=== PATIENT | male | born 1990 | race Caucasian/White ===

== ENCOUNTER 2017-03-24 09:00 | Outpatient (RCR) | payer MEDICAID, SELFPAY ==
--- NOTE | 2017-03-24 10:32 | BH.MDN ---
Multi-Disciplinary Note - Note 60-min Individual Time Started:: 09:02 Date: 03/24/17 Purpose of session/treatment goals addressed:: Purpose of this session was to check-in with Client regarding current symptomology and utilization of healthy coping skills while managing current stressors. Another purpose was to review treatment progress and goals moving forward. Eye Contact:: Good Motor Activity:: Appropriate Appearance:: Casual Speech:: Appropriate Mood:: Euthymic, Anxious Affect:: Congruent Thoughts:: Linear, Logical, No evidence of hallucinations/delusions noted Staff Interventions:: Therapist used open-ended and furthering questions to ellicit information regarding Client current symptoms, stressors, and means for coping. Provided support and encouragement through the use of reflective listening and strength-based responses in order to highlight Client progress and promote confidence. Therapist applied Motivational Interviewing techniques to work with Client on challenging current use of negative thinking patterns and counter productive behaviors through the use of positive reframing and establishing daily goals. Reviewed previously identified healthy coping skills Client may use. Client Response:: Client responded well to session and was engaged throughout. He shared with therapist struggling to adjust to disappointing news that he will not be able to return to the [facility] until next program start date as the program would prefer CLient take additional time to focus on his mental health. Client indicated that this information had been difficult to hear however is glad to finally have a concrete answer regarding whether he would be able to return. Client discussed attempting to refocus his attention on what he needs to do now in order to best support himself but is struggling to take the first steps in doing so. He indicates knowing that he should look for sustainable employment however feels discouraged in doing so as he has a criminal record. CLient responded well to being challenged as to whether his legal history would completely prevent employment and was able to identify that he has been able to secure employment in the past despite having a criminal record. Client disclosed spending a majority of the past week isolating and stated I just don't want to deal with people. He was able to identify that when engaging in isolating behaviors in the past his symtoms of depression increased, ultimately resulting in hospitalization. Client identified not wanting to regress and shared a desire to continue to improve in order to improve his odds of being able to have regular visitation with his son. CLient was willing to work with therapist on identifying ways he may reduce isolation in the area and noted that he would like to reinvolve himself in [employer] as well as actually move forward with plans to volunteer at the [employer]. Client open to seeking employment assistance and was given resource information for the [facility] Assistance Program. Client stated planning to stop by the [facility] following group on this date so as to ensure he follows through with taking steps towards maintaining progress. Risks/Concerns:: No risks or concerns at this time. Client denies active suicidal or homicidal ideation, plan, or intent as of 03/24/17. Client indicates future orientation AEB plans to go to the [facility] following group on this date. Client expresses ability to maintain safety and is aware of and willing to utilize the Crisis resources available should he feel unable to maintain safety at any time. Progress Toward Goals/Plan:: Progress. Client has shown progress in regards to symptoms of depression as he is no longer reporting Suicidal Ideation or passive thoughts of . Client indicates some fleeting thoughts of self harming however expresses no plan or intent of acting on these thoughts. During times in which Client is experiencing increased stress/frustration/disapointment he is increasingly able to identify ways of positively reframing or distracting himself. Client continues to report struggling with isolation and not reaching out to supports however expresses a willingness to get involved with [employer] in attempts to improve number of available supports. Client is recommended to remain in IOP level of care to prevent decompensation, maintain consistant stability, and continue to improve on regular use of identified healthy coping skills. Time Stopped:: 10:07
--- NOTE | 2017-03-24 14:39 | BH.SGPN ---
Service Group Progress Note - Session Psychotherapy Session #2 Date Open:: 03/24/17 Time Started:: 10:15 Time Stopped:: 11:10 Targeted Problem #:: 1 Type of Group:: Illness Management Goal of Group:: The goal of group was to increase understanding of the benefits social support provides in mental health wellness. Another goal was to increase self-awareness of what qualities the individual group members look for in a person. Eye Contact:: Fair Motor Activity:: Appropriate Appearance:: Casual Speech:: Appropriate Mood:: Dysthymic Affect:: Congruent Thoughts:: Linear, Logical, No evidence of hallucinations/delusions noted Staff Interventions:: Therapist led an experiential activity that demonstrated the need of supports. Processed activity and led discussion about quote. Therapist led group discussion about importance of social supports. Identified what qualities a positive support person would have. Support was provided through reflective listening and giving feedback. Psychotherapy Session #3 Date Open:: 03/24/17 Time Started:: 11:20 Time Stopped:: 12:20 Targeted Problem #:: 1 Type of Group:: Functional Skills Development Goal of Group:: The goal of group was to increase understanding of the different types of social support. Another goal was to identify one type of support the clients desire and establish one small step towards achieving that support. Eye Contact:: Fair Motor Activity:: Appropriate Appearance:: Casual Speech:: Appropriate Mood:: Dysthymic Affect:: Congruent Thoughts:: Linear, Logical, No evidence of hallucinations/delusions noted Staff Interventions:: Therapist facilitated group discussion on the different types of social support and importance of each type of support. A worksheet titled Plan for Seeking Support was utilized to give clients direction in identifying which type of support they desired and identifying the first small step towards the desired support.
--- NOTE | 2017-03-24 16:43 | BH.COMM ---
Communication Note - Communication with Client Communication Note: Client called to share with therapist successfully attending several groups at the [facility] today. He indicated feeling glad that he had done so and expressed plans to attend on a later date. Client additionally informed therapist that he had forgetten about another appointment scheduled for tomorrow and will no longer be able to attend group however is still planning to attend on Wednesday.
--- NOTE | 2017-03-26 14:14 | BH.SGPN_ITS ---
Service Group Progress Note - Session Psychotherapy Session #2 Date Open:: 03/26/17 - 7 group members Time Started:: 10:20 Time Stopped:: 11:15 Targeted Problem #:: 1 Type of Group:: Illness Management Goal of Group:: To identify within self what is keeping client trapped from achieving better quality of life. Client Response/Progress/Benefit:: Client responded well to session, active participant. Client connected with the quote sharing we put up our own cannon by shutting people out. Client identified barriers that keep people stuck such as negative thoughts, depression, boundaries, and low self-esteem. Client reported negative thinking patterns impact emotions and behaviors. Client identified thoughts that keep him stuck to be I'm not a good enough father, what's the point, and people wouldn't miss me if I was gone. Client appeared to benefit from gaining awareness of how his thoughts exacerbate depression and keep client in an unhelpful maintenance cycle. Client progressing with gaining awareness of how his negative thoughts keep client stuck in an unhelpful maintenance cycle, but continues to report difficulty in challenging thoughts by himself. Eye Contact:: Good Motor Activity:: Appropriate Appearance:: Casual Speech:: Appropriate Mood:: Dysthymic Affect:: Other - incongruent as shown by client's report of a depressed mood from not seeing his children, but smiling while expressing this. Thoughts:: Linear, No evidence of hallucinations/delusions noted Staff Interventions:: Therapist facilitated discussion about what is keeping client?s stuck from moving toward mental wellness. Therapist assisted clients in connecting how thoughts can contribute to keeping clients stuck. Therapist led discussion about barriers clients face from making changes to help one move forward. Therapist provided support by using active listening and giving feedback to others.
--- NOTE | 2017-03-26 14:38 | BH.SGPN ---
Service Group Progress Note - Session Psychotherapy Session #1 Date Open:: 03/26/17 Time Started:: 09:08 Time Stopped:: 10:16 Targeted Problem #:: 1 Type of Group:: Process - 7 Participants Goal of Group:: The goal of today's group was to check-in with client's mood, stressors, and positives, review homework, and to introduce the topic of the day. Client Response/Progress/Benefit:: Client entered session alert and attentive. Client spoke about attending [employer] and playing board games. Client shared that his piano case maker told him he wouldnt be able to see his son for the next couple of weeks and will also need to be drug-tested. Client was upset by this and also shared that he will be seeing his ex- in court next week in [place] and reports, I dont want to go. I know my boundaries with her. Client shared he may go to an escape room with his family this weekend but then stated, I probably wont feel like it. Client identify one positive thing she will do for himself is cook a meal. Client indicated his emotion as nervous and benefitted from group by venting frustrations with peers. Progress noted in clients increased insight. Continued treatment necessary to reduce anxiety levels. Eye Contact:: Good Motor Activity:: Appropriate Appearance:: Casual Speech:: Appropriate Mood:: Euthymic Affect:: Full Thoughts:: Linear, Logical, No evidence of hallucinations/delusions noted Staff Interventions:: Therapist used open-ended questions to elicit information about client's current stressors and mood. Therapist was supportive by using active listening and reflection. Psychotherapy Session #3 Date Open:: 03/26/17 Time Started:: 11:30 Time Stopped:: 12:20 Targeted Problem #:: 1 Type of Group:: Functional Skills Development - 7 Participants Goal of Group:: To identify what client can do to release self from those things that are trapping them to find more peace and quality in everyday life. Client Response/Progress/Benefit:: Client was alert, attentive, and willing to engage in group. Client was an active participant. Client identified a negative thought that is impacting him as, Im a bad parent. Client participated in group activity in which he used the maintenance cycle worksheet to explore how this thought increases symptoms of depression and anxiety. Client reported this as a realistic thoughts as he reports, I could be a bad dad, but it is unrealistic as client uses, negative thinking, doesnt eat, isolates, feels more depressed and suicidal thoughts begin. Client created an alternative thought of, I will make the most out of being a better father. Client stated when he thinks this way it decrease isolation, loneliness, and increases intake of food. Client benefitted from group challenging negative thought patterns that increase isolation and depression. Progress noted in clients awareness of negative thoughts but continued treatment necessary to challenge and incorporate coping skills for negative thinking. Eye Contact:: Good Motor Activity:: Appropriate Appearance:: Casual Speech:: Appropriate Mood:: Euthymic Affect:: Full Thoughts:: Linear, Logical, No evidence of hallucinations/delusions noted Staff Interventions:: Therapist used examples of maintenance cycles to help clients gain awareness of how negative thinking is keeping clients stuck. Therapist facilitated discussion about different strategies for challenging negative thoughts, assisting clients in connecting how the strategies could benefit them. Therapist provided clients with homework to focus on one thing that is keeping them stuck and identify small steps to start moving towards mental wellness.
--- NOTE | 2017-03-29 08:52 | BH.TPR ---
Treatment Plan Review Date of Admission:: 03/08/17 Date of Treatment Plan Review:: 03/29/17
--- NOTE | 2017-03-30 14:40 | BH.SGPN_ITS ---
Service Group Progress Note - Session Psychotherapy Session #1 Date Open:: 03/26/17 Time Started:: 09:08 Time Stopped:: 10:16 Targeted Problem #:: 1 Type of Group:: Process - 7 Participants Goal of Group:: The goal of today's group was to check-in with client's mood, stressors, and positives, review homework, and to introduce the topic of the day. Client Response/Progress/Benefit:: Client entered session alert and attentive. Client spoke about attending [employer] and playing board games. Client shared that his caseworker protective services told him he wouldn?t be able to see his son for the next couple of weeks and will also need to be drug-tested. Client was upset by this and also shared that he will be seeing his ex- in court next week in [place] and reports, ?I don?t want to go. I know my boundaries with her.? Client shared he may go to an escape room with his family this weekend but then stated, ?I probably won?t feel like it.? Client identify one positive thing she will do for himself is cook a meal. Client indicated his emotion as nervous and benefitted from group by venting frustrations with peers. Progress noted in clients increased insight. Continued treatment necessary to reduce anxiety levels. Eye Contact:: Good Motor Activity:: Appropriate Appearance:: Casual Speech:: Appropriate Mood:: Euthymic Affect:: Full Thoughts:: Linear, Logical, No evidence of hallucinations/delusions noted Staff Interventions:: Therapist used open-ended questions to elicit information about client's current stressors and mood. Therapist was supportive by using active listening and reflection. Psychotherapy Session #3 Date Open:: 03/26/17 Time Started:: 11:30 Time Stopped:: 12:20 Targeted Problem #:: 1 Type of Group:: Functional Skills Development - 7 Participants Goal of Group:: To identify what client can do to release self from those things that are trapping them to find more peace and quality in everyday life. Client Response/Progress/Benefit:: Client was alert, attentive, and willing to engage in group. Client was an active participant. Client identified a negative thought that is impacting him as, ?I?m a bad parent.? Client participated in group activity in which he used the maintenance cycle worksheet to explore how this thought increases symptoms of depression and anxiety. Client reported this as a realistic thoughts as he reports, ?I could be a bad dad,? but it is unrealistic as client uses, ?negative thinking, doesn?t eat, isolates, feels more depressed and suicidal thoughts begin.? Client created an alternative thought of, ?I will make the most out of being a better father.? Client stated when he thinks this way it decrease isolation, loneliness, and increases intake of food. Client benefitted from group challenging negative thought patterns that increase isolation and depression. Progress noted in client?s awareness of negative thoughts but continued treatment necessary to challenge and incorporate coping skills for negative thinking. Eye Contact:: Good Motor Activity:: Appropriate Appearance:: Casual Speech:: Appropriate Mood:: Euthymic Affect:: Full Thoughts:: Linear, Logical, No evidence of hallucinations/delusions noted Staff Interventions:: Therapist used examples of maintenance cycles to help clients gain awareness of how negative thinking is keeping clients stuck. Therapist facilitated discussion about different strategies for challenging negative thoughts, assisting clients in connecting how the strategies could benefit them. Therapist provided clients with homework to focus on one thing that is keeping them stuck and identify small steps to start moving towards mental wellness.
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
--- NOTE | 2017-03-30 15:12 | BH.SGPN_ITS ---
Service Group Progress Note - Session Psychotherapy Session #3 Date Open:: 03/30/17 - 5 group members Time Started:: 11:07 Time Stopped:: 12:01 Targeted Problem #:: 1 Type of Group:: Functional Skills Development Goal of Group:: To identify steps to solving a personal problem and increase awareness to those barriers that impedes the problem solving process. Client Response/Progress/Benefit:: Client responded somewhat well to session as client participated in discussion, but appeared reluctant to try problem- solving strategies as evidenced by his report of I know nothing will help. Client identified having to do a [id number] with my ex- as a personal problem client would like to solve. Client identified barriers as mood instability, self-doubt, blowing up, and past bad experiences. Client reported he struggled with identifying strategies to solve his problem as client reported belief nothing will help. With therapist and group elicitation and challenging, client recognized that he can ask for support from the police at the courts, focus on what is in his control, and remind himself of reasons to remain calm. Client appeared to benefit from identifying barriers and strategies to overcome his problems. However, client continues to have all or nothing thinking and poor judgement which may impact his ability to regulate emotions. Eye Contact:: Fair Motor Activity:: Appropriate Appearance:: Casual Speech:: Rambling Mood:: Anxious, Dysthymic Affect:: Other - incongruent as evidenced by client reporting anxiety, frustration, and depression, but smiling while communicating concerns with group. Thoughts:: Linear, No evidence of hallucinations/delusions noted Staff Interventions:: Therapist provided group members with a worksheet in which the group members were instructed to identify a problem and steps need to take to solve that problem. Then therapist instructed group members to identify those barriers that get in the way of solving the problem. Therapist led the processing of the activity. Therapist provided support by using active listening and providing feedback.
--- NOTE | 2017-03-31 09:06 | BH.COMM ---
Communication Note - Communication with Client Communication Note: Scheduled for IOP session on this date. Was not in attendance and this therapist attempted to contact client in order to reschedule in check for safety. Client not answer and phone was unable to take a message. Therapist will attempt to follow-up.
--- NOTE | 2017-03-31 15:51 | BH.COMM ---
Communication Note - Communication with Client Communication Note: This therapist attempted to follow up as client was not in attendance during today's IOP group did not answer his phone when therapist initially attempted to contact him. Therapist attempted to follow up later in the day and was unable to reach client at approximately 1300 and unable to leave a message. Attempted to reach out to client and client's emergency contact at 14:45 however again did not reach anyone. Therapist left a voice message for Client emergency contact requesting a return phone call reguarding client safety by approximately 1600. Neither client nor his emergency contact, client's father, returned this therapist's calls. Therapist contacted dispatch to preform a wellness check. Any additional follow-up will be documented.
--- NOTE | 2017-03-31 16:20 | BH.COMM_ITS ---
Communication Note - Communication with Client Communication Note: Client's father called back to ensure client safety at approximately 1620. Client will be in attendance for group tomorrow. Follow- up session will be requested with client.
--- NOTE | 2017-04-01 10:21 | BH.COMM ---
Communication Note - Communication with Client Communication Note: Client arrieved for IOP group at approximately 8:45am. Client asked to speak with this therapist and indicated he had run out of minutes and was unable to make phone calls previous date which is why he did not return therapist's attempts to contact CLient. Client indicates being safe previous date and did not attend group as he had recieved a text from an unknown number stating that group had been cancelled. Client reports isolating and ruminating on the supervised visistation scheduled for this date with [facility] [place] as his ex- will also be in attendance. Client indicates feeling increasingly anxious and unable to handle stress related to seeing his ex-. Client disclosed having taken multiple tylenol prior to arriving for group on this date. Client originally reluctant to disclose amount consumed stating I don't know why I did it..I wasn't thinking. Client indicated wanting to go to the E.R. as he wasn't feeling well. Client ultimately shared Let's just say I took 10. When asked about intent related to taking the medication, Client discussed fears of seeing his ex- and not being able to handle it. Client insisted that he did not consume the medication with suicidal intent and noted believing that if he took the medication he would have to go to the E.R. and would avoid seeing his ex-. Client went on to express regret in consuming the medication stating that I know this won't help with getting me to see my kids and I know I shouldn't have done it. I need to stop doing these things. Client future oriented and describes wanting to work more intently on improving use of healthy coping skills to prevent future harmful impulsive behaviors. Therapist escorted Client to E.R. to be evaluated further by a physician where he disclosed actually consuming closer to 20 tylenol, again insisting that this was not with suicide intent. Client agreeable to follow up with therapist should he be medically dischared from the E.R. He indicates an ability to maintain safety for the remainder of the day, again denying any Suicidal Ideation, plan, or intent. Client agreeable to therapist contacting his Uncle to follow up with him and further ensure safety. Client additionally aware that a safety check will be preformed in the event that Client is released from the E.R. and fails to follow up with this therapist.
--- NOTE | 2017-04-01 11:55 | BH.COMM ---
Communication Note - Communication with Client Communication Note: Per the agreed-upon safety plan created with client this morning therapist contacted client's uncle to provide update information regarding client recent admission to ER due to Tylenol overdose. Therapist discussed plan for client safety if client is medically discharged from the ER following further physician evaluation. Client's uncle is in agreement with safety plan and willing to check in with client this evening if discharged in order to ensure client ability to maintain safety.
--- NOTE | 2017-04-01 12:21 | BH.MDN ---
Multi-Disciplinary Note - Note 30-min Individual Time Started:: 08:45 Date: 04/01/17 Purpose of session/treatment goals addressed:: Purpose of this session was to check-in with Client following a no show for group on the previous date. Another purpose was assist Client with crisis management given Client increase in anxiety, assess Client for Safety given Client disclosure of use of unhealthy coping mechanisms this morning, and complete a Safety Plan. Eye Contact:: Good Motor Activity:: Appropriate Appearance:: Casual Speech:: Appropriate Mood:: Euthymic, Anxious Affect:: Full - Inconruent with Client statements AEB CLient laughing and smiling as he discussed experiencing extreme stress and anxiety and recent consumption of large quantity of tylenol prior to arrival to [facility]. Thoughts:: Linear, Logical, No evidence of hallucinations/delusions noted Staff Interventions:: Therapist asked open-ended and furthering questions in order to ellicit additional information regarding CLient current symptoms, as well as intention and feelings related to Client's disclosure of injesting maltiple tylenol before leaving for IOP program. Provided Client with a nonjudgemental and supportive environment by using reflective listening and empathic responses as Client vented frustrations and concerns. Aided Client in identifying consequences related to current stress response and potential healthy alternatives he may use when in distress. Completed a lethality and risk assessment with Client. Escorted Client to [facility] E.R. Dept. for further physician evalaution. Coordinated with Client, E.R. physician, and Client's Uncle whom he identified as a support person to develop and complete a Safety plan following hospitalization. Client Response:: Client arrieved for IOP group at approximately 8:45am. Client asked to speak with this therapist and indicated he had run out of minutes on his phone and was unable to make phone calls on previous date which is why he did not return therapist's attempts to contact CLient. Client indicates being safe on previous date and did not attend group as he had recieved a text from an unknown number stating that group had been cancelled. Client reports isolating and ruminating on the supervised visitation appount scheduled for this date with [facility] as his ex- will also be in attendance. Client indicates feeling increasingly anxious and unable to handle stress related to seeing his ex-. Client disclosed having taken multiple tylenol prior to arriving for group on this date. Client originally reluctant to disclose amount consumed stating I don't know why I did it..I wasn't thinking. Client indicated wanting to go to the E.R. as he wasn't feeling well. Client ultimately shared Let's just say I took 10. When asked about intent related to taking the medication, Client discussed fears of seeing his ex- and not being able to handle it. Client insisted that he did not consume the medication with suicidal intent and noted believing that if he took the medication he would have to go to the E.R. which would prevent him from seeing his ex-. Client went on to express regret in consuming the medication stating that I know this won't help with getting me to see my kids and I know I shouldn't have done it. I need to stop doing these things. Client future oriented and describes wanting to work more intently on improving use of healthy coping skills to prevent future harmful impulsive behaviors. At this time Client has not been deemed as an acute risk for Suicide given denial of SI, plan, or intent, ability to safety plan with this therapist and willingness to follow up, Client is future oriented and indicates plans to go out to [place] dinner with his family tomorrow night, Client has supports in the area and describes his children as major modivations for living, Client use of medication such as tylenol to self medicate for increased anxiety is congruent with historical patterns of behavior when confronted with new stressors, Client forthcoming regarding medication injestion and expresses regret. Additionally Client indicates plans to use coping skills such as coloring, reading, and spending time with his uncle this evening in order to prevent isolation he expresses willingness to dispose of any remaining Tylenol in the home. Client in agreement for Therapist to escort Client to E.R. to be evaluated further by a physician where he disclosed actually consuming closer to 20 tylenol, again insisting that this was not with suicide intent. Client agreeable to follow up with therapist should he be medically dischared from the E.R. He indicates an ability to maintain safety for the remainder of the day, again denying any Suicidal Ideation, plan, or intent. Client agreeable to therapist contacting his Uncle to follow up with him and further ensure safety. Client additionally aware that a safety check will be preformed in the event that Client is released from the E.R. and fails to follow up with this therapist. Risks/Concerns:: Client currently at potential medical risk per Client report of consuming a large quantity of Tylenol prior to coming to group on this date. Client was escorted to [facility] E.R. Department to be further evaluated by a physician. At this time Client is denying overdose as a result of self harming intention and denied suicidal ideation, plan, or intent on several occasions throughout session. Client not found to be an acute risk at this time given various protective factors including willingness to Safety plan and reach out to a support person to prevent isolation, denial of any SI, plan, or intent on this date, Client is future oriented indicating looking forward to going out to dinner with his family tomorrow evening, Client able to identify motivations to live including his children and setting a good example for them. Client willing to dispose of any remaining tylenol in the home to prevent future risk of self medicating during times of distress. Client willing to call and check-in prior to end of day as well as to review safety plan. Client indicates motivation to improve use of skills in order to prevent recurrance of impulsive and potentially dangerous means of coping moving forward with treatment. Follow-up will be made with Client identified support person and [employer], as well as Client outpatient provider in order to best coordinate care. Progress Toward Goals/Plan:: Regression. Client had done well to maintain safety and stability prior to this date. He had consistently denied any SI/HI since admitting to [facility] level of care and Client has been expressing decreased sx of depression including feeling increasingly hopeful about his potential to begin formulating a relationship with his children. Per Client report on this date he has been isolating for the past two days despite knowing past harmful consequences of isolative behaviors on his mental health. Client additionally reports struggling to use healthy means of coping during times of distress as client often takes part in making assumptions or predicting the future and then engages in self sabbotaging behaviors such as consuming alcohol, avoiding others, ruminating, and not communicating his needs or challenging negative thoughts. CLient indicates insight into this pattern of behaviors but it resistant to implement healthy skills learned to decrease and replace use of behaviors counterintuitive to managing mental health symptoms. Client continues to use Crisis resources such as the Crisis Hotline or E.R. as the only means of managing stressors and resists attempting to use other identified coping means or reach out to his supports prior to crisis. Client reccommended continued IOP tx to prevent decompinsation and maintain stability. Current plan is to continue to work with Client on ways to maintain safety by improving use of healthy coping skills when faced with stressors, challenging use of cognitive distortions such as catasrophizing or predicting the future, and identifying and engaging in activities that may aid in increasing social supports. Time Stopped:: 09:15
--- NOTE | 2017-04-01 13:26 | BH.MDN_ITS ---
Multi-Disciplinary Note - Note 30-min Individual Time Started:: 08:45 Date: 04/01/17 Purpose of session/treatment goals addressed:: Purpose of this session was to check-in with Client following a no show for group on the previous date. Another purpose was assist Client with crisis management given Client increase in anxiety, assess Client for Safety given Client disclosure of use of unhealthy coping mechanisms this morning, and complete a Safety Plan. Eye Contact:: Good Motor Activity:: Appropriate Appearance:: Casual Speech:: Appropriate Mood:: Euthymic, Anxious Affect:: Full - Inconruent with Client statements AEB CLient laughing and smiling as he discussed experiencing extreme stress and anxiety and recent consumption of large quantity of tylenol prior to arrival to [facility]. Thoughts:: Linear, Logical, No evidence of hallucinations/delusions noted Staff Interventions:: Therapist asked open-ended and furthering questions in order to ellicit additional information regarding CLient current symptoms, as well as intention and feelings related to Client's disclosure of injesting maltiple tylenol before leaving for IOP program. Provided Client with a nonjudgemental and supportive environment by using reflective listening and empathic responses as Client vented frustrations and concerns. Aided Client in identifying consequences related to current stress response and potential healthy alternatives he may use when in distress. Completed a lethality and risk assessment with Client. Escorted Client to [facility] E.R. Dept. for further physician evalaution. Coordinated with Client, E.R. physician, and Client's Uncle whom he identified as a support person to develop and complete a Safety plan following hospitalization. Client Response:: Client arrieved for IOP group at approximately 8:45am. Client asked to speak with this therapist and indicated he had run out of minutes on his phone and was unable to make phone calls on previous date which is why he did not return therapist's attempts to contact CLient. Client indicates being safe on previous date and did not attend group as he had recieved a text from an unknown number stating that group had been cancelled. Client reports isolating and ruminating on the supervised visitation appount scheduled for this date with [facility] as his ex- will also be in attendance. Client indicates feeling increasingly anxious and unable to handle stress related to seeing his ex-. Client disclosed having taken multiple tylenol prior to arriving for group on this date. Client originally reluctant to disclose amount consumed stating I don't know why I did it..I wasn't thinking. Client indicated wanting to go to the E.R. as he wasn't feeling well. Client ultimately shared Let's just say I took 10. When asked about intent related to taking the medication, Client discussed fears of seeing his ex - and not being able to handle it. Client insisted that he did not consume the medication with suicidal intent and noted believing that if he took the medication he would have to go to the E.R. which would prevent him from seeing his ex-. Client went on to express regret in consuming the medication stating that I know this won't help with getting me to see my kids and I know I shouldn't have done it. I need to stop doing these things. Client future oriented and describes wanting to work more intently on improving use of healthy coping skills to prevent future harmful impulsive behaviors. At this time Client has not been deemed as an acute risk for Suicide given denial of SI , plan, or intent, ability to safety plan with this therapist and willingness to follow up, Client is future oriented and indicates plans to go out to [place] dinner with his family tomorrow night, Client has supports in the area and describes his children as major modivations for living, Client use of medication such as tylenol to self medicate for increased anxiety is congruent with historical patterns of behavior when confronted with new stressors, Client forthcoming regarding medication injestion and expresses regret. Additionally Client indicates plans to use coping skills such as coloring, reading, and spending time with his uncle this evening in order to prevent isolation he expresses willingness to dispose of any remaining Tylenol in the home. Client in agreement for Therapist to escort Client to E.R. to be evaluated further by a physician where he disclosed actually consuming closer to 20 tylenol, again insisting that this was not with suicide intent. Client agreeable to follow up with therapist should he be medically dischared from the E.R. He indicates an ability to maintain safety for the remainder of the day, again denying any Suicidal Ideation, plan, or intent. Client agreeable to therapist contacting his Uncle to follow up with him and further ensure safety. Client additionally aware that a safety check will be preformed in the event that Client is released from the E.R. and fails to follow up with this therapist. Risks/Concerns:: Client currently at potential medical risk per Client report of consuming a large quantity of Tylenol prior to coming to group on this date. Client was escorted to [facility] E.R. Department to be further evaluated by a physician. At this time Client is denying overdose as a result of self harming intention and denied suicidal ideation, plan, or intent on several occasions throughout session. Client not found to be an acute risk at this time given various protective factors including willingness to Safety plan and reach out to a support person to prevent isolation, denial of any SI, plan, or intent on this date, Client is future oriented indicating looking forward to going out to dinner with his family tomorrow evening, Client able to identify motivations to live including his children and setting a good example for them. Client willing to dispose of any remaining tylenol in the home to prevent future risk of self medicating during times of distress. Client willing to call and check-in prior to end of day as well as to review safety plan. Client indicates motivation to improve use of skills in order to prevent recurrance of impulsive and potentially dangerous means of coping moving forward with treatment. Follow-up will be made with Client identified support person and Budget Consultant, as well as Client outpatient provider in order to best coordinate care. Progress Toward Goals/Plan:: Regression. Client had done well to maintain safety and stability prior to this date. He had consistently denied any SI/HI since admitting to [facility] level of care and Client has been expressing decreased sx of depression including feeling increasingly hopeful about his potential to begin formulating a relationship with his children. Per Client report on this date he has been isolating for the past two days despite knowing past harmful consequences of isolative behaviors on his mental health. Client additionally reports struggling to use healthy means of coping during times of distress as client often takes part in making assumptions or predicting the future and then engages in self sabbotaging behaviors such as consuming alcohol, avoiding others , ruminating, and not communicating his needs or challenging negative thoughts. CLient indicates insight into this pattern of behaviors but it resistant to implement healthy skills learned to decrease and replace use of behaviors counterintuitive to managing mental health symptoms. Client continues to use Crisis resources such as the Crisis Hotline or E.R. as the only means of managing stressors and resists attempting to use other identified coping means or reach out to his supports prior to crisis. Client reccommended continued IOP tx to prevent decompinsation and maintain stability. Current plan is to continue to work with Client on ways to maintain safety by improving use of healthy coping skills when faced with stressors, challenging use of cognitive distortions such as catasrophizing or predicting the future, and identifying and engaging in activities that may aid in increasing social supports. Time Stopped:: 09:15
--- NOTE | 2017-04-01 15:18 | BH.COMM ---
Communication Note - Communication with Client Communication Note: Per the agreed-upon safety plan created with client this morning therapist contacted client's Children Sercices Agronomy Research Manager through [facility] Janice SANCHEZ, to inform of Client inability to keep appointment set for this date. sales and marketing manager also contacted to provide current progress updates for CLient for purposes of coordination of care.
--- NOTE | 2017-04-01 15:22 | BH.COMM_ITS ---
Communication Note - Communication with Client Communication Note: Per the agreed-upon safety plan created with client this morning therapist contacted client's Children Sercices Sales Operations Director through [facility] Janice SANCHEZ, to inform of Client inability to keep appointment set for this date. manager financial planning also contacted to provide current progress updates for CLient for purposes of coordination of care.
--- NOTE | 2017-04-02 14:40 | BH.SGPN ---
Service Group Progress Note - Session Psychotherapy Session #2 Date Open:: 04/02/17 Time Started:: 10:00 Time Stopped:: 11:00 Targeted Problem #:: 1 Type of Group:: Illness Management Goal of Group:: To increase understanding of a crisis and improve clients awareness of how he/she feels when in a crisis. Eye Contact:: Fair Motor Activity:: Appropriate Appearance:: Casual Speech:: Appropriate Mood:: Dysthymic Affect:: Congruent, Other - at times inappropriate as shown by pt smiling when talking about serious topic Thoughts:: Linear, Logical, No evidence of hallucinations/delusions noted Staff Interventions:: Therapist facilitated group discussion about defining a crisis and specifying various events that are considered a crisis. Therapist led group in an activity in which group members had to identify their thoughts and emotions attached to being in a crisis. Therapist provided support by using active listening and providing feedback. Psychotherapy Session #3 Date Open:: 04/02/17 Time Started:: 11:10 Time Stopped:: 12:00 Targeted Problem #:: 1 Type of Group:: Functional Skills Development Goal of Group:: To increase awareness of warning signs before a crisis and identify interventions/coping strategies that would help clients proactively manage potential crises. Eye Contact:: Good Motor Activity:: Appropriate Appearance:: Casual Speech:: Appropriate Mood:: Dysthymic Affect:: Congruent Thoughts:: Linear, Logical, No evidence of hallucinations/delusions noted Staff Interventions:: Therapist led the group in discussion about identifying personal warning signs before a crisis and importance of being aware of those signs.Therapist provided the group with various types of items and asked each group member to select five items that represent something that would be helpful in managing their warning signs of a crisis. Therapist facilitated group processing of the crisis emergency kits each group member created. Therapist used open-ended questions to encourage elaboration of each item chosen for their kit. Therapist helped clients connect how the crisis emergency kit could help be a crisis prevention tool.
--- NOTE | 2017-04-05 12:07 | BH.COMM ---
Communication Note - Communication with Client Communication Note: Client called and left a voicemail canceling appointment to attend group for the day. Client indicated having another counseling appointment with his outpatient provider and indicated plans to attend group on the following day.
--- NOTE | 2017-04-07 14:20 | BH.SGPN_ITS ---
Service Group Progress Note - Session Psychotherapy Session #2 Date Open:: 04/07/17 - 10 group members Time Started:: 10:20 Time Stopped:: 11:15 Targeted Problem #:: 1 Type of Group:: Illness Management Goal of Group:: To increase understanding of resilience and identify the factors that contribute to building resilience. Client Response/Progress/Benefit:: Client responded well to session, active participant. Client processed quote with peers and shared if you are rigid you' ll break. Client described breaking as being in crisis or staying stuck. Client helped the group identify factors of resiliency such as using supports and working towards his goals. Client stated he has been trying to utilize professional and personal supports to increase resiliency. Client appeared to benefit from gaining awareness of resiliency factors. Client seems to be progressing as shown by his report of reduced impulsive decisions, but can continue to benefit from challenging all or nothing thinking. Eye Contact:: Good Motor Activity:: Appropriate Appearance:: Casual Speech:: Appropriate Mood:: Euthymic, Anxious Affect:: Full, Other Thoughts:: Linear, No evidence of hallucinations/delusions noted Staff Interventions:: Therapist led group in an activity that would induce a chaotic environment and used the activity as a tool in discussing the various stressors people are faced with each day. Therapist facilitated group discussion about resilience and explained the factors of building resilience. Therapist led discussion about factors that contribute to resilience. Therapist provided support by using active listening and providing feedback.
--- NOTE | 2017-04-07 16:13 | BH.SGPN ---
Service Group Progress Note - Session Psychotherapy Session #1 Date Open:: 04/07/17 Time Started:: 09:09 Time Stopped:: 10:15 Targeted Problem #:: 1 Type of Group:: Process - 10 participants
--- NOTE | 2017-04-07 16:25 | BH.MDN_ITS ---
Multi-Disciplinary Note - Note 60-min Individual Time Started:: 11:36 Date: 04/07/17 Purpose of session/treatment goals addressed:: The purpose of this session was to check-in with Client regarding current symptoms and assess for safety and stability. Another purpose was to discuss Client's current stressors as well as provide psychoeducation regarding problem solving approaches and stress management techniques Client may utilize during an upcoming visitation session with his son. Eye Contact:: Good Motor Activity:: Restless - AEB Client shaking his leg and fidgeting with papers in his hands. Appearance:: Casual Speech:: Appropriate Mood:: Euthymic, Anxious Affect:: Congruent Thoughts:: Linear, Logical, No evidence of hallucinations/delusions noted Staff Interventions:: Therapist used open-ended questions to gather information on client's current symptoms and stressors. Therapist provided emotional support and active listening as client expressed concerns about managing his emotions and fears related to an upcoming visitation session at [facility] with his son. Therapist provided psychoeducation regarding common problem solving approaches and techniques found to be effective and worked with Client on applying problem solving skills to his current stressors. Used CBT approaches to aid Client in identifying and determining coping strategies most appropriate for supporting CLient and easing anxieties. Assessed for safety given Client recent use of harmful coping mechanisms. Client Response:: Client responded well to session and appeared engage throughout, though had difficult concentrating at the end as client indicated I still don't quite feel myself referring to recovering from recent hospitalization in which client ingested several Tylenol. Client indicated being open to session and reports wanting to discuss anxieties related to an upcoming visitation session with his son at [facility] job and family [facility] to occur this coming . Client noted that having the visitation last week was what had triggered his unhealthy means of coping and resulted in hospitalization, thus resulting in client increased anxiety regarding this upcoming visit. Client denies current suicidal ideation or self harming thoughts at this time. He reflected on previously being fearful that his estranged would be in attendance; however, is now aware that she will not be present during any of the visitation sessions which has caused some decrease in overall anxiety symptoms. Client noted that although he knows logically his would not be present he still cannot help but have negative thoughts related to the visit. Client indicated thinking what if she shows up or what if I have to see her mother. He responded well to challenging these thoughts with therapist and reviewing evidence for and against them. Client indicated that reminding himself that I am doing this for my son and that his estranged 's family is on his side will be helpful reducing anxieties. Therapist reviewed problem solving strategies client may utilize in times of increased anxiety or when struggling to manage stressful situations. Client responded well and appeared to benefit from breaking down the problem of his upcoming visit. He was able to identify various possible options for how he could manage potentially having to interact with his former [id number]. He then worked with this therapist on reviewing the pros and cons of each option ultimately identifying the option of reaching out to support from professionals at the agency as most beneficial and likely for client to follow through with. Client noted that taking time to work through his anxiety and problem solve aided in reducing overall symptoms of stress and help to rationalize and challenge client's negative thoughts. However, client indicated continued difficulty in completely alleviating overall anxieties. Client discussed that he often catastrophizes and isolates during times of increased stress. He reviewed this management strategies with therapist identified that taking time to color and going to the [employer] on this date would be beneficial in calming client and preparing him for the visitation occurring tomorrow. Risks/Concerns:: No risks or concerns at this time. Client denies any suicidal or self harming ideation, plan, or intent as of 04/07/2017. Client denies any access to lethal means and indicates having no medication in the home. Client future oriented as he discussed plans to attend an upcoming visitation at [facility] job and family services. Identifies his son as motivation to live and maintain gains made. Progress Toward Goals/Plan:: Some progress made. Client continues to struggle with self sabotaging behaviors however did well to challenge some of these negative thoughts on this date. Client was able to work with therapist on creating a problem solving plan in managing upcoming stressors. Client reports ongoing anxiety and rumination regarding stress related to visitation with the sons, legal matters with this estranged , and unemployment. Client is doing well to reach out to supports of the [employer] and the counseling center in order to manage the stressors. Client continues to deny suicidal ideation for the past week and indicates an ability to maintain safety; however, reports feeling unsafe due to ruminating on past attempts. Client often falls into use of dichotomous thinking and catastrophizing when upset which leads client to make impulsive decisions. Current plan is to continue client with IOP program in order to maintain stability, continue to work on emotion regulation, and assist client in consistent use of thought challenging and healthy coping skills Time Stopped:: 12:30
--- NOTE | 2017-04-08 14:42 | BH.SGPN ---
Service Group Progress Note - Session Psychotherapy Session #2 Date Open:: 04/08/17 Time Started:: 10:15 Time Stopped:: 11:10 Targeted Problem #:: 1 Type of Group:: Illness Management Goal of Group:: The goal of group was to increase understanding of goals and goal setting and practice a method of goal setting. Eye Contact:: Good Motor Activity:: Appropriate Appearance:: Casual Speech:: Appropriate Mood:: Dysthymic Affect:: Congruent Thoughts:: Linear, Logical, No evidence of hallucinations/delusions noted Staff Interventions:: Therapist facilitated group discussion about goals and goal setting. Therapist taught group the acronym SMART (Specific, Measurable, Achievable, Realistic, Timely) as a tool to help with goal setting. Therapist led the group in an activity to be used as a method of practicing goal setting. Therapist guided the group through the SMART acronym as group was participating in activity. Therapist assisted group members with connecting the importance of making small, realistic goals. Psychotherapy Session #3 Date Open:: 04/08/17 Time Started:: 11:20 Time Stopped:: 12:15 Targeted Problem #:: 1 Type of Group:: Functional Skills Development Goal of Group:: The goal of group was to identify a goal for the weekend, explore the potential barriers to achieving that set goal, and identify strategies to overcome barriers. Eye Contact:: Good Motor Activity:: Appropriate Appearance:: Casual Speech:: Appropriate Mood:: Dysthymic Affect:: Congruent Thoughts:: Linear, Logical, No evidence of hallucinations/delusions noted Staff Interventions:: Therapist facilitated group activity in which group members identified a goal to work on over the next week. Therapist asked group members to identify barriers to achieving identified goal and strategies to help them achieve their goal. Therapist led group in processing their goal maps, assisting clients with establishing SMART goals. Therapist provided support by using reflective listening.
--- NOTE | 2017-04-09 11:27 | BH.SGPN_ITS ---
Service Group Progress Note - Session Psychotherapy Session #1 Date Open:: 04/09/17 Time Started:: 09:02 Time Stopped:: 10:05 Targeted Problem #:: 1 Type of Group:: Process - 6 Participants Goal of Group:: The goal of today's group was to check-in with client's mood, stressors, and positives, review homework, and to introduce the topic of the day. Client Response/Progress/Benefit:: Client entered group alert, attentive, and willing to engage. Client reported, ?my nerves are shot from yesterday.? Client shared that he received news that at his court date his ex- is ordered to be there. Client reporting being able to remain calm and contacted [employer] for support and was able to keep focused. Client indicated his emotion as stressed due to the court date and states, ?I haven?t been able to wrap my head around seeing her yet.? Client benefitted from group by venting his concerns with peers and identifying ways to manage the stressor. Progress noted in client?s ability to manage the situation using healthy coping skills. Continued treatment necessary to maintain use of coping skills and develop a strategies to use during court date. Eye Contact:: Fair Motor Activity:: Appropriate Appearance:: Casual Speech:: Appropriate Mood:: Euthymic, Anxious Affect:: Full Thoughts:: Linear, Logical, No evidence of hallucinations/delusions noted Staff Interventions:: Therapist used open-ended questions to elicit information about client's current stressors and mood. Therapist was supportive by using active listening and reflection.
--- NOTE | 2017-04-09 14:46 | BH.SGPN ---
Service Group Progress Note - Session Psychotherapy Session #2 Date Open:: 04/09/17 Time Started:: 10:17 Time Stopped:: 11:14 Targeted Problem #:: 1 Type of Group:: Illness Management - 7 participants Goal of Group:: To increase understanding of cognitive distortions, identify examples of when have had unhelpful thinking, and increase awareness of the impact cognitive distortions have on mental health. Staff Interventions:: Therapist utilized a quote as a tool to introduce topic of the day. Therapist provided group members with a handout that listed ten cognitive distortions with examples. Therapist facilitated group discussion about cognitive distortions. Therapist led group members in an activity to help them understand the impact cognitive distortions can have on emotions and behavior. Therapist provided support by using active listening and providing feedback. Psychotherapy Session #3 Date Open:: 04/09/17 Time Started:: 11:20 Time Stopped:: 12:16 Targeted Problem #:: 1 Type of Group:: Functional Skills Development - 7 participants Goal of Group:: To identify ways of defeating cognitive distortions and rehearse defeating the identified cognitive distortion. Staff Interventions:: Therapist utilized an activity as a tool in helping clients connect the amount of effort one will need to put forth to defeat cognitive distortions. Therapist provided group members with a handout to use as an aid when trying to defeat their unhelpful thinking. Therapist processed the worksheet with group members, helping them reframe the cognitive distortions.
--- NOTE | 2017-04-12 10:35 | BH.SGPN_ITS ---
Service Group Progress Note - Session Psychotherapy Session #1 Date Open:: 18 - 9 group members Time Started:: 09:00 Time Stopped:: 10:02 Targeted Problem #:: 1 Type of Group:: Process Goal of Group:: The goal of today's group was to check-in with client's mood, stressors, and positives, and introduce topic for the day. Client Response/Progress/Benefit:: Client responded well to session, providing supportive feedback. Client reports feeling uneasy today as client isolated over the weekend and didn't do anything I wanted. Client stated he is also stressed as client will have to see his in the upcoming month, but client ? doesn?t want to think about it.? Client identified strategies to cope with his emotions and to avoid further isolation today such as getting out of the house and attending counseling this afternoon. Client provided supportive statements to peers regarding alternative coping skills instead of self-harm such as the butterfly project. Client appeared to benefit from identifying strategies to manage stress today. Client progressing with identifying strategies to regulate emotions, but continues to struggle implementing healthy coping skills during high stress situations. Eye Contact:: Good Motor Activity:: Restless Appearance:: Casual Speech:: Appropriate Mood:: Anxious Affect:: Other - incongruent as evidenced by client reporting upcoming stressors , but smiling Thoughts:: Linear, No evidence of hallucinations/delusions noted Staff Interventions:: Therapist used open-ended questions to elicit information about client's current stressors and mood state. Therapist was supportive by using active listening and reflection.
--- NOTE | 2017-04-12 16:35 | BH.SGPN ---
Service Group Progress Note - Session Psychotherapy Session #2 Date Open:: 04/12/17 Time Started:: 10:12 Time Stopped:: 11:12 Targeted Problem #:: 1 Type of Group:: Illness Management - 10 participants Psychotherapy Session #3 Date Open:: 04/12/17 Time Started:: 11:19 Time Stopped:: 12:20 Targeted Problem #:: 1 Type of Group:: Functional Skills Development - 10 participants
--- NOTE | 2017-04-13 14:04 | BH.SGPN_ITS ---
Service Group Progress Note - Session Psychotherapy Session #1 Date Open:: 04/13/17 Time Started:: 09:05 Time Stopped:: 09:57 Targeted Problem #:: 1 Type of Group:: Process - 4 Participants Goal of Group:: The goal of today's group was to check-in with client's mood, stressors, and positives, review homework, and to introduce the topic of the day. Client Response/Progress/Benefit:: Client entered session alert and attentive. Client identified his emotions as numb due to the stressful past couple of weeks. Client stated, ?I?ve basically been on autopilot. I think I?m just avoiding dealing with everything.? Client spoke about receiving news yesterday about his sons and him not being on the paperwork for [facility] and was upset about that. When asked how he dealt with that he said he colored for 5 hours and only got 2 hours of sleep. Therapist helped client process what he typically would have done in that situation and he reported in the past he would have hurt himself. Therapist helped client identify the progress he has made since beginning the IOP program and client was receptive. Client benefitted from group by identifying progress he has made and venting to peers about frustrations. Progress noted in client?s ability to manage stressors in a healthy and constructive manner. Continued treatment necessary to maintain mood stability. Eye Contact:: Good Motor Activity:: Appropriate Appearance:: Casual Speech:: Appropriate Mood:: Euthymic, Anxious Affect:: Full Thoughts:: Linear, Logical, No evidence of hallucinations/delusions noted Staff Interventions:: Therapist used open-ended questions to elicit information about client's current stressors and mood. Therapist was supportive by using active listening and reflection. Psychotherapy Session #2 Date Open:: 04/13/17 Time Started:: 10:05 Time Stopped:: 11:00 Targeted Problem #:: 1 Type of Group:: Illness Management - 4 Participants Goal of Group:: The goal of today?s group is to identify how emotions can impact our communication skills, and why it is important to be able to communicate in stressful situations. Client Response/Progress/Benefit:: Client was alert and attentive during group. Client was a semi-active participant and did well to process the day?s quote and helped to explain what sabotaging means to his peers. Client did well to process with the group how various emotions impact communication and one?s ability to utilize supports. Client collaborated with peers and participated in group activity that tested how client would manage his emotions when placed under stressful circumstances. It appeared client experienced some frustration throughout the activity since he was unable to provide needed input as his role was of a supporter. Despite frustration, client benefitted from relating activity back to how our emotions impact communication during times of stress. Progress noted in client?s ability to support peers and awareness of emotions. Continued treatment necessary to maintenance of coping skills. Eye Contact:: Good Motor Activity:: Appropriate Appearance:: Casual Speech:: Appropriate Mood:: Euthymic, Anxious Affect:: Full Thoughts:: Linear, Logical, No evidence of hallucinations/delusions noted Staff Interventions:: Therapist led an experiential activity where group members worked together for a common goal, but with adaptations made on how members were able to communicate with one another. Therapist used open-ended questions to elicit group discussion about emotions which arose during activity , as well as identifying how emotions experienced impacted ability to communicate effectively with other group members.
--- NOTE | 2017-04-13 14:50 | BH.SGPN_ITS ---
Service Group Progress Note - Session Psychotherapy Session #3 Date Open:: 04/13/17 - 4 group members Time Started:: 11:10 Time Stopped:: 12:03 Targeted Problem #:: 1 Type of Group:: Functional Skills Development Goal of Group:: The goal of today?s group was to increase awareness of different states of alertness attached to emotions and identifying healthy coping strategies for each state of alertness. Client Response/Progress/Benefit:: Client responded well to session, active participant. Client shared he connects with the four states of emotional alertness and processed what his warning signs and coping skills look like for each state. Client reported when he feels low energy he lacks self-care and isolates. Client identified cooking and getting out of the house as coping skills that improve client's low energy or depressed state. Client shared when he is in the crisis state he wants to self-harm. Client identified coping skills for crisis such as 5-senses and reaching out to supports. Client reported it is important to have awareness of warning signs for each emotional state so client can implement healthy coping skills. Client appeared to benefit from identifying warning signs and healthy coping skills specific each level of emotional alertness. Client progressing with managing urges through using healthy coping skills, but can continue to benefit from emotional regulation for stressors out of his control. Eye Contact:: Good Motor Activity:: Appropriate Appearance:: Casual Speech:: Appropriate Mood:: Euthymic Affect:: Congruent Thoughts:: Linear, No evidence of hallucinations/delusions noted Staff Interventions:: Therapist facilitated group by teaching about the 4 zones of different states of alertness and helping clients connect emotions to each zone based on state of alertness. Therapist assisted clients with identifying healthy coping strategies that would be best utilized based on the state of alertness. Therapist provided support by using active listening and providing feedback.
--- NOTE | 2017-04-14 14:53 | BH.SGPN_ITS ---
Service Group Progress Note - Session Psychotherapy Session #1 Date Open:: 18 - 8 group members Time Started:: 09:05 Time Stopped:: 10:00 Targeted Problem #:: 1 Type of Group:: Process Goal of Group:: The goal of today's group was to check-in with client's mood, stressors, and positives, review homework, and to introduce the topic of the day. Client Response/Progress/Benefit:: Client responded well to session, active participant. Client reports feeling ?blank and numb? 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 With therapist elicitation, client identified alternative solutions to improve his situation and mood. Client reported he has been cooking, working with employment services , and attending a divorce support group to improve his outlook and mental health. Client appeared to benefit from exploring alternative solutions rather than ruminate on barriers. Client progressing with utilizing positive supports and being more receptive to alternative solutions. However, client continues to report self-sabotaging behaviors which may hinder progress Eye Contact:: Fair Motor Activity:: Appropriate Appearance:: Casual Speech:: Appropriate Mood:: Depressed - per client report Affect:: Other - incongruent as client reporting feeling numb but smiling while sharing with group. Thoughts:: Linear, No evidence of hallucinations/delusions noted Staff Interventions:: Therapist used open-ended questions to elicit information about client's current stressors and mood. Therapist was supportive by using active listening and reflection.
--- NOTE | 2017-04-15 14:51 | BH.SGPN_ITS ---
Service Group Progress Note - Session Psychotherapy Session #2 Date Open:: 04/14/17 Time Started:: 10:15 Time Stopped:: 11:07 Targeted Problem #:: 1 Type of Group:: Illness Management Goal of Group:: To increase understanding how positive and negative forces in life can impact balance in life. Client Response/Progress/Benefit:: Client contributed positively to discussion and listened attentively to peers. Client connected with the quote reporting support can help one personally grow. Shared personal growth is not just can happen by chance, yet willing to do something in order to make change. Client worked cooperatively with others during the challenge activity, able to connect the importance of needing to balance both positive and negative forces. Seemed benefit from increasing awareness of the importance of balancing ones forces. Speech:: Appropriate Mood:: Euthymic Affect:: Congruent Thoughts:: Linear, Logical, No evidence of hallucinations/delusions noted Staff Interventions:: Therapist facilitated group discussion about the various forces of life and helped clients connect the impact they have on balance in life. Therapist led group in an experiential activity in which group members had to work together to balance an object and move it to a designated location. Therapist utilized the activity as a tool to process the challenges connected with balancing various forces. Psychotherapy Session #3 Date Open:: 04/14/17 Time Started:: 11:17 Time Stopped:: 12:15 Targeted Problem #:: 1 Type of Group:: Functional Skills Development Goal of Group:: To identify positive and negative forces in life and identify which forces are helping stability and which forces are contributing to instability. Client Response/Progress/Benefit:: Client listened attentively to others and contribute positively to discussion. Client identified his positive forces to include good focus, taking breaks, cooking, and supportive connections. Shared his negative forces to include: Isolation, self sabotage, negative thoughts, toxic people. Client identified his kids to be both a positive and negative force because at times in his children can be a source of stress the same time desire to get his children back his motivation to keep going. Client appeared to benefit from increasing awareness of both his positive and negative forces as well as identifying which forces the strongest for him currently. Eye Contact:: Fair Motor Activity:: Appropriate Appearance:: Disheveled Speech:: Appropriate Mood:: Euthymic Affect:: Congruent Thoughts:: Linear, Logical, No evidence of hallucinations/delusions noted Staff Interventions:: Therapist provided group with an example of a scenario of a person and the individual???s positive and negative forces. Therapist provided each group member with a worksheet in which they were to identify five positive and five negative forces in their life. Therapist processed the activity with the group, helping others connect the impact certain forces have on their life balance.
--- NOTE | 2017-04-16 12:27 | PCM.PN.BLA ---
Progress Note Patient seen in follow-up for major depressive disorder of 33.2, anxiety, borderline personality disorder. History has been obtained per interview with patient, discussion with staff, review of chart. Case discussed with treatment team. Emergency department visit from April 01 2017 reviewed. Case discussed with staff per telephone on April 01, 2017 as patient ingested Tylenol in effort to avoid visit with ex. Chief complaint-anxiety and depression it is rough. Stress and anxiety. Interim history Moderate depressive symptoms persist. Able to enjoy visitation with son. Wearing T-shirt that he had and his son painted with fabric pain last night. Ongoing situational emotional dysregulation. Intermittent self-harm behaviors. Moderate to severe ruminative anxiety regarding dynamics with ex and children. Superficial cutting to leg last night after learning that his parents can get guardianship of his youngest son (9 months) but that he will have to find other residents himself. Youngest son status post CVA and requiring ongoing medical care. Son age 2 diagnosed with autism. Ruminative anxiety regarding upcoming court date April 29. Denies other self-harm injuries last night. Passive intermittent thoughts of suicide. No suicide plan or intent. Feels able to maintain safety. No homicidal ideation. No symptoms consistent with psychosis. Reports sleep is variable. Goes to bed between 10 PM and midnight. Reports time he gets up in the morning is variable. Appetite fair. Reports she has been cooking but does not feel hungry. Denies nausea vomiting or diarrhea. Consuming 2 beers on Wednesday and 6 beers last Wednesday. Reports his caffeine consumption smoking is variable. Consumes between 2 cans and 2 L of caffeinated soda. Continues to have traits consistent with personality disorder including black and white thinking, catastrophizing, help rejecting behavior, emotional dysregulation, self-harm behaviors and cognitive distortions. No current medications as patient has repeatedly stated to staff that he feels that availability of prescription medication will result in increased urges to overdose. Mental status exam Patient is a 26-year-old male who appears his stated age he is ambulatory with normal gait and station he is wearing a T-shirt and jeans. He notes that he and his son painted his T-shirt yesterday. He has poor hygiene and is malodorous. There is no psychomotor agitation or retardation. Mood is depressed. Affect congruent. Speech is clear and of regular rate and volume. Language fluent. Thought process organized. Associations logical. Thought content significant for ruminative anxiety and intermittent suicidal thoughts and self-harm urges. He denies suicide plan or intent he feels able to maintain safety. No homicidal ideation related or detected ; no evidence of psychosis related to detected. Immediate recent and remote memory grossly intact attention and concentration are fair to good. Estimated intelligence fund of knowledge average. Judgment and insight are limited. Labs and testing 02/10/2017 TSH 0.92 Further lab work will be obtained as needed Diagnosis Major depressive disorder recurrent severe F 33.2 Anxiety unspecified Borderline personality disorder Nicotine use Plan Continue IOP treatment as patient has ongoing stressors and upcoming court date. Ongoing treatment in the IOP is necessary to prevent decompensation. Patient will likely benefit from ongoing participation. Risks benefits alternatives of medications discussed with patient. Patient acknowledges understanding. Patient acknowledges that medications may pose a self-harm risk. The risk of prescriptive medication likely outweighs the benefit at this time. Patient's most prominent psychiatric symptoms are likely related to personality disorder. Patient encouraged to participate in [facility]. Patient encouraged to continue participation in divorce support group. Patient encouraged to establish with outpatient psychiatric providers. Encouraged alcohol abstinence. Encouraged caffeine abstinence. Encourage smoking cessation. 20 minutes of DBT oriented psychotherapy including cope ahead skills discussed with patient. Patient acknowledges understanding and is in agreement with plan. He feels able to maintain safety. He agrees to seek help or emergency care if feeling unsafe to self or others.
--- NOTE | 2017-04-16 13:54 | BH.SGPN ---
Service Group Progress Note - Session Psychotherapy Session #1 Date Open:: 04/16/17 Time Started:: 09:00 Time Stopped:: 09:51 Targeted Problem #:: 1 Type of Group:: Process - 7 Participants Goal of Group:: The goal of today's group was to check-in with client's mood, stressors, and positives, review homework, and to introduce the topic of the day. Client Response/Progress/Benefit:: Client entered session alert, attentive and willing to engage. Client reported, It wasnt a fun day yesterday. Emily got a lot of stress, anxiety, and depression. Client went on to share that after learning information about his son he states, I self-harmed but its not visible. Client was able to identify that it was unhealthy and proceeded to using healthy coping skills such as, cooking, reading, and calling helpline. Client benefitted from group by identifying healthy coping skills to use in moments of crisis. Limited progress noted due to clients report of self-harming but was successful is using healthy coping skills after. Continued treatment necessary to increase use of coping skills and maintain safety. Eye Contact:: Good Motor Activity:: Appropriate Appearance:: Casual Speech:: Appropriate Mood:: Euthymic, Anxious Affect:: Full Thoughts:: Linear, Logical, No evidence of hallucinations/delusions noted Staff Interventions:: Therapist used open-ended questions to elicit information about client's current stressors and mood. Therapist was supportive by using active listening and reflection. Psychotherapy Session #2 Date Open:: 04/16/17 Time Started:: 10:05 Time Stopped:: 10:55 Targeted Problem #:: 1 Type of Group:: Illness Management - 8 Participants Goal of Group:: To increase understanding of pitfalls and impact can have on mental health. Client Response/Progress/Benefit:: Client entered session alert, attentive, and willing to engage. Client participated in group discussion on pitfalls and participated in group activity designed to help understand the impact pitfalls can have on the self. Client successfully collaborated with peers to complete activity and stated, when were blind we cant see the pitfalls and the more we know about our pitfalls the better we can handle them. Client benefitted from group by identifying strategies and understanding and reducing pitfalls. Progress noted in clients awareness of the impact of pitfalls. Continued treatment necessary to maintain mood stability. Eye Contact:: Good Motor Activity:: Appropriate Appearance:: Casual Speech:: Appropriate Mood:: Euthymic Affect:: Full Thoughts:: Linear, Logical, No evidence of hallucinations/delusions noted Staff Interventions:: Therapist facilitated discussion about pitfalls and assisted group in identifying common pitfalls that can set you back. Therapist led group in an activity to help group understand impact pitfalls can have on oneself and identify strategies that could help you get back on the right path. Therapist provided support by using active listening and providing feedback.
--- NOTE | 2017-04-20 11:54 | BH.SGPN_ITS ---
Service Group Progress Note - Session Psychotherapy Session #1 Date Open:: 04/20/17 Time Started:: 09:06 Time Stopped:: 09:56 Targeted Problem #:: 1 Type of Group:: Process - 3 Participants Goal of Group:: The goal of today's group was to check-in with client's mood, stressors, and positives, review homework, and to introduce the topic of the day. Client Response/Progress/Benefit:: Client entered session alert, attentive and willing to engage. Client was a big contributor in group and provided support and encouragement to peers. Client began by sharing that his parents were able to take guardianship of his youngest son and throughout the training yesterday spent time with him. Client shared he was feeling anxious last day and spent time cooking and baking with his son. Client indicated his emotion as feeling overwhelmed due to the court case next week and was trying to keep his focus on the here and now. Client has insight into feelings about his ex- and stated , ?I can?t control my emotions when I?m around her.? Therapist discussed coping strategies to manage emotions and client stated, ?I know whatever plan I put in place won?t work when I get there.? Therapist discussed failure and if thinking things won?t work then they won?t and client stated, ?Maybe it will work I just have to change my thought.? Client was an overall positive participant in group. Client benefitted by discussing strategies for coping with emotions. Progress noted in client?s ability to better manage emotions. Continued treatment necessary to maintain mood stability. Eye Contact:: Good Motor Activity:: Appropriate Appearance:: Casual Speech:: Appropriate Mood:: Euthymic Affect:: Full Thoughts:: Linear, Logical, No evidence of hallucinations/delusions noted Staff Interventions:: Therapist used open-ended questions to elicit information about client's current stressors and mood. Therapist was supportive by using active listening and reflection.
--- NOTE | 2017-04-20 14:31 | BH.MDN ---
Multi-Disciplinary Note - Note 30-min Individual Time Started:: 12:14 Date: 04/20/17 Purpose of session/treatment goals addressed:: The purpose of this session was to review Client progress towards treatment goals as well as check-in with Client regarding use of healthy stress management strategies. Another purpose was to discuss Client anxiety and concerns regarding an uncoming court date and identify strategies for crisis prevention and emotion regulation Client may utilize in managing upcoming stressors. Eye Contact:: Good Motor Activity:: Appropriate Appearance:: Casual Speech:: Appropriate Mood:: Euthymic, Anxious Affect:: Full, Congruent Thoughts:: Linear, Logical, No evidence of hallucinations/delusions noted Time Stopped:: 12:50
--- NOTE | 2017-04-21 10:38 | BH.SGPN_ITS ---
Service Group Progress Note - Session Psychotherapy Session #2 Date Open:: 04/20/17 Time Started:: 10:10 Time Stopped:: 11:02 Targeted Problem #:: 1 Type of Group:: Illness Management - 4 group members Goal of Group:: To increase understanding of what stress is, identify current life stressors, and connect impact stressors have on mental health. Client Response/Progress/Benefit:: Client reported she connected with the quote because he recognizes that if he continues a positive thought over her negative thought typically the stress is reduced. Client gave example of recent visit he had scheduled in which he would have contact with his ex-'s mother and client reported thinking how terrible it was going to be which made him more anxious and stressed. Client reported once he got to the situation it turned out to not be as bad as he thought. Recognized his thought patterns increased his stress level for no reason. Client reported history of discharge includes: Decision to either go back to school or not, health problems with his son, court date, not working, and worries about seeing his ex- next week. Client identified school and not working to be his biggest stressors currently because he needs to decide if is going back to school and if he is not using the drops and could have money. Client seemed benefit from increasing awareness of his current stressors. Showing progress as evidenced by client being more positive and encouraging throughout session. Eye Contact:: Fair Motor Activity:: Appropriate Appearance:: Casual Speech:: Appropriate Mood:: Euthymic Affect:: Congruent Thoughts:: Linear, Logical, No evidence of hallucinations/delusions noted Staff Interventions:: Therapist facilitated discussion about stress. Therapist facilitated an activity in which group members were asked to identify various stressors they have in their life currently. Therapist instructed group members to indicate if certain stressors were larger than others. Therapist led processing of each member???s stress jar and helped them connect impact the stress has on their mental health. Psychotherapy Session #3 Date Open:: 04/20/17 Time Started:: 11:15 Time Stopped:: 12:10 Targeted Problem #:: 1 Type of Group:: Functional Skills Development - 4 group members Goal of Group:: To identify what stressors have control over and what stressors have no control over. Another goal was to increase awareness of healthy strategies that can help relieve stress level. Client Response/Progress/Benefit:: Client able to identify what stressors are in his control stressors are out of his control. He was able to recognize that some of the stressors that are out of his control he still has the power to manage his own emotions so that he is make situation worse. During activity client demonstrating leadership as evidenced by clear concise communication with group members as well as being encouraging to others. Client seemed benefit from reviewing the stress reliever a handout to gain additional coping skills and strategies that will help him reduce stress level. Eye Contact:: Fair Motor Activity:: Appropriate Appearance:: Casual Speech:: Appropriate Mood:: Euthymic Affect:: Congruent Thoughts:: Linear, Logical, No evidence of hallucinations/delusions noted Staff Interventions:: Therapist facilitated discussion about control versus no control and helped group members connect the concept to stressors. Therapist led an activity in which group members had to manage their stress level during a series of frustrating tasks. Therapist processed with group what skills each group member utilized in order to manage their emotions in stress level during the activity. Therapist read a handout and reviewed the handout about stress relieving skills and strategies.
--- NOTE | 2017-04-21 14:07 | BH.SGPN ---
Service Group Progress Note - Session Psychotherapy Session #2 Date Open:: 04/21/17 participants Time Started:: 10:20 Time Stopped:: 11:20 Targeted Problem #:: 1 Type of Group:: Illness Management Goal of Group:: To increase understanding of what conflict is and increase awareness of how group members manage conflict. Client Response/Progress/Benefit:: Client responded well to session, actively contributing thoughts and ideas to group discussion. Client connected with the quote, sharing how one responds to conflict either positively or negatively impacts mental health. Client identified he tends to utilize the accommodating type when responding to conflict which results in client giving in to what others suggest rather than sharing his concerns and ideas. Client reported he tends to avoid dealing with internal conflicts as well which increases negative thinking. Client recognized his current conflict resolution style increases stress and negatively impacts his mental health. Client seemed to benefit from increased self-awareness of how his conflict resolution style impacts his mental wellness. Eye Contact:: Good - alert and oriented Motor Activity:: Appropriate Appearance:: Casual Speech:: Appropriate Mood:: Euthymic Affect:: Congruent Thoughts:: Linear, No evidence of hallucinations/delusions noted Staff Interventions:: Therapist facilitated discussion about conflict and conflict resolution. Therapist led group in an activity in which group members had to identify their initial response to conflict and how their response changes based on different situations. Therapist assisted clients with connecting the impact current conflict style has on their mental health. Psychotherapy Session #3 Date Open:: 04/21/17 - participants Time Started:: 11:28 Time Stopped:: 12:25 Targeted Problem #:: 1 Type of Group:: Functional Skills Development Goal of Group:: To identify what contributes positively and negatively to conflict and appropriate ways to manage conflict with others. Client Response/Progress/Benefit:: Client responded well to session, listening to others and participating in group activity. Client reported aspects of open communication such as listening, understanding perspective, and being awareness of body language positively impacts conflict resolution. Client stated it is important to manage stress and other emotions to effectively resolve conflict. Client helped the group develop strategies for resolving internal and external conflict such as taking breaks, using supports, focusing on the big picture, and managing emotions. Client appeared to benefit from increases awareness of ways to appropriately manage conflict. Client progressing as shown by his report of increased emotional regulation when faced with conflict. Eye Contact:: Good - alert and oriented Motor Activity:: Appropriate Appearance:: Casual Speech:: Appropriate Mood:: Euthymic Affect:: Congruent Thoughts:: Linear, No evidence of hallucinations/delusions noted Staff Interventions:: Therapist facilitated group activity in which group members were provided with materials and had to eliminate certain items with consensus from group. Therapist processed activity, helping clients connect throughout activity strategies each person used to manage conflict. Therapist led discussion about what contributes to conflict in a positive or negative manner. Therapist facilitated discussion about conflict resolution strategies and provided group member with a handout about effective ways to manage conflict.
--- NOTE | 2017-04-21 16:02 | BH.SGPN ---
Service Group Progress Note - Session Psychotherapy Session #1 Date Open:: 04/21/17 Time Started:: 09:10 Time Stopped:: 10:10 Type of Group:: Process - 4 group members Goal of Group:: The goal of today's group was to check-in with client's mood, stressors, and positives, review homework and introduce topic for the day. Client Response/Progress/Benefit:: Pt was an active participant in group discussions. Emotion for today is overwhelmed. Shared with the group that his parents obtained guardianship of one of his children. Discussed the benefits of this. This appears to have motivated him to seek a job and complete other tasks which he has been avoiding. He is able to see that by confronting obstacles in his life it can be scary and akward however beneficial to him in the long run. Despite positive movement pt still is able to point out negatives and ruminate on them. Group provided support and feedback. Progress noted as has presented as stable for past couple weeks and is working on confonting obstacles rather than avoiding them. Continued treatment to maintain safety and prevent decompensation. Eye Contact:: Good Motor Activity:: Appropriate Appearance:: Disheveled Speech:: Appropriate Mood:: Euthymic Affect:: Full Thoughts:: Linear, Logical, No evidence of hallucinations/delusions noted Staff Interventions:: Therapist used open-ended questions to elicit information about client's current stressors and mood state. Therapist was supportive by using active listening and reflection.
--- NOTE | 2017-04-26 08:54 | BH.TPR ---
Treatment Plan Review Date of Admission:: 03/08/17 Date of Treatment Plan Review:: 04/26/17
--- NOTE | 2017-04-26 13:56 | BH.SGPN_ITS ---
Service Group Progress Note - Session Psychotherapy Session #1 Date Open:: 04/16/17 Time Started:: 09:00 Time Stopped:: 09:51 Targeted Problem #:: 1 Type of Group:: Process - 7 Participants Goal of Group:: The goal of today's group was to check-in with client's mood, stressors, and positives, review homework, and to introduce the topic of the day. Client Response/Progress/Benefit:: Client entered session alert, attentive and willing to engage. Client reported, ?It wasn?t a fun day yesterday. I?ve got a lot of stress, anxiety, and depression.? Client went on to share that after learning information about his son he states, ?I self-harmed but it?s not visible.? Client was able to identify that it was unhealthy and proceeded to using healthy coping skills such as, ?cooking, reading, and calling helpline.? Client benefitted from group by identifying healthy coping skills to use in moments of crisis. Limited progress noted due to client?s report of self- harming but was successful is using healthy coping skills after. Continued treatment necessary to increase use of coping skills and maintain safety. Eye Contact:: Good Motor Activity:: Appropriate Appearance:: Casual Speech:: Appropriate Mood:: Euthymic, Anxious Affect:: Full Thoughts:: Linear, Logical, No evidence of hallucinations/delusions noted Staff Interventions:: Therapist used open-ended questions to elicit information about client's current stressors and mood. Therapist was supportive by using active listening and reflection. Psychotherapy Session #2 Date Open:: 04/16/17 Time Started:: 10:05 Time Stopped:: 10:55 Targeted Problem #:: 1 Type of Group:: Illness Management - 8 Participants Goal of Group:: To increase understanding of pitfalls and impact can have on mental health. Client Response/Progress/Benefit:: Client entered session alert, attentive, and willing to engage. Client participated in group discussion on pitfalls and participated in group activity designed to help understand the impact pitfalls can have on the self. Client successfully collaborated with peers to complete activity and stated, ?when were blind we can?t see the pitfalls and the more we know about our pitfalls the better we can handle them.? Client benefitted from group by identifying strategies and understanding and reducing pitfalls. Progress noted in client?s awareness of the impact of pitfalls. Continued treatment necessary to maintain mood stability. Eye Contact:: Good Motor Activity:: Appropriate Appearance:: Casual Speech:: Appropriate Mood:: Euthymic Affect:: Full Thoughts:: Linear, Logical, No evidence of hallucinations/delusions noted Staff Interventions:: Therapist facilitated discussion about pitfalls and assisted group in identifying common pitfalls that can set you back. Therapist led group in an activity to help group understand impact pitfalls can have on oneself and identify strategies that could help you get back on the right path. Therapist provided support by using active listening and providing feedback.
== END 2017-04-21 23:59 ==
LOC: BHIOP 09:00
PROVIDERS: Family Provider Family Medicine; PCP Family Medicine; Visit Provider Psychiatry & Neurology Psychiatry
DX: F33.2 Major depressive disorder, recurrent severe without psychotic features (principal); F41.9 Anxiety disorder, unspecified; F60.3 Borderline personality disorder; F17.210 Nicotine dependence, cigarettes, uncomplicated
CPT/HCPCS: 90833; 99214; H0035; H2012; H2020; 90832; 90837

== ENCOUNTER 2017-04-23 08:50 | Outpatient (RCR) | payer OTHER, SELFPAY ==
[2017-04-01 09:15] VITALS: BMI 23.0
[2017-04-02 10:36] VITALS: BP 113/75
--- NOTE | 2017-04-23 15:25 | BH.SGPN ---
Service Group Progress Note - Session Psychotherapy Session #2 Date Open:: 04/23/17 Time Started:: 10:10 Time Stopped:: 11:15 Targeted Problem #:: 1 Type of Group:: Illness Management Goal of Group:: The goal of group was to increase understanding of coping strategies and impact problems have on self. Another goal was to practice utilizing coping skills in the moment. Client Response/Progress/Benefit:: Client contributed positively to discussion and listened attentively to others. Client connected with the quote reported when he uses unhealthy coping strategies it tends to lead to increased problems and difficulties in his life. Client shared example of few weeks ago when he had to have a visit in which she might have to see his ex- client coped by choosing to take too much of his medication which led to her ER visit and made the situation worse. Recognizes the need to utilize healthy coping strategies because one does not use those kind of skills and tends to lead to increased problems. Client demonstrating leadership during challenge activity but expressing his thoughts and ideas as well as encouraging others. Seemed to benefit from having the opportunity to utilize his healthy coping strategies in the moment during the challenge activity. Eye Contact:: Good Motor Activity:: Appropriate Appearance:: Casual Speech:: Appropriate Mood:: Euthymic, Anxious Affect:: Congruent Thoughts:: Linear, Logical, No evidence of hallucinations/delusions noted Staff Interventions:: Therapist facilitated the group discussion about coping strategies. Therapist group and activity challenge them to work together in utilize healthy coping skills in the moment. Therapist utilized the activity as a tool to process what it feels like when dealing with problems and what strategies they used to cope throughout activity. Psychotherapy Session #3 Date Open:: 04/23/17 Time Started:: 11:22 Time Stopped:: 12:12 Targeted Problem #:: 1 Type of Group:: Functional Skills Development Goal of Group:: The goal of group was to increase client?s ability to recognize the different between an internal and external coping strategy. Another goal was to increase client?s self-awareness on their use of coping strategies and increase repertoire of healthy coping strategies. Client Response/Progress/Benefit:: Client listened attentively to others and contributed positively discussion. Client able to identify several healthy coping strategies to add to the list that group the group was brainstorming. Client identified for his healthy coping skills menu he is willing to try the following: Radical acceptance, reframing his negative thought patterns, reading, exercise, and cooking. Client seemed to benefit from increasing his repertoire of healthy coping strategies as well as identifying what skills he is willing to try. Eye Contact:: Good Motor Activity:: Appropriate Appearance:: Casual Speech:: Appropriate Mood:: Euthymic Affect:: Congruent Thoughts:: Linear, Logical, No evidence of hallucinations/delusions noted Staff Interventions:: Therapist facilitated discussion about the different types of coping skills. Therapist led group in an activity in which group members were asked to brainstorm coping strategies that fit in each coping skill category. Therapist led a discussion about whether the coping strategies identified were healthy or unhealthy.
--- NOTE | 2017-04-23 16:39 | BH.SGPN ---
Service Group Progress Note - Session Psychotherapy Session #1 Date Open:: 04/23/17 Time Started:: 09:00 Time Stopped:: 10:00 Type of Group:: Process - 4 group members Goal of Group:: The goal of today's group was to check-in with client's mood, stressors, and positives, review homework and introduce topic for the day. Client Response/Progress/Benefit:: Pt was an active participant in group discussion. Emotion for today is uneasy. Shared with the group that he was able to get a full-time job which he is excited about. He is focusing on goals and tasks and feels that he is making progress. Spending more time with his son since his parent's obtained guardianship. Was very optimistic during process group however when praised for his efforts began to discuss negatives such as being overwhelmed and ruminating. Group provided support and praise. Benefited from group praise and feedback. Progress noted as mood has been more stable. Notes increased motivation and decreased depressive and passive thoughts of . Continued treatment to maintain safety and prevent decompensation. Eye Contact:: Good Motor Activity:: Appropriate Appearance:: Disheveled Speech:: Appropriate Mood:: Anxious Affect:: Congruent Thoughts:: Linear, Logical, No evidence of hallucinations/delusions noted Staff Interventions:: Therapist used open-ended questions to elicit information about client's current stressors and mood state. Therapist was supportive by using active listening and reflection.
--- NOTE | 2017-04-27 14:03 | BH.SGPN_ITS ---
Service Group Progress Note - Session Psychotherapy Session #1 Date Open:: 04/27/17 Time Started:: 09:07 Time Stopped:: 09:58 Targeted Problem #:: 1 Type of Group:: Process - 5 Participants Goal of Group:: The goal of today's group was to check-in with client's mood, stressors, and positives, review homework, and to introduce the topic of the day. Client Response/Progress/Benefit:: Client entered session alert and attentive. Client shared that the last few days have been long after started his job on Wednesday but is also enjoying it. He went on to share how his ex- had visitation with his son this week but stated, ?I knew something bad would happen so I wasn?t there.? He continued to say he ran into at [employer] this week and walked away before anything else could happen and recently found out he will have to be in the same room as her for the court hearing. Client shared how he hasn?t been sleeping much due to the new work schedule but also plans on looking for another part-time job to help with money for his son. Therapist discussed the importance of sleep and taking time for self-care and the effects that no sleep can have on mental health. Client was receptive but stated he would be okay. Client indicated his emotion as happy. Client benefitted from group by sharing his successes in life with peers. Progress noted in client?s ability to manage emotions when faced with stressors. Continued treatment necessary to maintain gains. Eye Contact:: Good Motor Activity:: Appropriate Appearance:: Casual Speech:: Appropriate Mood:: Euthymic Affect:: Full Thoughts:: Linear, Logical, No evidence of hallucinations/delusions noted Staff Interventions:: Therapist used open-ended questions to elicit information about client's current stressors and mood. Therapist was supportive by using active listening and reflection.
--- NOTE | 2017-04-27 14:58 | BH.SGPN_ITS ---
Service Group Progress Note - Session Psychotherapy Session #2 Date Open:: 04/27/17 - 5 participants Time Started:: 10:10 Time Stopped:: 11:00 Targeted Problem #:: 1 Type of Group:: Illness Management Goal of Group:: To increase understanding of a crisis and improve client?s awareness of personal warning signs before crisis. Client Response/Progress/Benefit:: Client responded well to session, active participant. Client processed the quote with peers, sharing difficult times happen, but what matters is how ?we view the situation.? Client discussed various crises with the group and gained insight on how high stress increases the likelihood of personal crisis. Client shared crisis to him is ?lots of ups and downs.? Client reported he has learned how to more effectively cope with challenges which has made crisis ?less continuous.? Client appeared to benefit from increasing awareness of what crisis is like for him as well as how stress can impact one's ability to cope with difficult times. Client progressing as shown by his report of an improved ability to cope with stressors to reduce crisis situations, client can continue to benefit from utilizing emotional regulation skills daily. Eye Contact:: Good Motor Activity:: Appropriate Appearance:: Disheveled Speech:: Appropriate Mood:: Irritable Affect:: Constricted Thoughts:: Linear, No evidence of hallucinations/delusions noted Staff Interventions:: Therapist facilitated group discussion about defining a crisis and specifying various events that are considered a crisis. Therapist led group in an activity in which group members had to identify their thoughts and emotions attached to being in a crisis. Therapist provided support by using active listening and providing feedback. Psychotherapy Session #3 Date Open:: 04/27/17 - 5 participants Time Started:: 11:10 Time Stopped:: 12:05 Targeted Problem #:: 1 Type of Group:: Functional Skills Development Goal of Group:: To increase awareness of warning signs before a crisis and identify interventions/coping strategies that would help clients proactively manage potential crises. Client Response/Progress/Benefit:: Client responded well to session, active participant. Client identified his top three warning signs before crisis as feeling disconnected, isolation, and negative thinking. Client processed the crisis cycle and gained insight on how one's problem-solving and concentration abilities are impacted when in crisis which effects coping abilities. Client identified coping skills to utilize such as using the 5-senses and cooking. Client created a crisis kit to remind client of positive coping skills to utilize when he recognizes warning signs. Client selected a purple camel, a letter, rock, shell, and a teabag to remind client of his children, things he enjoys, and nature. Client appeared to benefit from creating a visual reminder of healthy coping skills he can utilize to prevent crisis. Client progressing as shown by his report that he has been experiencing less crisis since implementing healthy coping skills and supports. Eye Contact:: Fair Motor Activity:: Appropriate Appearance:: Disheveled Speech:: Appropriate Mood:: Irritable Affect:: Full Thoughts:: Linear, No evidence of hallucinations/delusions noted Staff Interventions:: Therapist led the group in discussion about identifying personal warning signs before a crisis and importance of being aware of those signs. Therapist provided the group with various types of items and asked each group member to select five items that represent something that would be helpful in managing their warning signs of a crisis. Therapist facilitated group processing of the crisis emergency kits each group member created. Therapist used open-ended questions to encourage elaboration of each item chosen for their kit. Therapist helped clients connect how the crisis emergency kit could help be a crisis prevention tool.
--- NOTE | 2017-04-29 15:26 | BH.SGPN ---
Service Group Progress Note - Session Psychotherapy Session #1 Date Open:: 04/29/17 Time Started:: 09:06 Time Stopped:: 09:58 Targeted Problem #:: 1 Type of Group:: Process Goal of Group:: The goal of today's group was to check-in with client's mood, stressors, and positives, review homework and introduce topic for the day. Client Response/Progress/Benefit:: Client reported today he has court in which he was seeing his ex- and is feeling pretty anxious about that. Shared unfortunately none of his family members are able to make the court date so he will not have the support he was hoping to have wearing needing to be around his ex-. Client shared on the way to the court hearing he plans to use the helpline as a form of support. Client recognizes the importance of being able to maintain a calm state so does not sabotage himself when he is trying to get custody of his kids. Seemed to benefit from expressing thoughts and emotions. Progress noted as evidenced by client able to identify healthy coping strategies that he can utilize to help him maintain a calm state. Eye Contact:: Good Motor Activity:: Appropriate Appearance:: Casual Speech:: Appropriate Mood:: Anxious Affect:: Congruent Thoughts:: Linear, Logical, No evidence of hallucinations/delusions noted Staff Interventions:: Therapist used open-ended questions to elicit information about client's current stressors and mood state. Therapist was supportive by using active listening and reflection.
--- NOTE | 2017-04-29 15:57 | BH.SGPN ---
Service Group Progress Note - Session Psychotherapy Session #2 Date Open:: 04/29/17 Time Started:: 10:14 Time Stopped:: 11:07 Targeted Problem #:: 1 Type of Group:: Illness Management - 3 participants Goal of Group:: The goal of this session was to increase self-awareness of what is holding them back from moving towards mental wellness and discuss importance of taking action in their treatment. Client Response/Progress/Benefit:: Client attentive and actively engaged in the session, providing humor and encouragement to the group. He discussed that for him taking action in his life means to set small goals and take steps towards them. Client brainstormed connections between mental health barriers and difficulties in taking positive action steps in one's life. Client benefited from the empowerment activity in which Clients threw eggs to represent releasing the control their barriers have on them. Client displayed progress in his ability to identify areas in which he can start to regain some of the control such as using healthy coping skills and challenging negative thoughts. CLient has show significant gains in his ability to internalize treatment conceptsto better regulate his mood and prevent a crisis stress response. Client scheduled to discharge from IOP program on following date 04/30/17. Eye Contact:: Good Motor Activity:: Appropriate Appearance:: Casual Speech:: Appropriate Mood:: Euthymic Affect:: Full, Bright Thoughts:: Linear, Logical, No evidence of hallucinations/delusions noted Staff Interventions:: Therapist facilitated discussion about what it means to take action in achieving mental health wellness. Therapist led activity in which clients were asked to identify the symptoms and things that they would like to take back control over. Therapist provided support by using active listening.
--- NOTE | 2017-04-30 09:47 | BH.AFTERPLAN ---
Aftercare Plan - Demographics Treatment End Date:: 04/30/17 Psychiatrist:: Zahida Penn Psychiatrist Office #:: [phone] [facility]/IOP Therapist:: Mary Ann Lou Therapist Phone #:: [phone] - Medications Home Medications: Home Medications NK [NK] 03/05/17 - Plan Details Progress/Aftercare Plan Details:: Since beginning the program, Comfort has made progress with improved mood stability and decreased symptoms of both anxiety and depression. He has shown significant improvements in his ability to manage stressors and unexpected or difficult new without responding in crisis. Comfort is able to now try applying the healthy coping skills he has learned to better manage his emotional responses during times of distress as well as in order to maintain mood stability. In the past month, Comfort has consistently indicated a decrease in passive thoughts of and identifies an ability to challenge these thoughts and maintain safety when they do arise. He has shown improvement with increased self confidence and healthy problem solving skills. He reports feeling more hopeful, goal oriented, and awareness of healthy coping skills. Strategies for Success:: 1. Remember to use your healthy coping skills such as cooking, walking, and calling the warm line before going to the hospital. 2. Challenge those thoughts and ask yourself How else can I view this?. 3. Reach out to supports like [place]! 4. Continue to recognize your unhealthy thought and coping patterns and challenge those urges to give into them by replacing them with healthier distractions. 5. Remember you are doing this for your kids!!! 6. Stop to think and allow yourself some time to calm down before reacting. 7. Refer back to your binder for refresher of skills. - Appointments Appointments/Referrals to Other Services:: Client is to continue with his regular counselor, Ana Ramos, for ongoing individual outpatient therapy and is scheduled for an appointment 05/06. Client has additionally been [facility] the last week of April. CLient encouraged to continue attending divorce support group as well as begin the DBSA support group at [facility], next scheduled session on 05/03/17.
--- NOTE | 2017-04-30 10:55 | BH.IGGP_ITS ---
Aftercare Plan - Demographics Treatment End Date:: 04/30/17 Psychiatrist:: Zahida Penn Psychiatrist Office #:: [phone] [facility]/IOP Therapist:: Mary Ann Lou Therapist Phone #:: [phone] - Medications Home Medications: Home Medications NK [NK] 03/05/17 - Plan Details Progress/Aftercare Plan Details:: Since beginning the program, Comfort has made progress with improved mood stability and decreased symptoms of both anxiety and depression. He has shown significant improvements in his ability to manage stressors and unexpected or difficult new without responding in crisis. Comfort is able to now try applying the healthy coping skills he has learned to better manage his emotional responses during times of distress as well as in order to maintain mood stability. In the past month, Comfort has consistently indicated a decrease in passive thoughts of and identifies an ability to challenge these thoughts and maintain safety when they do arise. He has shown improvement with increased self confidence and healthy problem solving skills. He reports feeling more hopeful, goal oriented, and awareness of healthy coping skills. Strategies for Success:: 1. Remember to use your healthy coping skills such as cooking, walking, and calling the warm line before going to the hospital. 2. Challenge those thoughts and ask yourself How else can I view this?. 3. Reach out to supports like [employer]! 4. Continue to recognize your unhealthy thought and coping patterns and challenge those urges to give into them by replacing them with healthier distractions. 5. Remember you are doing this for your kids!!! 6. Stop to think and allow yourself some time to calm down before reacting. 7. Refer back to your binder for refresher of skills. - Appointments Appointments/Referrals to Other Services:: Client is to continue with his regular counselor, Ana Ramos, for ongoing individual outpatient therapy and is scheduled for an appointment 05/06. Client has additionally been referred to the [facility] beginning the last week of April. CLient encouraged to continue attending divorce support group as well as begin the DBSA support group at [facility], next scheduled session on .
--- NOTE | 2017-04-30 10:57 | BH.DS ---
Discharge Summary - Demographics Date of Admission:: 03/01/17 Discharge Date: 04/30/17 Presenting Problems at Admission:: Client referred to Behavioral Health IOP program following recent inpatient hospitalization at [facility] on February 092016 due to SI, increased depression, and overwhelming stress. CLient reports increased sx of anxiety and depression the past several months, resulting in increased chronic passive SI, without plan or intent, and several panic attacks. Client indicated at time of admission symptoms include isolating behaviors, passive thoughts of , decreased appetite, low motivation, hopelessness, and increased negative thinking. Client additionally reports self-harming behaviors including superficially cutting his arms but denies any recent engagement in self-harming behaviors. Discharge Diagnoses:: Major depressive disorder recurrent severe F 33.2, Anxiety unspecified, Borderline personality disorder Reason for Discharge:: Client successfully completed treatment goals and indicates decreased mental health symptoms including: denies active SI, plan, or intent, fewer passive thoughts of , and consistent stabilization. Increased ability to consistently function at baseline. Client no longer meets criteria for IOP level of care and is appropriate for step-down to outpatient level of care. - Treatment Progress During Treatment & Response: Since beginning the program, Client has made progress with improved mood stability and decreased symptoms of both anxiety and depression. Client has successfully maintained stability and refrained from engaging in self-harming behaviors throughout admission in IOP program. He has shown improvements in his ability to manage stressors and unexpected or difficult news without immediately responding in crisis. Instead, CLient is able to now try applying the healthy coping skills he has learned as a means for better managing emotional responses during times of distress. In the past month, Client has indicated a decrease in passive thoughts of on a consistent basis and identifies an ability to challenge these thoughts and maintain safety when they do arise. He has shown improvement with his ability to first try the safety measures identified on his crisis plan instead of using hospitalization as a first response to distress. Client has displayed and reports increased self-confidence and healthy problem-solving skills. He reports feeling more hopeful, goal oriented, and aware of healthy coping skills available Issues Still to be Addressed:: Client can benefit from continued work on identifying and addressing negative thinking patterns, specifically Client's tendency to catastrophize. Client can also benefit from continued work on maintaining healthy communication with supports, especially during times of distress. Client could also benefit from increased focus on implementing stress management techniques and should continue to work on emotion regulation strategies and use of health means for emotional release to prevent crisis escalation, re-engaging in self-harming, or to prevent use of negative coping strategies. Discharge Recommendations/Instructions:: Client is to continue with his regular counselor, Ana Ramos, for ongoing individual outpatient therapy and is scheduled for an appointment 05/06. Client has additionally been [facility] the last week of April. CLient encouraged to continue attending divorce support group as well as begin the DBSA support group at [facility], next scheduled session on 05/03/17. Discharge Handout: Complete Discharge Handout with client on aftercare options and continuity of care.
--- NOTE | 2017-04-30 11:47 | BH.MDN ---
Multi-Disciplinary Note - Note 45-min Individual Time Started:: 11:00 Date: 04/30/17 Purpose of session/treatment goals addressed:: The purpose of this session was to reflect with Client on progress during IOP admission, discuss concerns regarding ability to maintain gains made following discharge, as well as identify a set of 'strategies for success' to promote ongoing stability and address concerns. Eye Contact:: Good Motor Activity:: Appropriate Appearance:: Casual Speech:: Appropriate Mood:: Euthymic, Anxious Affect:: Full, Bright Thoughts:: Linear, Logical, No evidence of hallucinations/delusions noted Staff Interventions:: Therapist used open-ended questions to assess Client continued maintenance of treatment goals and current concerns regarding such. Therapist utilized the strengths-perspective as well as creation of discrepancy in order to reflect on clients progress and to empower client to identify strategies to continue to make change behaviors. Therapist reviewed with identified coping skills and aided Client in identifying warning signs to be aware of. Therapist reviewed scheduled outpatient services and client supports. Client Response:: Client responded well to session, expressed excitement to be successfully completing IOP program and making strides forward. Client shared feeling tired yet accomplished as he has successfully acquired full-time employment at [email or web address] which has helped with decreasing financial stressors; however, is still adjusting to working on the 3rd shift schedule. Client discussed that working this shift allows him more time to spend with his son during the day and believes that this has served as a major factor in decreasing symptoms of depression and increasing motivation to continue to make progress. Client reports continuing to have difficulties believing he will be able to sustain the growth and healthy changes he has made following discharge, indicating I'm in the chaos stage of change. Client went on to describe knowing what he needs to do but fearing he will become overwhelmed and forget to do so. Client responded well to reviewing the progress made while in the IOP program such as an increased ability to manage stressors without instantly reaching point of crisis, decreased isolation and willingness to utilize community supports, as well as an improved relationship with his mother. Client did well to identify ways in which he may apply these skills in order to continue to sustain progress and recognize when to ask for help in order to prevent decompensation. CLient states he feels more confident and stable compared to prior to attending IOP. Client scheduled to begin DBT with the counseling center, is planning to attend the DBSA support group as [facility], and is continuing outpatient counseling services. Risks/Concerns:: Client denies suicidal ideation, plan, and intent as of 04/30/17. Client reports looking forward to spending more time with his son and is enjoying returning to work. Client denies any self harming urges and indicates his son is his largest motivating factor. Progress Toward Goals/Plan:: Client has shown progress during his time in [facility] as evidenced by significant strides towards completion of treatment goals including: decreased depressive symptoms, increased use of social supports and decreased isolation, increased ability to identify and begin to challenge negative thinking, increased awareness of triggers and symptoms. Client to discharge from [facility] on 04/30/17 and follow up with support systems, Yohannes Leung, and outpatient therapist for aftercare. Time Stopped:: 11:38
--- NOTE | 2017-04-30 12:07 | BH.SGPN ---
Service Group Progress Note - Session Psychotherapy Session #1 Date Open:: 04/30/17 Time Started:: 09:05 Time Stopped:: 10:00 Targeted Problem #:: 1 Type of Group:: Process Goal of Group:: The goal of today's group was to check-in with client's mood, stressors, and positives, review homework and introduce topic for the day. Client Response/Progress/Benefit:: Client reported the court date scheduled for yesterday in which client would have to face his ex- had been moved to later this month because his ex- was sick. Client expressed some frustration about not being able to get court date over with and move forward. Shared he worked last night which reported work she to be helping keep him busy. Client reported he did not sleep ago because by the time he got home his son had woken up sick client had to help with his son. With some coaching client able to see that if client does not get enough sleep he will not be able to maintain his current schedule for very long. Client seemed to benefit from expressing thoughts and feelings as well as receiving positive comments from peers given today is client's last day in the program. Eye Contact:: Good Motor Activity:: Appropriate Appearance:: Casual Speech:: Appropriate Mood:: Euthymic Affect:: Congruent Thoughts:: Linear, Logical, No evidence of hallucinations/delusions noted Staff Interventions:: Therapist used open-ended questions to elicit information about client's current stressors and mood state. Therapist was supportive by using active listening and reflection.
--- NOTE | 2017-04-30 14:36 | BH.MDN_ITS ---
Multi-Disciplinary Note - Note 45-min Individual Time Started:: 11:00 Date: 04/30/17 Purpose of session/treatment goals addressed:: The purpose of this session was to reflect with Client on progress during IOP admission, discuss concerns regarding ability to maintain gains made following discharge, as well as identify a set of 'strategies for success' to promote ongoing stability and address concerns. Eye Contact:: Good Motor Activity:: Appropriate Appearance:: Casual Speech:: Appropriate Mood:: Euthymic, Anxious Affect:: Full, Bright Thoughts:: Linear, Logical, No evidence of hallucinations/delusions noted Staff Interventions:: Therapist used open-ended questions to assess Client continued maintenance of treatment goals and current concerns regarding such. Therapist utilized the strengths-perspective as well as creation of discrepancy in order to reflect on client?s progress and to empower client to identify strategies to continue to make change behaviors. Therapist reviewed with identified coping skills and aided Client in identifying warning signs to be aware of. Therapist reviewed scheduled outpatient services and client supports. Client Response:: Client responded well to session, expressed excitement to be successfully completing IOP program and making strides forward. Client shared feeling tired yet accomplished as he has successfully acquired full-time employment at [employer] which has helped with decreasing financial stressors; however, is still adjusting to working on the 3rd shift schedule. Client discussed that working this shift allows him more time to spend with his son during the day and believes that this has served as a major factor in decreasing symptoms of depression and increasing motivation to continue to make progress. Client reports continuing to have difficulties believing he will be able to sustain the growth and healthy changes he has made following discharge, indicating I'm in the chaos stage of change. Client went on to describe knowing what he needs to do but fearing he will become overwhelmed and forget to do so. Client responded well to reviewing the progress made while in the IOP program such as an increased ability to manage stressors without instantly reaching point of crisis, decreased isolation and willingness to utilize community supports, as well as an improved relationship with his mother. Client did well to identify ways in which he may apply these skills in order to continue to sustain progress and recognize when to ask for help in order to prevent decompensation. CLient states he feels more confident and stable compared to prior to attending IOP. Client scheduled to begin DBT with the counseling center, is planning to attend [facility], and is continuing outpatient counseling services. Risks/Concerns:: Client denies suicidal ideation, plan, and intent as of . Client reports looking forward to spending more time with his son and is enjoying returning to work. Client denies any self harming urges and indicates his son is his largest motivating factor. Progress Toward Goals/Plan:: Client has shown progress during his time in [facility] as evidenced by significant strides towards completion of treatment goals including: decreased depressive symptoms, increased use of social supports and decreased isolation, increased ability to identify and begin to challenge negative thinking, increased awareness of triggers and symptoms. Client to discharge from [facility] on 04/30/17 and follow up with support systems, Yohannes Leung, and outpatient therapist for aftercare. Time Stopped:: 11:38
--- NOTE | 2017-05-03 15:26 | BH.SGPN_ITS ---
Service Group Progress Note - Session Psychotherapy Session #2 Date Open:: 04/23/17 Time Started:: 10:10 Time Stopped:: 11:15 Targeted Problem #:: 1 Type of Group:: Illness Management Goal of Group:: The goal of group was to increase understanding of coping strategies and impact problems have on self. Another goal was to practice utilizing coping skills in the moment. Client Response/Progress/Benefit:: Client contributed positively to discussion and listened attentively to others. Client connected with the quote reported when he uses unhealthy coping strategies it tends to lead to increased problems and difficulties in his life. Client shared example of few weeks ago when he had to have a visit in which she might have to see his ex- client coped by choosing to take too much of his medication which led to her ER visit and made the situation worse. Recognizes the need to utilize healthy coping strategies because one does not use those kind of skills and tends to lead to increased problems. Client demonstrating leadership during challenge activity but expressing his thoughts and ideas as well as encouraging others. Seemed to benefit from having the opportunity to utilize his healthy coping strategies in the moment during the challenge activity. Eye Contact:: Good Motor Activity:: Appropriate Appearance:: Casual Speech:: Appropriate Mood:: Euthymic, Anxious Affect:: Congruent Thoughts:: Linear, Logical, No evidence of hallucinations/delusions noted Staff Interventions:: Therapist facilitated the group discussion about coping strategies. Therapist group and activity challenge them to work together in utilize healthy coping skills in the moment. Therapist utilized the activity as a tool to process what it feels like when dealing with problems and what strategies they used to cope throughout activity. Psychotherapy Session #3 Date Open:: 04/23/17 Time Started:: 11:22 Time Stopped:: 12:12 Targeted Problem #:: 1 Type of Group:: Functional Skills Development Goal of Group:: The goal of group was to increase client???s ability to recognize the different between an internal and external coping strategy. Another goal was to increase client???s self-awareness on their use of coping strategies and increase repertoire of healthy coping strategies. Client Response/Progress/Benefit:: Client listened attentively to others and contributed positively discussion. Client able to identify several healthy coping strategies to add to the list that group the group was brainstorming. Client identified for his healthy coping skills menu he is willing to try the following: Radical acceptance, reframing his negative thought patterns, reading , exercise, and cooking. Client seemed to benefit from increasing his repertoire of healthy coping strategies as well as identifying what skills he is willing to try. Eye Contact:: Good Motor Activity:: Appropriate Appearance:: Casual Speech:: Appropriate Mood:: Euthymic Affect:: Congruent Thoughts:: Linear, Logical, No evidence of hallucinations/delusions noted Staff Interventions:: Therapist facilitated discussion about the different types of coping skills. Therapist led group in an activity in which group members were asked to brainstorm coping strategies that fit in each coping skill category. Therapist led a discussion about whether the coping strategies identified were healthy or unhealthy.
--- NOTE | 2017-06-16 21:44 | BH.DS_ITS ---
Discharge Summary - Demographics Date of Admission:: 03/01/17 Discharge Date: 04/30/17 Presenting Problems at Admission:: Client referred to Behavioral Health IOP program following recent inpatient hospitalization at [place] on February 092016 due to SI, increased depression, and overwhelming stress. CLient reports increased sx of anxiety and depression the past several months, resulting in increased chronic passive SI, without plan or intent, and several panic attacks. Client indicated at time of admission symptoms include isolating behaviors, passive thoughts of , decreased appetite, low motivation, hopelessness, and increased negative thinking. Client additionally reports self- harming behaviors including superficially cutting his arms but denies any recent engagement in self-harming behaviors. Discharge Diagnoses:: Major depressive disorder recurrent severe F 33.2, Anxiety unspecified, Borderline personality disorder Reason for Discharge:: Client successfully completed treatment goals and indicates decreased mental health symptoms including: denies active SI, plan, or intent, fewer passive thoughts of , and consistent stabilization. Increased ability to consistently function at baseline. Client no longer meets criteria for IOP level of care and is appropriate for step-down to outpatient level of care. - Treatment Progress During Treatment & Response: Since beginning the program, Client has made progress with improved mood stability and decreased symptoms of both anxiety and depression. Client has successfully maintained stability and refrained from engaging in self-harming behaviors throughout admission in IOP program. He has shown improvements in his ability to manage stressors and unexpected or difficult news without immediately responding in crisis. Instead, CLient is able to now try applying the healthy coping skills he has learned as a means for better managing emotional responses during times of distress. In the past month, Client has indicated a decrease in passive thoughts of on a consistent basis and identifies an ability to challenge these thoughts and maintain safety when they do arise. He has shown improvement with his ability to first try the safety measures identified on his crisis plan instead of using hospitalization as a first response to distress. Client has displayed and reports increased self-confidence and healthy problem-solving skills. He reports feeling more hopeful, goal oriented, and aware of healthy coping skills available Issues Still to be Addressed:: Client can benefit from continued work on identifying and addressing negative thinking patterns, specifically Client's tendency to catastrophize. Client can also benefit from continued work on maintaining healthy communication with supports, especially during times of distress. Client could also benefit from increased focus on implementing stress management techniques and should continue to work on emotion regulation strategies and use of health means for emotional release to prevent crisis escalation, re-engaging in self-harming, or to prevent use of negative coping strategies. Discharge Recommendations/Instructions:: Client is to continue with his regular counselor, Ana Ramos, for ongoing individual outpatient therapy and is scheduled for an appointment 05/06. Client has additionally been [facility] the last week of April. CLient encouraged to continue attending divorce support group as well as begin the DBSA support group at [facility], next scheduled session on 05/03/17. Discharge Handout: Complete Discharge Handout with client on aftercare options and continuity of care.
== END 2017-04-30 14:00 | disposition home or self-care (01) ==
LOC: BHIOP 08:50
PROVIDERS: Family Provider Family Medicine; PCP Family Medicine; Visit Provider Psychiatry & Neurology Psychiatry
DX: F33.2 Major depressive disorder, recurrent severe without psychotic features (principal); F41.9 Anxiety disorder, unspecified; F60.3 Borderline personality disorder
CPT/HCPCS: H0035; H2012; H2020; 90834

== ENCOUNTER 2018-01-03 09:09 | Emergency (ER) | payer MEDICAID, SELFPAY ==
[2018-01-03 09:10] VITALS: BP 127/84; PULSE 97; RESP 18; TEMP 36.6; O2SAT 100; BMI 23.6
[2018-01-03 09:19] VITALS: BP 125/76; PULSE 75; RESP 14; O2SAT 98
--- NOTE | 2018-01-03 09:20 | EKG12_ITS ---
Test Reason : CHEST OTHER Blood Pressure : / mmHG Vent. Rate : 080 BPM Atrial Rate : 080 BPM P-R Int : 178 ms QRS Dur : 086 ms QT Int : 358 ms P-R-T Axes : 046 075 067 degrees QTc Int : 412 ms Normal sinus rhythm with sinus arrhythmia Normal ECG Confirmed by GIRISH MCARTHUR, SAM ([id number]), graphics editor ADRIEN TAFOYA ([id number] on 01/06/2018 10:27:06 AM Referred By: BABITA Confirmed By:SAM STOUT MD
--- NOTE | 2018-01-03 09:21 | RAD_ITS ---
STUDY: X-RAY CHEST REASON FOR EXAM: Male, 27 years old. Chest pain. TECHNIQUE: PA and lateral views of the chest. COMPARISON: None. FINDINGS: EKG electrodes are seen. Hyperinflation. The lungs are clear. There is no demonstrated pleural abnormality. Normal size heart. Normal mediastinum and milton. Normal visualized pulmonary arteries. Normal visualized aortic arch and descending thoracic aorta. Normal visualized thoracic spine. Normal visualized ribs, clavicles, and shoulders. There is no demonstrated abnormality of the visualized soft tissue structures of the upper abdomen. RAD/Chest PA and Lateral IMPRESSION: Hyperinflation. Electronically Signed: Tu Santillan MD at 9:49 EDT Tel [phone], Service support ,
--- NOTE | 2018-01-03 09:25 | ED.VISSUMM ---
- ER Visit Summary Date of Service: 01/03/18 Chief Complaint: Chest pain History of Present Illness: The patient is a 27 M who states that 2 days ago he woke in the morning with a left-sided chest pain located just left lateral to the sternum. He states it is not positional and is sharp and stabbing and occasionally worse with movement. He notes his left arm has tingling in it now. He has a occasional smoker. He notes an occasional cough. He states that a week ago he had vomiting without diarrhea but that has resolved. 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 He lasted [place] on Wednesday. No rash. No leg symptoms or abdominal symptoms currently. Physical Examination: Afebrile vital signs are stable Gen: Well-nourished well-developed Head: Normocephalic atraumatic Eyes: Perrl EOMI ENT: TMs clear no rhinorrhea moist mucous membranes Neck: Supple no lymphadenopathy no JVD nontender CVS: Regular rate rhythm no murmurs normal S1-S2 Respiratory: No distress clear to auscultation bilaterally chest nontender Abdomen: Soft nontender nondistended normal bowel sounds no masses Back: Nontender Extremity: Nontender no edema Skin: Normal color no rash Neuro: alert orientated ?3 CN II-XII intact normal strength sensation reflexes gait cerebellar Psych: Normal affect normal mood Test Results: He shows a normal sinus rhythm at a rate of 80 and this appears unchanged from August 2016. TC, BMP, troponin, and d-dimer were negative. Chest x-ray showed no acute findings. Emergency Department Course and Treatment: I think the patient most likely has a pleurisy as his pain is not reproducible it is sharp and stabbing. We will do anti-inflammatories. Follow-up is with primary care. Impression: 1. Chest pain 2. Pleurisy This note was generated with [employer] dictation software. It may contain incorrect words, spelling, and punctuation that were not noted in review of the chart prior to signing ED Disposition - Plan for ED Patient: Disposition: Home or Assisted Living Chief Complaint: Chest Other Instructions: ED Chest Pain Pleurisy Prescriptions: Ibuprofen [Motrin] 800 mg PO TID PRN PRN #20 tab PRN Reason: Pain Prednisone [Deltasone] 40 mg PO DAILY #10 tab Referrals: Eboni Coles MD [Primary Care Provider] - 1 Week if not improving
[2018-01-03 09:39] LABS: Absolute Lymphocyte Count 1.24 X10^3/ul (0.83-4.51); Absolute Neutrophil Count 5.4 X10^3/uL (2.0-7.7); Basophil# 0.02 X10^3/uL; Basophil% 0.3 % (0-1); Eosinophil# 0.08 X10^3/uL; Eosinophils% 1.1 % (0-5); Hematocrit 46.3 % (40-54); Hemoglobin 14.8 g/dl (13.0-16.5); Lymphocyte # 1.24 X10^3/ul (4.0); Lymphocyte % 16.9 % (19-41); Mean Corpuscular Volume 90.6 fL (80-94); Mean Platelet Vol. 10.6 fl (6.2-12.0); Monocyte# 0.62 X10^3/uL; Monocyte% 8.5 % (0-10); Neutrophil # 5.36 X10^3/uL (2.7-7.7); Neutrophil % 73.1 % (47-70); Platelet Count 205 K/mm3 (150-450); RBC Distribution Width CV 13.3 % (11.6-14.6); RBC Distribution Width SD 44.1 fl (35.1-43.9); Red Blood Count 5.11 M/mm3 (4.6-6.2); White Blood Count 7.3 K/mm3 (4.4-11.0)
[2018-01-03 09:47] LABS: D-Dimer Quantitative (DVT/PE) < 0.27 FEU/ug/m (0.27-0.49)
[2018-01-03 09:48] LABS: POSITIVE COUNT NO; POSITIVE DIFFERENTIAL NO; POSITIVE MORPHOLOGY NO
[2018-01-03 09:54] LABS: Anion Gap 7 (5-15); BUN 14 mg/dL (7-18); BUN/Creat Ratio 14.7 RATIO (10-20); Chloride 103 mmol/L (98-107); Creatinine, Serum 0.95 mg/dL (0.70-1.30); EST Glomerular Filtration Rate 100 mL/min (>60); Est Glom Filt Rate - Afr Amer 121 mL/min (>60); Estimated Creatinine Clearance 142.13 ml/min; Glucose 109 mg/dL (74-106); Potassium 3.9 mmol/L (3.5-5.1); Sodium Level 137 mmol/L (136-145)
[2018-01-03 10:41] VITALS: BP 108/69; PULSE 74; RESP 18; O2SAT 98
== END 2018-01-03 10:42 | disposition home or self-care (01) ==
PROVIDERS: Emergency Provider Emergency Medicine; Family Provider Family Medicine; PCP Family Medicine
DX: R09.1 Pleurisy (principal); F17.200 Nicotine dependence, unspecified, uncomplicated
CPT/HCPCS: 71046; 80048; 84484; 85025; 85379; 93005; 99284; A4216

== ENCOUNTER 2018-01-05 19:20 | Emergency (ER) | payer OTHER, SELFPAY ==
[2018-01-05 19:20] VITALS: BP 132/76; PULSE 85; RESP 24; TEMP 37; O2SAT 99; BMI 24.2
--- NOTE | 2018-01-05 19:47 | EKG12_ITS ---
Test Reason : SOB Blood Pressure : / mmHG Vent. Rate : 072 BPM Atrial Rate : 072 BPM P-R Int : 184 ms QRS Dur : 088 ms QT Int : 354 ms P-R-T Axes : 017 037 045 degrees QTc Int : 387 ms Normal sinus rhythm Normal ECG Confirmed by GIRISH MCARTHUR, SAM ([id number]), commercial production editor AJAY PANDEY ([id number] on 01/10/2018 12:32:47 PM Referred By: Confirmed By:SAM STOUT MD
--- NOTE | 2018-01-05 19:47 | CT_ITS ---
STUDY: CT BRAIN WITHOUT CONTRAST REASON FOR EXAM: Male, 27 years old. Numbness. Left arm pain. RADIATION DOSAGE (If Supplied By Facility): CTDIvol = ( 23.59 ) mGy, DLP = ( 1255.34 ) mGycm TECHNIQUE: Transaxial CT imaging of the brain was performed without administration of intravenous contrast material. Individualized dose optimization techniques were used for this CT. COMPARISON: None. FINDINGS: There is no acute bleed or infarct. There are normal white matter tracts. The ventricles are normal in configuration. There is no hydrocephalus. The visualized paranasal sinuses are clear. There is opacification of the right mastoid air cells. The left mastoid air cells are well aerated. There is no skull fracture. CT/Brain/Head without Contrast IMPRESSION: No acute intracranial abnormality. Opacification of the right mastoid air cells. Electronically Signed: Aristides Wright, at 20:35 EDT Tel , Service support ,
--- NOTE | 2018-01-05 19:55 | RAD_ITS ---
STUDY: X-RAY CHEST REASON FOR EXAM: Male, 27 years old. Chest pain TECHNIQUE: Frontal view of the chest COMPARISON: 01/03/2018 FINDINGS: The lungs are clear. There are no pleural effusions. There is no pneumothorax. The heart is normal in size. The visualized osseous structures are within normal limits. RAD/Chest 1 View (Portable) IMPRESSION: No acute thoracic pathology. Electronically Signed: Aristides Wright, at 20:24 EDT Tel , Service support ,
[2018-01-05] MEDS: Ketorolac 30 MG/ML Syringe IV (20:02)
[2018-01-05] MEDS: 0.9% Normal Saline 1,000 ML 1000 ML IV (20:02)
[2018-01-05 20:04] LABS: Absolute Lymphocyte Count 1.77 X10^3/ul (0.83-4.51); Absolute Neutrophil Count 5.9 X10^3/uL (2.0-7.7); Basophil# 0.03 X10^3/uL; Basophil% 0.4 % (0-1); Eosinophil# 0.02 X10^3/uL; Eosinophils% 0.2 % (0-5); Hematocrit 42.7 % (40-54); Hemoglobin 13.7 g/dl (13.0-16.5); Lymphocyte # 1.77 X10^3/ul (4.0); Mean Corp Hgb Conc 32.1 g/gl (32-36); Mean Corpuscular Hgb 29.1 pg (27.0-32.0); Mean Corpuscular Volume 90.7 fL (80-94); Mean Platelet Vol. 10.6 fl (6.2-12.0); Monocyte# 0.65 X10^3/uL; Monocyte% 7.7 % (0-10); Neutrophil # 5.92 X10^3/uL (2.7-7.7); Neutrophil % 70.5 % (47-70); POSITIVE COUNT NO; POSITIVE DIFFERENTIAL NO; POSITIVE MORPHOLOGY NO; Platelet Count 194 K/mm3 (150-450); RBC Distribution Width CV 13.5 % (11.6-14.6); RBC Distribution Width SD 44.4 fl (35.1-43.9); Red Blood Count 4.71 M/mm3 (4.6-6.2); White Blood Count 8.4 K/mm3 (4.4-11.0)
[2018-01-05 20:27] LABS: Anion Gap 7 (5-15); BUN 15 mg/dL (7-18); BUN/Creat Ratio 16.1 RATIO (10-20); Calcium,Total 8.8 mg/dL (8.5-10.1); Chloride 105 mmol/L (98-107); Creatinine, Serum 0.93 mg/dL (0.70-1.30); EST Glomerular Filtration Rate 102 mL/min (>60); Est Glom Filt Rate - Afr Amer 124 mL/min (>60); Estimated Creatinine Clearance 145.19 ml/min; Glucose 96 mg/dL (74-106); Potassium 3.6 mmol/L (3.5-5.1); Sodium Level 138 mmol/L (136-145)
--- NOTE | 2018-01-05 20:46 | ED.DCSUM_ITS ---
- ER Visit Summary Date of Service: 01/05/18 Chief Complaint: Chest pain and left arm is not History of Present Illness: The patient is a [address] Coles. Patient reports that 3 days ago he noticed that his left arm was numb. States initially that it is in his tricep. When questioned further he reports that his entire arm. 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 He denies any neck pain. Patient reports that he has continuous sharp left-sided chest pain that began 3 days ago. Is 5 out of 10 at worst. It is worsened by laying down, movement, or rotation. Is decreased with ibuprofen. He does report that he is mildly short of breath with this. No personal or family history of DVT. No recent travel. No ankle swelling or calf pain. He had a negative d-dimer 2 days ago. Physical Examination: Vitals: Stable. Afebrile. General: Well-nourished and well-developed. Head: Normocephalic atraumatic. Neck: Supple, no lymphadenopathy. No JVD. Nontender. Cardiovascular: Regular rate and rhythm. No murmurs. Respiratory: No respiratory distress. Clear to auscultation bilaterally. Moderate tenderness palpation over the left costochondral margin that does reproduce his pain. Abdominal: Soft, nontender, nondistended, normal bowel sounds. No guarding, rebound, or peritoneal signs. Back: Nontender. Extremities: Nontender, no edema. Skin: Normal color, no rash. Neurologic: Alert and oriented ?3. Cranial nerves II through XII are intact. Normal strength. Decreased sensation to light touch throughout his entire left arm. Psych: Normal affect. Test Results: EKG is sinus at 72 with a benign early re-pole pattern. It is unchanged from 2 days ago. Troponin is negative. Chem-7 is normal. CBC is more for 7 neutrophils 71. Chest x-ray is normal. CT brain shows no acute disease. Emergency Department Course and Treatment: Had a prolonged discussion this patient that at this time I do not have an explanation for his left arm numbness. With his work swinging a sledgehammer I do not know if he may have caused some inflammation in his brachial plexus. He was given a dose of Toradol IV here and is resting comfortably. He is using his left arm without any difficulty at this time. Treatment Plan: Patient will be discharged with naproxen. Instructed to follow- up Dr. Kolb in 3-5 days if not improving. Return to the emergency department for any worsening symptoms. Disposition: To home in improved and stable condition. Impression: 1. Musculoskeletal chest pain. 2. Paresthesias left arm, uncertain cause. This note was generated with [employer] dictation software. It may contain incorrect words, spelling, and punctuation that were not noted in review of the chart prior to signing ED Disposition - Plan for ED Patient: Disposition: Home or Assisted Living Chief Complaint: Shortness of Breath Instructions: ED Chest Pain Costochondritis, ED Paraesthesias Referrals: Eboni Coles MD [Primary Care Provider] - 1-2 Days if not improving
[2018-01-05 21:02] VITALS: BP 132/95; PULSE 74
--- NOTE | 2018-01-06 10:52 | CM.ED ---
ED CALLBACK: Follow-up call placed to patient. Patient denies chest pain, but states he does still have numbness in his arm. He states he has been taking ibuprofen and a steroid. I encouraged patient to make an appointment with Dr. Coles, in case his symptoms do not improve. Patient states agreement. 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 Patient denies any needs or questions at this time.
== END 2018-01-05 21:04 | disposition home or self-care (01) ==
LOC: ED 20:33
PROVIDERS: Emergency Provider Emergency Medicine; Family Provider Family Medicine; PCP Family Medicine
DX: R07.89 Other chest pain (principal); R20.2 Paresthesia of skin; Z72.0 Tobacco use
CPT/HCPCS: 70450; 71045; 80048; 84484; 85025; 93005; 96361; 96374; 99285; J7030; A4216

== ENCOUNTER 2018-01-13 21:29 | Emergency (ER) | payer OTHER, SELFPAY ==
[2018-01-13 21:30] VITALS: BP 136/73; PULSE 89; RESP 18; TEMP 36.7; O2SAT 98; BMI 23.6
--- NOTE | 2018-01-13 21:37 | ED.RN ---
RN CALLED FOR EKG, PULLED OLD EKGS FOR
[2018-01-13 21:47] VITALS: BP 145/102; PULSE 75; RESP 18; O2SAT 98
--- NOTE | 2018-01-13 22:45 | EKG12_ITS ---
Test Reason : CP Blood Pressure : / mmHG Vent. Rate : 091 BPM Atrial Rate : 091 BPM P-R Int : 180 ms QRS Dur : 078 ms QT Int : 334 ms P-R-T Axes : 062 066 064 degrees QTc Int : 410 ms Normal sinus rhythm with sinus arrhythmia Normal ECG Confirmed by SUMEET SWEENEY ([id number]), video tape editor ADRIEN TAFOYA ([id number]) on 01/18/2018 8:50:06 AM Referred By: DEVIKA Confirmed By:SUMEET SWEENEY
--- NOTE | 2018-01-13 22:50 | ED.DCSUM_ITS ---
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 deep breathing, coughing. Relieved by: breathing easy. not by asa or ibuprofen. Associated Symptoms: n/v JPTA w/ streak of blood. Narrative: Patient was seen here twice last week for these same symptoms, was also seen by his PCP. Told that it was likely musculoskeletal but he doubts that diagnosis because of the numbness in his left arm which seems to come and go with the discomfort. He vomited small amount of blood prior to coming here which is why he returns tonight. States he has been taking a lot of aspirin for this. He takes 3 or 4 tablets at a time of the 325 mg aspirin. 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 He occasionally has a stomachache but not right now. He denies any melena or bright red blood per rectum. - Past Medical History (1) Depression Status: Chronic Past Medical History - Allergies and Home Meds Allergies/Adverse Reactions: Allergies No Known Allergies Allergy (Verified 01/13/18 21:30) Primary Care Physician: Eboni Coles MD [Primary Care Provider] - 3-5 Days if not improving Smoking Status: Current every day smoker - Family History Paternal Family History: Reports: Diabetes Review of Systems General: Denies: Chills, Fever, Sweats ENT: Reports: - - right ear chronic purulent discharge x years. Denies: Left ear pain, Right ear pain Cardiovascular: Reports: Chest pain. Denies: Palpitations, Heart racing Respiratory: Reports: Dyspnea - occasionally. Denies: Cough, Dyspnea on exertion Gastrointestinal: Reports: Abdominal pain - gone now, Nausea, Vomiting - w/ streak of blood x 1. Denies: Diarrhea, Melena, Hematochezia Genitourinary: Denies: Dysuria, Hematuria, Frequency Musculoskeletal: Reports: Back pain - low back. Denies: Swelling, Extremity Pain Skin: Denies: Rash, Wounds Neurological: Denies: Headache, Weakness, Numbness Psych: Denies: Suicidal thoughts, Suicidal ideations Physical Exam Vital Signs/Narrative: Vital Signs Temp Pulse Resp BP Pulse Ox 01/13/18 21:47 75 18 145/102 H 98 01/13/18 21:30 98.1 F 89 18 136/73 H 98 Inital Vital Signs reviewed: Yes General: Well nourished, Well developed, - - well-appearing, nad Head: Normocephalic, Atraumatic Eyes: Perrl, EOMI ENT: Moist mucous membranes, No rhinorrhea, - - L TM clear/nml. R TM nonvisualized due to canal full of purulent material. no pain w/ spec exam or pulling on pinna/tragus. Neck: Supple, Nontender Cardiovascular: Regular rate, Regular rhythm, No murmurs Respiratory: No distress, CTA bilaterally, Chest tenderness - left chest/ribs and sternum, making pt wince in reproduced pain. Abdomen: Soft, Nontender, Nondistended, Normal bowel sounds Back: Nontender, Normal Inspection, - - nml ROM. Negative for: CVA tenderness, Spinal tenderness Extremities: Nontender - incl no calf tenderness, No edema Skin: Normal color, No rash Neurological: Alert, Oriented x3, Cranial nerves II-XII grossly intact, Normal Strength, Normal Sensation Psychological: Normal affect Diagnostic/Tx/Re-eval Laboratory Tests 01/13/18 Range/Units 22:45 Troponin I < 0.015 (<0.045) ng/mL - Rhythm Strip Rhythm Strip: Sinus Rhythm Rate: 70 Ectopy: None - EKG Initial EKG Interpretation: Sinus Rhythm - 91, No Acute Injury Pattern, - - normal EKG. Prior: Unchanged - Medical Decision Making I discussed with patient's there are multiple possibilities with regards to his chest discomfort and left arm numbness, his EKG is normal again so it is unlikely acute coronary syndrome. I am repeating his troponin which has been negative. He had a d-dimer that was negative as well as other labs and a chest x-ray all of which was normal. I do not think those need to be repeated. With regards of the vomiting and the streak of blood, I recommend that he discontinue taking aspirin especially if it is not helping. I do not think he is having angina, so he should not need aspirin. He could be given him gastritis that could be causing his bleeding and I am telling him to discontinue it. I offered him a GI cocktail and we discussed this, but when the nurse went to give it he refused it saying he did not want to vomit. He was also offered an antiemetic, but he refused that as well. At this time he is undergoing testing but refusing medication although he is having discomfort. Repeat troponin is negative. Refused other medications here. Prescribed H2 asia and advised to follow up. ED Disposition - Plan for ED Patient: Disposition: Home or Assisted Living Chief Complaint: Chest Pain Diagnosis: Chest pain, unspecified, Gastritis with bleeding Instructions: ED Chest Pain NonCardiac, ED Gastritis Prescriptions: Ranitidine [Zantac] 150 mg PO BID #60 tab Referrals: Eboni Coles MD [Primary Care Provider] - 3-5 Days if not improving Additional Instructions: STOP taking aspirin. Avoid ibuprofen until you have taken the new prescription for at least 4-5 days. May take Tylenol, Mylanta, Maalox as needed.
[2018-01-14 00:09] VITALS: BP 127/68; PULSE 80; RESP 20; O2SAT 98
== END 2018-01-14 00:10 | disposition home or self-care (01) ==
PROVIDERS: Emergency Provider Emergency Medicine; Family Provider Family Medicine; PCP Family Medicine
DX: R07.9 Chest pain, unspecified (principal); K29.71 Gastritis, unspecified, with bleeding; F17.200 Nicotine dependence, unspecified, uncomplicated
CPT/HCPCS: 84484; 93005; 99285; A4216

== ENCOUNTER 2018-01-17 12:09 | Emergency (ER) | payer MEDICAID, SELFPAY ==
[2018-01-17 12:10] VITALS: BP 124/68; PULSE 71; RESP 18; TEMP 36.1; O2SAT 100; BMI 23.2
[2018-01-17 12:48] LABS: Absolute Lymphocyte Count 1.15 X10^3/ul (0.83-4.51); Absolute Neutrophil Count 5.3 X10^3/uL (2.0-7.7); Basophil# 0.02 X10^3/uL; Basophil% 0.3 % (0-1); Eosinophil# 0.03 X10^3/uL; Eosinophils% 0.4 % (0-5); Hematocrit 43.6 % (40-54); Hemoglobin 14.2 g/dl (13.0-16.5); Lymphocyte # 1.15 X10^3/ul (4.0); Lymphocyte % 16.4 % (19-41); Mean Corp Hgb Conc 32.6 g/gl (32-36); Mean Corpuscular Hgb 29.6 pg (27.0-32.0); Mean Platelet Vol. 10.6 fl (6.2-12.0); Monocyte# 0.55 X10^3/uL; Monocyte% 7.8 % (0-10); Neutrophil # 5.27 X10^3/uL (2.7-7.7); Platelet Count 199 K/mm3 (150-450); RBC Distribution Width CV 13.2 % (11.6-14.6); RBC Distribution Width SD 43.9 fl (35.1-43.9); Red Blood Count 4.79 M/mm3 (4.6-6.2)
[2018-01-17 12:52] LABS: POSITIVE COUNT NO; POSITIVE DIFFERENTIAL NO; POSITIVE MORPHOLOGY NO
[2018-01-17 13:00] LABS: Anion Gap 4 (5-15); BUN 10 mg/dL (7-18); BUN/Creat Ratio 10.6 RATIO (10-20); Calcium,Total 8.7 mg/dL (8.5-10.1); Chloride 105 mmol/L (98-107); Creatinine, Serum 0.94 mg/dL (0.70-1.30); EST Glomerular Filtration Rate 101 mL/min (>60); Est Glom Filt Rate - Afr Amer 122 mL/min (>60); Estimated Creatinine Clearance 143.48 ml/min; Glucose 91 mg/dL (74-106); Potassium 3.7 mmol/L (3.5-5.1); Sodium Level 138 mmol/L (136-145)
[2018-01-17 13:12] LABS: Amphetamine Urine VISTA NEGATIVE (<1000 ng/mL); Barbiturate Urine VISTA NEGATIVE (< 200 ng/mL); Benzodiazepine Urine VISTA NEGATIVE (< 200 ng/mL); Cocaine Urine VISTA NEGATIVE (< 300 ng/mL); Ecstacy Urine VISTA NEGATIVE (< 500 ng/mL); Methadone Urine VISTA NEGATIVE (< 300 ng/mL); PCP Urine VISTA NEGATIVE (< 25 ng/mL); THC Urine VISTA NEGATIVE (< 50 ng/mL); Vista UDS pH Range 6
[2018-01-17 13:29] LABS: Alcohol, Blood (Medical)-Serum < 3.0 mg/dL
--- NOTE | 2018-01-17 13:43 | NURSING ---
PER GARCIA; CRISIS; EITHER HER OR ONE OF HER TEAMMATES WILL BE OVER TO EVAL PT
--- NOTE | 2018-01-17 13:51 | NURSING ---
GARCIA FROM CRISIS WILL BE HERE SOON TO EVAL PT
--- NOTE | 2018-01-17 14:21 | NURSING ---
[facility]ISIS IS HERE
[2018-01-17 15:05] VITALS: RESP 16
--- NOTE | 2018-01-17 15:43 | ED.VISSUMM ---
- ER Visit Summary Date of Service: 01/17/18 Chief Complaint: Suicidal ideation History of Present Illness: The patient is a 27 M with a history of depression presents with suicidal ideation. He states that he has been staring at his pill bottles for the last several days and thinking about overdosing on them. He has been under increased financial, family, and relationship stress. Physical Examination: Those are within normal limits. He is not in distress. Neck is supple. Heart tones are regular and without murmur. Lungs are clear bilaterally. Abdomen is soft and nontender. No focal or lateralizing neuro findings. He has a flat affect but is still answering questions appropriately. Test Results: Medical screening labs within normal limits Emergency Department Course and Treatment: He was medically cleared for psychiatric assessment. He was evaluated by crisis and felt to be appropriate for transfer to psychiatric facility. Treatment Plan: He will be transferred to a psychiatric facility for inpatient psychiatric treatment Disposition: Transferred in stable condition Impression: Initial encounter suicidal ideation This note was generated with [employer] dictation software. It may contain incorrect words, spelling, and punctuation that were not noted in review of the chart prior to signing ED Disposition - Plan for ED Patient: Chief Complaint: Suicidal Referrals: Eboni Coles MD [Primary Care Provider] -
[2018-01-17 15:58] VITALS: BP 120/92; PULSE 73; RESP 16; O2SAT 98
--- NOTE | 2018-01-17 16:18 | ED.RN ---
REPORT TO [facility]. ALL PT BELONGINGS GIVEN TO [facility]. PT SKIN P/W/D, RESP EVEN AND UNLABORED, PT A&O X 3, NO DISTRESS NOTED. PT OUT OF ED WITH [facility] FOR TRANSPORT TO [facility].
== END 2018-01-17 16:19 ==
PROVIDERS: Emergency Provider Emergency Medicine; Family Provider Family Medicine; PCP Family Medicine
DX: R45.851 Suicidal ideations (principal); F84.0 Autistic disorder; Z72.0 Tobacco use; Z72.89 Other problems related to lifestyle
CPT/HCPCS: 36415; 80048; 80307; 80320; 85025; 99284; G0480

== ENCOUNTER 2018-01-30 16:04 | Emergency (ER) | payer MEDICAID, SELFPAY ==
[2018-01-30] VITALS (8 sets, daily range): BP systolic 92–137; BP diastolic 50–87; PULSE 63–79; RESP 14–20; TEMP 36.7; O2SAT 93–98; BMI 21.2
--- NOTE | 2018-01-30 16:25 | EKG12_ITS ---
Test Reason : OVERDOSE Blood Pressure : / mmHG Vent. Rate : 070 BPM Atrial Rate : 070 BPM P-R Int : 172 ms QRS Dur : 090 ms QT Int : 388 ms P-R-T Axes : 010 070 053 degrees QTc Int : 419 ms Normal sinus rhythm Normal ECG Confirmed by GIRISH MCARTHUR, SAM ([id number]), story editor ADRIEN TAFOYA ([id number]) on 02/01/2018 3:17:20 PM Referred By: AMRIT Confirmed By:SAM STOUT MD
--- NOTE | 2018-01-30 16:30 | ED.RN ---
WITH PT'S CONSENT PT'S CAR KEYS WERE GIVEN TO HIS FATHER.
--- NOTE | 2018-01-30 16:33 | ED.DCSUM_ITS ---
- ER Visit Summary Date of Service: 01/30/18 Chief Complaint: Intentional overdose History of Present Illness: The patient is a 27 M presenting after intentional overdose. Patient states he took approximately 15 Abilify, 15 Prozac, 20 Tylenol, 4 ibuprofen. He states he has been stressed over family and work. He has history of previous suicide attempt. He denies vomiting. Denies alcohol or current drug use. Physical Examination: Vitals are stable. Patient is afebrile. Alert no acute distress. HEENT exam is unremarkable. Neck is supple. Lungs are clear and equal bilaterally. Heart is regular rate and rhythm. Abdomen is soft nontender nondistended. Extremities are unremarkable. Skin is warm and dry. No focal neurologic deficit. Depressed affect Remainder of exam is unremarkable. Emergency Department Course and Treatment: EKG is sinus rate of 70 with no acute ischemic changes. He is given activated charcoal via NG tube. CBC, chemistries unremarkable. Aspirin level is negative. Tylenol level 47.5. Alcohol level negative. Urine drug screen is negative. Repeat Tylenol at 4 hours postingestion is 39.2. Discussed with poison control. Due to the Prozac and Abilify, they recommend 10 hours of monitoring post ingestion. Patient has remained hemodynamically stable. He will be observed. Discussed with the counseling center for evaluation. Disposition: Per counseling center Impression: Intentional overdose This note was generated with [employer] dictation software. It may contain incorrect words, spelling, and punctuation that were not noted in review of the chart prior to signing ED Disposition - Plan for ED Patient: Chief Complaint: Overdose Referrals: Eboni Coles MD [Primary Care Provider] -
[2018-01-30] MEDS: Activated Charcoal 50 GM/240 ML BOT PO (16:41)
--- NOTE | 2018-01-30 16:47 | ED.RN ---
UPON ARRIVAL PT WAS LAUGHING SMILING AND VERY HAPPY WHEN HE WALKED INTO THE ER. PT SHOWED NO SIGN OF DISTRESS. SHORTLY AFTER ARRIVAL A COUPLE FRIENDS SHOWED UP AND PT WAS EXCITED THAT THEY WERE HERE. HE WAS VERY CONCERNED THAT A SPECIFIC MY GIRL FOUND OUT HE WAS HERE. THEY VERBALIZED HE SHOULDNT BE DOING THIS TO GET ATTENTION .
[2018-01-30 16:48] LABS: Absolute Lymphocyte Count 0.98 X10^3/ul (0.83-4.51); Absolute Neutrophil Count 4.9 X10^3/uL (2.0-7.7); Basophil# 0.02 X10^3/uL; Basophil% 0.3 % (0-1); Eosinophil# 0.03 X10^3/uL; Eosinophils% 0.5 % (0-5); Hematocrit 41.5 % (40-54); Hemoglobin 13.8 g/dl (13.0-16.5); Lymphocyte # 0.98 X10^3/ul (4.0); Mean Corp Hgb Conc 33.3 g/gl (32-36); Mean Corpuscular Hgb 29.9 pg (27.0-32.0); Mean Platelet Vol. 10.7 fl (6.2-12.0); Monocyte# 0.55 X10^3/uL; Monocyte% 8.4 % (0-10); Neutrophil # 4.93 X10^3/uL (2.7-7.7); Neutrophil % 75.6 % (47-70); Platelet Count 220 K/mm3 (150-450); RBC Distribution Width CV 13.3 % (11.6-14.6); RBC Distribution Width SD 43.3 fl (35.1-43.9); Red Blood Count 4.61 M/mm3 (4.6-6.2); White Blood Count 6.5 K/mm3 (4.4-11.0)
[2018-01-30 16:49] LABS: POSITIVE COUNT NO; POSITIVE DIFFERENTIAL NO; POSITIVE MORPHOLOGY NO
[2018-01-30 16:51] LABS: Anion Gap 7 (5-15); BUN 13 mg/dL (7-18); BUN/Creat Ratio 13.7 RATIO (10-20); Calcium,Total 8.8 mg/dL (8.5-10.1); Chloride 105 mmol/L (98-107); Creatinine, Serum 0.95 mg/dL (0.70-1.30); EST Glomerular Filtration Rate 101 mL/min (>60); Est Glom Filt Rate - Afr Amer 122 mL/min (>60); Estimated Creatinine Clearance 129.98 ml/min; Glucose 112 mg/dL (74-106); Potassium 3.4 mmol/L (3.5-5.1); Sodium Level 138 mmol/L (136-145)
--- NOTE | 2018-01-30 16:52 | ED.RN ---
PT ATTEMPTED TO REFUSE CHARCOAL. EXPLAINED IT WASNT A OPTION HE DRANK A SWALLOW. THEN HE STATED HE WASN'T TAKING ANYMORE. EXPLAINED WHY HE NEEDED TO INGEST ALL OF IT. HE THEN TOOK ANOTHER DRINK WHILE STATING HE COULDN'T AND VOMITED IT ALL UP. EXPLAINED THE OTHER METHOD WOULD BE A NG TUBE, PT THEN REQUESTED THE NG TUBE AND REFUSED TO DRINK ANYMORE. PHYSICIAN AWARE.
[2018-01-30 16:56] LABS: Amphetamine Urine VISTA NEGATIVE (<1000 ng/mL); Barbiturate Urine VISTA NEGATIVE (< 200 ng/mL); Benzodiazepine Urine VISTA NEGATIVE (< 200 ng/mL); Cocaine Urine VISTA NEGATIVE (< 300 ng/mL); Ecstacy Urine VISTA NEGATIVE (< 500 ng/mL); Methadone Urine VISTA NEGATIVE (< 300 ng/mL); PCP Urine VISTA NEGATIVE (< 25 ng/mL); THC Urine VISTA NEGATIVE (< 50 ng/mL); Vista UDS pH Range 6
--- NOTE | 2018-01-30 17:06 | ED.RN ---
PT UNABLE TO TOLERATE PO CHARCOAL
[2018-01-30] MEDS: Activated Charcoal/Sorbitol 25 GM/120 ML BOT PO (17:07)
[2018-01-30 17:08] LABS: Acetaminophen (Tylenol) Level 47.5 ug/mL (10.0-30.0); Alcohol, Blood (Medical)-Serum < 3.0 mg/dL; Salicylate < 1.7 mg/dL (2.8-20.0)
--- NOTE | 2018-01-30 17:10 | ED.RN ---
NG PLACED AND VERIFIED BY AUSCULTATION. PT GIVEN CHARCOAL ORDERED. NG THEN DC'D. PT POSITIONED IN THE UPRIGHT POSITION AND RESTING COMFORTABLY WITH MONITOR IN PLACE.
[2018-01-30 19:45] LABS: Acetaminophen (Tylenol) Level 39.2 ug/mL (10.0-30.0)
--- NOTE | 2018-01-30 19:54 | EKG12_ITS ---
Test Reason : OVERDOSE Blood Pressure : / mmHG Vent. Rate : 068 BPM Atrial Rate : 068 BPM P-R Int : 158 ms QRS Dur : 080 ms QT Int : 376 ms P-R-T Axes : 018 076 058 degrees QTc Int : 399 ms Normal sinus rhythm Normal ECG Confirmed by GIRISH MCARTHUR, SAM ([id number]), manager editorial ADRIEN TAFOYA ([id number]) on 02/01/2018 3:17:37 PM Referred By: ADOLFO Confirmed By:SMA STOUT MD
[2018-01-30 20:32] LABS: AST(SGOT) 17 U/L (15-37); Alanine Aminotransfer ALT/SGPT 21 U/L (16-61); Albumin, Serum 4.3 g/dL (3.2-5.0); Alkaline Phosphatase 62 U/L (45-117); Bilirubin, Direct 0.19 mg/dL (0.00-0.30); Globulin 3.2 g/dL (2.2-4.2); Protein, Total 7.5 g/dL (6.4-8.2)
[2018-01-31] VITALS (8 sets, daily range): BP systolic 96–121; BP diastolic 54–93; PULSE 62–78; RESP 12–17; O2SAT 92–97
--- NOTE | 2018-01-31 00:04 | ED.RN ---
RN, SPOKE TO [facility] REGARDING PATIENT'S CONDITION. NO FURTHER RECOMMENDATIONS AT THIS TIME.
[2018-01-31 01:16] LABS: Acetaminophen (Tylenol) Level 8.3 ug/mL (10.0-30.0)
[2018-01-31 06:18] LABS: Absolute Lymphocyte Count 1.25 X10^3/ul (0.83-4.51); Absolute Neutrophil Count 5.6 X10^3/uL (2.0-7.7); Basophil# 0.02 X10^3/uL; Basophil% 0.3 % (0-1); Eosinophil# 0.09 X10^3/uL; Eosinophils% 1.2 % (0-5); Hematocrit 41.1 % (40-54); Hemoglobin 13.6 g/dl (13.0-16.5); Lymphocyte # 1.25 X10^3/ul (4.0); Lymphocyte % 16.4 % (19-41); Mean Corp Hgb Conc 33.1 g/gl (32-36); Mean Corpuscular Hgb 30.2 pg (27.0-32.0); Mean Corpuscular Volume 91.1 fL (80-94); Mean Platelet Vol. 10.3 fl (6.2-12.0); Monocyte# 0.63 X10^3/uL; Monocyte% 8.3 % (0-10); Neutrophil # 5.62 X10^3/uL (2.7-7.7); Neutrophil % 73.7 % (47-70); Platelet Count 207 K/mm3 (150-450); RBC Distribution Width CV 13.3 % (11.6-14.6); RBC Distribution Width SD 44.5 fl (35.1-43.9); Red Blood Count 4.51 M/mm3 (4.6-6.2); White Blood Count 7.6 K/mm3 (4.4-11.0)
[2018-01-31 06:19] LABS: POSITIVE COUNT NO; POSITIVE DIFFERENTIAL NO; POSITIVE MORPHOLOGY NO
[2018-01-31 06:22] LABS: Anion Gap 8 (5-15); BUN 14 mg/dL (7-18); BUN/Creat Ratio 14.9 RATIO (10-20); Calcium,Total 8.3 mg/dL (8.5-10.1); Chloride 107 mmol/L (98-107); Creatinine, Serum 0.94 mg/dL (0.70-1.30); EST Glomerular Filtration Rate 102 mL/min (>60); Est Glom Filt Rate - Afr Amer 123 mL/min (>60); Estimated Creatinine Clearance 131.36 ml/min; Glucose 93 mg/dL (74-106); Potassium 3.8 mmol/L (3.5-5.1); Sodium Level 142 mmol/L (136-145)
--- NOTE | 2018-01-31 07:39 | NURSING ---
BREAKFAST TRAY DELIVERED TO PT. SITTER AT BEDSIDE. DENIES FURTHER NEEDS AT THIS TIME.
--- NOTE | 2018-01-31 09:27 | NURSING ---
[facility] AND VITALS. FAXED THOSE AGAIN TO THEM. [phone]
--- NOTE | 2018-01-31 10:47 | NURSING ---
CALLED [facility], TALKED TO REBECCA. HE WILL CALL AND FOLLOWUP ON THE FAXES.
--- NOTE | 2018-01-31 10:51 | NURSING ---
PCU INTRACTABLE SEIZURES IGNACIO
--- NOTE | 2018-01-31 10:54 | ED.RN ---
CRISIS COUNSELOR CALLS BACK STATING THAT HE SPOKE TO [facility], LAB RESULTS WERE RECEIVED AND THE DOCTOR WAS REVIEWING THE CASE, WE SHOULD HEAR SOMETHING SOON.
[2018-01-31 11:48] LABS: AST(SGOT) 19 U/L (15-37); Alanine Aminotransfer ALT/SGPT 20 U/L (16-61); Albumin, Serum 3.7 g/dL (3.2-5.0); Alkaline Phosphatase 57 U/L (45-117); Bilirubin, Direct 0.15 mg/dL (0.00-0.30); Globulin 3.2 g/dL (2.2-4.2); Protein, Total 6.9 g/dL (6.4-8.2)
[2018-01-31 11:49] LABS: AST(SGOT) 18 U/L (15-37); Alanine Aminotransfer ALT/SGPT 20 U/L (16-61)
--- NOTE | 2018-01-31 12:48 | ED.RN ---
[facility]
--- NOTE | 2018-01-31 13:29 | NURSING ---
CALLED SMITA CHRISTIE ETA IS FROM [facility]
== END 2018-01-31 14:45 ==
PROVIDERS: Emergency Medicine; Emergency Provider Emergency Medicine; Family Provider Family Medicine; PCP Family Medicine
DX: T43.592A Poisoning by other antipsychotics and neuroleptics, intentional self-harm, initial encounter (principal); T43.222A Poisoning by selective serotonin reuptake inhibitors, intentional self-harm, initial encounter; T39.1X2A Poisoning by 4-Aminophenol derivatives, intentional self-harm, initial encounter; T39.312A Poisoning by propionic acid derivatives, intentional self-harm, initial encounter; F32.9 Major depressive disorder, single episode, unspecified; F12.90 Cannabis use, unspecified, uncomplicated; Z91.5 Personal history of self-harm; Z72.0 Tobacco use
CPT/HCPCS: 80048; 80076; 80307; 80320; 80329; 84450; 84460; 85025; 93005; 99285; A4216; G0480

== ENCOUNTER 2019-07-24 12:55 | Emergency (ER) | payer MEDICAID, SELFPAY ==
[2019-07-24 12:56] VITALS: BP 143/62; PULSE 77; RESP 14; TEMP 36.7; O2SAT 96; BMI 23.6
--- NOTE | 2019-07-24 13:37 | ED.VIS.EYE ---
History of Present Illness Chief Complaint: Eye Problem Narrative: Patient presenting secondary to a chemical exposure to the eyes. Patient reports that early in the morning yesterday he was at work and a tree fell hitting a can of gas oil mixed. It went in his eyes. He reports that he washed them out with 2 gallons of water. Patient states that today he felt as if he could not focus his eyes normally. He denies any pain. He denies any redness drainage or itching. Patient does report that he wears glasses at baseline. He denies any diplopia. He denies any skin changes. Patient reports that he went to urgent care and they told him that he needed to go to an eye doctor or the emergency department. Past Medical History - Allergies and Home Meds Allergies/Adverse Reactions: Allergies No Known Allergies Allergy (Verified 07/24/19 12:56) Primary Care Physician: Eboni Coles MD [Primary Care Provider] - Past Medical History: None Smoking Status: Current some day smoker - Family History Paternal Family History: Reports: Diabetes Review of Systems General: Denies: Fever Eyes: Reports: Blurred Vision - bilaterally ENT: Denies: Rhinorrhea Respiratory: Denies: Cough Gastrointestinal: Denies: Nausea, Vomiting Musculoskeletal: Denies: Myalgias Skin: Denies: Rash Neurological: Denies: Headache Physical Exam Visual Acuity: right: 20/50, left: 20/40 Visual Acuity: Uncorrected Eyelid: Normal inspection Right Conjunctiva/Sclera: Normal inspection Left Conjunctiva/Sclera: Normal inspection Right Cornea: Normal inspection Left Cornea: Normal inspection Extraocular Motion: Normal exam Pupils: Normal accomodation, PERRL Anterior chamber: Normal exam Vital Signs/Narrative: Vital Signs Temp Pulse Resp BP Pulse Ox 07/24/19 12:56 98.1 F 77 14 143/62 H 96 Inital Vital Signs reviewed: Yes General: Well nourished Head: Normocephalic, Atraumatic ENT: Moist mucous membranes Neck: Supple Cardiovascular: Regular rate, Regular rhythm Respiratory: No distress Extremities: Nontender Skin: Normal color, No rash Neurological: Alert, Oriented x3 Psychological: Normal affect Diagnostic/Tx/Re-eval - Medical Decision Making Patient presented secondary to a chemical exposure yesterday. Physical exam shows no significant evidence of corneal injury, no evidence of severe conjunctivitis. Patient's visual acuity was 20/50 in each eye individually, and 20/40 with both eyes. Patient potentially has a element of some chemical conjunctivitis. Patient was given reassurance, and was discharged in stable condition. ED Disposition - Plan for ED Patient: Disposition: Home or Assisted Living Diagnosis: Chemical conjunctivitis Instructions: ED Conjunctivitis Nonspecific Referrals: Kathy Montenegro MD [STAFF PHYSICIAN] - 1-2 Days if not improving
[2019-07-24 13:58] VITALS: RESP 16
== END 2019-07-24 13:59 | disposition home or self-care (01) ==
LOC: ED 13:46
PROVIDERS: Emergency Provider Emergency Medicine; PCP Family Medicine
DX: H10.219 Acute toxic conjunctivitis, unspecified eye (principal); F17.200 Nicotine dependence, unspecified, uncomplicated
CPT/HCPCS: 99283

== ENCOUNTER → 2022-12-14 | Outpatient (CLI) | payer MEDICAID, SELFPAY ==
[2022-12-14 10:17] LABS: Absolute Lymphocyte Count 1.63 X10^3/uL (0.83-4.51); Absolute Neutrophil Count 6.7 X10^3/uL (2.0-7.7); Basophil# 0.03 X10^3/uL; Basophil% 0.3 % (0-1); Eosinophil# 0.06 X10^3/uL; Eosinophils% 0.7 % (0-5); Hematocrit 45.8 % (40-54); Hemoglobin 14.6 g/dL (13.0-16.5); Lymphocyte # 1.63 X10^3/ul (0.83-4.51); Lymphocyte % 18.1 % (19-41); Mean Corp Hgb Conc 31.9 g/dL (32-36); Mean Corpuscular Hgb 29.1 pg (27.0-32.0); Mean Corpuscular Volume 91.2 fL (80-94); Mean Platelet Vol. 10.9 fl (6.2-12.0); Monocyte# 0.52 X10^3/uL; Monocyte% 5.8 % (0-10); NRBC Flagged by Analyzer 0 % (0-5); Neutrophil # 6.72 X10^3/uL (2.7-7.7); Neutrophil % 74.8 % (47-70); Platelet Count 273 K/mm3 (150-450); RBC Distribution Width CV 12.5 % (11.6-14.6); RBC Distribution Width SD 41.5 fl (35.1-43.9); Red Blood Count 5.02 M/mm3 (4.6-6.2)
[2022-12-14 10:57] LABS: Vitamin D,25 Hydroxy 39.1 ng/mL
[2022-12-14 11:46] LABS: ALB/GLOB Ratio 1.1 RATIO (0.9-2.4); AST(SGOT) 17 U/L (15-37); Alanine Aminotransfer ALT/SGPT 37 U/L (16-61); Albumin, Serum 4.2 g/dL (3.2-5.0); Alkaline Phosphatase 78 U/L (45-117); Anion Gap 5 (5-15); BUN 17 mg/dL (7-18); Bilirubin, Direct 0.14 mg/dL (0.00-0.30); Calcium,Total 9.2 mg/dL (8.5-10.1); Chloride 106 mmol/L (98-107); EST Glomerular Filtration Rate 92 mL/min (>60); Est Glom Filt Rate - Afr Amer 111 mL/min (>60); Free T3 3.3 pg/mL (2.18-3.98); Globulin 3.7 g/dL (2.2-4.2); Glucose 158 mg/dL (74-106); Potassium 4.1 mmol/L (3.5-5.1); Protein, Total 7.9 g/dL (6.4-8.2); Sodium Level 137 mmol/L (136-145); T4 Free Direct 0.89 ng/dL (0.76-1.46); Thyroid Stim Hormone (TSH) 0.77 uIU/mL (0.358-3.74)
== END | disposition home or self-care (01) ==
PROVIDERS: PCP Family Medicine; Referring Provider Nurse Practitioner Psychiatric/Mental Health; Visit Provider Nurse Practitioner Psychiatric/Mental Health
DX: F19.10 Other psychoactive substance abuse, uncomplicated (principal); R53.83 Other fatigue; Z79.899 Other long term (current) drug therapy
CPT/HCPCS: 36415; 80053; 82248; 82306; 84439; 84443; 84481; 85025

== ENCOUNTER 2023-08-11 08:35 | Emergency (ER) | payer SELFPAY ==
[2023-08-11 08:37] VITALS: BP 117/81; PULSE 70; PULSE 72; RESP 12; RESP 14; TEMP 35.5; O2SAT 100; O2SAT 99; BMI 26.0
--- NOTE | 2023-08-11 09:15 | EDS_ITS ---
HPI HPI - Psych History of Present Illness Chief Complaint: Suicidal Informant: patient Narrative Narrative: Patient is a 32-year-old male with history of depression, prior suicide attempt and remote history of cutting presenting with worsening depression and thoughts of self-harm. Patient states he has had stable job for the past 8 months and overalls been doing well however he started arguing with his significant other over the weekend and is his triggered his depression. He is now having a worsening thoughts of self-harm. 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 He was put on a trial medication about a month ago from psychiatry through the counseling center but he only had what sounds like a sample is not been on any medication for the past 3 weeks. Denies SI or HI. Denies any auditory visual hallucinations. Has not had any recent cutting was having thoughts of cutting himself. No other complaints or concerns at this time. [facility] Home Medications ?Medication ?Instructions ?Recorded ?Last Taken ?Type NK 07/24/19 Unknown History Allergy/AdvReac Type Severity Reaction Status Date / Time No Known Allergies Allergy Verified 08/11/23 08:36 Social History Smoking Status: Current some day smoker tobacco type: cigarettes ROS ROS ED Constitutional Constitutional ED: Denies chills or fever(s) Eyes Eyes: Denies change in vision Cardiovascular Cardiovascular: Denies chest pain Respiratory/Chest Respiratory/Chest: Denies dyspnea Gastrointestinal Gastrointestinal: Denies nausea or vomiting Neurologic Neurologic: Denies headache(s) Psychiatric Psychiatric: Reports anxiety, depression and other Details: thoughts of self harm ; Denies suicidal ideation or suicidal thoughts EXAM Physical Exam Const Vital Signs: 08/11/23 08:37 08/11/23 08:37 08/11/23 09:35 Temperature 95.9 F L 97.2 F L Temperature Source Temporal Oral Pulse Rate 72 70 81 Respiratory Rate 12 14 16 Blood Pressure 117/81 H 117/81 H 124/73 H Blood Pressure Mean 93 93 90 Pulse Ox 100 99 98 Oxygen Delivery Method Room Air Room Air Room Air 08/11/23 10:00 08/11/23 11:00 08/11/23 11:41 Temperature 98 F Temperature Source Pulse Rate 81 78 72 Respiratory Rate 16 16 16 Blood Pressure 123/79 H 121/71 H 124/78 H Blood Pressure Mean 93 87 93 Pulse Ox 99 98 98 Oxygen Delivery Method Room Air Room Air Positive well nourished and well developed General Appearance ED: well developed and NAD HEENT Reports moist mucous membranes normocephalic Eyes PERRL and EOMs intact bilaterally Neck supple Resp normal respiratory effort and clear to auscultation bilaterally Extremity normal to inspection Neuro oriented x3 Sensorium / Orientation: alert Motor Exam: muscle tone normal throughout; Negative for general weakness Psych mental status grossly normal, thought process normal, cooperative, affect normal, speech normal, denies hallucinations, denies homicidal ideation and denies suicidal ideation Psych Narrative: Reports of self harm thoughts- cutting Skin Rashes: no rashes Trauma: Negative for abrasion or laceration MDM MDM MDM Narrative Medical decision making narrative: Patient is evaluated for increased depression and thoughts of self-harm. Send increase dressers personal life. Denies any SI or HI. Is acting appropriate emergency room. Is hemodynamically stable. Will be evaluated by the counseling center whom he is already established with. Patient is evaluated by their social media content specialist and contracted for safety. At this time both the counseling center and I feel that patient is stable for outpatient follow-up. He is already well-established with the counseling center. They will follow-up as well on his medication needs. Patient agreeable this plan of care. Discharged home in stable condition. Management Discussion w/another healthcare provider: Behavioral health Discharge Plan Triage Chief Complaint: Suicidal ED Provider: Fang Ontiveros Dx/Rx/DC Orders Clinical Impression: Depression, Thoughts of self harm Instructions: ED Depression Prescriptions: No Action NK Stand Alone Forms: ED Work / School Excuse Primary Care Provider: Eboni Coles Referrals: Counseling,Center [Group of Physicians] - As soon as possible Eboni Coles MD [Primary Care Provider] - Print Language: Paraguayan Disposition Disposition: Home, Self Care Discharge Date/Time: 08/11/23 11:42
[2023-08-11 09:35] VITALS: BP 124/73; PULSE 81; RESP 16; TEMP 36.2; O2SAT 98
[2023-08-11 10:00] VITALS: BP 123/79; PULSE 81; RESP 16; O2SAT 99
[2023-08-11 11:00] VITALS: BP 121/71; PULSE 78; RESP 16; O2SAT 98
[2023-08-11 11:41] VITALS: BP 124/78; PULSE 72; RESP 16; TEMP 36.6; O2SAT 98
== END 2023-08-11 11:42 | disposition home or self-care (01) ==
PROVIDERS: Emergency Provider Emergency Medicine; PCP Family Medicine; Visit Provider Emergency Medicine
DX: F32.A Depression, unspecified (principal); F17.210 Nicotine dependence, cigarettes, uncomplicated
CPT/HCPCS: 99285

== ENCOUNTER 2024-01-17 22:39 | Emergency (ER) | payer SELFPAY ==
[2024-01-17 22:39] VITALS: BP 125/87; PULSE 79; RESP 18; TEMP 36.6; O2SAT 98; BMI 23.8
[2024-01-17 23:00] LABS: Absolute Lymphocyte Count 1.35 X10^3/uL (0.83-4.51); Basophil# 0.04 X10^3/uL; Basophil% 0.3 % (0-1); Eosinophil# 0.07 X10^3/uL; Eosinophils% 0.5 % (0-5); Hematocrit 42.1 % (40-54); Hemoglobin 14.1 g/dL (13.0-16.5); Lymphocyte # 1.35 X10^3/ul (0.83-4.51); Lymphocyte % 8.9 % (19-41); Mean Corp Hgb Conc 33.5 g/dL (32-36); Mean Corpuscular Volume 89.6 fL (80-94); Mean Platelet Vol. 10.7 fl (6.2-12.0); Monocyte# 0.73 X10^3/uL; Monocyte% 4.8 % (0-10); NRBC Flagged by Analyzer 0 % (0-5); Neutrophil # 12.96 X10^3/uL (2.7-7.7); Platelet Count 220 K/mm3 (150-450); RBC Distribution Width SD 42.5 fl (35.1-43.9); White Blood Count 15.2 K/mm3 (4.4-11.0)
--- NOTE | 2024-01-17 23:10 | EX.ED.DYSGE1 ---
HPI History of Present Illness Chief Complaint: Suicidal [facility] Medical History (Updated 01/17/24 @ 23:17 by Lenora Baron) History of suicidal ideation History of suicidal behavior Home Medications ?Medication ?Instructions ?Recorded ?Last Taken ?Type NK 07/24/19 Unknown History Allergy/AdvReac Type Severity Reaction Status Date / Time No Known Allergies Allergy Verified 01/17/24 22:39 Social History Smoking Status: Current some day smoker tobacco type: cigarettes EXAM Physical Exam Const Vital Signs: 01/17/24 22:39 Temperature 98 F Temperature Source Oral Pulse Rate 79 Respiratory Rate 18 Blood Pressure 125/87 H Blood Pressure Mean 99 Pulse Ox 98 Oxygen Delivery Method Room Air MDM MDM MDM Narrative Medical decision making narrative: HISTORY OF PRESENT ILLNESS: 33-year-old male presents with suicidal thoughts, suicide attempt. Notes he cut his right arm with a dull knife. States I been to this before . States he may want to hurt himself . REVIEW OF SYSTEMS: Pertinent positives: Suicidal thoughts, Pertinent negatives: PHYSICAL EXAM: Nursing triage notes reviewed, Vital signs reviewed Constitutional: please see mdm HENT: MMM Eyes: Pupils equal round and reactive to light, Extraocular muscles intact Neck: No stridor, no JVD, full neck ROM Lungs: Clear to auscultation, No wheezing or rales. No increased work of breathing, no conversational dyspnea, no accessory muscle use, no nasal flaring. No respiratory distress noted Heart: Regular rate and rhythm, No murmurs, No rubs and No gallops, 2+ distal pulses (radial, femoral, posterior tibial) in all extremities Abdomen: Soft, there is no tenderness, rigidity, rebound or guarding, no obvious peritoneal signs, no palpable pulsatile abdominal masses, no auscultated abdominal bruit : No CVAT Extremities: No edema Neuro: No focal neurological deficits, cranial nerves II through XII intact, 5/5 strength in all extremities. Intact sensation to light touch in all extremities, 2+ reflexes bilateral patella tendons. Normal gait. No ataxia. Skin: Abrasions noted to bilateral upper extremities, these are superficial, no active bleeding, there is no obvious deep laceration foreign body or tenderness involvement Psych: Goal-directed thought process, nontangential, not responding to internal stimuli MEDICAL DECISION MAKING: Chief Complaint: Suicidal thoughts External records reviewed: Reviewed prior inpatient and outpatient records including ED records, reviewed current medications Factors affecting care: depression, suicide attempt, Social determinants of health: no history of mental health disorder History obtained from others: Please officers Consults: none [facility] Narrative: The patient was initially hemodynamically stable, afebrile and nontoxic-appearing. Exam without significant lacerations that need repair. There are superficial abrasions. Medical clearance labs were obtained. [place] slip signed. Behavioral health precautions were undertaken ALL IMAGES (IF OBTAINED) HAVE BEEN PERSONALLY REVIEWED AND INTERPRETED BY MYSELF. CBC with leukocytosis suggestive of systemic summation like reactive secondary to recent suicide attempt, no anemia or thrombocytopenia BMP with mild hypokalemia otherwise unremarkable Awaiting remainder behavioral's labs, crisis (behavioral health) evaluation and final disposition which will be admitted inpatient given suicidal attempt. The patient and/or family, caregivers express understanding. The patient and/or family, caregivers agrees with the plan. Shared decision making: I will have a discussion with the patient and or visitors regarding risk/benefits of further testing or admission. They will be made aware of of the risk/benefits inherent in this decision they will be given the opportunity to voice understanding. Total critical care time today provided was at least 0 minutes. This excludes separately billable procedures. Critical care time (if documented) is secondary to the patient having high probability of clinically significant/life threatening deterioration in the patient's condition which required my urgent intervention. Impression: 1. Suicidal ideation 2. Suicide attempt 3. History of depression Dispo: Admit to inpatient psychiatric facility This note was generated with [employer] dictation software. It may contain incorrect words, spelling, and punctuation that were not noted in review of the chart prior to signing. Lab Data Labs: Laboratory Results - last 24 hr 01/17/24 01/17/24 22:55 23:09 WBC 15.2 H RBC 4.70 Hgb 14.1 Hct 42.1 MCV 89.6 MCH 30.0 MCHC 33.5 RDW Std Deviation 42.5 RDW Coeff of Zaki 13.0 Plt Count 220 MPV 10.7 Immature Gran % (Auto) 0.500 Neut % (Auto) 85.0 H Lymph % (Auto) 8.9 L Kaufman % (Auto) 4.8 Eos % (Auto) 0.5 Baso % (Auto) 0.3 Absolute Neuts (auto) 13.0 H Absolute Lymphs (auto) 1.35 Nucleated RBC % 0 Sodium 139 Potassium 3.2 L Chloride 105 Carbon Dioxide 26.0 Anion Gap 7 BUN 13 Creatinine 0.89 Estim Creat Clear Calc 143.58 Est GFR (MDRD) Af Amer 126 Est GFR (MDRD) Non-Af 105 BUN/Creatinine Ratio 14.7 Glucose 148 H Calcium 8.7 Ur Drug Screen Comment Discharge Plan Triage Chief Complaint: Suicidal ED Provider: Doyle Buchanan Dx/Rx/DC Orders Prescriptions: No Action NK Primary Care Provider: Eboni Coles Referrals: Eboni Coles MD [Primary Care Provider] - Print Language: Moroccan
[2024-01-17 23:13] LABS: Anion Gap 7 (5-15); BUN 13 mg/dL (7-18); BUN/Creat Ratio 14.7 RATIO (10-20); Calcium,Total 8.7 mg/dL (8.5-10.1); Chloride 105 mmol/L (98-107); Creatinine, Serum 0.89 mg/dL (0.70-1.30); EST Glomerular Filtration Rate 105 mL/min (>60); Est Glom Filt Rate - Afr Amer 126 mL/min (>60); Estimated Creatinine Clearance 143.58 ml/min; Glucose 148 mg/dL (74-106); Potassium 3.2 mmol/L (3.5-5.1); Sodium Level 139 mmol/L (136-145)
[2024-01-17 23:55] LABS: Alcohol, Blood (Medical)-Serum < 3.0 mg/dL
--- OUTSIDE RECORDS SUMMARY | 2024-01-17 23:55 | XMS RPT_ITS | CCD ---
Author Organization [facility] Care Team Providers Care Vice President [employer] Name Role Phone YARELI GARCIA Unavailable Unavailable EBONI COLES Unavailable Unavailable MARIAN STOCKTON Unavailable Unavailable BAISHNAB, HAYDEE Unavailable Unavailable BAISHNAB, HAYDEE Unavailable Unavailable BAISHNAB, HAYDEE Unavailable Unavailable Tila Jim Unavailable Unavailable Physician, No Family Unavailable Unavailable Physician, No Family Unavailable Unavailable TIM VILLALOBOS CHRIS Unavailable Unavailable Lorri Noriega Nimisha Unavailable Unavailabl e GRISELDA, SAISSY CHRIS Unavailable Unavailable NoriegaErinLorri Nimisha Unavailable Unavailabl e Noriega, Lorri Nimisha Unavailable Unavailabl e Sokari, Telemate Unavailable Unavailable Sokari, Telemate Unavailable Unavailable No Doctor Assigned, Nodr Unavailable Unavail able CHRISTIAN KUMARI Attending Unavailable AUSTEN HARVEY Attending Unavailable AUSTEN HARVEY Attending Unavailable ZEYAD DORSEY Attending Unavailable EBONI COLES Primary Care Unavailable HAIDER DWYER Attending Unavailable ROCKY JOAQUIN Admitting Unavailable INC, [facility] Primary Care Unavailable Eboni Coles Primary Care Provider Eboni Coles Primary Care Provider EBONI COLES Primary Care Unavailable EBONI COLES Primary Care Unavailable RHETT BAH Attending Unavailable EBONI COLES Primary Care Unavailable HORACE BATISTA Attending Unavailable Allergies Allergy Classification Reported Allergen(s) Allergy Type Date of Onset Reaction(s) Facility (1 source) No Known Medication Allergies; Translations: [No Known Medication Allergies] Propensity to adverse reactions to drug (disorder) [facility] Repository Problems Problem Classification Problem Date Documented Da te Episodic/Chronic Abdominal pain (1 source) Unspecified abdominal pain; Translations: [Acute left flank pain] Onset: 11-20-2023 Episodic Fluid and electrolyte disorders (1 source) Hypokalemia; Translations: [Hypokalemia] Onset: 03-01-2022 Episodic Medical examination/evaluation (1 source) Encounter for other general examination; Translations: [Encounter for other general examination] Onset: 06-11-2017 Episodic Mood disorders (1 source) Recurrent major depressive episodes; Translations: [Major depressive disorder, recurrent, unspecified] 05-03-2023 Chronic Mood disorders (1 source) Mood disorders; Translations: [Depression, unspecified depression type] Onset: 10-10-2023 Nausea and vomiting (1 source) Nausea; Translations: [Nausea] Onset: 03-01-2022 Episodic Nonspecific chest pain (1 source) Chest pain, unspecified; Translations: [Chest pain, unspecified type] Onset: 03-01-2022 Episodic Personality disorders (1 source) Borderline personality disorder; Translations: [Borderline personality disorder] 10-10-2023 Chronic Suicide and intentional self-inflicted injury (6 sources) Suicidal ideations; Translations: [Poisoning by unspecified drugs, medicaments and biological substances, intentional self-harm, initial encounter] Onset: 10-25-2022 Episodic Results Test Name Value Interpretation Reference Range Facility BLOOD TB SCREENon 11-26-2023 M. tuberculosis tuberculin stim IFN-g Ql (Bld) Negative Normal [facility] Comment on above: Order Comment: Speci men Type: URINE SPECIMEN Ordering Facility: [facility] Address: [address] [place] [id number] Performed By: #### U TOX2 #### [facility] CLIA [id number] [address] [place] [address] [place] MITOGEN MINUS NIL >9.98 Normal >=0.50 [facility] Comment on above: Order Comment: Speci men Type: URINE SPECIMEN Ordering Facility: [facility] Address: [address] [place] [address] Performed By: #### U TOX2 #### [facility] CLIA [id number] [address] [place] [address] [place] TB GAMMA INTERPRETATION Infection with M. tuberculosis complex is unlikely. If latent tuberculosis infection is highly suspected, a negative result does not rule out the infection. Specimens from immunocompromised patients and those <5 years of age may show false negative results. In case of a contact investigation, please repeat 8-12 weeks after a known exposure. Normal [facility] Comment on above: Order Comment: Speci men Type: URINE SPECIMEN Ordering Facility: [facility] Address: [address] [place] [address] Performed By: #### U TOX2 #### [facility] CLIA [id number] [address] [place] TB NIL 0.02 IU/mL Normal <=8.00 [facility] Comment on above: Order Comment: Speci men Type: URINE SPECIMEN Ordering Facility: [facility] Address: [address] [place] [address] Performed By: #### U TOX2 #### [facility] CLIA [id number] [address] [place] TB1 AG MINUS NIL 0.00 IU/mL Normal <0.35 [facility] Comment on above: Order Comment: Speci men Type: URINE SPECIMEN Ordering Facility: [facility] Address: [address] [place] [address] Performed By: #### U TOX2 #### [facility] CLIA [id number] [address] [place] TB2 AG MINUS NIL 0.01 IU/mL Normal <0.35 [facility] Comment on above: Order Comment: Speci men Type: URINE SPECIMEN Ordering Facility: [facility] Address: [address] [place] [address] Performed By: #### U TOX2 #### [facility] CLIA [id number] [address] [place] [address] [place] Basic metabolic 2000 panelon 11-20-2023 Anion gap [Moles/Vol] 4 mmol/L Low 5-16 [facility] Comment on above: Order Comment: Speci men Type: BLOOD SPECIMEN Ordering Facility: [facility] Address: [address] [place] [address] Performed By: #### 2 4321-2, 3039-3 #### [facility] CLIA [id number] [address] [place], [place] [address] [place] Calcium [Mass/Vol] 9.7 mg/dL Normal 8.5-10.5 [facility] Comment on above: Order Comment: Speci men Type: BLOOD SPECIMEN Ordering Facility: [facility] Address: [address] [place] [address] Performed By: #### 2 432-2, 3039-3 #### [facility] CLIA [id number] [address] [place] [address] [place] Chloride [Moles/Vol] 110 mmol/L High 98-107 [facility] Comment on above: Order Comment: Speci men Type: BLOOD SPECIMEN Ordering Facility: [facility] Address: [address] [place] [address] Performed By: #### 2 432-2, 3039-3 #### [facility] CLIA [id number] [address] [place] [address] [place] CO2 [Moles/Vol] 26 mmol/L Normal 21-32 [facility] Comment on above: Order Comment: Speci men Type: BLOOD SPECIMEN Ordering Facility: [facility] Address: [address] [place] [address] Performed By: #### 2 4321-2, 3039-3 #### [facility] CLIA [id number] [address] [place], [place] [address] [place] Creatinine [Mass/Vol] 0.96 mg/dL Normal 0.50-1.40 [facility] Comment on above: Order Comment: Speci men Type: BLOOD SPECIMEN Ordering Facility: [facility] Address: [address] [place] [address] Result Comment: Tatiana ents receiving either N-Acetylcysteine (NAC) or Metamizole prior to venipuncture, may have falsely depressed results. Performed By: #### 2 4321-2, 3039-3 #### [facility] CLIA [id number] [address] [place] [address] [place] Creatinine and Glomerular filtration rate.predicted panel (S/P/Bld) 107 mL/min/1.73m??? Normal >=60 [facility] Comment on above: Order Comment: Chalo james Type: BLOOD SPECIMEN Ordering Facility: [facility] Address: [address] [place] [address] Result Comment: Cherry mated Glomerular Filtration Rate (eGFR) is calculated using the 2020 CKD-EPI creatinine equation. This equation utilizes serum creatinine, sex, and age as parameters. The creatinine assay has traceable calibration to isotope dilution-mass spectrometry. Refer to KDIGO guidelines for clinical interpretation. In patients with unstable renal function, e.g. those with acute kidney injury, the eGFR may not accurately reflect actual GFR. Performed By: #### 2 4321-2, 3040-3 #### [facility] CLIA [id number] [address] [place] [address] [place] Glucose [Mass/Vol] 120 mg/dL High 70-100 [facility] Comment on above: Order Comment: Chalo james Type: BLOOD SPECIMEN Ordering Facility: [facility] Address: [address] [place] [address] Result Comment: The [place] Diabetes Association (ADA) provides guidance for cutoff values for fasting glucose and random glucose. The ADA defines fasting as no caloric intake for at least 8 hours. Fasting plasma glucose results between 100 to 125 mg/dL indicate increased risk for diabetes (prediabetes). Fasting plasma glucose results greater than or equal to 126 mg/dL meet the criteria for diagnosis of diabetes. In the absence of unequivocal hyperglycemia, results should be confirmed by repeat testing. In a patient with classic symptoms of hyperglycemia or hyperglycemic crisis, random plasma glucose results greater than or equal to 200 mg/dL meet the criteria for diagnosis of diabetes. Reference: Standards of Medical Care in Diabetes 2016, [place] Diabetes Association. Diabetes Care. 2016.39(Suppl 1). Results may be falsely elevated after the administration of Sulfapyridine. Results may be falsely depressed after the administration of Sulfasalazine. Performed By: #### 2 4321-2, 3040-3 #### [facility] CLIA [id number] [address] [place] [address] [place] Potassium [Moles/Vol] 4.0 mmol/L Normal 3.5-5.1 [facility] Comment on above: Order Comment: Speci men Type: BLOOD SPECIMEN Ordering Facility: [facility] Address: [address] [place] [address] Performed By: #### 2 4321-2, 3040-3 #### [facility] CLIA [id number] [address] [place] [address] [place] Sodium [Moles/Vol] 140 mmol/L Normal 136-145 [facility] Comment on above: Order Comment: Speci men Type: BLOOD SPECIMEN Ordering Facility: [facility] Address: [address] [place] [address] Performed By: #### 2 4321-2, 3039-3 #### [facility] CLIA [id number] [address] [place] [address] [place] Urea nitrogen [Mass/Vol] 19 mg/dL Normal 7-26 [facility] Comment on above: Order Comment: Speci men Type: BLOOD SPECIMEN Ordering Facility: [facility] Address: [address] [place] [address] Performed By: #### 2 4321-2, 0-3 #### [facility] CLIA [id number] [address] [place] [address] [place] CBC W Auto Differential pane l (Bld)on 11-20-2023 Basophils (Bld) [#/Vol] 0.04 10*3/uL Normal <0.11 [facility] Comment on above: Order Comment: Speci men Type: BLOOD SPECIMEN Ordering Facility: [facility] Address: [address] [place] [address] Performed By: #### 5 7021-8 #### [facility] CLIA [id number] [address] [place] [address] [place] Basophils/100 WBC (Bld) 0.5 % Normal [facility] Comment on above: Order Comment: Speci men Type: BLOOD SPECIMEN Ordering Facility: [facility] Address: [address] [place] [address] Performed By: #### 5 7021-8 #### [facility] CLIA [id number] [address] [place] [address] [place] Differential cell count method Nom (Bld) Auto Normal [facility] Comment on above: Order Comment: Speci men Type: BLOOD SPECIMEN Ordering Facility: [facility] Address: [address] [place] [address] Performed By: #### 5 7021-8 #### [facility] CLIA [id number] [address] [place] [address] [place] Eosinophils (Bld) [#/Vol] 0.14 10*3/uL Normal <0.46 [facility] Comment on above: Order Comment: Speci men Type: BLOOD SPECIMEN Ordering Facility: [facility] Address: [address] [place] [address] Performed By: #### 5 7021-8 #### [facility] CLIA [id number] [address] [place] [address] [place] Eosinophils/100 WBC (Bld) 1.7 % Normal [facility] Comment on above: Order Comment: Speci men Type: BLOOD SPECIMEN Ordering Facility: [facility] Address: [address] [place] [address] Performed By: #### 5 7021-8 #### [facility] CLIA [id number] [address] [place] [address] [place] Erythrocyte distribution width (RBC) [Ratio] 12.8 % Normal 11.5-15.0 [facility] Comment on above: Order Comment: Speci men Type: BLOOD SPECIMEN Ordering Facility: [facility] Address: [address] [place] [address] Performed By: #### 5 7021-8 #### [facility] CLIA [id number] [address] [place] [address] [place] Hematocrit (Bld) [Volume fraction] 39.7 % Normal 39.0-51.0 [facility] Comment on above: Order Comment: Speci men Type: BLOOD SPECIMEN Ordering Facility: [facility] Address: [address] [place] [address] Performed By: #### 5 7021-8 #### [facility] CLIA [id number] [address] [place] [address] [place] Hemoglobin (Bld) [Mass/Vol] 13.0 g/dL Normal 13.0-17.0 [facility] Comment on above: Order Comment: Speci men Type: BLOOD SPECIMEN Ordering Facility: [facility] Address: [address] [place] [address] Performed By: #### 5 7021-8 #### [facility] CLIA [id number] [address] [place] [address] [place] Immature granulocytes (Bld) [#/Vol] 0.03 10*3/uL Normal <0.10 [facility] Comment on above: Order Comment: Speci men Type: BLOOD SPECIMEN Ordering Facility: [facility] Address: [address] [place] [address] Performed By: #### 5 7021-8 #### [facility] CLIA [id number] [address] [place] [address] [place] Immature granulocytes/100 WBC (Bld) 0.4 % Normal [facility] Comment on above: Order Comment: Speci men Type: BLOOD SPECIMEN Ordering Facility: [facility] Address: [address] [facility] [place] [address] Performed By: #### 5 7021-8 #### [facility] CLIA [id number] [address] [place] [address] [place] Lymphocytes (Bld) [#/Vol] 1.88 10*3/uL Normal 1.00-4.00 [facility] Comment on above: Order Comment: Speci men Type: BLOOD SPECIMEN Ordering Facility: [facility] Address: [address] [place] [address] Performed By: #### 5 7021-8 #### [facility] CLIA [id number] [address] [place] [address] [place] Lymphocytes/100 WBC (Bld) 23.3 % Normal [facility] Comment on above: Order Comment: Speci men Type: BLOOD SPECIMEN Ordering Facility: [facility] Address: [address] [place] [address] Performed By: #### 5 7021-8 #### [facility] CLIA [id number] [address] [place] [address] [place] MCH (RBC) [Entitic mass] 29.1 pg Normal 26.0-34.0 [facility] Comment on above: Order Comment: Speci men Type: BLOOD SPECIMEN Ordering Facility: [facility] Address: [address] [place] [address] Performed By: #### 5 7021-8 #### [facility] CLIA [id number] [address] [place] [address] [place] MCHC (RBC) [Mass/Vol] 32.7 g/dL Normal 30.5-36.0 [facility] Comment on above: Order Comment: Speci men Type: BLOOD SPECIMEN Ordering Facility: [facility] Address: [address] [place] [address] Performed By: #### 5 7021-8 #### [facility] CLIA [id number] [address] [place] [address] [place] MCV (RBC) [Entitic vol] 88.8 fL Normal 80.0-100.0 [facility] Comment on above: Order Comment: Speci men Type: BLOOD SPECIMEN Ordering Facility: [facility] Address: [address] [place] [address] Performed By: #### 5 7021-8 #### [facility] CLIA [id number] [address] [place] [address] [place] Monocytes (Bld) [#/Vol] 0.55 10*3/uL Normal <0.87 [facility] Comment on above: Order Comment: Speci men Type: BLOOD SPECIMEN Ordering Facility: [facility] Address: [address] [place] [address] Performed By: #### 5 7021-8 #### [facility] CLIA [id number] [address] [place] [address] [place] Monocytes/100 WBC (Bld) 6.8 % Normal [facility] Comment on above: Order Comment: Speci men Type: BLOOD SPECIMEN Ordering Facility: [facility] Address: [address] [place] [address] Performed By: #### 5 7021-8 #### [facility] CLIA [id number] [address] [place] [address] [place] Neutrophils (Bld) [#/Vol] 5.42 10*3/uL Normal 1.45-7.50 [facility] Comment on above: Order Comment: Speci men Type: BLOOD SPECIMEN Ordering Facility: [facility] Address: [address] [place] [address] Performed By: #### 5 7021-8 #### [facility] CLIA [id number] [address] [place] [address] [place] Neutrophils/100 WBC (Bld) 67.3 % Normal [facility] Comment on above: Order Comment: Speci men Type: BLOOD SPECIMEN Ordering Facility: [facility] Address: [address] [place] [address] Performed By: #### 5 7021-8 #### [facility] CLIA [id number] [address] [place] [address] [place] Nucleated RBC (Bld) [#/Vol] 10*3/uL Normal <0.01 [facility] Comment on above: Order Comment: Speci men Type: BLOOD SPECIMEN Ordering Facility: [facility] Address: [address] [place] [address] Performed By: #### 5 7021-8 #### [facility] CLIA [id number] [address] [place] [address] [place] Nucleated RBC/100 WBC (Bld) [Ratio] 0.0 /100 WBC Normal [facility] Comment on above: Order Comment: Speci men Type: BLOOD SPECIMEN Ordering Facility: [facility] Address: [address] [place] [address] Performed By: #### 5 7021-8 #### [facility] CLIA [id number] [address] [place], [place] [address] [place] Platelet mean volume (Bld) [Entitic vol] 10.6 fL Normal 9.0-12.7 [facility] Comment on above: Order Comment: Speci men Type: BLOOD SPECIMEN Ordering Facility: [facility] Address: [address] [place] [address] Performed By: #### 5 7021-8 #### [facility] CLIA [id number] [address] [place] [address] [place] Platelets (Bld) [#/Vol] 226 10*3/uL Normal 150-400 [facility] Comment on above: Order Comment: Speci men Type: BLOOD SPECIMEN Ordering Facility: [facility] Address: [address] [place] [address] Performed By: #### 5 7021-8 #### [facility] CLIA [id number] [address] [place] [address] [place] RBC (Bld) [#/Vol] 4.47 10*6/uL Normal 4.20-6.00 [facility] Comment on above: Order Comment: Speci men Type: BLOOD SPECIMEN Ordering Facility: [facility] Address: [address] [place] [address] Performed By: #### 5 7021-8 #### [facility] CLIA [id number] [address] [place], [place] [address] [place] WBC (Bld) [#/Vol] 8.06 10*3/uL Normal 3.70-11.00 [facility] Comment on above: Order Comment: Speci men Type: BLOOD SPECIMEN Ordering Facility: [facility] Address: [address] [place] [address] Performed By: #### 5 7021-8 #### [facility] CLIA [id number] [address] [place] [address] [place] FLANK WO IVCONon 11-20-[address] FLANK WO IVCON * * *Final Report* * * DATE OF EXAM: Nov 20 2023 8:19PM [facility] 0529 - CT FLANK WO IVCON / PROCEDURE REASON: Flank pain, kidney stone suspected * * * * Physician Interpretation * * * * EXAMINATION: CT FLANK WO IVCON CLINICAL HISTORY: Left flank pain, kidney stone suspected TECHNIQUE: Non-IV contrast imaging of the abdomen and pelvis was performed using standard technique, scanning from just above the dome of the diaphragm to the symphysis pubis. Unenhanced imaging is limited for the evaluation of some intra-abdominal and pelvic pathology. MQ: CTAPWO_3 Contrast: IV: None CT Radiation dose: Integrated Dose-length product (DLP) for this visit = 699.01 mGy*cm. CT Dose Reduction Employed: Automated exposure control(AEC) and iterative recon COMPARISON: None available FINDINGS: Partially visualized lung bases are unremarkable. The noncontrasted visualized liver and spleen are unremarkable. The pancreas, gallbladder, and adrenal glands are unremarkable. The kidneys are unremarkable without stone, hydronephrosis or perinephric stranding. The ureters are normal in caliber without calculus. The urinary bladder is unremarkable. There is no free fluid, free air, or lymphadenopathy. The abdominal aorta is normal in caliber. The small bowel is without dilatation or wall thickening. The colon is unremarkable. The appendix is unremarkable. No aggressive osseous lesions. IMPRESSION: 1. No nephrolithiasis, hydronephrosis, or obstructive nephropathy. 2. No acute CT abnormality of the abdomen or pelvis. Petrol Tanker Driver: PSCB Transcribe Date/Time: Nov 20 2023 8:26P Dictated by : DAPHNE DIETZ MD This examination was interpreted and the report reviewed and electronically signed by: DAPHNE DIETZ MD on Nov 20 2023 9:01PM EST [id number] Normal [facility] ED NOTEon 11-20-2023 ED NOTE HNO ID: [id number] Author: LUIS ARIZMENDI RN Service: Nursing Author Type: Registered Nurse Type: ED Notes Filed: 11/20/2023 21:27 Note Text: Pt unable to urinate at this time. Normal [facility] ED NOTE HNO ID: [id number] Author: LUIS ARIZMENDI RN Service: Nursing Author Type: Registered Nurse Type: ED Notes Filed: 11/20/2023 21:23 Note Text: Pt states he has been having left flank pain for 2 days that started all of a sudden while he was out shopping states he has been taking motrin and alieve for his pain. Pt states the pain is constant and he denies urinary symptoms aside from a small amount of blood in his urine around 4am today. Pt is aANDox4 and is in no apparent distress at this time. Pt friend is at bedside at this time. [facility] ED PROV NOTEon 11-20-2023 ED PROV NOTE HNO ID: [id number] Author: MARGARET DARLING PA-C Service: ? Author Type: Physician Vp Ancillary Type: ED Provider Notes Filed: 11/20/2023 23:53 Note Text: ED Provider Note Patient Name: Alyssa Carr : 1990 SERVICE DATE: 11/20/23 History Patient presents with: Flank Pain: left HPI Alyssa Carr is a 32 year old male with no significant past medical history who presents to the ED via private vehicle for evaluation of left flank pain. Started 2 days ago. This morning an episode of hematuria but not since. Denies any history of UTIs or kidney stones. Denies any significant abdominal pain. He states it feels very financial management his left flank area. No fevers. See further HPI in ED course or MDM if applicable. ROS Review of Systems Constitutional: Negative for fever. Respiratory: Negative for shortness of breath. Cardiovascular: Negative for chest pain. Gastrointestinal: Positive for nausea. Negative for abdominal pain and vomiting. Genitourinary: Positive for flank pain and hematuria. Negative for dysuria. All other systems reviewed and are negative. Positive findings noted in HPI, MDM or ED course. History reviewed. No pertinent past medical history. History reviewed. No pertinent surgical history. No family history on file. Social History Tobacco Use Smoking status: Unknown Smokeless tobacco: Not on file Substance and Sexual Activity Alcohol use: Not on file Drug use: Not on file Sexual activity: Not on file ALLERGIES No Known Allergies Records on file/review of medical records: Nursing/triage notes and assessments as well as vitals were reviewed and incorporated. Physical Exam Vitals [11/20/23 1921] BP Pulse Temp Temp src Resp SpO2 Weight Height 125/77 80 36.4 ?C (97.5 ?F) Oral 20 97 % 86.2 kg (190 lb) -- Physical Exam General: alert, speaking in full sentences, no acute distress. HEENT: Pupils are equal, round, and reactive to light bilaterally, EOMI, no scleral injection or tearing, head and face atraumatic. Neck: FROM, supple. Chest: no respiratory distress, normal breath sounds throughout without any adventitious breath sounds. Cardiac: RRR. Abdomen: Soft, non-tender in all four quadrants. No rebound, guarding, rigidity. No peritoneal signs. Back: no midline tenderness, no obvious deformity or step-off, tenderness in the left flank region. Extremities: Bilateral upper and lower extremity strength is grossly intact. Good distal pulses throughout. No appreciable bilateral lower extremity edema. Skin: warm, dry, no rashes. Neuro: alert and oriented x 3, no lateralized deficits, no gross weakness. Psyc: normal mood/affect, normal judgment/memory. Diagnostic Testing ED Labs Ordered and Reviewed BASIC METABOLIC PANEL - Abnormal; Notable for the following components: Result Value Ref Range Glucose 120 (*) 70 - 100 mg/dL Chloride 110 (*) 98 - 107 mmol/L Anion Gap 4 (*) 5 - 16 mmol/L All other components within normal limits URINALYSIS WITH MICROSCOPIC, REFLEX CULTURE - Abnormal; Notable for the following components: Urobilinogen 2+ (*) Negative All other components within normal limits LIPASE - Normal COMPLETE BLOOD COUNT AND DIFFERENTIAL Radiology/images: CT FLANK WO IVCON Final Result IMPRESSION: 1. No nephrolithiasis, hydronephrosis, or obstructive nephropathy. 2. No acute CT abnormality of the abdomen or pelvis. Petrol Tanker Driver: PSCB Transcribe Date/Time: Nov 20 2023 8:26P Dictated by : DAPHNE DIETZ MD This examination was interpreted and the report reviewed and electronically signed by: DAPHNE DIETZ MD on Nov 20 2023 9:01PM EST I reviewed images as well as radiologist interpretation(s) Procedures: None. Procedures ED Course / Clinical Impression Clinical Impressions as of 11/20/23 2351 Acute left flank pain Medications received in ED Medications methocarbamol 500 mg tab(s) (ROBAXIN) (has no administration in time range) keTORolac 15 mg injection (Toradol) (15 mg INTRAVENOUS Given 11/20/232113) NaCl 0.9% 1,000 mL iv bolus (0 mL INTRAVENOUS Infusion Complete 11/20/232213) Discharge Medications New Prescriptions LIDOCAINE (SALONPAS) 4 % PATCH Apply 1 Patch as directed once daily for 5 days. Remove patch after 12 hours METHOCARBAMOL (ROBAXIN) 750 MG TABLET Take 1 tablet by mouth every 6 hours as needed for up to 3 days. POLYETHYLENE GLYCOL 3350 17 GRAM/DOSE POWDER Take 17 g by mouth once daily as needed for constipation for up to 7 days. Mix in 8 ounces of water or juice. MDM / Disposition / Plan SEE ED COURSE FOR FURTHER MDM External/pertinent past medical records reviewed: N/A MDM 32-year-old male presents to the emergency department for evaluation of left flank pain. This started 2 days ago. He had an episode of hematuria this morning. Denies urinary symptoms otherwise. No fever. No abdominal pain no vomiting. No history of kidney stones or kidney infect (more content not included)... Normal [facility] ED Triage Noteon 11-20-2023 ED Triage Note HNO ID: [id number] Author: ALEK MANRIQUEZ PA-C Service: ? Author Type: Physician Vp Ancillary Type: ED Triage Notes Filed: 11/20/2023 19:30 Note Text: ED TRIAGE PROVIDER NOTE Patient Name: Alyssa Carr Service Date: 11/20/23 BRIEF HPI: This is a 32 year old male who presents to the ED with: Left flank pain, transient hematuria this morning. No history of kidney infections or UTIs or kidney stones BRIEF EXAM: No midline tenderness to the lumbar spine, however is tender to percuss left flank INITIAL WORKUP AND DECISION MAKING: Orders Placed This Encounter CT FLANK WO IVCON BASIC METABOLIC PANEL CBC + AUTO DIFF Urinalysis w Microscopic, reflex Culture SIGNATURE: Alek Manriquez PA-C [facility] Lipase SerPl-cCncon 11-20-19 24 Lipase [Catalytic activity/Vol] 43 U/L Normal 12-60 [facility] Comment on above: Order Comment: Speci men Type: BLOOD SPECIMEN Ordering Facility: [facility] Address: [address] [place] [address] Performed By: #### 2 4321-2, 3040-3 #### [facility] CLIA [id number] [address] [place] [address] [place] Urinalysis complete panel (U )on 11-20-2023 Bacteria LM.HPF (Urine sed) [#/Area] None Seen Normal None Seen [facility] Comment on above: Order Comment: Speci men Type: URINE SPECIMEN Ordering Facility: [facility] Address: [address] [place] [address] Performed By: #### 2 4356-8 #### [facility] CLIA [id number] [address] [place] [address] [place] Bilirubin Ql (U) Negative Normal Negative [facility] Comment on above: Order Comment: Speci men Type: URINE SPECIMEN Ordering Facility: [facility] Address: [address] [place] [address] Performed By: #### 2 4356-8 #### [facility] CLIA [id number] [address] [place] [address] [place] Clarity (Unsp spec) Clear Normal Clear [facility] Comment on above: Order Comment: Speci men Type: URINE SPECIMEN Ordering Facility: [facility] Address: [address] [place] [address] Performed By: #### 2 4356-8 #### [facility] CLIA [id number] [address] [place] [address] [place] Color (U) Yellow Normal Yellow [facility] Comment on above: Order Comment: Speci men Type: URINE SPECIMEN Ordering Facility: [facility] Address: [address] [place] [address] Performed By: #### 2 4356-8 #### [facility] CLIA [id number] [address] [place] [address] [place] Epithelial cells LM.HPF (Urine sed) [#/Area] Few Normal [facility] Comment on above: Order Comment: Speci men Type: URINE SPECIMEN Ordering Facility: [facility] Address: [address] [place] [address] Performed By: #### 2 4356-8 #### [facility] CLIA [id number] [address] [place] [address] [place] Glucose Test strip (U) [Mass/Vol] Negative Normal Negative [facility] Comment on above: Order Comment: Speci men Type: URINE SPECIMEN Ordering Facility: [facility] Address: [address] [place] [address] Performed By: #### 2 4356-8 #### [facility] CLIA [id number] [address] [place] [address] [place] Hemoglobin Ql (U) Negative Normal Negative [facility] Comment on above: Order Comment: Speci men Type: URINE SPECIMEN Ordering Facility: [facility] Address: [address] [place] [address] Performed By: #### 2 4356-8 #### [facility] CLIA [id number] [address] [place] [address] [place] Ketones Ql (U) Negative Normal Negative [facility] Comment on above: Order Comment: Speci men Type: URINE SPECIMEN Ordering Facility: [facility] Address: [address] [place] [address] Performed By: #### 2 4356-8 #### [facility] CLIA [id number] [address] [place] [address] [place] Leukocyte esterase Test strip Ql (U) Negative Normal Negative [facility] Comment on above: Order Comment: Speci men Type: URINE SPECIMEN Ordering Facility: [facility] Address: [address] [place] [address] Performed By: #### 2 4356-8 #### [facility] CLIA [id number] [address] [place] [address] [place] Nitrite Ql (U) Negative Normal Negative [facility] Comment on above: Order Comment: Speci men Type: URINE SPECIMEN Ordering Facility: [facility] Address: [address] [place] [address] Performed By: #### 2 4356-8 #### [facility] CLIA [id number] [address] [place] [address] [place] pH (U) 6.0 [pH] Normal 5.0-8.0 [facility] Comment on above: Order Comment: Speci men Type: URINE SPECIMEN Ordering Facility: [facility] Address: [address] [place] [address] Performed By: #### 2 4356-8 #### [facility] CLIA [id number] [address] [place] [address] [place] Protein (U) [Mass/Vol] Negative Normal Negative [facility] Comment on above: Order Comment: Speci men Type: URINE SPECIMEN Ordering Facility: [facility] Address: [address] [place] [address] Performed By: #### 2 4356-8 #### [facility] CLIA [id number] [address] [place] [address] [place] RBC LM.HPF (Urine sed) [#/Area] 0-3 /HPF Normal 0-3 /HPF [facility] Comment on above: Order Comment: Speci men Type: URINE SPECIMEN Ordering Facility: [facility] Address: [address] [place] [address] Performed By: #### 2 4356-8 #### [facility] CLIA [id number] [address] [place] [address] [place] Specific gravity (U) [Rel density] 1.027 Normal 1.005-1.030 [facility] Comment on above: Order Comment: Speci men Type: URINE SPECIMEN Ordering Facility: [facility] Address: [address] [place] [address] Performed By: #### 2 4356-8 #### [facility] CLIA [id number] [address] [place] [address] [place] Urobilinogen Ql (U) 2+ Abnormal Negative [facility] Comment on above: Order Comment: Speci men Type: URINE SPECIMEN Ordering Facility: [facility] Address: [address] [place] [address] Performed By: #### 2 4356-8 #### [facility] CLIA [id number] [address] [place], [place] [address] [place] WBC LM.HPF (Urine sed) [#/Area] 0-5 /HPF Normal 0-5 /HPF [facility] Comment on above: Order Comment: Speci men Type: URINE SPECIMEN Ordering Facility: [facility] Address: [address] [place] [address] Performed By: #### 2 4356-8 #### [facility] CLIA [id number] [address] [place], [place] [address] [place] CBC panel Auto (Bld)on 10-09 Erythrocyte distribution width (RBC) [Ratio] 13.5 % Normal 11.5-15.0 [facility] Comment on above: Order Comment: Speci men Type: URINE SPECIMEN Ordering Facility: [facility] Address: [address] [place] [address] Performed By: #### U TOX2 #### [facility] CLIA [id number] [address] Hematocrit (Bld) [Volume fraction] 45.5 % Normal 39.0-51.0 [facility] Comment on above: Order Comment: Speci men Type: URINE SPECIMEN Ordering Facility: [facility] Address: [address] [place] [address] Performed By: #### U TOX2 #### [facility] CLIA [id number] [address] [place] Hemoglobin (Bld) [Mass/Vol] 14.7 g/dL Normal 13.0-17.0 [facility] Comment on above: Order Comment: Speci men Type: URINE SPECIMEN Ordering Facility: [facility] Address: [address] [place] [address] Performed By: #### U TOX2 #### [facility] CLIA [id number] [address] [place] MCH (RBC) [Entitic mass] 29.4 pg Normal 26.0-34.0 [facility] Comment on above: Order Comment: Speci men Type: URINE SPECIMEN Ordering Facility: [facility] Address: [address] [place] [address] Performed By: #### U TOX2 #### [facility] CLIA [id number] [address] STATES [facility] MCHC (RBC) [Mass/Vol] 32.3 g/dL Normal 30.5-36.0 [facility] Comment on above: Order Comment: Speci men Type: URINE SPECIMEN Ordering Facility: [facility] Address: [address] [place] [address] Performed By: #### U TOX2 #### [facility] CLIA [id number] [address] MCV (RBC) [Entitic vol] 91.0 fL Normal 80.0-100.0 [facility] Comment on above: Order Comment: Speci men Type: URINE SPECIMEN Ordering Facility: [facility] Address: [address] [place] [address] Performed By: #### U TOX2 #### [facility] CLIA [id number] [address] [place] [address] [place] Nucleated RBC (Bld) [#/Vol] 10*3/uL Normal <0.01 [facility] Comment on above: Order Comment: Speci men Type: URINE SPECIMEN Ordering Facility: [facility] Address: [address] [place] [address] Performed By: #### U TOX2 #### [facility] CLIA [id number] [address] [place] Platelet mean volume (Bld) [Entitic vol] 11.1 fL Normal 9.0-12.7 [facility] Comment on above: Order Comment: Speci men Type: URINE SPECIMEN Ordering Facility: [facility] Address: [address] [place] [address] Performed By: #### U TOX2 #### [facility] CLIA [id number] [address] [place] [address] [place] Platelets (Bld) [#/Vol] 218 10*3/uL Normal 150-400 [facility] Comment on above: Order Comment: Speci men Type: URINE SPECIMEN Ordering Facility: [facility] Address: [address] [place] [address] Performed By: #### U TOX2 #### [facility] CLIA [id number] [address] OF [facility] RBC (Bld) [#/Vol] 5.00 10*6/uL Normal 4.20-6.00 [facility] Comment on above: Order Comment: Speci men Type: URINE SPECIMEN Ordering Facility: [facility] Address: [address] [place] [address] Performed By: #### U TOX2 #### [facility] CLIA [id number] [address] WBC (Bld) [#/Vol] 9.17 10*3/uL Normal 3.70-11.00 [facility] Comment on above: Order Comment: Speci men Type: URINE SPECIMEN Ordering Facility: [facility] Address: [address] [place] [address] Performed By: #### U TOX2 #### [facility] CLIA [id number] [address] Comprehensive metabolic 2000 panelon 10-10-2023 Albumin [Mass/Vol] 4.7 g/dL Normal 3.9-4.9 [facility] Comment on above: Order Comment: Speci men Type: BLOOD SPECIMEN Ordering Facility: [facility] Address: [address] [place] [address] Performed By: #### 2 4323-8 #### [facility] CLIA [id number] [address] ALP [Catalytic activity/Vol] 79 U/L Normal 38-113 [facility] Comment on above: Order Comment: Speci men Type: BLOOD SPECIMEN Ordering Facility: [facility] Address: [address] [place] [address] Performed By: #### 2 4323-8 #### [facility] CLIA [id number] [address] ALT [Catalytic activity/Vol] 20 U/L Normal 10-54 [facility] Comment on above: Order Comment: Speci men Type: BLOOD SPECIMEN Ordering Facility: [facility] Address: [address] [place] [address] Performed By: #### 2 4323-8 #### [facility] CLIA [id number] [address] [place] [address] [place] Anion gap [Moles/Vol] 9 mmol/L Normal 8-15 [facility] Comment on above: Order Comment: Speci men Type: BLOOD SPECIMEN Ordering Facility: [facility] Address: [address] [place] [address] Performed By: #### 2 4323-8 #### [facility] CLIA [id number] [address] AST [Catalytic activity/Vol] 18 U/L Normal 14-40 [facility] Comment on above: Order Comment: Speci men Type: BLOOD SPECIMEN Ordering Facility: [facility] Address: [address] [place] [address] Performed By: #### 2 4323-8 #### [facility] CLIA [id number] [address] [place] Bilirubin [Mass/Vol] 0.7 mg/dL Normal 0.2-1.3 [facility] Comment on above: Order Comment: Speci men Type: BLOOD SPECIMEN Ordering Facility: [facility] Address: [address] [place] [address] Performed By: #### 2 4323-8 #### [facility] CLIA [id number] [address] [place] [address] [place] Calcium [Mass/Vol] 9.2 mg/dL Normal 8.5-10.2 [facility] Comment on above: Order Comment: Speci men Type: BLOOD SPECIMEN Ordering Facility: [facility] Address: [address] [place] [address] Performed By: #### 2 4323-8 #### [facility] CLIA [id number] [address] [place] Chloride [Moles/Vol] 102 mmol/L Normal 98-107 [facility] Comment on above: Order Comment: Speci men Type: BLOOD SPECIMEN Ordering Facility: [facility] Address: [address] [place] [address] Performed By: #### 2 4323-8 #### [facility] CLIA [id number] [address] [place] [address] [place] CO2 [Moles/Vol] 28 mmol/L Normal 22-30 [facility] Comment on above: Order Comment: Speci men Type: BLOOD SPECIMEN Ordering Facility: [facility] Address: [address] [place] [address] Performed By: #### 2 4323-8 #### [facility] CLIA [id number] [address] [place] [address] [place] Creatinine [Mass/Vol] 0.85 mg/dL Normal 0.73-1.22 [facility] Comment on above: Order Comment: Speci men Type: BLOOD SPECIMEN Ordering Facility: [facility] Address: [address] [place] [address] Performed By: #### 2 4323-8 #### [facility] CLIA [id number] [address] [place] [address] [place] Creatinine and Glomerular filtration rate.predicted panel (S/P/Bld) 118 mL/min/1.73m??? Normal >=60 [facility] Comment on above: Order Comment: Speci men Type: BLOOD SPECIMEN Ordering Facility: [facility] Address: [address] [place] [address] Result Comment: Cherry mated Glomerular Filtration Rate (eGFR) is calculated using the 2020 CKD-EPI creatinine equation. This equation utilizes serum creatinine, sex, and age as parameters. The creatinine assay has traceable calibration to isotope dilution-mass spectrometry. Refer to KDIGO guidelines for clinical interpretation. In patients with unstable renal function, e.g. those with acute kidney injury, the eGFR may not accurately reflect actual GFR. Performed By: #### 2 4323-8 #### [facility] CLIA [id number] [address] [place] [address] [place] Glucose [Mass/Vol] 115 mg/dL High 74-99 [facility] Comment on above: Order Comment: Speci men Type: BLOOD SPECIMEN Ordering Facility: [facility] Address: [address] [place], [place] [id number] Result Comment: The [place] Diabetes [employer] (ADA) provides guidance for cutoff values for fasting glucose and random glucose. The ADA defines fasting as no caloric intake for at least 8 hours. Fasting plasma glucose results between 100 to 125 mg/dL indicate increased risk for diabetes (prediabetes). Fasting plasma glucose results greater than or equal to 126 mg/dL meet the criteria for diagnosis of diabetes. In the absence of unequivocal hyperglycemia, results should be confirmed by repeat testing. In a patient with classic symptoms of hyperglycemia or hyperglycemic crisis, random plasma glucose results greater than or equal to 200 mg/dL meet the criteria for diagnosis of diabetes. Reference: Standards of Medical Care in Diabetes 2016, [place] [employer]. Diabetes Care. 2016.39(Suppl 1). Performed By: #### 2 4323-8 #### [facility] CLIA [id number] [address] [place] [address] [place] Potassium [Moles/Vol] 4.4 mmol/L Normal 3.7-5.1 [facility] Comment on above: Order Comment: Chalo james Type: BLOOD SPECIMEN Ordering Facility: [facility] Address: [address] [place] [address] Performed By: #### 2 4323-8 #### [facility] CLIA [id number] [address] [place] [address] [place] Protein [Mass/Vol] 7.9 g/dL Normal 6.3-8.0 [facility] Comment on above: Order Comment: Chalo james Type: BLOOD SPECIMEN Ordering Facility: [facility] Address: [address] [address] Performed By: #### 2 4323-8 #### [facility] CLIA [id number] [address] [place] [address] [place] Sodium [Moles/Vol] 139 mmol/L Normal 136-144 [facility] Comment on above: Order Comment: Chalo james Type: BLOOD SPECIMEN Ordering Facility: [facility] Address: [address] [address] Performed By: #### 2 4323-8 #### [facility] CLIA [id number] [address] [place] Urea nitrogen [Mass/Vol] 13 mg/dL Normal 9-24 [facility] Comment on above: Order Comment: Speci men Type: BLOOD SPECIMEN Ordering Facility: [facility] Address: [facility] [place] [address] Performed By: #### 2 4323-8 #### [facility] CLIA [id number] [address] [place] ECG COMPLETEon 10-10-2023 ECG COMPLETE Ventricular Rate : 6 6 BPM Atrial Rate : 66 BPM P-R Interval : 198 ms QRS Duration : 88 ms Q-T Interval : 376 ms QTC Calculation(Bazett) : 394 ms Calculated P [place] : 23 degrees Calculated R [place] : 34 degrees Calculated T [place] : 43 degrees NORMAL SINUS RHYTHM NORMAL ECG NO STEMI Confirmed by RHETT BAH DO ([id number]), assistant production editor PASCUAL REYES ([id number]) on 10/11/2023 6:20:48 AM NAME : ALYSSA CARR PID : [id number] : 1990 Gender : Male Race : ORD : [id number] Procedure Date : Oct 10 2023 08:20:14 Edit Date : Oct 11 2023 06:20:54 Diagnosis: NORMAL SINUS RHYTHM NORMAL ECG NO STEMI Confirmed by RHETT BAH DO ([id number]), assistant production editor PASCUAL REYES ([id number]) on 10/11/2023 6:20:48 AM Test Reason : Arrhythmia Location : 1 : ER ED Overread By : RHETT BAH DO Edited By : PASCUAL REYES Referred By : , Acquired by : [id number], [facility] ED NOTEon 10-10-2023 ED NOTE HNO ID: [id number] Author: JAKOB MERINO RN Service: ? Author Type: Registered Nurse Type: ED Notes Filed: 10/10/2023 14:48 Note Text: PT verbalized d/c instructions and the need to follow up. Pt has all numbers he needs [facility] ED NOTE HNO ID: [id number] Author: JAKOB MERINO RN Service: ? Author Type: Registered Nurse Type: ED Notes Filed: 10/10/2023 14:44 Note Text: Pt safety plan went over by RN in detail. Pt verbalized understanding. [facility] ED NOTE HNO ID: [id number] Author: JAKOB MERINO RN Service: ? Author Type: Registered Nurse Type: ED Notes Filed: 10/10/2023 13:33 Note Text: Pt talking to intake at this time, pt remains calm and cooperative [facility] ED NOTE HNO ID: [id number] Author: JAKOB MERINO RN Service: ? Author Type: Registered Nurse Type: ED Notes Filed: 10/10/2023 12:06 Note Text: RN spoke to intake about update for interview [facility] ED NOTE HNO ID: [id number] Author: JAKOB MERINO RN Service: ? Author Type: Registered Nurse Type: ED Notes Filed: 10/10/2023 11:58 Note Text: Pt denies needs at this time. Pt calm and cooperative. Pt waiting to talk to intake [facility] ED NOTE HNO ID: [id number] Author: REBECCA GALVAN RN Service: ? Author Type: Registered Nurse Type: ED Notes Filed: 10/10/2023 08:43 Note Text: Pt presents to ED by walk in for mental health evaluation. Pt tells me that he has had suicidal thoughts since last night, due to recent stressors in personal life, revolving around personal relationships. Pt does not currently have plan for SI, however, has had 5 previous SA that patient states were impulsive actions each time, never planned. Last admission to [facility] in April for SA by overdose on pills, but has been doing relatively well since then. Pt does have outpatient therapist in [facility]. Pt is pleasant, well groomed, calm, cooperative. Denies physical complaints. Pt placed into safety room, belongings bag x one secured and placed into locker #7. 1:1 Suicide precautions initiated. [facility] ED PROV NOTEon 10-10-2023 ED PROV NOTE HNO ID: [id number] Author: RHETT BAH DO Service: Emergency Medicine Author Type: Physician Type: ED Provider Notes Filed: 10/10/2023 14:28 Note Text: ED Provider Note Patient Name: Alyssa Carr : 1990 SERVICE DATE: 10/10/23 History Patient presents with: Suicidal Ideation: See note 32-year-old male with a history of depression and suicidal ideations as well as 5 suicide attempts in the past presenting to the ER today for suicidal ideations, depression, generally doing unwell mentally. Patient admits to multiple things happening recently in his personal life and states while he was driving in today he was having thoughts of harming self without plan and thus checked then. He admits that all of his previous attempts have been very spontaneous to the extent of pulling over on the side of the road and route to work and taking a full bottle of medications like he did in April and also similar story where he abruptly decided to try to harm himself in November of last year. He does state that he follows up regularly with psychiatry and crisis center as well as goes to meetings but today was concerned while standing at work that he was denying himself. No past medical history on file. No past surgical history on file. No family history on file. Social History Tobacco Use Smoking status: Unknown Smokeless tobacco: Not on file Substance and Sexual Activity Alcohol use: Not on file Drug use: Not on file Sexual activity: Not on file ALLERGIES No Known Allergies Review of Systems Psychiatric/Behavioral: Positive for self-injury and suicidal ideas. All other systems reviewed and are negative. Physical Exam Vitals [10/10/23 0753] BP Pulse Temp Temp src Resp SpO2 Weight Height 142/77 74 36.2 ?C (97.2 ?F) Temporal 16 98 % 86.2 kg (190 lb) 1.93 m (6' 4 ) Physical Exam Vitals and nursing note reviewed. Constitutional: General: He is not in acute distress. Appearance: He is well-developed. He is not ill-appearing. HENT: Head: Normocephalic and atraumatic. Eyes: Conjunctiva/sclera: Conjunctivae normal. Neck: Thyroid: No thyromegaly. Trachea: No tracheal deviation. Cardiovascular: Rate and Rhythm: Normal rate and regular rhythm. Pulmonary: Effort: Pulmonary effort is normal. No respiratory distress. Breath sounds: Normal breath sounds. Abdominal: General: There is no distension. Musculoskeletal: General: Normal range of motion. Cervical back: Normal range of motion. Right lower leg: No edema. Left lower leg: No edema. Skin: General: Skin is warm and dry. Capillary Refill: Capillary refill takes less than 2 seconds. Findings: No rash. Neurological: Mental Status: He is alert and oriented to person, place, and time. Psychiatric: Comments: Admits to suicidal ideations without plan. Denies any homicidal ideations His thought content is normal and mood seems mildly depressed Patient does not appear internally stimulated Diagnostic Testing ED Labs Ordered and Reviewed COMPLETE BLOOD COUNT - Normal COMPREHENSIVE METABOLIC PANEL URINALYSIS WITH MICROSCOPIC, REFLEX CULTURE TOXICOLOGY SCREEN, ROUTINE URINE ETHANOL/ALCOHOL Procedures ED Course / Clinical Impression ED Course as of 10/10/23 1421 Rhett Bah's Documentation Sun Oct 10, 2023 0902 CMP negative with no significant electrolyte abnormalities normal kidney function 09 Talk screen luminary positive for cannabis but otherwise negative 09 Alcohol negative 0902 Urinalysis not consistent with urinary tract infection 0902 CBC with no significant leukocytosis and no anemia 0902 EKG: Completed at 8:20 AM and interpreted by myself Normal sinus rhythm with a ventricular rate of 66, normal axis Normal AK interval, normal QRS duration, normal QTc There is no ST elevation consistent with ST elevation [place] 1419 Spoke with central intake who states patient is safe for outpatient treatment does not require admission at this time. They will be sending over safety contract. Clinical Impressions as of 10/10/23 1421 Depression, unspecified depression type Passive suicidal ideations MDM / Disposition / Plan 32-year-old male with a history of depression and suicidal ideations as well as 5 suicide attempts in the past presenting to the ER today for suicidal ideations, depression, generally doing unwell mentally Exam and history as noted above. Vital signs are nonactionable Results and noted in workup Patient medically cleared Central intake spoke with the patient who generally got a similar picture is vt where patient is able to contract for safety has follow-up on with psychiatrist/psychologist and also is able to walk in tomorrow at facility. I do not believe patient to be an imminent threat to harm self or others and is stable for outpatient treatment. History and Record Review External record(s) rev (more content not included)... Normal [facility] Ethanol SerPl-ncon 024 Ethanol [Mass/Vol] mg/dL Normal <11 [facility] Comment on above: Order Comment: Speci men Type: URINE SPECIMEN Ordering Facility: [facility] Address: [address] [place] [address] Performed By: #### U TOX2 #### [facility] CLIA [id number] [address] [place] [address] [place] TOXICOLOGY SCREEN, ROUTINE U RINEon 10-10-2023 Amphetamines Confirm (U) [Mass/Vol] Negative Normal Negative [facility] Comment on above: Order Comment: Speci men Type: URINE SPECIMEN Ordering Facility: [facility] Address: [address] [place] [address] Result Comment: Cuto ff threshold at 1000 ng/mL. Performed By: #### U TOX2 #### [facility] CLIA [id number] [address] [place] [address] [facility] [place] BARBITURATES, URINE Negative Normal Negative [facility] Comment on above: Order Comment: Speci men Type: URINE SPECIMEN Ordering Facility: [facility] Address: [address] [place] [address] Result Comment: Cuto ff threshold at 200 ng/mL. Performed By: #### U TOX2 #### [facility] CLIA [id number] [address] [place] [address] [place] BENZODIAZEPINES, UR Negative Normal Negative [facility] Comment on above: Order Comment: Speci men Type: URINE SPECIMEN Ordering Facility: [facility] Address: [address] [place] [address] Result Comment: Cuto ff threshold at 200 ng/mL. Performed By: #### U TOX2 #### [facility] CLIA [id number] [address] [place] [address] [place] Cannabinoids Screen Ql (U) Positive Abnormal Negative [facility] Comment on above: Order Comment: Speci men Type: URINE SPECIMEN Ordering Facility: [facility] Address: [address] [place] [address] Result Comment: Cuto ff threshold at 50 ng/mL. Performed By: #### U TOX2 #### [facility] CLIA [id number] [address] [place] [address] [place] Cocaine Ql (U) Negative Normal Negative [facility] Comment on above: Order Comment: Speci men Type: URINE SPECIMEN Ordering Facility: [facility] Address: [address] [place] [address] Result Comment: Cuto ff threshold at 300 ng/mL. Performed By: #### U TOX2 #### [facility] CLIA [id number] [address] Ethanol (U) [Mass/Vol] <11 Normal <11 [facility] Comment on above: Order Comment: Speci men Type: URINE SPECIMEN Ordering Facility: [facility] Address: [address] [place] [address] Performed By: #### U TOX2 #### [facility] CLIA [id number] [address] Opiates Screen Ql (U) Negative Normal Negative [facility] Comment on above: Order Comment: Speci men Type: URINE SPECIMEN Ordering Facility: [facility] Address: [address] [place] [address] Result Comment: Cuto ff threshold at 300 ng/mL. Performed By: #### U TOX2 #### [facility] CLIA [id number] [address] oxyCODONE cutoff Screen (U) [Mass/Vol] Negative Normal Negative [facility] Comment on above: Order Comment: Speci men Type: URINE SPECIMEN Ordering Facility: [facility] Address: [address] [place] [address] Result Comment: Cuto ff threshold at 100 ng/mL. Performed By: #### U TOX2 #### [facility] CLIA [id number] [address] Phencyclidine Ql (U) Negative Normal Negative [facility] Comment on above: Order Comment: Speci men Type: URINE SPECIMEN Ordering Facility: [facility] Address: [address] [place] [address] Result Comment: Cuto ff threshold at 25 ng/mL. Performed By: #### U TOX2 #### [facility] CLIA [id number] [address] Urinalysis complete panel (U )on 10-10-2023 Bacteria LM.HPF (Urine sed) [#/Area] Rare Abnormal None Seen [facility] Comment on above: Order Comment: Speci men Type: URINE SPECIMEN Ordering Facility: [facility] Address: [address] [place] [address] Performed By: #### U TOX2 #### [facility] CLIA [id number] [address] Bilirubin Ql (U) Negative Normal Negative [facility] Comment on above: Order Comment: Speci men Type: URINE SPECIMEN Ordering Facility: [facility] Address: [address] [place] [address] Performed By: #### U TOX2 #### [facility] CLIA [id number] [address] Clarity (Unsp spec) Clear Normal Clear [facility] Comment on above: Order Comment: Speci men Type: URINE SPECIMEN Ordering Facility: [facility] Address: [address] [place] [address] Performed By: #### U TOX2 #### [facility] CLIA [id number] [address] Color (U) Yellow Normal Yellow [facility] Comment on above: Order Comment: Speci men Type: URINE SPECIMEN Ordering Facility: [facility] Address: [address] [place] [address] Performed By: #### U TOX2 #### [facility] CLIA [id number] [address] Epithelial cells LM.HPF (Urine sed) [#/Area] Few Normal [facility] Comment on above: Order Comment: Speci men Type: URINE SPECIMEN Ordering Facility: [facility] Address: [address] [place] [address] Performed By: #### U TOX2 #### [facility] CLIA [id number] [address] [place] Glucose Test strip (U) [Mass/Vol] Negative Normal Negative [facility] Comment on above: Order Comment: Speci men Type: URINE SPECIMEN Ordering Facility: [facility] Address: [address] [place] [address] Performed By: #### U TOX2 #### [facility] CLIA [id number] [address] [place] [address] [place] Hemoglobin Ql (U) Negative Normal Negative [facility] Comment on above: Order Comment: Speci men Type: URINE SPECIMEN Ordering Facility: [facility] Address: [address] [place] [address] Performed By: #### U TOX2 #### [facility] CLIA [id number] [address] [place] [address] [place] Ketones Ql (U) Negative Normal Negative [facility] Comment on above: Order Comment: Speci men Type: URINE SPECIMEN Ordering Facility: [facility] Address: [address] [place] [address] Performed By: #### U TOX2 #### [facility] CLIA [id number] [address] [place] Leukocyte esterase Test strip Ql (U) Negative Normal Negative [facility] Comment on above: Order Comment: Speci men Type: URINE SPECIMEN Ordering Facility: [facility] Address: [address] [place] [address] Performed By: #### U TOX2 #### [facility] CLIA [id number] [address] [place] [address] [place] Nitrite Ql (U) Negative Normal Negative [facility] Comment on above: Order Comment: Speci men Type: URINE SPECIMEN Ordering Facility: [facility] Address: [address] [place] [address] Performed By: #### U TOX2 #### [facility] CLIA [id number] [address] [place] [address] [place] pH (U) 7.5 [pH] Normal 5.0-8.0 [facility] Comment on above: Order Comment: Speci men Type: URINE SPECIMEN Ordering Facility: [facility] Address: [address] [place] [address] Performed By: #### U TOX2 #### [facility] CLIA [id number] [address] [place] [address] [place] Protein (U) [Mass/Vol] Negative Normal Negative [facility] Comment on above: Order Comment: Speci men Type: URINE SPECIMEN Ordering Facility: [facility] Address: [address] [place] [address] Performed By: #### U TOX2 #### [facility] CLIA [id number] [address] [place] RBC LM.HPF (Urine sed) [#/Area] 0-3 /HPF Normal 0-3 /HPF [facility] Comment on above: Order Comment: Speci men Type: URINE SPECIMEN Ordering Facility: [facility] Address: [address] [place] [address] Performed By: #### U TOX2 #### [facility] CLIA [id number] [address] [place] Specific gravity (U) [Rel density] 1.010 Normal 1.005-1.030 [facility] Comment on above: Order Comment: Speci men Type: URINE SPECIMEN Ordering Facility: [facility] Address: [address] [place] [address] Performed By: #### U TOX2 #### [facility] CLIA [id number] [address] Urobilinogen Ql (U) 0.2 EU/dL Normal 0.2-1.0 EU/dL [facility] Comment on above: Order Comment: Speci men Type: URINE SPECIMEN Ordering Facility: [facility] Address: [address] [place] [address] Performed By: #### U TOX2 #### [facility] CLIA [id number] [address] WBC LM.HPF (Urine sed) [#/Area] 0-5 /HPF Normal 0-5 /HPF [facility] Comment on above: Order Comment: Speci men Type: URINE SPECIMEN Ordering Facility: [facility] Address: [address] [place] [address] Performed By: #### U TOX2 #### [facility] CLIA [id number] [address] [place] APAP SerPl-mCncon 05-03-2023 Acetaminophen [Mass/Vol] ug/mL Low 10-30 [facility] Comment on above: Order Comment: Speci men Type: URINE SPECIMEN Ordering Facility: [facility] Address: [address] [place] [address] Result Comment: Toxi c > 150 ug/mL 4 hours post ingestion The Naren Heart nomogram can be used to estimate the probability of hepatotoxicity via the relationship of plasma acetaminophen concentration to the post ingestion interval. (Markie. Pediatrics. 1975. 55:871 to 876 and Naren et al. Arch [employer]planter Med. 1981. 141:380 to 385). Reference ranges and high/low indicator flags are provided as general guidelines only. The treating physician must determine appropriate target levels/dosing based on the specific clinical situation. Performed By: #### U TOX2 #### [facility] CLIA [id number] [address] CBC panel Auto (Bld)on 05-03 Erythrocyte distribution width (RBC) [Ratio] 13.1 % Normal 11.5-15.0 [facility] Comment on above: Order Comment: Speci men Type: URINE SPECIMEN Ordering Facility: [facility] Address: [address] [place] [address] Performed By: #### U TOX2 #### [facility] CLIA [id number] [address] Hematocrit (Bld) [Volume fraction] 43.3 % Normal 39.0-51.0 [facility] Comment on above: Order Comment: Speci men Type: URINE SPECIMEN Ordering Facility: [facility] Address: [address] [place] [address] Performed By: #### U TOX2 #### [facility] CLIA [id number] [address] Hemoglobin (Bld) [Mass/Vol] 14.5 g/dL Normal 13.0-17.0 [facility] Comment on above: Order Comment: Speci men Type: URINE SPECIMEN Ordering Facility: [facility] Address: [address] [place] [address] Performed By: #### U TOX2 #### [facility] CLIA [id number] [address] MCH (RBC) [Entitic mass] 29.8 pg Normal 26.0-34.0 [facility] Comment on above: Order Comment: Speci men Type: URINE SPECIMEN Ordering Facility: [facility] Address: [address] [place] [address] Performed By: #### U TOX2 #### [facility] CLIA [id number] [address] [place] MCHC (RBC) [Mass/Vol] 33.5 g/dL Normal 30.5-36.0 [facility] Comment on above: Order Comment: Speci men Type: URINE SPECIMEN Ordering Facility: [facility] Address: [address] [place] [address] Performed By: #### U TOX2 #### [facility] CLIA [id number] [address] MCV (RBC) [Entitic vol] 89.1 fL Normal 80.0-100.0 [facility] Comment on above: Order Comment: Speci men Type: URINE SPECIMEN Ordering Facility: [facility] Address: [address] [place] [address] Performed By: #### U TOX2 #### [facility] CLIA [id number] [address] [place] Nucleated RBC (Bld) [#/Vol] 10*3/uL Normal <0.01 [facility] Comment on above: Order Comment: Speci men Type: URINE SPECIMEN Ordering Facility: [facility] Address: [address] [place] [address] Performed By: #### U TOX2 #### [facility] CLIA [id number] [address] [place] Platelet mean volume (Bld) [Entitic vol] 10.7 fL Normal 9.0-12.7 [facility] Comment on above: Order Comment: Speci men Type: URINE SPECIMEN Ordering Facility: [facility] Address: [address] [place] [address] Performed By: #### U TOX2 #### [facility] CLIA [id number] [address] [place] [address] [place] Platelets (Bld) [#/Vol] 256 10*3/uL Normal 150-400 [facility] Comment on above: Order Comment: Speci men Type: URINE SPECIMEN Ordering Facility: [facility] Address: [address] [place] [address] Performed By: #### U TOX2 #### [facility] CLIA [id number] [address] [place] RBC (Bld) [#/Vol] 4.86 10*6/uL Normal 4.20-6.00 [facility] Comment on above: Order Comment: Speci men Type: URINE SPECIMEN Ordering Facility: [facility] Address: [address] [place] [address] Performed By: #### U TOX2 #### [facility] CLIA [id number] [address] WBC (Bld) [#/Vol] 8.94 10*3/uL Normal 3.70-11.00 [facility] Comment on above: Order Comment: Speci men Type: URINE SPECIMEN Ordering Facility: [facility] Address: [address] [place] [address] Performed By: #### U TOX2 #### [facility] CLIA [id number] [address] Comprehensive metabolic 2000 panelon 05-03-2023 Albumin [Mass/Vol] 4.3 g/dL Normal 3.9-4.9 [facility] Comment on above: Order Comment: Speci men Type: URINE SPECIMEN Ordering Facility: [facility] Address: [address] [place] [address] Performed By: #### U TOX2 #### [facility] CLIA [id number] [address] ALP [Catalytic activity/Vol] 80 U/L Normal 38-113 [facility] Comment on above: Order Comment: Speci men Type: URINE SPECIMEN Ordering Facility: [facility] Address: [address] [place] [address] Performed By: #### U TOX2 #### [facility] CLIA [id number] [address] ALT [Catalytic activity/Vol] 20 U/L Normal 10-54 [facility] Comment on above: Order Comment: Speci men Type: URINE SPECIMEN Ordering Facility: [facility] Address: [address] [place] [address] Performed By: #### U TOX2 #### [facility] CLIA [id number] [address] [place] [address] [place] Anion gap [Moles/Vol] 13 mmol/L Normal 9-18 [facility] Comment on above: Order Comment: Speci men Type: URINE SPECIMEN Ordering Facility: [facility] Address: [address] [place] [address] Performed By: #### U TOX2 #### [facility] CLIA [id number] [address] [place] [address] [place] AST [Catalytic activity/Vol] 19 U/L Normal 14-40 [facility] Comment on above: Order Comment: Speci men Type: URINE SPECIMEN Ordering Facility: [facility] Address: [address] [place] [address] Performed By: #### U TOX2 #### [facility] CLIA [id number] [address] [place] [address] [place] Bilirubin [Mass/Vol] 0.3 mg/dL Normal 0.2-1.3 [facility] Comment on above: Order Comment: Speci men Type: URINE SPECIMEN Ordering Facility: [facility] Address: [address] [place] [address] Performed By: #### U TOX2 #### [facility] CLIA [id number] [address] [place] [address] [place] Calcium [Mass/Vol] 9.3 mg/dL Normal 8.5-10.2 [facility] Comment on above: Order Comment: Speci men Type: URINE SPECIMEN Ordering Facility: [facility] Address: [address] [place] [address] Performed By: #### U TOX2 #### [facility] CLIA [id number] [address] [place] [address] [place] Chloride [Moles/Vol] 102 mmol/L Normal 97-105 [facility] Comment on above: Order Comment: Speci men Type: URINE SPECIMEN Ordering Facility: [facility] Address: [address] [place] [address] Performed By: #### U TOX2 #### [facility] CLIA [id number] [address] [place] [address] [place] CO2 [Moles/Vol] 22 mmol/L Normal 22-30 [facility] Comment on above: Order Comment: Speci men Type: URINE SPECIMEN Ordering Facility: [facility] Address: [address] [place] [address] Performed By: #### U TOX2 #### [facility] CLIA [id number] [address] [place] Creatinine [Mass/Vol] 0.86 mg/dL Normal 0.73-1.22 [facility] Comment on above: Order Comment: Speci men Type: URINE SPECIMEN Ordering Facility: [facility] Address: [address] [place] [address] Performed By: #### U TOX2 #### [facility] CLIA [id number] [address] [place] Creatinine and Glomerular filtration rate.predicted panel (S/P/Bld) 117 mL/min/1.73m??? Normal >=60 [facility] Comment on above: Order Comment: Speci men Type: URINE SPECIMEN Ordering Facility: [facility] Address: [address] [place] [address] Result Comment: Cherry mated Glomerular Filtration Rate (eGFR) is calculated using the 2020 CKD-EPI creatinine equation. This equation utilizes serum creatinine, sex, and age as parameters. The creatinine assay has traceable calibration to isotope dilution-mass spectrometry. Refer to KDIGO guidelines for clinical interpretation. In patients with unstable renal function, e.g. those with acute kidney injury, the eGFR may not accurately reflect actual GFR. Performed By: #### U TOX2 #### [facility] CLIA [id number] [address] [place] [address] [place] Glucose [Mass/Vol] 141 mg/dL High 74-99 [facility] Comment on above: Order Comment: Speci men Type: URINE SPECIMEN Ordering Facility: [facility] Address: [address] [place] [address] Result Comment: The [place] [employer] (ADA) provides guidance for cutoff values for fasting glucose and random glucose. The ADA defines fasting as no caloric intake for at least 8 hours. Fasting plasma glucose results between 100 to 125 mg/dL indicate increased risk for diabetes (prediabetes). Fasting plasma glucose results greater than or equal to 126 mg/dL meet the criteria for diagnosis of diabetes. In the absence of unequivocal hyperglycemia, results should be confirmed by repeat testing. In a patient with classic symptoms of hyperglycemia or hyperglycemic crisis, random plasma glucose results greater than or equal to 200 mg/dL meet the criteria for diagnosis of diabetes. Reference: Standards of Medical Care in Diabetes 2016, [place] [employer]. Diabetes Care. 2016.39(Suppl 1). Performed By: #### U TOX2 #### [facility] CLIA [id number] [address] [place] [address] [place] Potassium [Moles/Vol] 4.0 mmol/L Normal 3.7-5.1 [facility] Comment on above: Order Comment: Speci men Type: URINE SPECIMEN Ordering Facility: [facility] Address: [address] [place] [address] Performed By: #### U TOX2 #### [facility] CLIA [id number] [address] [place] [address] [place] Protein [Mass/Vol] 7.2 g/dL Normal 6.3-8.0 [facility] Comment on above: Order Comment: Speci men Type: URINE SPECIMEN Ordering Facility: [facility] Address: [address] [place] [address] Performed By: #### U TOX2 #### [facility] CLIA [id number] [address] [place] [address] [place] Sodium [Moles/Vol] 137 mmol/L Normal 136-144 [facility] Comment on above: Order Comment: Speci men Type: URINE SPECIMEN Ordering Facility: [facility] Address: [address] [place] [address] Performed By: #### U TOX2 #### [facility] CLIA [id number] [address] [place] [address] [place] Urea nitrogen [Mass/Vol] 17 mg/dL Normal 9-24 [facility] Comment on above: Order Comment: Speci men Type: URINE SPECIMEN Ordering Facility: [facility] Address: [facility] [place] [address] Performed By: #### U TOX2 #### [facility] CLIA [id number] [address] [place] [address] [place] ECG COMPLETEon 05-03-2023 ECG COMPLETE Ventricular Rate : 8 5 BPM Atrial Rate : 85 BPM P-R Interval : 196 ms QRS Duration : 88 ms Q-T Interval : 338 ms QTC Calculation(Bazett) : 402 ms Calculated P [place] : 64 degrees Calculated R [place] : 47 degrees Calculated T [place] : 56 degrees NORMAL SINUS RHYTHM NORMAL ECG 0558 Confirmed by DAVID KEVIN MD ([id number]), assistant production editor WEST TREVIÑO (1943) on 05/03/2023 2:05:57 PM NAME : ALYSSA CARR PID : [id number] : 1990 Gender : Male Race : ORD : [id number] Procedure Date : May 03 2023 05:56:34 Edit Date : May 03 2023 14:05:58 Diagnosis: NORMAL SINUS RHYTHM NORMAL ECG 0558 Confirmed by DAVID KEVIN MD ([id number]), assistant production editor WEST TREVIÑO (1943) on 05/03/2023 2:05:57 PM Test Reason : Arrhythmia Location : 1 : ER ED Overread By : DAVID KEVIN MD Edited By : WEST TREVIÑO Referred By : , Acquired by : brittaney rn, [facility] ED NOTEon 05-03-2023 ED NOTE HNO ID: [id number] Author: CORTNEY REYNA RN Service: ? Author Type: Registered Nurse Type: ED Notes Filed: 05/03/2023 16:29 Note Text: Pt belongings given to transport. 2 bracelets and necklace given to girlfriend, ring with patients belongings. Pt alert and oriented, cooperative on transport. [facility] ED NOTE HNO ID: [id number] Author: MELVA ROCHE RN Service: ? Author Type: Registered Nurse Type: ED Notes Filed: 05/03/2023 10:38 Note Text: Kim from [facility] aware of medical clearance. Pt from [facility], she will be contacting [employer]. [facility] ED NOTE HNO ID: [id number] Author: MELVA ROCHE, ALLISON Service: ? Author Type: Registered Nurse Type: ED Notes Filed: 05/03/2023 09:23 Note Text: Assumed patient care. Patient resting in room. Sitter remains at bedside. Safety maintained. Denies any current needs. [facility] ED NOTE HNO ID: [id number] Author: NEPTALI MEADE RN Service: Nursing Author Type: Registered Nurse Type: ED Notes Filed: 05/03/2023 08:36 Note Text: Up to restroom to void and give sample. [facility] ED NOTE HNO ID: [id number] Author: NEPTALI MEADE RN Service: Nursing Author Type: Registered Nurse Type: ED Notes Filed: 05/03/2023 08:31 Note Text: Patient vomiting. Sitting up in chair now. MD aware, [facility] ED NOTE HNO ID: [id number] Author: MELVA ROCHE, ALLISON Service: ? Author Type: Registered Nurse Type: ED Notes Filed: 05/03/2023 08:11 Note Text: Pt provided with breakfast tray [facility] ED NOTE HNO ID: [id number] Author: NEPTALI MEADE RN Service: Nursing Author Type: Registered Nurse Type: ED Notes Filed: 05/03/2023 07:57 Note Text: Intake rn social work at to interview. [facility] ED NOTE HNO ID: [id number] Author: NEPTALI MEADE RN Service: Nursing Author Type: Registered Nurse Type: ED Notes Filed: 05/03/2023 07:39 Note Text: Patient awakens and states that he is having double vision. Will notify MD. [facility] ED NOTE HNO ID: [id number] Author: NEPTALI MEADE RN Service: Nursing Author Type: Registered Nurse Type: ED Notes Filed: 05/03/2023 07:19 Note Text: Assumed care of patient. Resting in bed on his right side. Sitter remains at bs for safety. [facility] ED NOTE HNO ID: [id number] Author: NEPTALI MEADE RN Service: Nursing Author Type: Registered Nurse Type: ED Notes Filed: 05/03/2023 07:19 Note Text: [employer] 1 aware of safety tray order. [facility] ED NOTE HNO ID: [id number] Author: PAULA STERN RN Service: ? Author Type: Registered Nurse Type: ED Notes Filed: 05/03/2023 07:20 Note Text: Report given to ALLISON Palomino. [facility] ED NOTE HNO ID: [id number] Author: PAULA STERN RN Service: ? Author Type: Registered Nurse Type: ED Notes Filed: 05/03/2023 06:00 Note Text: Patient asked if he was able to give a urine sample at this time and patient not a chance [facility] ED NOTE HNO ID: [id number] Author: MIGDALIA RODRIGUEZ RN Service: Nursing Author Type: Registered Nurse Type: ED Notes Filed: 05/03/2023 05:57 Note Text: Pt states he took 20-30 of his Lamotrigine in an attempt to kill himself approx. 20-30 minutes EMERGENCY DEPT TECH. Pt states he has had suicide attempts in the past with overdosing. Pt says he's under a lot of stress because his child has a history of a heart transplant and currently has RSV. Pt also states he has been stressed out with work. Pt is very cooperative and frequently states that he knows the drill when ask to do something. Pt states this attempt was very spontaneous and not planned ahead of time. Denies HI. [facility] ED PROV NOTEon 05-03-2023 ED PROV NOTE HNO ID: [id number] Author: HORACE BATISTA DO Service: Emergency Medicine Author Type: Physician Type: ED Provider Notes Filed: 05/03/2023 15:40 Note Text: ED CONTINUATION OF CARE NOTE Code Status: Full Code Assumed care from: Dr. Bray Presentation / Findings / Interventions / Plan / Items to Follow Up: Patient is here with suicidal ideations and even attempt after he took 20-30 lamotrigine. Patient has been in the emergency department now for 10 hours. He has shown no signs of significant overdose and has been doing well. He has been evaluated by behavioral health and has been admitted to [facility]. Currently awaiting transfer. Nothing to do at this time. Clinical Impressions as of 05/03/23 1539 Suicidal ideation Intentional overdose, initial encounter (HCC) Suicide attempt (HCC) SIGNATURE: Horace Slick DO Ange PATIENT NAME: Alyssa Carr DATE: May 03, 2023 TIME: 3:39 PM PAGER/CONTACT #: HORACE BATISTA Slick 05/03/23 1540 [facility] ED PROV NOTE HNO ID: [id number] Author: DAVID KEVIN MD Service: Emergency Medicine Author Type: Physician Type: ED Provider Notes Filed: 05/03/2023 06:26 Note Text: Attestation signed by David Bray DO at 05/03/2023 2:00 PM Attending Note I have personally performed a face to face assessment of the patient and have reviewed the LOIDA note. I performed a substantive portion of the visit including all aspects of the following. My rayo findings include: Medical Decision Making the patient's workup was pending placement. Notified by central intake that the patient is excepted to [facility]. Signature: David Bray DO Date: 05/03/2023 Time: 2:00 PM ED Provider Note Patient Name: Alyssa Carr : 1990 SERVICE DATE: 05/03/23 History Patient presents with: Overdose Suicide Attempt: Pt states he took 20-30 of his Lamotrigine in attempt to kill himself. 32-year-old male. Comes to the emerged from today for reports of suicidal ideation. Reports that about 30 minutes prior to arrival he took approximately 20-30 of his 25 mg tablet of lamotrigine. Denies clear motor for suicidal ideation at this time. Denies any symptoms otherwise. Previous history of attempts by medication ingestion. History reviewed. No pertinent past medical history. History reviewed. No pertinent surgical history. No family history on file. Social History Tobacco Use - Smoking status: Unknown - Smokeless tobacco: Not on file Substance and Sexual Activity - Alcohol use: Not on file - Drug use: Not on file - Sexual activity: Not on file ALLERGIES No Known Allergies Review of Systems Constitutional: Negative for activity change, chills, diaphoresis and fever. HENT: Negative for congestion, sinus pain and sore throat. Eyes: Negative for photophobia, pain and visual disturbance. Respiratory: Negative for cough, chest tightness and shortness of breath. Cardiovascular: Negative for chest pain, palpitations and leg swelling. Gastrointestinal: Negative for abdominal pain, constipation, diarrhea, nausea and vomiting. Genitourinary: Negative for dysuria, frequency and urgency. Musculoskeletal: Negative for back pain, gait problem and neck pain. Skin: Negative for color change, rash and wound. Neurological: Negative for syncope, light-headedness and headaches. Psychiatric/Behavioral: Positive for suicidal ideas. Negative for agitation, behavioral problems and confusion. Physical Exam Vitals [05/03/23 0545] BP Pulse Temp Temp src Resp SpO2 Weight Height 123/78 81 36.6 ?C (97.9 ?F) Oral 20 100 % 86.2 kg (190 lb) -- Physical Exam Vitals and nursing note reviewed. Constitutional: General: He is not in acute distress. Appearance: He is well-developed. He is not diaphoretic. Comments: Patient is alert and oriented. Normal affect. Answers questions appropriately. No outward signs of injury. HENT: Head: Normocephalic and atraumatic. Right Ear: External ear normal. Left Ear: External ear normal. Nose: Nose normal. Eyes: General: No scleral icterus. Right eye: No discharge. Left eye: No discharge. Conjunctiva/sclera: Conjunctivae normal. Pupils: Pupils are equal, round, and reactive to light. Neck: Vascular: No JVD. Trachea: No tracheal deviation. Cardiovascular: Rate and Rhythm: Normal rate and regular rhythm. Heart sounds: Normal heart sounds. No murmur heard. No friction rub. No gallop. Pulmonary: Effort: Pulmonary effort is normal. No respiratory distress. Breath sounds: Normal breath sounds. No stridor. No wheezing or rales. Abdominal: General: Bowel sounds are normal. There is no distension. Palpations: Abdomen is soft. Tenderness: There is no abdominal tenderness. There is no guarding or rebound. Hernia: No hernia is present. Musculoskeletal: General: No tenderness or deformity. Normal range of motion. Cervical back: Normal range of motion and neck supple. Skin: General: Skin is dry. Capillary Refill: Capillary refill takes less than 2 seconds. Coloration: Skin is not pale. Findings: No erythema or rash. Neurological: Mental Status: He is alert and oriented to person, place, and time. Sensory: No sensory deficit. Motor: No abnormal muscle tone. Psychiatric: Mood and Affect: Mood normal. Behavior: Behavior normal. Thought Content: Thought content normal. Judgment: Judgment normal. Diagnostic Testing ED Labs Ordered and Reviewed - No data to display Procedures ED Course / Clinical Impression Clinical Impressions as of 05/03/23 0625 Suicidal ideation Intentional overdose, initial encounter (HCC) Suicide attempt (HCC) COVID-19 test performed per [facility] [place] policy for suspected COVID community exposure. MDM / Dispos (more content not included)... Normal [facility] Ethanol SerPl-mCncon 024 Ethanol [Mass/Vol] mg/dL Normal <11 [facility] Comment on above: Order Comment: Speci men Type: URINE SPECIMEN Ordering Facility: [facility] Address: [address] [place] [address] Performed By: #### U TOX2 #### [facility] CLIA [id number] [address] [place] [address] [place] SARS-CoV-2 RNA Resp Ql NY+p robeon 05-03-2023 SARS-CoV-2 (COVID-19) RNA NY+probe Ql (Resp) COVID 19 RESULT: Not detected The method used is RT-PCR or an equivalent NAAT method. Reference Range(the expected result in uninfected individuals): Not detected Normal [facility] Comment on above: Performed By: #### 9 4500-6 #### [facility] CLIA [id number] [address] Salicylates SerPl-mCncon Salicylates [Mass/Vol] mg/dL Low 3.0-30.0 [facility] Comment on above: Order Comment: Speci men Type: URINE SPECIMEN Ordering Facility: [facility] Address: [address] [place] [address] Result Comment: The therapeutic range varies and has been reported to be 3.0 to 10.0 mg/dL for anti pyretic/analgesic conditions and 15.0 to 30.0 mg/dL for anti inflammatory/rheumatic fever conditions. Ranges published by the instrument multi skilled operator. Reference ranges and high/low indicator flags are provided as general guidelines only. The treating physician must determine appropriate target levels/dosing based on the specific clinical situation. Performed By: #### U TOX2 #### [facility] CLIA [id number] [address] TOX SCREEN ROUT URon 024 Amphetamines Confirm (U) [Mass/Vol] Negative Normal Negative [facility] Comment on above: Order Comment: Speci men Type: URINE SPECIMEN Ordering Facility: [facility] Address: [address] [place] [address] Result Comment: Cuto ff threshold at 1000 ng/mL. Performed By: #### U TOX2 #### [facility] CLIA [id number] [address] [place] BARBITURATES, URINE Negative Normal Negative [facility] Comment on above: Order Comment: Speci men Type: URINE SPECIMEN Ordering Facility: [facility] Address: [address] [place] [address] Result Comment: Cuto ff threshold at 200 ng/mL. Performed By: #### U TOX2 #### [facility] CLIA [id number] [address] [place] [address] [place] BENZODIAZEPINES, UR Negative Normal Negative [facility] Comment on above: Order Comment: Speci men Type: URINE SPECIMEN Ordering Facility: [facility] Address: [address] [place] [address] Result Comment: Cuto ff threshold at 200 ng/mL. Performed By: #### U TOX2 #### [facility] CLIA [id number] [address] [place] [address] [facility] [place] Cannabinoids Screen Ql (U) Negative Normal Negative [facility] Comment on above: Order Comment: Speci men Type: URINE SPECIMEN Ordering Facility: [facility] Address: [address] [place] [address] Result Comment: Cuto ff threshold at 50 ng/mL. Performed By: #### U TOX2 #### [facility] CLIA [id number] [address] [place] [address] [place] Cocaine Ql (U) Negative Normal Negative [facility] Comment on above: Order Comment: Speci men Type: URINE SPECIMEN Ordering Facility: [facility] Address: [address] [place] [address] Result Comment: Cuto ff threshold at 300 ng/mL. Performed By: #### U TOX2 #### [facility] CLIA [id number] [address] [place] Ethanol (U) [Mass/Vol] <11 Normal <11 [facility] Comment on above: Order Comment: Speci men Type: URINE SPECIMEN Ordering Facility: [facility] Address: [address] [place] [address] Performed By: #### U TOX2 #### [facility] CLIA [id number] [address] [place] Opiates Screen Ql (U) Negative Normal Negative [facility] Comment on above: Order Comment: Speci men Type: URINE SPECIMEN Ordering Facility: [facility] Address: [address] [place] [address] Result Comment: Cuto ff threshold at 300 ng/mL. Performed By: #### U TOX2 #### [facility] CLIA [id number] [address] [place] oxyCODONE cutoff Screen (U) [Mass/Vol] Negative Normal Negative [facility] Comment on above: Order Comment: Speci men Type: URINE SPECIMEN Ordering Facility: [facility] Address: [address] [place] [address] Result Comment: Cuto ff threshold at 100 ng/mL. Performed By: #### U TOX2 #### [facility] CLIA [id number] [address] Phencyclidine Ql (U) Negative Normal Negative [facility] Comment on above: Order Comment: Speci men Type: URINE SPECIMEN Ordering Facility: [facility] Address: [address] [place] [address] Result Comment: Cuto ff threshold at 25 ng/mL. Performed By: #### U TOX2 #### [facility] CLIA [id number] [address] Urinalysis complete panel (U )on 05-03-2023 Bilirubin Ql (U) Negative Normal Negative [facility] Comment on above: Order Comment: Speci men Type: URINE SPECIMEN Ordering Facility: [facility] Address: [address] [place] [address] Performed By: #### 2 4356-8 #### [facility] CLIA [id number] [address] Clarity (Unsp spec) Clear Normal Clear [facility] Comment on above: Order Comment: Speci men Type: URINE SPECIMEN Ordering Facility: [facility] Address: [address] [place] [address] Performed By: #### 2 4356-8 #### [facility] CLIA [id number] [address] Color (U) Yellow Normal Yellow [facility] Comment on above: Order Comment: Speci men Type: URINE SPECIMEN Ordering Facility: [facility] Address: [address] [place] [address] Performed By: #### 2 4356-8 #### [facility] CLIA [id number] [address] Glucose Test strip (U) [Mass/Vol] Negative Normal Negative [facility] Comment on above: Order Comment: Speci men Type: URINE SPECIMEN Ordering Facility: [facility] Address: [address] [place] [address] Performed By: #### 2 4356-8 #### [facility] CLIA [id number] [address] Hemoglobin Ql (U) Negative Normal Negative [facility] Comment on above: Order Comment: Speci men Type: URINE SPECIMEN Ordering Facility: [facility] Address: [address] [place] [address] Performed By: #### 2 4356-8 #### [facility] CLIA [id number] [address] [place] [address] [facility] [place] Ketones Ql (U) Negative Normal Negative [facility] Comment on above: Order Comment: Speci men Type: URINE SPECIMEN Ordering Facility: [facility] Address: [address] [place] [address] Performed By: #### 2 4356-8 #### [facility] CLIA [id number] [address] [place] Leukocyte esterase Test strip Ql (U) Negative Normal Negative [facility] Comment on above: Order Comment: Speci men Type: URINE SPECIMEN Ordering Facility: [facility] Address: [address] [place] [address] Performed By: #### 2 4356-8 #### [facility] CLIA [id number] [address] [place] [address] [place] Nitrite Ql (U) Negative Normal Negative [facility] Comment on above: Order Comment: Speci men Type: URINE SPECIMEN Ordering Facility: [facility] Address: [address] [place] [address] Performed By: #### 2 4356-8 #### [facility] CLIA [id number] [address] [place] [address] [place] pH (U) 6.5 [pH] Normal 5.0-8.0 [facility] Comment on above: Order Comment: Speci men Type: URINE SPECIMEN Ordering Facility: [facility] Address: [address] [place] [address] Performed By: #### 2 4356-8 #### [facility] CLIA [id number] [address] [place] Protein (U) [Mass/Vol] Negative Normal Negative [facility] Comment on above: Order Comment: Speci men Type: URINE SPECIMEN Ordering Facility: [facility] Address: [address] [place] [address] Performed By: #### 2 4356-8 #### [facility] CLIA [id number] [address] RBC LM.HPF (Urine sed) [#/Area] 0-3 /HPF Normal 0-3 /HPF [facility] Comment on above: Order Comment: Speci men Type: URINE SPECIMEN Ordering Facility: [facility] Address: [address] [place] [address] Performed By: #### 2 4356-8 #### [facility] CLIA [id number] [address] [place] Specific gravity (U) [Rel density] 1.015 Normal 1.005-1.030 [facility] Comment on above: Order Comment: Speci men Type: URINE SPECIMEN Ordering Facility: [facility] Address: [address] [place] [address] Performed By: #### 2 4356-8 #### [facility] CLIA [id number] [address] Urobilinogen Ql (U) 0.2 EU/dL Normal 0.2-1.0 EU/dL [facility] Comment on above: Order Comment: Speci men Type: URINE SPECIMEN Ordering Facility: [facility] Address: [address] [place] [address] Performed By: #### 2 4356-8 #### [facility] CLIA [id number] [address] WBC LM.HPF (Urine sed) [#/Area] 0-5 /HPF Normal 0-5 /HPF [facility] Comment on above: Order Comment: Speci men Type: URINE SPECIMEN Ordering Facility: [facility] Address: [address] [place] [address] Performed By: #### 2 4356-8 #### [facility] CLIA [id number] [address] lamoTRIgine SerPl-mCncon lamoTRIgine [Mass/Vol] 4.9 ug/mL Normal 1.0-13.0 [facility] Comment on above: Order Comment: Speci men Type: URINE SPECIMEN Ordering Facility: [facility] Address: [address] [place] [address] Result Comment: This test was developed and its performance characteristics determined by [facility] [place] ([facility]). It has not been cleared or approved by the FDA. -[facility] is regulated under CLIA as qualified to perform high-complexity testing. This test is used for clinical purposes. It should not be regarded as investigational or for research. Performed By: #### U TOX2 #### [facility] CLIA [id number] [address] [place] [address] [facility] CARECOORDon 10-30-2022 [place]OORD Discharge: Patient d c home today, will call for a ride. Denies SI and HI, agreeable to follow as scheduled in [facility] CAREPLNon 10-30-2022 CAREPLN Problem: Sensory Per ceptual Alteration as Evidenced by Goal: Cooperates with admission process Outcome: Progressing Goal: Patient/Family participate in treatment and discharge plans Outcome: Progressing Goal: Patient/Family verbalizes awareness of resources Outcome: Progressing Goal: Participates in unit activities Outcome: Progressing Goal: Discusses signs/symptoms of illness/treatment options Outcome: Progressing Goal: Initiates reality-based interactions Outcome: Progressing Goal: Able to discuss content of hallucinations/delusions Outcome: Progressing Goal: Notifies staff when experiencing hallucinations/delusions Outcome: Progressing Goal: Verbalizes reduction in hallucinations/delusions Outcome: Progressing Goal: Will not act on psychotic perception Outcome: Progressing Goal: Understands least restrictive measures Outcome: Progressing Goal: Free from restraint events Outcome: Progressing Problem: Altered Thought Processes as Evidenced by Goal: STG - Desires improvement in ability to think and concentrate Outcome: Progressing Goal: STG - Participates in Occupational Therapy and other cognitive assessments Outcome: Progressing Problem: Potential for Harm to Self or Others Goal: Cooperates with admission process Outcome: Progressing Goal: Participates in unit activities Outcome: Progressing Goal: Patient/Family participate in treatment and discharge plans Outcome: Progressing Goal: Identifies deescalation techniques Outcome: Progressing Goal: Understands least restrictive measures Outcome: Progressing Goal: Identifies stressors that lead to harmful behaviors Outcome: Progressing Goal: Notifies staff when experiencing harmful thoughts toward self/others Outcome: Progressing Goal: Denies harm toward self or others Outcome: Progressing Goal: Free from restraint events Outcome: Progressing Problem: Educational/Scholastic Disruption Goal: Meets educational requirements during hospitalization Outcome: Progressing Goal: Attends class without disruptive behavior Outcome: Progressing Goal: Completes daily assignments Outcome: Progressing Problem: Ineffective Coping Goal: Cooperates with admission process Outcome: Progressing Goal: Identifies ineffective coping skills Outcome: Progressing Goal: Identifies healthy coping skills Outcome: Progressing Goal: Demonstrates healthy coping skills Outcome: Progressing Goal: Participates in unit activities Outcome: Progressing Goal: Patient/Family participate in treatment and discharge plans Outcome: Progressing Goal: Patient/Family verbalizes awareness of resources Outcome: Progressing Goal: Understands least restrictive measures Outcome: Progressing Goal: Free from restraint events Outcome: Progressing Problem: Alteration in Sleep Goal: STG - Reports nightly sleep, duration, and quality Outcome: Progressing Goal: STG - Identifies sleep hygiene aids Outcome: Progressing Goal: STG - Informs staff if unable to sleep Outcome: Progressing Goal: STG - Attends breathing and relaxation group Outcome: Progressing Problem: Potential for Substance Withdrawal Goal: Verbalizes signs/symptoms of withdrawal Outcome: Progressing Goal: Reports signs/symptoms of withdrawal Outcome: Progressing Goal: Free of withdrawal symptoms Outcome: Progressing Problem: Anxiety Goal: Patient/family understands admission protocols Outcome: Progressing Goal: Attempts to manage anxiety with help Outcome: Progressing Goal: Verbalizes ways to manage anxiety Outcome: Progressing Goal: Implements measures to reduce anxiety Outcome: Progressing Goal: Free from restraint events Outcome: Progressing Problem: Self Care Deficit Goal: Patient completes hygiene Outcome: Progressing Goal: Increase group attendance Outcome: Progressing Goal: Accepts need for medications Outcome: Progressing Goal: STG - Goes to and eats meals independently in dining room 100% of time Outcome: Progressing Problem: Defensive Coping Goal: Cooperates with admission process Outcome: Progressing Goal: Identifies reckless/dangerous behavior Outcome: Progressing Goal: Identifies stressors that lead to reckless/dangerous behavior Outcome: Progressing Goal: Discusses and identifies healthy coping skills Outcome: Progressing Goal: Demonstrates healthy coping skills Outcome: Progressing Goal: Identifies appropriate social interaction Outcome: Progressing Goal: Demonstrates appropriate social interactions Outcome: Progressing Goal: Patient/Family verbalizes awareness of resources Outcome: Progressing Goal: Discusses signs/symptoms of illness/treatment options Outcome: Progressing Goal: Patient/Family participate in treatment and discharge plans Outcome: Progressing Goal: Understands least restrictive measures Outcome: Progressing Goal: Free from restraint events Outcome: Progressing Normal [facility] GROUPNOTEon 10-30-2022 [facility] Topic: Other Group Date: 10/30/2022 Start Time: 1600 End Time: 1630 Facilitators: Blake Watters Number of Participants: 4 Group Name: Trivia Treatment Modality: Leisure Development Purpose: express feelings, improve communication skills, increase insight or knowledge, and reinforce self-care Summary: Pts will engage in [employer] surrounding several areas of [employer] culture. After each question and answer, pts are encouraged to discuss their relation to the topic, where they were when such and such happened, when they first heard a song, their first impressions of a movie etc. Name: Alyssa Carr Date of : 1990 MR: [id number] Appearance: Appropriately dressed and groomed Mood: Euthymic Affect: Appropriate Behavior: Pleasant Alertness: Alert Speech: Appropriate Level/Quality of Participation: active Interactions with others: supportive Interventions utilized were Building rapport and engagement and Empathic listening Patient's Response to Intervention: Pt voiced improvement Next Step: Continue with current services Patients Problems: Patient Active Problem List Diagnosis Major depressive disorder, recurrent (HCC) Major depressive disorder, recurrent severe without psychotic features (HCC) Suicidal ideations Normal [facility] GROUPNOTE Department: [facility] THERAPY Group Topic: Other Group Date: 10/30/2022 Start Time: 1330 End Time: 1400 Facilitators: Blake Watters Number of Participants: 1 Group Name: Tita Treatment Modality: Leisure Development Purpose: express feelings, improve communication skills, and reinforce self-care Summary: Pts will choose a song from a given list. Pts will share how the song has impacted their life or how the song is meaningful to them. Pts will have the opportunity to listen, sing, or otherwise perform the song with the therapist if they desire. Name: Alyssa Carr Date of : 1990 MR: [id number] Appearance: Appropriately dressed and groomed Mood: Euthymic Affect: Appropriate Behavior: Pleasant Alertness: Alert Speech: Appropriate Level/Quality of Participation: active Interactions with others: supportive Interventions utilized were Building rapport and engagement and Empathic listening Patient's Response to Intervention: Pt voiced improvement Next Step: Continue with current services Patients Problems: Patient Active Problem List Diagnosis Major depressive disorder, recurrent (HCC) Major depressive disorder, recurrent severe without psychotic features (HCC) Suicidal ideations Normal [facility] GROUPNOTE Department: [address] Diagnosis Group Topic: Goals Group Date: 10/30/2022 Start Time: 1045 End Time: 1115 Facilitators: Rhett Cazares [facility] Number of Participants: 2 Group Name: Dual Diagnosis Treatment Modality: Cognitive Behavioral Therapy Purpose: increase insight or knowledge Summary: The group members each introduced themselves and shared one goal they were working on today. The group reviewed worksheet that reviewed 6 protective factors. The group discussed ways for each group member to improve resilience in the areas of Social Support, Physical Health, Self Esteem, Coping Skills, Sense of Purpose and Healthy Thinking. Each group member was given the task to complete the back of the worksheet and come up with at least one small change they can make to improve in one area. Name: Alyssa Carr Date of : 1990 MR: [id number] Mental Status Exam: Appearance: Appropriately dressed and groomed Mood: Anxious and Depressed Affect: Full Behavior: Cooperative Alertness: Alert Speech: Appropriate Cognition: Intact Thought Process: Goal-directed Thought Content: No evidence of psychosis/delusions Level/Quality of Participation: attentive Interactions with others: gave feedback Interventions utilized were Building rapport and engagement, Empathic listening, and Cognitive Behavioral Therapy (CBT) Patient's Response to Intervention: Pt came to group and was attentive. PT shared that his goal today is work on finding a new job; I got fired from my last one Progress Towards Goal(s): Minimal Additional Comments: N/A Next Step: Continue with current services Patients Problems: Patient Active Problem List Diagnosis Major depressive disorder, recurrent (HCC) Major depressive disorder, recurrent severe without psychotic features (HCC) Suicidal ideations Normal [facility] Progress Noteon 10-30-2022 Progress Note Discharge instructio yasmany reviewed with pt. He verbalized his understanding without questions or concerns. Denies SI/HI/AV hallucinations. Normal [facility] Progress Note Denies SI/HI/AV hallucinations. Hes compliant with medications and eating provided meals. He seemed distracted during interaction and made poor eye contact with me. He sits in the day area but keeps to himself. Will continue to monitor and provide support. [facility] Progress Note Pt was in common are a when approached by RN during assessment. Pt stated he was sad because he lost his job . Pt denies SI/HI and denies any AH/VH at this time. Pt states he's been eating fine . Pt states his sleep hasn't been the best . Pt was offered trazodone but refused. Pt is med compliant. Pt is encouraged to see staff with any questions or concerns. Plan of care ongoing. No further concerns at this time. [facility] CAREPLNon 10-29-2022 CAREPLN Collateral Call Note Name: Kathie Carr Relationship: Mother Date/Time: 10/28/22, 11:30 Contents of conversation: Kathie reiterates that the patient had a pretty average childhood and was not abused as a child. She expressed that the patient has a history of stealing and that, as a child, this would end friendships. Additionally, she states that the patient is oftentimes very difficult to talk to as he is self-absorbed and is unconcerned with other people's concerns. He states that he has a tendency to miss social cues and norms. He has had a tendency of changing subjects to avoid difficult subjects or things that he does not want to discuss. She states that the patient is normally quiet and often times feels stressed from work. Kathie expresses that the patient has a longstanding history of tumultuous relationships, impulsivity with money, dysregulated mood, threatening suicide for attention/manipulation, can get paranoid under stress. She expresses that when things are going well at work, that he is happy; however, his mood is dependent on work and his perceived performance at work. While the patient is impulsive, she expresses that he does not have periods of: talking more than normal, jumping subject to subject, abnormal elevations in mood, abnormal confidence, or other symptoms consistent with tegan/hypomania. Denies family history of psychiatric illness. Mother is currently aware of his past psychiatric history of: ADHD, a learning disability, and Aspergers that was suspected when he was discharged from the [facility]. Of significance, patient's son is currently under the custody of Kathie and her . Kathie learned that the patient is set to be terminated from his job upon discharge from the hospital. She is able to provide more context as the patient's behaviors in the last several months have included angry behavioral outbursts at work and other inappropriate behaviors at work. The patient was living with a woman and involved in a romantic relationship, but was telling others that this relationship was platonic. She confirms that the woman was largely supporting him financially and that he would like to end the romantic relationship with her, though these sentiments are not reciprocated by the romantic partner. Argentina Chang DO PGY-1 [employer] [facility] CAREPLN Problem: Sensory Per ceptual Alteration as Evidenced by Goal: Cooperates with admission process Outcome: Progressing Goal: Patient/Family participate in treatment and discharge plans Outcome: Progressing Goal: Patient/Family verbalizes awareness of resources Outcome: Progressing Goal: Participates in unit activities Outcome: Progressing Goal: Discusses signs/symptoms of illness/treatment options Outcome: Progressing Goal: Initiates reality-based interactions Outcome: Progressing Goal: Able to discuss content of hallucinations/delusions Outcome: Progressing Goal: Notifies staff when experiencing hallucinations/delusions Outcome: Progressing Goal: Verbalizes reduction in hallucinations/delusions Outcome: Progressing Goal: Will not act on psychotic perception Outcome: Progressing Goal: Understands least restrictive measures Outcome: Progressing Goal: Free from restraint events Outcome: Progressing Problem: Altered Thought Processes as Evidenced by Goal: STG - Desires improvement in ability to think and concentrate Outcome: Progressing Goal: STG - Participates in Occupational Therapy and other cognitive assessments Outcome: Progressing Problem: Potential for Harm to Self or Others Goal: Cooperates with admission process Outcome: Progressing Goal: Participates in unit activities Outcome: Progressing Goal: Patient/Family participate in treatment and discharge plans Outcome: Progressing Goal: Identifies deescalation techniques Outcome: Progressing Goal: Understands least restrictive measures Outcome: Progressing Goal: Identifies stressors that lead to harmful behaviors Outcome: Progressing Goal: Notifies staff when experiencing harmful thoughts toward self/others Outcome: Progressing Goal: Denies harm toward self or others Outcome: Progressing Goal: Free from restraint events Outcome: Progressing Problem: Educational/Scholastic Disruption Goal: Meets educational requirements during hospitalization Outcome: Progressing Goal: Attends class without disruptive behavior Outcome: Progressing Goal: Completes daily assignments Outcome: Progressing Problem: Ineffective Coping Goal: Cooperates with admission process Outcome: Progressing Goal: Identifies ineffective coping skills Outcome: Progressing Goal: Identifies healthy coping skills Outcome: Progressing Goal: Demonstrates healthy coping skills Outcome: Progressing Goal: Participates in unit activities Outcome: Progressing Goal: Patient/Family participate in treatment and discharge plans Outcome: Progressing Goal: Patient/Family verbalizes awareness of resources Outcome: Progressing Goal: Understands least restrictive measures Outcome: Progressing Goal: Free from restraint events Outcome: Progressing Problem: Alteration in Sleep Goal: STG - Reports nightly sleep, duration, and quality Outcome: Progressing Goal: STG - Identifies sleep hygiene aids Outcome: Progressing Goal: STG - Informs staff if unable to sleep Outcome: Progressing Goal: STG - Attends breathing and relaxation group Outcome: Progressing Problem: Potential for Substance Withdrawal Goal: Verbalizes signs/symptoms of withdrawal Outcome: Progressing Goal: Reports signs/symptoms of withdrawal Outcome: Progressing Goal: Free of withdrawal symptoms Outcome: Progressing Problem: Anxiety Goal: Patient/family understands admission protocols Outcome: Progressing Goal: Attempts to manage anxiety with help Outcome: Progressing Goal: Verbalizes ways to manage anxiety Outcome: Progressing Goal: Implements measures to reduce anxiety Outcome: Progressing Goal: Free from restraint events Outcome: Progressing Problem: Self Care Deficit Goal: Patient completes hygiene Outcome: Progressing Goal: Increase group attendance Outcome: Progressing Goal: Accepts need for medications Outcome: Progressing Goal: STG - Goes to and eats meals independently in dining room 100% of time Outcome: Progressing Problem: Defensive Coping Goal: Cooperates with admission process Outcome: Progressing Goal: Identifies reckless/dangerous behavior Outcome: Progressing Goal: Identifies stressors that lead to reckless/dangerous behavior Outcome: Progressing Goal: Discusses and identifies healthy coping skills Outcome: Progressing Goal: Demonstrates healthy coping skills Outcome: Progressing Goal: Identifies appropriate social interaction Outcome: Progressing Goal: Demonstrates appropriate social interactions Outcome: Progressing Goal: Patient/Family verbalizes awareness of resources Outcome: Progressing Goal: Discusses signs/symptoms of illness/treatment options Outcome: Progressing Goal: Patient/Family participate in treatment and discharge plans Outcome: Progressing Goal: Understands least restrictive measures Outcome: Progressing Goal: Free from restraint events Outcome: Progressing Normal [facility] GROUPNOTEon 10-29-2022 GROUPNOTE Department: [facility] THERAPY Group Topic: Other Group Date: 10/29/2022 Start Time: 1600 End Time: 1630 Facilitators: Blake Watters Number of Participants: 6 Group Name: [email or web address] Treatment Modality: Leisure Development Purpose: express feelings, improve communication skills, increase insight or knowledge, and reinforce self-care Summary: Pts learn about literary styles, movements, and authors in a discussion format. Pts have an opportunity to express preferences of authors and aesthetics. Pts have an opportunity to check out a book from the mobile library to keep with them throughout their admission. Name: Alyssa Carr Date of : 1990 MR: [id number] Appearance: Appropriately dressed and groomed Mood: Euthymic Affect: Appropriate Behavior: Pleasant Alertness: Alert Speech: Appropriate Level/Quality of Participation: active Interactions with others: supportive Interventions utilized were Building rapport and engagement and Empathic listening Patient's Response to Intervention: Pt voiced improvement Next Step: Continue with current services Patients Problems: Patient Active Problem List Diagnosis Major depressive disorder, recurrent (HCC) Major depressive disorder, recurrent severe without psychotic features (HCC) Suicidal ideations [facility] GROUPNOTE Department: [facility] THERAPY Group Topic: Other Group Date: 10/29/2022 Start Time: 1330 End Time: 1400 Facilitators: Blake Watters Number of Participants: 5 Group Name: Down Treatment Modality: Leisure Development Purpose: express feelings, improve communication skills, and reinforce self-care Summary: Pts will choose a song from a given list. Pts will share how the song has impacted their life or how the song is meaningful to them. Pts will have the opportunity to listen, sing, or otherwise perform the song with the therapist if they desire. Name: Alyssa Carr Date of : 1990 MR: [id number] Appearance: Appropriately dressed and groomed Mood: Euthymic Affect: Appropriate Behavior: Pleasant and Interactive Alertness: Alert Speech: Appropriate Level/Quality of Participation: active and attentive Interactions with others: supportive Interventions utilized were Building rapport and engagement and Empathic listening Patient's Response to Intervention: Pt voiced improvement Next Step: Continue with current services Patients Problems: Patient Active Problem List Diagnosis Major depressive disorder, recurrent (HCC) Major depressive disorder, recurrent severe without psychotic features (HCC) Suicidal ideations Normal [facility] Nursing Noteon 10-29-2022 Nursing Note Patient up and visib le on the unit. Patient quiet, keeps to self. Patient stated he felt groggy this am after his nighttime medications. Patient currently speaking with MD. Patient up for breakfast, appetite fair, hygiene, and sleep adequate. Patient compliant with medications and treatment offered. No c/o pain or behaviors noted thus far. Encouraged to approach staff with any concerns. Will continue to monitor for safety. 1747: Patient attended groups this afternoon. Patient up for dinner and is currently in the day area interacting with select peers. Encouraged to communicate needs. Normal [facility] Nursing Note Pt friendly upon loida maldonado and cooperative with assessment. Pt denies SI/HI and AVH at this time. Pt alert and medication compliant. Pt encouraged to communicate needs and maintain safety. Normal [facility] CAREPLNon 10-28-2022 CAREPLN Problem: Sensory Per ceptual Alteration as Evidenced by Goal: Cooperates with admission process Outcome: Progressing Goal: Patient/Family participate in treatment and discharge plans Outcome: Progressing Goal: Patient/Family verbalizes awareness of resources Outcome: Progressing Goal: Participates in unit activities Outcome: Progressing Goal: Discusses signs/symptoms of illness/treatment options Outcome: Progressing Goal: Initiates reality-based interactions Outcome: Progressing Goal: Able to discuss content of hallucinations/delusions Outcome: Progressing Goal: Notifies staff when experiencing hallucinations/delusions Outcome: Progressing Goal: Verbalizes reduction in hallucinations/delusions Outcome: Progressing Goal: Will not act on psychotic perception Outcome: Progressing Goal: Understands least restrictive measures Outcome: Progressing Goal: Free from restraint events Outcome: Progressing Problem: Altered Thought Processes as Evidenced by Goal: STG - Desires improvement in ability to think and concentrate Outcome: Progressing Goal: STG - Participates in Occupational Therapy and other cognitive assessments Outcome: Progressing Problem: Potential for Harm to Self or Others Goal: Cooperates with admission process Outcome: Progressing Goal: Participates in unit activities Outcome: Progressing Goal: Patient/Family participate in treatment and discharge plans Outcome: Progressing Goal: Identifies deescalation techniques Outcome: Progressing Goal: Understands least restrictive measures Outcome: Progressing Goal: Identifies stressors that lead to harmful behaviors Outcome: Progressing Goal: Notifies staff when experiencing harmful thoughts toward self/others Outcome: Progressing Goal: Denies harm toward self or others Outcome: Progressing Goal: Free from restraint events Outcome: Progressing Problem: Educational/Scholastic Disruption Goal: Meets educational requirements during hospitalization Outcome: Progressing Goal: Attends class without disruptive behavior Outcome: Progressing Goal: Completes daily assignments Outcome: Progressing Problem: Ineffective Coping Goal: Cooperates with admission process Outcome: Progressing Goal: Identifies ineffective coping skills Outcome: Progressing Goal: Identifies healthy coping skills Outcome: Progressing Goal: Demonstrates healthy coping skills Outcome: Progressing Goal: Participates in unit activities Outcome: Progressing Goal: Patient/Family participate in treatment and discharge plans Outcome: Progressing Goal: Patient/Family verbalizes awareness of resources Outcome: Progressing Goal: Understands least restrictive measures Outcome: Progressing Goal: Free from restraint events Outcome: Progressing Problem: Alteration in Sleep Goal: STG - Reports nightly sleep, duration, and quality Outcome: Progressing Goal: STG - Identifies sleep hygiene aids Outcome: Progressing Goal: STG - Informs staff if unable to sleep Outcome: Progressing Goal: STG - Attends breathing and relaxation group Outcome: Progressing Problem: Potential for Substance Withdrawal Goal: Verbalizes signs/symptoms of withdrawal Outcome: Progressing Goal: Reports signs/symptoms of withdrawal Outcome: Progressing Goal: Free of withdrawal symptoms Outcome: Progressing Problem: Anxiety Goal: Patient/family understands admission protocols Outcome: Progressing Goal: Attempts to manage anxiety with help Outcome: Progressing Goal: Verbalizes ways to manage anxiety Outcome: Progressing Goal: Implements measures to reduce anxiety Outcome: Progressing Goal: Free from restraint events Outcome: Progressing Problem: Self Care Deficit Goal: Patient completes hygiene Outcome: Progressing Goal: Increase group attendance Outcome: Progressing Goal: Accepts need for medications Outcome: Progressing Goal: STG - Goes to and eats meals independently in dining room 100% of time Outcome: Progressing Problem: Defensive Coping Goal: Cooperates with admission process Outcome: Progressing Goal: Identifies reckless/dangerous behavior Outcome: Progressing Goal: Identifies stressors that lead to reckless/dangerous behavior Outcome: Progressing Goal: Discusses and identifies healthy coping skills Outcome: Progressing Goal: Demonstrates healthy coping skills Outcome: Progressing Goal: Identifies appropriate social interaction Outcome: Progressing Goal: Demonstrates appropriate social interactions Outcome: Progressing Goal: Patient/Family verbalizes awareness of resources Outcome: Progressing Goal: Discusses signs/symptoms of illness/treatment options Outcome: Progressing Goal: Patient/Family participate in treatment and discharge plans Outcome: Progressing Goal: Understands least restrictive measures Outcome: Progressing Goal: Free from restraint events Outcome: Progressing Normal [facility] SHS CAREPLN Problem: Sensory Per ceptual Alteration as Evidenced by Goal: Cooperates with admission process Outcome: Progressing Goal: Patient/Family participate in treatment and discharge plans Outcome: Progressing Goal: Patient/Family verbalizes awareness of resources Outcome: Progressing Goal: Participates in unit activities Outcome: Progressing Goal: Discusses signs/symptoms of illness/treatment options Outcome: Progressing Goal: Initiates reality-based interactions Outcome: Progressing Goal: Able to discuss content of hallucinations/delusions Outcome: Progressing Goal: Notifies staff when experiencing hallucinations/delusions Outcome: Progressing Goal: Verbalizes reduction in hallucinations/delusions Outcome: Progressing Goal: Will not act on psychotic perception Outcome: Progressing Goal: Understands least restrictive measures Outcome: Progressing Goal: Free from restraint events Outcome: Progressing Problem: Altered Thought Processes as Evidenced by Goal: STG - Desires improvement in ability to think and concentrate Outcome: Progressing Goal: STG - Participates in Occupational Therapy and other cognitive assessments Outcome: Progressing Problem: Potential for Harm to Self or Others Goal: Cooperates with admission process Outcome: Progressing Goal: Participates in unit activities Outcome: Progressing Goal: Patient/Family participate in treatment and discharge plans Outcome: Progressing Goal: Identifies deescalation techniques Outcome: Progressing Goal: Understands least restrictive measures Outcome: Progressing Goal: Identifies stressors that lead to harmful behaviors Outcome: Progressing Goal: Notifies staff when experiencing harmful thoughts toward self/others Outcome: Progressing Goal: Denies harm toward self or others Outcome: Progressing Goal: Free from restraint events Outcome: Progressing Problem: Educational/Scholastic Disruption Goal: Meets educational requirements during hospitalization Outcome: Progressing Goal: Attends class without disruptive behavior Outcome: Progressing Goal: Completes daily assignments Outcome: Progressing Problem: Ineffective Coping Goal: Cooperates with admission process Outcome: Progressing Goal: Identifies ineffective coping skills Outcome: Progressing Goal: Identifies healthy coping skills Outcome: Progressing Goal: Demonstrates healthy coping skills Outcome: Progressing Goal: Participates in unit activities Outcome: Progressing Goal: Patient/Family participate in treatment and discharge plans Outcome: Progressing Goal: Patient/Family verbalizes awareness of resources Outcome: Progressing Goal: Understands least restrictive measures Outcome: Progressing Goal: Free from restraint events Outcome: Progressing Problem: Alteration in Sleep Goal: STG - Reports nightly sleep, duration, and quality Outcome: Progressing Goal: STG - Identifies sleep hygiene aids Outcome: Progressing Goal: STG - Informs staff if unable to sleep Outcome: Progressing Goal: STG - Attends breathing and relaxation group Outcome: Progressing Problem: Potential for Substance Withdrawal Goal: Verbalizes signs/symptoms of withdrawal Outcome: Progressing Goal: Reports signs/symptoms of withdrawal Outcome: Progressing Goal: Free of withdrawal symptoms Outcome: Progressing Problem: Anxiety Goal: Patient/family understands admission protocols Outcome: Progressing Goal: Attempts to manage anxiety with help Outcome: Progressing Goal: Verbalizes ways to manage anxiety Outcome: Progressing Goal: Implements measures to reduce anxiety Outcome: Progressing Goal: Free from restraint events Outcome: Progressing Problem: Self Care Deficit Goal: Patient completes hygiene Outcome: Progressing Goal: Increase group attendance Outcome: Progressing Goal: Accepts need for medications Outcome: Progressing Goal: STG - Goes to and eats meals independently in dining room 100% of time Outcome: Progressing Problem: Defensive Coping Goal: Cooperates with admission process Outcome: Progressing Goal: Identifies reckless/dangerous behavior Outcome: Progressing Goal: Identifies stressors that lead to reckless/dangerous behavior Outcome: Progressing Goal: Discusses and identifies healthy coping skills Outcome: Progressing Goal: Demonstrates healthy coping skills Outcome: Progressing Goal: Identifies appropriate social interaction Outcome: Progressing Goal: Demonstrates appropriate social interactions Outcome: Progressing Goal: Patient/Family verbalizes awareness of resources Outcome: Progressing Goal: Discusses signs/symptoms of illness/treatment options Outcome: Progressing Goal: Patient/Family participate in treatment and discharge plans Outcome: Progressing Goal: Understands least restrictive measures Outcome: Progressing Goal: Free from restraint events Outcome: Progressing Normal [facility] GROUPNOTEon 10-28-2022 GROUPNOTE Department: [facility] THERAPY Group Topic: Other Group Date: 10/28/2022 Start Time: 1330 End Time: 1400 Facilitators: Blake Watters Number of Participants: 7 Group Name: [facility] Treatment Modality: Leisure Development Purpose: express feelings, improve communication skills, and reinforce self-care Summary: Pts will choose a song from a given list. Pts will share how the song has impacted their life or how the song is meaningful to them. Pts will have the opportunity to listen, sing, or otherwise perform the song with the therapist if they desire. Name: Alyssa Carr Date of : 1990 MR: [id number] Appearance: Appropriately dressed and groomed Mood: Euthymic Affect: Appropriate Behavior: Pleasant Alertness: Alert Speech: Appropriate Level/Quality of Participation: active, attentive, and engaged Interactions with others: supportive Interventions utilized were Building rapport and engagement and Empathic listening Patient's Response to Intervention: Pt voiced improvement Next Step: Continue with current services Patients Problems: Patient Active Problem List Diagnosis Major depressive disorder, recurrent (HCC) Major depressive disorder, recurrent severe without psychotic features (HCC) Suicidal ideations Normal [facility] Nursing Noteon 10-28-2022 Nursing Note Patient was in the [facility] area at the time of assessment. Patient appears unkempt, slightly anxious, cooperative, and med compliant. Patient denies Si, HI, AVH at this time. Patient has a notebook that he writes recipes in that he makes up and stated he enjoys cooking. Patient stated he did not sleep well and believes it was due to the medication he took last night. Patient reports waking up frequently and feeling groggy this morning. Patient was med compliant with Lamictal but states he is unsure about his night time medications. Education was provided. Patient was encouraged to shower and has showering supplies in room. Patient denies any issues or concerns at this time but is encouraged to see staff should one arise. Will continue to monitor. 1600: Patient's ex-girlfriend, Enrique Simons called and wanted us to relay her number to Patient's team as she has a lot of pertinent information about his care. No info was given as not on the release. [phone] [facility] Progress Noteon 10-28-2022 Progress Note Attestation signed by Haider Dwyer MD at 10/28/2022 5:25 PM I was present for essential portions of the history and exam. I participated in medical decision making and agree with the undersigned assessment and plan. Difficult diagnostically still, also given severe suicide attempts in the past it is necessary to get better control of his sleep and mood instability prior to transitioning him to a [facility] or standard outpatient level of care. Subjective Per nursing notes, patient was pleasant and cooperative. Did not receive any psychiatric as needed medications. Patient was seen and evaluated today. He stated he is feeling groggy from the medications. He reports waking up multiple times at night and continues to not sleep well. He states he slept for 3-4 hours. Patient refused to take his melatonin. Endorses passive SI. He denies HI or AVH. On reevaluation, patient appeared well. He states he enjoys reading books, walking and watching movies. When asked about his relationship to his family, he states it is not strong and that he does not have a support system. Patient states he does not remember his childhood. He states it may be due to work related injuries such as concussions and electrocutions in the past year. Patient struggled to answer questions related to his school experience and home life. He does not remember if he had trauma or abuse. Overall, patient appears forgetful and cannot recollect a lot of the details of his life. Collateral Call Note Name: Kathie Relationship: Mother Date/Time: 10/28 13:45 Contents of conversation: I spoke to Alyssa Vázquez's mom to get more information about his childhood. She states that his childhood was very normal. She does not recall him experiencing abuse or trauma. She states he struggled with a mild learning disability in school. She states he struggled making a lot of friends in school. Objective Vitals: 10/28/22 0720 BP: 118/76 Pulse: 89 Resp: 16 Temp: 37.3 ?C (99.1 ?F) SpO2: 97% Mental Status Exam: Appearance: Disheveled. Dyed blonde hair. In own attire. Behavior: cooperative and attentive Speech: spontaneous, normal rate, normal volume, and well articulated Mood: fine Affect: affect incongruent to stated mood. Anxious. Smiling at inappropriate times. Slightly hyperthymic. Thought content: Passive SI. Denies HI/AVH. Thought process: logical and coherent Insight: fair Judgment: fair Suicidal Intentions: Passive SI Suicidal Plan: No Activity normal Associations: Goal-Directed Orientation: oriented to person and place. Attention fair Concentration fair Memory Recent: intact, Remote: impaired Language Naming: intact Repetition: intact Fund of knowledge: fair Assessment and Plan Bipolar Disorder II, current episode hypomanic Autism Spectrum Disorder Rule out Bipolar Disorder I Rule Borderline Personality Disorder -Continue on Lamictal 25 mg daily -Continue on Zyprexa 5 mg -Start on Ativan 1 mg at bedtime for sleep -Discontinue Melatonin 3 mg at bedtime As of 10/28/22 symptoms of suicidal ideation still severe enough to make inpatient level care medically necessary, and is expected that this treatment will improve said symptoms. Chart reviewed and staff consulted about patient progress and behaviors. Narrative portions of note written using [employer] dictation software. Efforts are made to dictate clearly and proofread but errors in dictation still may occur. Please reach out to author with any clarifying questions. 1 Chronic problem that is currently exacerbated was reviewed today and the prescription medications used for this problem were reviewed and managed. Plan to Bill at moderate level of medical decision making. See h and p for diagnostic criteria. Emely Andersen OMS-IV [facility] Progress Note Pt was in common are a when approached by RN during assessment. Pt was pleasant and cooperative during interaction. Pt denies any SI/HI and denies any AH/VH at this time. Pt states he's been eating and sleeping good here . Pt refused his evening melatonin but was compliant with all other medications. Pt is encouraged to see staff with any questions or concerns. Plan of care ongoing. No further concerns at this time. [facility] CARECOORDon 10-27-2022 [facility] Psycho-Social Assessment (Social Work) Date: 10/27/2022 Patient Name: Alyssa Carr : 1990 Identifying Information: Patient is a 31-year-old male admitted to the 6 floor the behavioral health unit for mental health stabilization. Patient is unknown to psychiatric team as he has not been previously on our unit. Patient has voluntarily signed into the unit. Presenting Problem: Patient presented to the ED on 10/25/2022 requesting evaluation for suicidal ideation. Patient reports having numerous recent stressors include leaving his girlfriend moving out of the apartment they shared together. Patient reports that he moved back in with his parents. Patient reports a 6-year-old son has multiple illnesses and hysterectomies are building up and his ability to compensate is limited. Patient reports that he does have a previous history of depression with a suicide attempt occurring 6 years ago with an overdose which he was admitted to an inpatient facility in [facility]. Patient currently denies any plan but feels like his depression is getting out of control and he was having suicidal thoughts. Patient denies having access to firearms in the home. Patient does not have a psychiatrist or counselor at the current time. Patient reports that 5 years ago he refused to take any medication for depression because increased his chance for suicide. Patient reports his last suicide attempt was after starting his medications. 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 Patient reports that this has been going on for the last 10 years. Psychiatric History: Patient denies any history of mental health diagnoses. Patient denies any current medication for mental health needs. Patient reports previous history of being on medication for mental health needs while engaging in inpatient psychiatric care. Patient is not currently engaged with any outpatient mental health treatment provider. Patient does report previous history of engagement with the counseling center [facility]. Patient reports extensive history of psychiatric admissions ([facility] [place], [facility], and [facility]). Patient reports his last psychiatric admission occurred in 2016 in [place]. Patient was then transferred to [place]. Patient denies any recent history of suicide attempts. Patient does report previous history of suicide attempt with his last occurring in 2017. Patient reports that he attempted to overdose however he self aborted his attempt and called the crisis line. Patient reports extensive previous history of suicide attempts by overdose (x2) and injecting antifreeze (x1). Patient reports that during his attempted overdose 8 years ago a friend was informed of what had occurred and called for assistance interrupting his attempt. Patient reports that his other suicide attempt 8 years ago he self aborted after injecting himself with antifreeze calling the crisis line for assistance. Patient denies current SI/HI/AVH. Patient does report experiencing recent SI but denies plan, intent, or method. Patient does have previous history of plan, intent, and method with suicidal ideation. Substance Abuse/Use: Patient denies any problematic alcohol use disorders. Patient reports that out of 30 days in a month he drinks occasionally on 3 of them. Patient denies any history of withdrawal seizures, DTs, or alcohol overdoses. Patient denies any history of falls intoxicated. Patient denies any history of engagement with AA, IOP, or MAT services for alcohol use disorder. Patient denies any history of detox or residential treatment. Medical/Self-care Issues: Patient has previous medical issues such as liver disease and pneumonia. Patient reports troubles with self-care secondary to mental health issues. Patient reports experiencing poor nutrition, sleep, and hygiene secondary to mental health issues. Legal/Trauma/ History: Patient denies any current legal issues. Patient was previously engaged with local [facility] [facility] agency. Patient does not currently have custody of his son. Patient's parents are currently in care of his 6-year-old son. Patient did not report any trauma or abuse as an adolescent. When asked about adolescent childhood trauma or abuse patient reports I am not sure I just cannot remember Patient does report experiencing trauma as an adult when his 6-year-old son was born with a congenital heart issue. Patient reports ports that his son recently underwent heart transplant less than a week ago. 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 Patient reports he is not currently active with a (more content not included)... [facility] CAREPLNon 10-27-2022 CAREPLN Problem: Sensory Per ceptual Alteration as Evidenced by Goal: Cooperates with admission process Outcome: Progressing Goal: Patient/Family participate in treatment and discharge plans Outcome: Progressing Goal: Patient/Family verbalizes awareness of resources Outcome: Progressing Goal: Participates in unit activities Outcome: Progressing Goal: Discusses signs/symptoms of illness/treatment options Outcome: Progressing Goal: Initiates reality-based interactions Outcome: Progressing Goal: Able to discuss content of hallucinations/delusions Outcome: Progressing Goal: Notifies staff when experiencing hallucinations/delusions Outcome: Progressing Goal: Verbalizes reduction in hallucinations/delusions Outcome: Progressing Goal: Will not act on psychotic perception Outcome: Progressing Goal: Understands least restrictive measures Outcome: Progressing Goal: Free from restraint events Outcome: Progressing Problem: Altered Thought Processes as Evidenced by Goal: STG - Desires improvement in ability to think and concentrate Outcome: Progressing Goal: STG - Participates in Occupational Therapy and other cognitive assessments Outcome: Progressing Problem: Potential for Harm to Self or Others Goal: Cooperates with admission process Outcome: Progressing Goal: Participates in unit activities Outcome: Progressing Goal: Patient/Family participate in treatment and discharge plans Outcome: Progressing Goal: Identifies deescalation techniques Outcome: Progressing Goal: Understands least restrictive measures Outcome: Progressing Goal: Identifies stressors that lead to harmful behaviors Outcome: Progressing Goal: Notifies staff when experiencing harmful thoughts toward self/others Outcome: Progressing Goal: Denies harm toward self or others Outcome: Progressing Goal: Free from restraint events Outcome: Progressing Problem: Educational/Scholastic Disruption Goal: Meets educational requirements during hospitalization Outcome: Progressing Goal: Attends class without disruptive behavior Outcome: Progressing Goal: Completes daily assignments Outcome: Progressing Problem: Ineffective Coping Goal: Cooperates with admission process Outcome: Progressing Goal: Identifies ineffective coping skills Outcome: Progressing Goal: Identifies healthy coping skills Outcome: Progressing Goal: Demonstrates healthy coping skills Outcome: Progressing Goal: Participates in unit activities Outcome: Progressing Goal: Patient/Family participate in treatment and discharge plans Outcome: Progressing Goal: Patient/Family verbalizes awareness of resources Outcome: Progressing Goal: Understands least restrictive measures Outcome: Progressing Goal: Free from restraint events Outcome: Progressing Problem: Alteration in Sleep Goal: STG - Reports nightly sleep, duration, and quality Outcome: Progressing Goal: STG - Identifies sleep hygiene aids Outcome: Progressing Goal: STG - Informs staff if unable to sleep Outcome: Progressing Goal: STG - Attends breathing and relaxation group Outcome: Progressing Problem: Potential for Substance Withdrawal Goal: Verbalizes signs/symptoms of withdrawal Outcome: Progressing Goal: Reports signs/symptoms of withdrawal Outcome: Progressing Goal: Free of withdrawal symptoms Outcome: Progressing Problem: Anxiety Goal: Patient/family understands admission protocols Outcome: Progressing Goal: Attempts to manage anxiety with help Outcome: Progressing Goal: Verbalizes ways to manage anxiety Outcome: Progressing Goal: Implements measures to reduce anxiety Outcome: Progressing Goal: Free from restraint events Outcome: Progressing Problem: Self Care Deficit Goal: Patient completes hygiene Outcome: Progressing Goal: Increase group attendance Outcome: Progressing Goal: Accepts need for medications Outcome: Progressing Goal: STG - Goes to and eats meals independently in dining room 100% of time Outcome: Progressing Problem: Defensive Coping Goal: Cooperates with admission process Outcome: Progressing Goal: Identifies reckless/dangerous behavior Outcome: Progressing Goal: Identifies stressors that lead to reckless/dangerous behavior Outcome: Progressing Goal: Discusses and identifies healthy coping skills Outcome: Progressing Goal: Demonstrates healthy coping skills Outcome: Progressing Goal: Identifies appropriate social interaction Outcome: Progressing Goal: Demonstrates appropriate social interactions Outcome: Progressing Goal: Patient/Family verbalizes awareness of resources Outcome: Progressing Goal: Discusses signs/symptoms of illness/treatment options Outcome: Progressing Goal: Patient/Family participate in treatment and discharge plans Outcome: Progressing Goal: Understands least restrictive measures Outcome: Progressing Goal: Free from restraint events Outcome: Progressing Normal [facility] SHS CAREPLN Problem: Sensory Per ceptual Alteration as Evidenced by Goal: Cooperates with admission process Outcome: Progressing Goal: Patient/Family participate in treatment and discharge plans Outcome: Progressing Goal: Patient/Family verbalizes awareness of resources Outcome: Progressing Goal: Participates in unit activities Outcome: Progressing Goal: Discusses signs/symptoms of illness/treatment options Outcome: Progressing Goal: Initiates reality-based interactions Outcome: Progressing Goal: Able to discuss content of hallucinations/delusions Outcome: Progressing Goal: Notifies staff when experiencing hallucinations/delusions Outcome: Progressing Goal: Verbalizes reduction in hallucinations/delusions Outcome: Progressing Goal: Will not act on psychotic perception Outcome: Progressing Goal: Understands least restrictive measures Outcome: Progressing Goal: Free from restraint events Outcome: Progressing Problem: Altered Thought Processes as Evidenced by Goal: STG - Desires improvement in ability to think and concentrate Outcome: Progressing Goal: STG - Participates in Occupational Therapy and other cognitive assessments Outcome: Progressing Problem: Potential for Harm to Self or Others Goal: Cooperates with admission process Outcome: Progressing Goal: Participates in unit activities Outcome: Progressing Goal: Patient/Family participate in treatment and discharge plans Outcome: Progressing Goal: Identifies deescalation techniques Outcome: Progressing Goal: Understands least restrictive measures Outcome: Progressing Goal: Identifies stressors that lead to harmful behaviors Outcome: Progressing Goal: Notifies staff when experiencing harmful thoughts toward self/others Outcome: Progressing Goal: Denies harm toward self or others Outcome: Progressing Goal: Free from restraint events Outcome: Progressing Problem: Educational/Scholastic Disruption Goal: Meets educational requirements during hospitalization Outcome: Progressing Goal: Attends class without disruptive behavior Outcome: Progressing Goal: Completes daily assignments Outcome: Progressing Problem: Ineffective Coping Goal: Cooperates with admission process Outcome: Progressing Goal: Identifies ineffective coping skills Outcome: Progressing Goal: Identifies healthy coping skills Outcome: Progressing Goal: Demonstrates healthy coping skills Outcome: Progressing Goal: Participates in unit activities Outcome: Progressing Goal: Patient/Family participate in treatment and discharge plans Outcome: Progressing Goal: Patient/Family verbalizes awareness of resources Outcome: Progressing Goal: Understands least restrictive measures Outcome: Progressing Goal: Free from restraint events Outcome: Progressing Problem: Alteration in Sleep Goal: STG - Reports nightly sleep, duration, and quality Outcome: Progressing Goal: STG - Identifies sleep hygiene aids Outcome: Progressing Goal: STG - Informs staff if unable to sleep Outcome: Progressing Goal: STG - Attends breathing and relaxation group Outcome: Progressing Problem: Potential for Substance Withdrawal Goal: Verbalizes signs/symptoms of withdrawal Outcome: Progressing Goal: Reports signs/symptoms of withdrawal Outcome: Progressing Goal: Free of withdrawal symptoms Outcome: Progressing Problem: Anxiety Goal: Patient/family understands admission protocols Outcome: Progressing Goal: Attempts to manage anxiety with help Outcome: Progressing Goal: Verbalizes ways to manage anxiety Outcome: Progressing Goal: Implements measures to reduce anxiety Outcome: Progressing Goal: Free from restraint events Outcome: Progressing Problem: Self Care Deficit Goal: Patient completes hygiene Outcome: Progressing Goal: Increase group attendance Outcome: Progressing Goal: Accepts need for medications Outcome: Progressing Goal: STG - Goes to and eats meals independently in dining room 100% of time Outcome: Progressing Problem: Defensive Coping Goal: Cooperates with admission process Outcome: Progressing Goal: Identifies reckless/dangerous behavior Outcome: Progressing Goal: Identifies stressors that lead to reckless/dangerous behavior Outcome: Progressing Goal: Discusses and identifies healthy coping skills Outcome: Progressing Goal: Demonstrates healthy coping skills Outcome: Progressing Goal: Identifies appropriate social interaction Outcome: Progressing Goal: Demonstrates appropriate social interactions Outcome: Progressing Goal: Patient/Family verbalizes awareness of resources Outcome: Progressing Goal: Discusses signs/symptoms of illness/treatment options Outcome: Progressing Goal: Patient/Family participate in treatment and discharge plans Outcome: Progressing Goal: Understands least restrictive measures Outcome: Progressing Goal: Free from restraint events Outcome: Progressing Normal [facility] GROUPNOTEon 10-27-2022 GROUPNOTE Department: [facility]ER[facility] Group Topic: Other Group Date: 10/27/2022 Start Time: 1330 End Time: 1400 Facilitators: Cynthia Hua Number of Participants: 4 Group Name:Leisure Treatment Modality: Activity Therapy Purpose: enhance coping skills and reinforce self-care Summary: Object of game is to prompt conversations a fun way to get participants to engage with the group, enhance coping skills and encourage listening skills. Name: Alyssa Carr Date of : 1990 MR: [id number] Appearance: Appropriately dressed and groomed Affect: Appropriate Behavior: Pleasant Alertness: Alert Speech: Appropriate Level/Quality of Participation: active Interactions with others: supportive Interventions utilized were Building rapport and engagement and Empathic listening Patient's Response to Intervention: Patient actively engaged in group social on task supportive of peers. Will continue to offer groups and encourage participation. Patients Problems: Patient Active Problem List Diagnosis Major depressive disorder, recurrent (HCC) Major depressive disorder, recurrent severe without psychotic features (HCC) Suicidal ideations [facility] GROUPNOTE Department: [address] Diagnosis Group Topic: Forgiveness Group Date: 10/27/2022 Start Time: 1030 End Time: 111 Facilitators: CHELITA Friend Number of Participants: 4 Group Name: dual diagnosis Treatment Modality: Psychoeducation and Skills Training Purpose: enhance coping skills, increase insight or knowledge, regain self-worth, and reinforce self-care Summary: Discussion on the myths of resentment (it's punsihment for the other person, sense of false power, forgiveness is weakness, letting go means they win, bad habit, need an apology to forgive,protects me, is justified). Assisted group members with work sheet on processing through emotions of resentment and practical ways to let go of it. Name: Alyssa Carr Date of : 1990 MR: [id number] Mental Status Exam: Appearance: Appropriately dressed and groomed Mood: Euthymic Affect: Congruent with mood Behavior: Pleasant Alertness: Alert Speech: Appropriate Cognition: Intact Thought Process: Goal-directed Thought Content: No evidence of psychosis/delusions Level/Quality of Participation: active Interactions with others: gave feedback Interventions utilized were Psychoeducation and Modeling/skills training Patient's Response to Intervention: Pt was Actively Engaged and Receptive. Pt was Able to verbalize current knowledge/experience, Able to verbalize/acknowledge new learning, Able to retain information and Capable of insight. Pt reported they are going to work on letting go of a resentment towards, ?myself Progress Towards Goal(s): Moderate Next Step: Continue with current services Patients Problems: Patient Active Problem List Diagnosis Major depressive disorder, recurrent (HCC) Major depressive disorder, recurrent severe without psychotic features (HCC) Suicidal ideations [facility] Nursing Noteon 10-27-2022 Nursing Note Patient was in his r oom at the time of assessment. Patient appears calm and cooperative. Patient did not have scheduled medications due at this time. Patient stated he is here as he doesn't know what to do with work and life. Patient explained he works at [employer] in [place] and has been there for about 2 years. 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 Patient stated they have broke up over a month ago and states he is torn because he doesn't know what to do with their relationship as she wants to get back together and he doesn't know what he wants. 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 Patient stated his ex turned in her keys to that specific location and he has not seen her since before September 22. Patient reports calling her this morning after breakfast and told her how I felt about everything. She wants us to work but I just don;t know. I've recently started talking to an ex girlfriend and we kissed. I just don't know what to do. Patient stated he no longer lives with his ex girlfriend and states she's not giving me a lot of time to decide what I want. I told her it could take 6 months. 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 Patient denies needs or concerns at this time but is encouraged to seek staff should one arise. Will continue to monitor. Normal [facility] Nursing Note Pt friendly upon loida maldonado and cooperative with assessment. Pt denies SI/HI and AVH at this time. Pt alert and denies any concerns at this time. Pt refused to take ordered bed time medication, pt stated I have not had good luck with medications . Pt educated on the importance of medication compliance and encouraged to maintain safety. Normal [facility] Progress Noteon 10-27-2022 Progress Note ACTIVITY THERAPY ASS ESSMENT Met with patient for activity therapy assessment. Reviewed diagnosis, presenting complaint, current living situation, cultural/spiritual preferences, education level, vocational status and mental status at time of this assessment. Diagnosis (per chart review): major depressive disorder, panic disorder, (per patient in documentation) borderline personality disorder Presenting Problem: Suicidal Ideation Does the patient identify any cultural/spiritual influences that may impact patient participation with programs offered by the Activities team? No If Yes, describe: na Review of Recreation Therapy Involvement/Interests Identify types of leisure activities patient reports doing in their free time? read Is patient satisfied with current leisure lifestyle? somewhat Leisure Barriers: work, myself Review of Music Therapy Involvement/Interests Favorite Band/Artist: None Identified Musical Preferences: all, old school rock Music Experiences/Skills: None Identified Use of Music: listen at work, keeps me engaged and busy Level of recent/current engagement in musical activities identified above: daily Music Triggers/Adverse reactions: None Identified Review of Other Diversionary Activities/Interests Identify any additional activities/hobbies/events in which patient participates on a regular basis: shoot pool, walk or run with headphones Is patient able to identify the wellness benefits of engaging in recreation, music, or other diversionary activities? Yes If Yes, describe: stay busy If No, is patient willing to consider participating in programming offered by the Activities team to experience the potential wellness benefits? na Was Patient provided information on unit programming, including types of activities and program schedule for the unit? Yes Activities Therapy Treatment Plan Goal(s): Symptom Management Objective(s): Pt will identify 2 coping strategies to use when symptomatic. Intervention: Pt will be offered 1 music or recreation therapy group daily and 2 general milieu therapy groups daily. Goal(s): Mood Improvement Objective(s): Pt will have improved mood, evidenced by brightened affect and voiced mood improvement. Intervention: Pt will be offered 1 music or recreation therapy group daily and 2 general milieu therapy groups daily. Signature PONCHO [facility]oy [facility] Progress Note Nutrition rescreen c ompleted. Chart reviewed. 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 Normal [facility] ECG 12-LEADon 10-26-2022 ECG 12-LEAD IMPRESSION: Sinus rhythm Electronically Signed On 10-26-2022 3:54:52 EDT by Marylu Andrade [facility] ED Nursing Noteon 10-26-2022 ED Nursing Note Report called to [place] [facility] at this time. All questions answered. Jacob Najera RN 10/26/22 6875 [facility] ED Nursing Note Up in doorway, state s he is bored but feels ok. Calm and cooperative Rebecca Odom RN 10/26/22 1224 [facility] ED Nursing Note Pt up to the restroo mScottie Fantaloc Joseph 10/26/22 1222 [facility] ED Nursing Note Patient had blood co llected and sent to lab. Chris Daly RN 10/26/22 0542 [facility] ED Nursing Note RN to the room to dr fran saucedo. Tila Bui MA 10/26/22 0530 [facility] Nursing Noteon 10-26-2022 Nursing Note Admission note: Sagrario anderson arrived to [facility] from [facility] ED where he reports he voluntarily came in after callling for help d/t feeling suicidal. He states he does not have a plan and never has had a plan. Alyssa states he has been admitted to psychiatric facilities in the past but it has been 5 years. He was at [place] several years ago as well as [place]. His appearance is disheveled and malodorous, encouraged to shower. Affect is incongruent with times where he smiles inappropriately. He identifies stressors as occupational and relationship related. Recently he broke up with his GF he was living with and moved back into his parents home with his 6 yo son. His newly ex GF also works with him at [employer]. He does plan to continue to work there and anticipates stress surrounding the situation. He does not see a PCP or Psychiatrist and is not on any medication- states, Medication made me worse, I was all out of it and feeling suicidal. Denies substance use besides THC that he uses on occasion. He does state his parents are supportive and help with his son who has cardiac problems and even had a transplant last year. He is able to contract to seek out staff if he feels unsafe. Signed all admission papers. [facility] ED Nursing Noteon 10-25-2022 ED Nursing Note Opened in error Tila Bui MA 10/25/22 2146 [facility] ED Nursing Note Dinner tray to kristi Elkins 10/25/22 184 [facility] ED Nursing Note Patient laying in be d, respirations even and unlabored. Erica Alicia RN 10/25/22 1846 [facility] ED Nursing Note Dinner tray ordered Frances Elkins 10/25/22 1737 [facility] ED Nursing Note Psych resident at th e bedside Frances Elkins 10/25/22 1712 [facility] ED Nursing Note Patient resting in b ed, watching TV. Respirations even and unlabored. Erica Alicia, ALLISON 10/25/22 1638 [facility] ED Nursing Note Pt resting in bed, c margaret and cooperative. Rebecca Odom, ALLISON 10/25/22 1228 [facility] ED Nursing Note Dr. Prescott at beds eileen Frances Elkins 10/25/22 1157 [facility] ED Nursing Note Dr. Wells at bedside Frances Elkins 10/25/22 1059 [facility] ED Nursing Note Dr Thompson at bed side. Donna FentonScottie Maxwell 10/25/22 1052 [facility] ED Nursing Note Patient to room 47 p laced into 2 gowns and socks by RN. Patient wanded by protective services and skin assessment done by RN. Patient's belongings placed into 1 labeled, zipped tied bag and locked in cabinet Frances Elkins 10/25/22 1028 [facility] ED Provider Noteon ED Provider Note EMERGENCY DEPARTMENT ENCOUNTER Pt Name: Alyssa Carr Birthdate 1990 Date of evaluation: 10/25/2022 ED Provider: RITA THOMPSON MD CHIEF COMPLAINT Chief Complaint Patient presents with ? Suicidal Patient c/o suicidal ideation x 5-6 days. States no plan. Shant HI. A/O x 4. GCS 15. HISTORY OF PRESENT ILLNESS (Location/Symptom, Timing/Onset, Context/Setting, Quality, Duration, Modifying Factors, Severity) Note limiting factors. I wore appropriate PPE for the entirety of this encounter. HPI Alyssa Carr is a 31 y.o. male who presents to the emergency department for evaluation of suicidal ideation. Patient states that he has had a number of recent stressors including leaving his girlfriend and moving out, moving back in with his parents, his 6-year-old son has multiple illnesses and he feels like his stressors are building up and his ability to compensate is limited. Patient states he does have a history of depression with suicide attempt 5 or 6 years ago with overdose at which time he was admitted inpatient at a facility in [place]. Currently patient has no plan just feels like his depression is getting out of control and he is having suicidal thoughts, does not have firearms in the home. Patient does not have psychologist/psychiatrist/coun selor at this time, states about 5 years ago he refused to take any medications for his depression because he felt like they increased his chance of suicide as his last suicide attempt was immediately after starting these medications. Currently patient denies any medical complaints including chest pain shortness of breath fever/chills, nausea/vomiting. 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 Patient denies visual hallucinations and homicidal ideations. Nursing Notes were reviewed. Limitations to history: none Outside historians: none REVIEW OF SYSTEMS Review of Systems as documented in HPI above. PAST MEDICAL HISTORY Past Medical History: Diagnosis Date ? Liver disease ? Pneumonia SURGICAL HISTORY No past surgical history on file. CURRENT MEDICATIONS Previous Medications No medications on file ALLERGIES Patient has no known allergies. FAMILY HISTORY No family history on file. SOCIAL HISTORY Social History Socioeconomic History ? Marital status: Single Tobacco Use ? Smoking status: Every Day Substance and Sexual Activity ? Alcohol use: Yes Alcohol/week: 4.0 standard drinks of alcohol ? Drug use: No SCREENINGS PHYSICAL EXAM ED Triage Vitals [10/25/22 0957] Temp Heart Rate Resp BP 36.7 ?C (98 ?F) 68 16 116/80 SpO2 Temp Source Heart Rate Source Patient Position 100 % Temporal -- Sitting BP Location FiO2 (%) Left arm -- Physical Exam General: Sitting in bed, appears non-toxic. Head: Atraumatic, normocephalic. Eyes: Sclera anicteric. ENT: Mucous membranes moist. Heart: Regular rate and regular rhythm. Radial pulses intact and equal bilaterally Lungs: Clear to auscultation bilaterally. Normal respiratory pattern without conversational dyspnea or respiratory distress. Abdomen: Soft, non-tender, non-distended, no guarding or peritoneal signs. Neurologic: Awake and alert, normal speech and mental status. Moves all extremities equally well. No focal deficits or lateralizing signs. Psychiatric: Depressed, anxious mood. Skin: Warm and dry, no appreciable rash. Musculoskeletal: Normal bulk and tone without evidence of trauma. DIAGNOSTIC RESULTS RADIOLOGY (Per Emergency Physician): Interpretation per the Radiologist below, if available at the time of this note: No orders to display LABS: Labs Reviewed CBC WITH AUTO DIFFERENTIAL - Abnormal Result Value Auto WBC 8.2 RBC 4.94 Hemoglobin 14.9 Hematocrit 44.7 MCV 90.4 MCH 30.0 MCHC 33.3 RDW 13.9 Platelets 230 MPV 9.6 nRBC 0.1 Neutrophils Relative 80.7 (*) Lymphocytes Relative 12.5 (*) Monocytes Relative 6.3 Eosinophils Relative 0.2 (*) Basophils Relative 0.3 Neutrophils Absolute 6.6 Lymphocytes Absolute 1.0 Monocytes Absolute 0.5 Eosinophils Absolute 0.0 Basophils Absolute 0.0 COMPREHENSIVE METABOLIC PANEL - Abnormal SODIUM 139 POTASSIUM 4.4 CHLORIDE 101 CARBON DIOXIDE 26 ANION GAP 11 UREA NITROGEN 13 CREATININE 0.86 GLUCOSE 101 (*) CALCIUM 9.4 AST (SGOT) 29 ALT 24 ALKALINE PHOSPHATASE 67 ALBUMIN 4.7 BILIRUBIN, TOTAL 0.5 TOTAL PROTEIN 8.1 eGFR >90.0 SARS-COV-2 ANTIGEN - Normal SARS-CoV-2 Antigen Negative ETHANOL - Normal ETHANOL IN SER/PLAS <0.010 Narrative: NOTE: This result is for medical treatment only. Analysis performed using non-forensic procedures. DRUGS OF ABUSE AMPHETAMINE SCREEN Negative BARBITURATES SCREEN Negative BENZODIAZEPINE SCREEN Negative COCAI (more content not included)... Normal [facility] ED Provider Note Emergency Department Encounter [facility] EMERGENCY DEPT Patient: Alyssa Carr : 1990 Date of Evaluation: 10/25/2022 ED Supervising Physician: Clarissa Prescott, DO I independently examined and evaluated Alyssa Carr. This will serve as my Supervisory note and shared attestation. I did perform a substantive portion of the visit including all aspects of the Medical Decision Making. I wore appropriate PPE for the entirety of this encounter. In brief, Alyssa Carr is a 31 y.o. male that presents to the emergency department with suicidal ideation. The patient states he has had multiple stressful life factors recently including a break-up and family issues, he has started having suicidal ideation. He states he does not have a plan. He states the last time he had suicidal ideation and an attempt was 5 years ago. He reports he is wanting to go to an inpatient psychiatric unit if he needs to be started on medications because all of his prior suicide attempts have been associated with starting new psychiatric medications Focused exam: Visual exam General: Appears well, nontoxic, no distress Skin: Normal for ethnicity, no rash visible on exposed skin HEENT: Normocephalic, symmetrical face Cardiovascular: Extremities appear well perfused, no swelling in exposed extremities Respiratory: No dyspnea, equal chest rise and fall Gastrointestinal: Nondistended, no protrusions Musculoskeletal: No obvious deformity, no joint swelling in exposed joints Neurological: Alert and oriented, moving all extremities spontaneously Psychiatric: Suicidal ideation, no homicidal ideation, no AVH. Reports hopelessness Brief ED course/MDM: Impression: Patient is a 31-year-old male presented emergency department with suicidal ideation Collateral information obtained from: N/A Review of prior external notes notable for: Patient has been seen in the past for suicidal ideation, 5 years ago Considering suicidal ideation, depression, hopelessness. Low suspicion for delirium or psychosis. Tests considered: Psychiatry screening labs Lab results reviewed by me and notable for: negative UDS, negative ethanol, negative covid. No leukocytosis or anemia, electrolytes unremarkable Consults: Psychiatry ED Updates/Reassessments: Patient medically cleared for inpatient psych placement at this time. Would benefit from admission per psych. Disposition: admit to psych All diagnostic, treatment, and disposition decisions were made by myself in conjunction with the Resident. I also supervised rayo portions of any procedures performed by the Resident. For all further details of the patient's emergency department visit, please see their documentation. (Comment: Please note this report has been produced using speech recognition software and may contain errors related to that system including errors in grammar, punctuation, and spelling, as well as words and phrases that may be inappropriate. If there are any questions or concerns please feel free to contact the dictating provider for clarification.) Clarissa Prescott DO [employer] Clarissa Prescott DO 10/25/222231 [facility] HEALTH 03-01-2022 ALLIED HEALTH HNO ID: [id number] Author: RT Ada(R) Service: Radiology Author Type: Technologist Type: Allied Health Filed: 02/28/2022 11:33 PM Note Text: Radiology Service Progress Note PATIENT NAME: Alyssa Carr DATE OF SERVICE: February 28, 2022 TIME: 11:32 PM PATIENT IDENTITY VERIFICATION COMPLETED USING TWO (2) IDENTIFIERS: Name and Date of confirmed by patient verbally. FALL SCREENING: Has the patient had 2 falls in the last year or 1 fall with injury or currently using an Ambulatory Assistive Device (Walker, Cane, Wheelchair, Crutches, etc.)? Emergency Room Patient: Screened in ED PATIENT GENDER DATA: Male PATIENT RELEVANT IMPLANT DATA REVIEWED: Not Applicable RADIOLOGY DEPARTMENT: General X-ray: Exam(s) Completed: Chest X-Ray PERIPHERAL IV DATA: Not applicable SIGNED BY: RT Ada(R) February 28, 2022 11:32 PM Normal [facility] Basic metabolic 2000 panelon 03-01-2022 Anion gap [Moles/Vol] 8 mmol/L Normal 8-16 [facility] Comment on above: Order Comment: Speci men Type: BLOOD SPECIMEN Ordering Facility: [facility] Address: [address] [place] [address] Performed By: #### 2 4320-04, #### [facility] CLIA [id number] [address] [place] [address] [place] Calcium [Mass/Vol] 8.9 mg/dL Normal 8.5-10.1 [facility] Comment on above: Order Comment: Speci men Type: BLOOD SPECIMEN Ordering Facility: [facility] Address: [address] [place] [address] Performed By: #### 2 4320-04, #### [facility] CLIA [id number] [address] [place] [address] [place] Chloride [Moles/Vol] 101 mmol/L Normal 98-107 [facility] Comment on above: Order Comment: Speci men Type: BLOOD SPECIMEN Ordering Facility: [facility] Address: [address] [place] [address] Performed By: #### 2 4320-04, #### [facility] CLIA [id number] [address] [place] [address] [place] CO2 [Moles/Vol] 28 mmol/L Normal 21-32 [facility] Comment on above: Order Comment: Speci men Type: BLOOD SPECIMEN Ordering Facility: [facility] Address: [address] [place] [address] Performed By: #### 2 4321-2, #### [facility] CLIA [id number] [address] [place] [address] [place] Creatinine [Mass/Vol] 0.83 mg/dL Normal 0.67-1.17 [facility] Comment on above: Order Comment: Speci men Type: BLOOD SPECIMEN Ordering Facility: [facility] Address: [address] [place] [address] Performed By: #### 2 4322, #### [facility] CLIA [id number] [address] [place] [address] ESTIMATED GLOMERULAR FILTRATION RATE 119 mL/min/1.73m??? Normal >=60 [facility] Comment on above: Order Comment: Speci men Type: BLOOD SPECIMEN Ordering Facility: [facility] Address: [address] [place] [address] Result Comment: Cherry mated Glomerular Filtration Rate (eGFR) is calculated using the 2020 CKD-EPI creatinine equation. This equation utilizes serum creatinine, sex, and age as parameters. The creatinine assay has traceable calibration to isotope dilution-mass spectrometry. Refer to KDIGO guidelines for clinical interpretation. In patients with unstable renal function, e.g. those with acute kidney injury, the eGFR may not accurately reflect actual GFR. Performed By: #### 2 4320-2, #### [facility] CLIA [id number] [address] [place] [address] [place] Glucose [Mass/Vol] 99 mg/dL Normal 70-99 [facility] Comment on above: Order Comment: Speci men Type: BLOOD SPECIMEN Ordering Facility: [facility] Address: [address] [place] [address] Result Comment: The [place] Diabetes Association (ADA) provides guidance for cutoff values for fasting glucose and random glucose. The ADA defines fasting as no caloric intake for at least 8 hours. Fasting plasma glucose results between 100 to 125 mg/dL indicate increased risk for diabetes (prediabetes). Fasting plasma glucose results greater than or equal to 126 mg/dL meet the criteria for diagnosis of diabetes. In the absence of unequivocal hyperglycemia, results should be confirmed by repeat testing. In a patient with classic symptoms of hyperglycemia or hyperglycemic crisis, random plasma glucose results greater than or equal to 200 mg/dL meet the criteria for diagnosis of diabetes. Reference: Standards of Medical Care in Diabetes 2016, [place] Diabetes Association. Diabetes Care. 2016.39(Suppl 1). Performed By: #### 2 4320-04, #### [facility] CLIA [id number] [address] [place] [address] [place] Potassium [Moles/Vol] 3.3 mmol/L Low 3.5-5.1 [facility] Comment on above: Order Comment: Speci men Type: BLOOD SPECIMEN Ordering Facility: [facility] Address: [address] [address] Performed By: #### 2 4320-04, #### [facility] CLIA [id number] [address] [place] [address] [place] Sodium [Moles/Vol] 137 mmol/L Normal 136-145 [facility] Comment on above: Order Comment: Speci men Type: BLOOD SPECIMEN Ordering Facility: [facility] Address: [address] [address] Performed By: #### 2 4320-04, #### [facility] CLIA [id number] [address] [place] [address] [place] Urea nitrogen [Mass/Vol] 15 mg/dL Normal 7-18 [facility] Comment on above: Order Comment: Joei men Type: BLOOD SPECIMEN Ordering Facility: [facility] Address: [address] [address] Performed By: #### 2 #### [facility] CLIA [id number] [address] [place] [address] [place] CBC panel Auto (Bld)on 03-01 Erythrocyte distribution width (RBC) [Ratio] 12.6 % Normal 11.5-15.0 [facility] Comment on above: Order Comment: Speci men Type: BLOOD SPECIMEN Ordering Facility: [facility] Address: [address] [place] [address] Performed By: #### 5 8410-2 #### [facility] CLIA [id number] [address] [place] [address] Hematocrit (Bld) [Volume fraction] 40.3 % Normal 39.0-51.0 [facility] Comment on above: Order Comment: Speci men Type: BLOOD SPECIMEN Ordering Facility: [facility] Address: [address] [place] [address] Performed By: #### 5 8410-2 #### [facility] CLIA [id number] [address] [place] [address] Hemoglobin (Bld) [Mass/Vol] 13.6 g/dL Normal 13.0-17.0 [facility] Comment on above: Order Comment: Speci men Type: BLOOD SPECIMEN Ordering Facility: [facility] Address: [address] [place] [address] Performed By: #### 5 8410-2 #### [facility] CLIA [id number] [address] [place] [address] [place] MCH (RBC) [Entitic mass] 29.2 pg Normal 26.0-34.0 [facility] Comment on above: Order Comment: Speci men Type: BLOOD SPECIMEN Ordering Facility: [facility] Address: [address] [place] [address] Performed By: #### 5 8410-2 #### [facility] CLIA [id number] [address] [place] [address] STATES [facility] MCHC (RBC) [Mass/Vol] 33.7 g/dL Normal 30.5-36.0 [facility] Comment on above: Order Comment: Speci men Type: BLOOD SPECIMEN Ordering Facility: [facility] Address: [address] [address] Performed By: #### 5 8410-2 #### [facility] CLIA [id number] [address] [place] [address] [place] MCV (RBC) [Entitic vol] 86.7 fL Normal 80.0-100.0 [facility] Comment on above: Order Comment: Speci men Type: BLOOD SPECIMEN Ordering Facility: [facility] Address: [address] [address] Performed By: #### 5 8410-2 #### [facility] CLIA [id number] [address] [place] [address] [place] Platelet mean volume (Bld) [Entitic vol] 10.6 fL Normal 9.0-12.7 [facility] Comment on above: Order Comment: Speci men Type: BLOOD SPECIMEN Ordering Facility: [facility] Address: [address] [address] Performed By: #### 5 8410-2 #### [facility] CLIA [id number] [address] [place] [address] [place] Platelets (Bld) [#/Vol] 218 10*3/uL Normal 150-400 [facility] Comment on above: Order Comment: Speci men Type: BLOOD SPECIMEN Ordering Facility: [facility] Address: [address] [address] Performed By: #### 5 8410-2 #### [facility] CLIA [id number] [address] [place] [address] [place] RBC (Bld) [#/Vol] 4.65 10*6/uL Normal 4.20-6.00 [facility] Comment on above: Order Comment: Speci men Type: BLOOD SPECIMEN Ordering Facility: [facility] Address: [address] [address] Performed By: #### 5 8410-2 #### [facility] CLIA [id number] [address] [place] [address] [place] WBC (Bld) [#/Vol] 9.32 10*3/uL Normal 3.70-11.00 [facility] Comment on above: Order Comment: Speci men Type: BLOOD SPECIMEN Ordering Facility: [facility] Address: [address] [place] [id number] Performed By: #### 5 8410-2 #### [facility] CLIA [id number] [address] [place] [address] ECG COMPLETEon 03-01-2022 ECG COMPLETE Ventricular Rate : 8 2 BPM Atrial Rate : 82 BPM P-R Interval : 178 ms QRS Duration : 86 ms Q-T Interval : 348 ms QTC Calculation(Bazett) : 406 ms Calculated P [place] : 26 degrees Calculated R [place] : 23 degrees Calculated T [place] : 39 degrees NORMAL SINUS RHYTHM NORMAL ECG NO PREVIOUS ECGS AVAILABLE Confirmed by MD FLORES THOMAS ([id number]) on 03/10/2022 1:27:06 PM NAME : ALYSSA CARR PID : [id number] : 1990 Gender : Male Race : ORD : [id number] Procedure Date : Feb 28 2022 22:21:13 Edit Date : Mar 10 2022 13:27:07 Diagnosis: NORMAL SINUS RHYTHM NORMAL ECG NO PREVIOUS ECGS AVAILABLE Confirmed by MD FLORES THOMAS ([id number]) on 03/10/2022 1:27:06 PM Test Reason : Chest Pain Location : 144 : [facility]ED ED Overread By : MD FLORES THOMAS Edited By : MD FLORES THOMAS Referred By : , Acquired by : DEN BILLY [facility] ED NOTEon 03-01-2022 ED NOTE HNO ID: [id number] Author: Vianey Glez RN Service: Emergency Medicine Author Type: Registered Nurse Type: ED Notes Filed: 03/01/2022 12:59 AM Note Text: Pt. Unchanged, rates pain as 4 , no facial grimace or guardingsaline lock d/c'd [facility] ED NOTE HNO ID: [id number] Author: Den Billy RN Service: Emergency Medicine Author Type: Registered Nurse Type: ED Notes Filed: 02/28/2022 10:23 PM Note Text: Chest pain since 1800, with SOB, nausea Normal [facility] ED PROV NOTEon 03-01-2022 ED PROV NOTE HNO ID: [id number] Author: Zeyad Dorsey MD Service: Emergency Medicine Author Type: Physician Type: ED Provider Notes Filed: 03/03/2022 8:00 PM Note Text: ED Provider Note Patient Name: Alyssa Carr : 1990 SERVICE DATE: 02/28/22 History Patient presents with: Chest Pain Nausea HPI Alyssa Carr is a 31 year old male with no past medical history who presents with chest pain. He was working at [email or web address] today when he suddenly developed a left upper chest pain at about 6 PM today. The pain was worsened with any upper body movement. Pain was not pleuritic or exertional, and not affected by position. Initially, the pain was associated with some mild shortness of breath and lightheadedness. Then a couple of hours later he developed nausea as well. The nausea has mostly resolved at this point, and chest pain has significantly improved, now just a dull ache. He has taken Tylenol with improvement. He states he has had a similar pain occasionally in the past. Denies any abdominal pain, leg swelling, recent travel or immobilization. Did have 1 coughing fit while the pain was ongoing, but denies any other recent URI symptoms. No past medical history on file. No past surgical history on file. No family history on file. Social History Tobacco Use Smoking status: Unknown Smokeless tobacco: Not on file Substance and Sexual Activity Alcohol use: Not on file Drug use: Not on file Sexual activity: Not on file ALLERGIES No Known Allergies Review of Systems Constitutional: Negative for chills and fever. HENT: Negative for congestion. Eyes: Negative for pain. Respiratory: Positive for shortness of breath. Cardiovascular: Positive for chest pain. Negative for leg swelling. Gastrointestinal: Positive for nausea. Negative for abdominal pain and vomiting. Genitourinary: Negative for dysuria. Musculoskeletal: Negative for back pain. Skin: Negative for rash. Neurological: Positive for light-headedness. Negative for headaches. Physical Exam Vitals BP Pulse Temp Temp src Resp SpO2 Weight Height 02/28/22 2224 02/28/223 02/28/22222202/28/22 2223 02/28/22222202/28/222222 -- -- 120/71 74 36 ?C (96.8 ?F) Temporal Art 18 98 % Physical Exam Constitutional: awake and alert, no acute distress HENT: atraumatic, mucous membranes moist Eyes: no scleral icterus or conjunctival injection CV: normal rate, regular rhythm, no murmurs, rubs, or gallops, left anterolateral chest wall tenderness to palpation Pulm: lungs clear to auscultation bilaterally, no wheezes or crackles, good air movement, normal respiratory effort Abdomen: soft, nontender, nondistended MSK: extremities warm and well-perfused, no edema Skin: warm and dry, no rashes Neuro: awake and alert, speech clear, moves all extremities to command, face symmetric Psych: calm and cooperative Diagnostic Testing ED Labs Ordered and Reviewed BASIC METABOLIC PNL - Abnormal; Notable for the following components: Result Value Ref Range Potassium 3.3 (*) 3.5 - 5.1 mmol/L All other components within normal limits MAGNESIUM BLD - Normal CBC - Normal TROPONIN I - Normal Procedures ED Course / Clinical Impression Clinical Impressions as of 03/03/221956 Chest pain, unspecified type Nausea Hypokalemia MDM / Disposition / Plan MDM Differential diagnosis includes ACS, dysrhythmia, pneumothorax, electrolyte abnormality, musculoskeletal chest pain, GERD, gastritis, viral syndrome. ECG shows normal sinus rhythm without ischemic changes or dysrhythmia. Troponin negative. CXR clear. Doubt PE as patient is PERC negative. Labs notable only for mild hypokalemia to 3.3, replaced orally. Abdominal exam benign. Patient referred to PCP for follow up if symptoms persist. Discharged home in stable condition with return precautions for new or worsening symptoms. SIGNATURE: MD Zeyad Ca MD 03/03/221999 Normal [facility] Magnesium [facility] 03-01 Magnesium [Mass/Vol] 2.0 mg/dL Normal 1.6-2.3 [facility] Comment on above: Order Comment: Speci men Type: BLOOD SPECIMEN Ordering Facility: [facility] Address: [address] [place] [phone] Performed By: #### 2 4321-2, 25646-1 #### [facility] CLIA [id number] [address] [place] [address] [facility] TROPONIN Ion 03-01-2022 Troponin I.cardiac [Mass/Vol] 0.010 ng/mL Normal <0.040 [facility] Comment on above: Order Comment: Speci men Type: BLOOD SPECIMEN Ordering Facility: [facility] Address: [facility] [address] [id number] Performed By: #### T ROP #### [facility] CLIA [id number] [address] [place] [address] [facility] [place] XR CHEST 2V FRONTAL/LATon XR CHEST 2V FRONTAL/LAT * * *Final Report* * * DATE OF EXAM: Feb 28 2022 11:40PM ANX [id number] - XR CHEST 2V FRONTAL/LAT / PROCEDURE REASON: Chest pain, nonspecific * * * * Physician Interpretation * * * * EXAMINATION: XR CHEST 2V FRONTAL/LAT Exam Date/Time: 02/28/2022 11:40 PM CLINICAL HISTORY: Chest pain and shortness of breath. Comparison: None available. RESULT: The cardiomediastinal silhouette is not enlarged. No discernible focal consolidation, pleural effusion, or pneumothorax. IMPRESSION: No acute cardiopulmonary findings. 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 TROPONIN Ion 03-31-2019 Troponin I.cardiac [Mass/Vol] Canceled Normal [facility] Comment on above: Order Comment: TEST TROPONIN I WAS CANCELLED, 03/30/2019 22:43 discharged. Result Comment: LESS THAN 0.04 NG/ML: NEGATIVE REPEAT TESTING IN THREE TO SIX HOURS IF CLINICALLY INDICATED. 0.04 - 0.5 NG/ML: CONSISTENT WITH POSSIBLE CARDIAC DAMAGE AND POSSIBLE INCREASED CLINICAL RISK. SERIAL MEASUREMENTS MAY HELP ASSESS EXTENT OF MYOCARDIAL DAMAGE. >0.5 NG/ML: CONSISTENT WITH CARDIAC DAMAGE, INCREASED CLINICAL RISK AND MYOCARDIAL INFARCTION. SERIAL MEASUREMENTS MAY HELP ASSESS EXTENT OF MYOCARDIAL DAMAGE. . Note: Troponin I testing is performed using different testing methodology at [facility] than at other [facility]. Direct result comparisons should only be made within the same method. Performed By: #### T ROP2 ####[address] [id number] BASIC METABOLIC PANELon 01-0 Anion gap [Moles/Vol] 12 mmol/L Normal 10 - 20 [facility] Comment on above: Performed By: #### B MP #### [address] [address] Calcium [Mass/Vol] 9.1 mg/dL Normal 8.6 - 10.3 [facility] Comment on above: Performed By: #### B MP #### [address] [address] Chloride [Moles/Vol] 104 mmol/L Normal 98 - 107 [facility] Comment on above: Performed By: #### B MP #### [address] [address] Creatinine [Mass/Vol] 0.89 mg/dL Normal 0.50 - 1.30 [facility] Comment on above: Performed By: #### B MP #### [address] [address] GFR- AM. >60 Normal >60 [facility] Comment on above: Result Comment: CALC ULATIONS OF ESTIMATED GFR ARE PERFORMED USING THE MDRD STUDY EQUATION FOR THE IDMS-TRACEABLE CREATININE METHODS. CLIN CHEM 2007;53:766-72 Performed By: #### B MP #### [address] [address] GFR-NON AM. >60 Normal >60 [facility] Comment on above: Performed By: #### B MP #### [address] [address] Glucose [Mass/Vol] 107 mg/dL High 74 - 99 [facility] Comment on above: Performed By: #### B MP #### [address] [address] HCO3 (Bld) [Moles/Vol] 25 mmol/L Normal 21 - 32 [facility] Comment on above: Performed By: #### B MP #### [address] [address] Potassium [Moles/Vol] 3.8 mmol/L Normal 3.5 - 5.3 [facility] Comment on above: Performed By: #### B MP #### [address] [address] Sodium [Moles/Vol] 137 mmol/L Normal 136 - 145 [facility] Comment on above: Performed By: #### B MP #### [address] [address] Urea nitrogen [Mass/Vol] 13 mg/dL Normal 6 - 23 [facility] Comment on above: Performed By: #### B MP #### [address] [address] CBC AND DIFFERENTIALon 03-30 Basophils (Bld) [#/Vol] 0.10 10*3/uL Normal 0.00 - 0.10 [facility] Comment on above: Performed By: #### C BCDF #### [address] [address] Basophils/100 WBC (Bld) 1.8 % Normal 0.0 - 2.0 [facility] Comment on above: Performed By: #### C BCDF #### [address] [address] Eosinophils (Bld) [#/Vol] 0.10 10*3/uL Normal 0.00 - 0.70 [facility] Comment on above: Performed By: #### C BCDF #### [address] [address] Eosinophils/100 WBC (Bld) 0.8 % Normal 0.0 - 6.0 [facility] Comment on above: Performed By: #### C BCDF #### [address] [address] Erythrocyte distribution width (RBC) [Ratio] 13.4 % Normal 11.5 - 14.5 [facility] Comment on above: Performed By: #### C BCDF #### [address] [address] Hematocrit (Bld) [Volume fraction] 43.2 % Normal 41.0 - 52.0 [facility] Comment on above: Performed By: #### C BCDF #### [address] [address] Hemoglobin (Bld) [Mass/Vol] 14.4 g/dL Normal 13.5 - 17.5 [facility] Comment on above: Performed By: #### C BCDF #### [address] [address] Lymphocytes (Bld) [#/Vol] 1.40 10*3/uL Normal 1.20 - 4.80 [facility] Comment on above: Performed By: #### C BCDF #### [address] [address] Lymphocytes/100 WBC (Bld) 19.1 % Normal 13.0 - 44.0 [facility] Comment on above: Performed By: #### C BCDF #### [address] [address] MCHC (RBC) [Mass/Vol] 33.4 g/dL Normal 32.0 - 36.0 [facility] Comment on above: Performed By: #### C BCDF #### [address] [address] MCV (RBC) [Entitic vol] 89 fL Normal 80 - 100 [facility] Comment on above: Performed By: #### C BCDF #### [address] [address] Monocytes (Bld) [#/Vol] 0.60 10*3/uL Normal 0.10 - 1.00 [facility] Comment on above: Performed By: #### C BCDF #### [address] [address] Monocytes/100 WBC (Bld) 7.6 % Normal 2.0 - 10.0 [facility] Comment on above: Performed By: #### C BCDF #### [address] [address] Neutrophils (Bld) [#/Vol] 5.10 10*3/uL Normal 1.20 - 7.70 [facility] Comment on above: Performed By: #### C BCDF #### [address] [address] Neutrophils/100 WBC (Bld) 70.7 % Normal 40.0 - 80.0 [facility] Comment on above: Performed By: #### C BCDF #### [address] [address] Nucleated RBC/100 WBC (Bld) [Ratio] 0.1 /100 WBC Normal [facility] Comment on above: Performed By: #### C BCDF #### [address] [address] Platelets (Bld) [#/Vol] 232 10*3/uL Normal 150 - 450 [facility] Comment on above: Performed By: #### C BCDF #### [address] [address] RBC (Bld) [#/Vol] 4.86 x10E12/L Normal 4.50 - 5.90 [facility] Comment on above: Performed By: #### C BCDF #### [address] [address] WBC (Bld) [#/Vol] 7.3 10*3/uL Normal 4.4 - 11.3 [facility] Comment on above: Performed By: #### C BCDF #### [address] [address] CHEST 1 VIEWon 03-30-2019 CHEST 1 VIEW Patient Name: ALYSSA CARR STUDY: CHEST 1 VIEW; 03/30/2019 3:35 pm INDICATION: Chest Pain. COMPARISON: None. ACCESSION NUMBER(S): [id number] ORDERING CLINICIAN: ALYSSA ALICEA FINDINGS: CHEST AP PORTABLE UPRIGHT Overlying monitoring leads are present. CARDIOMEDIASTINAL SILHOUETTE: Cardiomediastinal silhouette is normal in size and configuration. LUNGS: Lungs are clear. ABDOMEN: No remarkable upper abdominal findings. BONES: No acute osseous changes. IMPRESSION: No evidence of acute cardiopulmonary process. No change from 02/12/2018. Electronically signed by: DONTE BULLARD MD [facility] CT HEAD WO CONTRASTon 2019 CT HEAD WO CONTRAST Addendum Begins Patient Name: ALYSSA CARR ADDENDUM: There is an error in the previously generated report. Opacification of the right mastoid air cells are identified.. The left mastoid air cells are clear. Electronically signed by: RADHA VASQUEZ MD Addendum Ends Patient Name: ALYSSA CARR STUDY: CT HEAD WO CONTRAST; 03/30/2019 4:03 pm INDICATION: left arm weakness. COMPARISON: None. ACCESSION NUMBER(S): [id number] ORDERING CLINICIAN: ALYSSA ALICEA TECHNIQUE: Noncontrast axial CT scan of head was performed. Angled reformats in brain and bone windows were generated. The images were reviewed in bone, brain, blood and soft tissue windows. FINDINGS: CSF Spaces: The ventricles, sulci and basal cisterns are within normal limits. There is no extraaxial fluid collection. Parenchyma: The hayes-white differentiation is intact. There is no mass effect or midline shift. There is no intracranial hemorrhage. Calvarium: The calvarium is unremarkable. Paranasal sinuses and mastoids: Visualized paranasal sinuses and mastoids are clear. IMPRESSION: No evidence of acute cortical infarct or intracranial hemorrhage. No evidence of intracranial hemorrhage or displaced skull fracture. Electronically signed by: RAHDA VASQUEZ MD [facility] PT/INRon 03-30-2019 INR Coag (PPP) [Relative time] 1.1 {INR} Normal 0.9 - 1.1 [facility] Comment on above: Performed By: #### P TINR #### [address] [address] PT Coag (PPP) [Time] 13.0 s High 9.7 - 12.7 [facility] Comment on above: Performed By: #### P TINR #### [address] [address] Provider Note - ED v2on Provider Note - ED v2 Provider Note - ED v2: Attestation: Chart Review: ED NOTES ED NOTES: ====HPI==== 28 year old male entered the ED c/o L chest pain. Pt sts chest pain has been coming and going for many months. Recently, Pt reports of SOB, L arm pain/ weakness and nausea for 2 days. Pt denies FERNANDEZ, vision changes and fevers. Pt does work at [employer] in [place], [place], he performs many repetitive motions he has been able to use his left arm today. Character: Moderate Severity: Mild to moderate Exacerbated by: Nothing Improved by: Nothing Recently seen by: Denies PMHX: mood d/o PSHX: neg FHX: bioDad TIA & CAD bioSon hypoplastic heart syndrome SOCIAL: employed at [employer] [place], [place] neg TOB neg ETOH neg DRUG use diet = mostly he can eat two large pizzas at a time ====Review of Systems==== 10 point system review is negative except for those specifically mentioned in history of present illness ====Physical Exam==== Constitutional/General: Alert and oriented x3, well appearing, nontoxic, and in NAD. Head: Normocephalic and atraumatic. Eyes: PERRL, EOMI, conjunctive normal, sclera nonicteric, subconjunctival layer is pink. Mouth: Oropharynx clear, handling secretions, no trismus, no asymmetry of the posterior oropharynx or uvular edema Neck: Supple, full ROM, non tender to palpation in the midline, no stridor, no crepitus, no meningeal signs. Trachea at midline. Respiratory: Lungs clear to auscultation bilaterally, no wheezes, rales, or rhonchi, not in respiratory distress. Cardiovascular: Regular rate, regular rhythm, no murmurs, gallops, or rubs, 2+ distal pulses. Chest: normal chest wall movement GI: Abdomen soft, nontender, nondistended, + BS, no organomegaly, no palpable masses, no rebound, guarding, or rigidity. Musculoskeletal: Moves all extremities x3, pt has some weakness with left arm movement active and pain with passive ROM, he says he's mostly tender to left shoulder region, he denies any pain along flexor portion of left wrist = negative phalen, negative tinel's exam, he has no skin change to region, overall he's warm and well perfused, no clubbing, cyanosis, or edema, cap refill <3 seconds Integument: Skin warm and dry, no rashes. Lymphatic: No lymphadenopathy noted. Neurologic: GCS 15, no focal deficits, symmetric strength 5/5 in the upper and lower extremities bilaterally. Psychiatric: Normal affect. ====ED Course and Medical Decision Making==== Differential diagnosis includes, but is not limited to: left arm rotator cuff tendonitis, left rotator cuff tear, atypical CP, ACS, muscle tear, cervical radiculopathy, CVA/TIA, psychogenic weakness, somatoform complaints Portions of this note were dictated by speech recognition. An attempt at proof reading was made to minimize errors. Minor errors in wet suit gluer may be present. Please call if questions.. HISTORY OF PRESENTING ILLNESS ALYSSA is a 28 year old Male and was seen by me at 30-Mar-2019 15:02 for a chief complaint of chest pain (c/o nausea and left side chest pain on and off since yesterday. c/o increased pain with movement and deep breath. denies fever or cough)(1). Triage Information: Most recent Vital Sign Value Date Temp (F): 97.8 03-30-2019 15:15 Temp (C): 36.5 03-30-2019 15:15 Heart Rate (beats/min): 84 03-30-2019 15:15 Respirations (breaths/min): 14 03-30-2019 15:15 SpO2 (%): 98 03-30-2019 15:15 BP Systolic (mm Hg): 123 03-30-2019 15:15 BP Diastolic (mm Hg): 98 03-30-2019 15:15 PAST MEDICAL HISTORY ATTESTATION: I have reviewed and confirmed nurse's/medic's notes for patient's medications, allergies, medical history, and surgical history ALLERGIES/INTOLERANCES: No Known Allergies HEALTH HISTORY: No documented data. OUTPATIENT MEDICATIONS: Home Medications Review Status for Reconciliation: Complete Med Status: Patient Currently Takes Medications Drug Name: Zofran ODT 4 mg oral tablet, disintegrating Instructions: 1 tab(s) orally 3 times a day SIGNIFICANT EVENTS: Immunizations Description:.Influenza- Influenza Virus Past Medical History Description:Depression Description:liver damage Description:aspergers disease RESULTS/VITAL SIGNS RESULTS: Recent Lab Results: I have reviewed these laboratory results: Troponin I, Serum Trending View [id number] 18:31:00 30-Mar-2019 15:35:00 Troponin I, Serum<0.02 <0.02 Complete Blood Count + Differential 30-Mar-2019 15:35:00 ResultValue White Blood Cell Count 7.3 Nucleated Erythrocyte Count 0.1 Red Blood Cell Count 4.86 HGB 14.4 HCT 43.2 MCV 89 MCHC 33.4 PLT 232 RDW-CV 13.4 Neutrophil % 70.7 Lymphocyte % 19.1 Monocyte % 7.6 Eosinophil % 0.8 Basophil % 1.8 Neutrophil Count 5.10 Lymphocyte Count 1.40 Monocyte Count 0.60 Eosinophil Count 0.10 Basophil Count 0.10 Basic Metabolic Panel 30-Mar-2019 15:35:00 ResultValue Glucose, Serum 107 H NA 137 K 3.8 CL 104 Bicarbonate, Serum 25 Anion Gap, Serum 12 BUN 13 CREAT 0.89 GFR-Non >60 GFR- >60 Calcium, Serum 9.1 PT + INR, Plasma 30-Mar-2019 15:35:00 ResultValue Prothrombin Time, Plasma 13.0 H International Normalized Ratio, Plasma 1.1 Radiology Results: CT Head without Contrast [Mar 30 2019 4:49PM] Xray Chest 1 View [Mar 30 2019 4:01PM] CT Head without Contrast [Mar 30 2019 4:49PM] FINAL REPORT Interpreted by: RADHA VASQUEZ MD 03/30/19 16:48 Facility: Addendum Begins Patient Name: ALYSSA CARR ADDENDUM: There is an error in the previously generated report. Opacification of the right mastoid air cells are identified.. The left mastoid air cells are clear. Addendum Ends Patient Name: ALYSSA CARR STUDY: CT HEAD WO CONTRAST; 03/30/2019 4:03 pm INDICATION: left arm weakness. COMPARISON: None. ACCESSION NUMBER(S): [id number] ORDERING CLINICIAN: ALYSSA ALICEA TECHNIQUE: Noncontrast axial CT scan of head was performed. Angled reformats in brain and bone windows were generated. The images were reviewed in bone, brain, blood and soft tissue windows. FINDINGS: CSF Spaces: The ventricles, sulci and basal cisterns are within normal limits. There is no extraaxial fluid collection. Parenchyma: The hayes-white differentiation is intact. There is no mass effect or midline shift. There is no intracranial hemorrhage. Calvarium: The calvarium is unremarkable. Paranasal sinuses and mastoids: Visualized paranasal sinuses and mastoids are clear. IMPRESSION: No evidence of acute cortical infarct or intracranial hemorrhage. No evidence of intracranial hemorrhage or displaced skull fracture. Transcribed By: Interface, User Electronically Signed By: RADHA VASQUEZ 03/30/19 16:48 Xray Chest 1 View [Mar 30 2019 4:01PM] FINAL REPORT Interpreted by: DONTE BULLARD MD 03/30/19 15:59 Facility: Patient Name: ALYSSA CARR STUDY: CHEST 1 VIEW; 03/30/2019 3:35 pm INDICATION: Chest Pain. COMPARISON: None. ACCESSION NUMBER(S): [id number] ORDERING CLINICIAN: ALYSSA ALICEA FINDINGS: CHEST AP PORTABLE UPRIGHT Overlying monitoring leads are present. CARDIOMEDIASTINAL SILHOUETTE: Cardiomediastinal silhouette is normal in size and configuration. LUNGS: Lungs are clear. ABDOMEN: No remarkable upper abdominal findings. BONES: No acute osseous changes. IMPRESSION: No evidence of acute cardiopulmonary process. No change from 02/12/2018. Transcribed By: Interface, User Electronically Signed By: DONTE BULLARD 03/30/19 15:59 VITAL SIGNS: T PRBP SpO2O2(LPM) %FiO2 Method 30-Mar-2019 19:09:005053827/76 99 room air, no respiratory support 30-Mar-2019 18:29:00-0251738/84 99 room air, no respiratory support 30-Mar-2019 17:51:00-8926311/83 99 room air, no respiratory support 30-Mar-2019 17:09:005939099/79 98 room air, no respiratory support 30-Mar-2019 16:21:00-2684905/74 98 room air, no respiratory support 30-Mar-2019 15:49:00-6239268/87 98 30-Mar-2019 15:15:00-36.47179606/98 98 room air, no respiratory support 30-Mar-2019 15:10:00-8464937/97 98 room air, no respiratory support 30-Mar-2019 14:55:00-36.21987701/98 98 room air, no respiratory support EKG INTERPRETATION: Impression: 15:02 hrs: NSR HR 78bpm, normal axis, no ischemic pattern 18:23hrs: NSR HR 76bpm, normal axis, no ischemic pattern MEDICAL DECISION MAKING/ED COURSE MDM/ED COURSE: x2 negative troponins, x2 negative EKG. pt is c/o nausea, suspect viral condition, tx as such. given observed weakness, & family h/o neurological events, plan to obtain CT brain, he agreed, negative study. HEART Score 1; pt will be referred to GP. Suspect left shoulder tendonitis given overuse syndrome, suspected. Refer to ORTHO = Dr. Mckee or [facility] given proximity to job. CLINICAL DECISION SUPPORT HEART SCORE HEART History: Slightly suspicious HEART ECG: Normal HEART Age: Less than or = to 45 years HEART Risk Factors: 1 or 2 risk factors HEART Troponin: Less than or = 1x the normal limit TOTAL HEART SCORE: 1 CLINICAL IMPRESSION Diagnosis/Annotation: ED Dx Name:Chest pain at rest Code:R07.9 M75.80 Dispostion: discharged Type: home ATTESTATION Attestation: Supervising physician on site, available for consultation, non-participatory in the evaluation of the care of this patient. Comments/Additional Findings: I, Catalina Youssef, am scribing for and in the presence of Alyssa Alicea. I, Alyssa Alicea, attest that all medical record entries were made by the scribe under my direction and personally dictated by me. I have reviewed the chart and agree that the record accurately reflects my performance of the history, physical, and assessment and plan. I have also personally directed, reviewed and agree with the discharge instructions.. CRITICAL CARE TIME Is this a critically ill patient: no Electronic Signatures: Catalina Youssef (Scribe) (Entered 30-Mar-2019 15:33) Entered: Provider Note - ED v2 Alyssa Alicea (PAC) (Signed 30-Mar-2019 19:20) Authored: Provider Note - ED v2 Last Updated: 30-Mar-2019 19:20 by Alyssa Alicea (PAC) References: 1. Data Referenced From Triage - ED 30-Mar-2019 15:15 Normal [facility] Risk Screen - Adult Emergenc yon 03-30-2019 Risk Screen - Adult Emergency Preferred Language: Preferred Language: Preferred Language for Discussing Health Care (patient/designee)Peruvian Advanced Directives: Advance Directive/DNRno Family Violence Adult: Abuse Screen: Are you or have you been threatened or abused physically, emotionally, or sexually by anyoneno Learning Assessment (Patient): Learning Assessment (Patient): Patient is Able to be Assessed for Learningyes Factors Influencing Readiness to Learnn/a Factors that Impact Ability to Learnnone Devices/Methods Used to Communicatenone Learning Preferencesverbal instruction; written material Cultural Considerationsnone Developmental Considerationsnone Rastafari Considerationsnone Other Learnersspouse Learning Assessment (Other Learner): Learning Assessment (Other Learner): Other learner availableyes... Learnerspouse Factors Influencing Readiness to Learnn/a Factors that Impact Ability to Learnnone Devices/Methods Used to Communicatenone Learning Preferencesverbal instruction, written material Cultural Considerationsnone Developmental Considerationsnone Rastafari Considerationsnone Pressure Injury/TB/Substance: Pressure Injury: Do you have a coughno Substance Use Current or Former HistoryYES: Cigarette/Tobacco, Alcohol, Street Drugs Smoking Statuscurrent some day smoker Alcohol Useoccasionally Drug Useoccasionally Street Drug/Medication/ Inhalant Use Additional Commentsmarijuana Admission Risk Screen: Significant IndicatorsComplete CAGE: CAGE: Is this an injured patient at a Trauma Center [place]): no Electronic Signatures: Adrienne West (ALLISON) (Signed 30-Mar-2019 15:20) Authored: Preferred Language, Advanced Directives, Family Violence Adult, Learning Assessment (Patient), Learning Assessment (Other Learner), Pressure Injury/TB/Substance, CAGE Last Updated: 30-Mar-2019 15:20 by Adrienne West (ALLISON) Normal [facility] TROPONIN Ion 03-30-2019 Troponin I.cardiac [Mass/Vol] ng/mL Normal 0.00 - 0.03 [facility] Comment on above: Result Comment: LESS THAN 0.04 NG/ML: NEGATIVE REPEAT TESTING IN THREE TO SIX HOURS IF CLINICALLY INDICATED. 0.04 - 0.5 NG/ML: CONSISTENT WITH POSSIBLE CARDIAC DAMAGE AND POSSIBLE INCREASED CLINICAL RISK. SERIAL MEASUREMENTS MAY HELP ASSESS EXTENT OF MYOCARDIAL DAMAGE. >0.5 NG/ML: CONSISTENT WITH CARDIAC DAMAGE, INCREASED CLINICAL RISK AND MYOCARDIAL INFARCTION. SERIAL MEASUREMENTS MAY HELP ASSESS EXTENT OF MYOCARDIAL DAMAGE. . Note: Troponin I testing is performed using different testing methodology at [facility] than at other [facility]. Direct result comparisons should only be made within the same method. Performed By: #### T ROP2 #### [address] [address] Troponin I.cardiac [Mass/Vol] ng/mL Normal 0.00 - 0.03 [facility] Comment on above: Result Comment: LESS THAN 0.04 NG/ML: NEGATIVE REPEAT TESTING IN THREE TO SIX HOURS IF CLINICALLY INDICATED. 0.04 - 0.5 NG/ML: CONSISTENT WITH POSSIBLE CARDIAC DAMAGE AND POSSIBLE INCREASED CLINICAL RISK. SERIAL MEASUREMENTS MAY HELP ASSESS EXTENT OF MYOCARDIAL DAMAGE. >0.5 NG/ML: CONSISTENT WITH CARDIAC DAMAGE, INCREASED CLINICAL RISK AND MYOCARDIAL INFARCTION. SERIAL MEASUREMENTS MAY HELP ASSESS EXTENT OF MYOCARDIAL DAMAGE. . Note: Troponin I testing is performed using different testing methodology at [facility] than at other [facility]. Direct result comparisons should only be made within the same method. Performed By: #### T ROP2 #### [address] [address] Triage - EDon 03-30-2019 Triage - ED Chart Review: CHIEF COMPLAINT ALYSSA CARR is a Male patient with a chief complaint of chest pain (c/o nausea and left side chest pain on and off since yesterday. c/o increased pain with movement and deep breath. denies fever or cough). Triage Date/Time: 30-Mar-2019 15:15 Pain Rating (0-10): 5 = Moderate Pain location: left sided chest Vital Signs: Temperature: 97.8F ( 36.5C) taken oral Blood Pressure: 123/98 Mean: Heart Rate: 84 Respiratory Rate: 14 Pulse Oximetry: 98% on room air, no respiratory support. Height: 6 feet 4.00 inches. 193.0 CM Weight: 180.0 pounds. Calculated 81.6 kg. (stated) Calculated BMI (kg/m2): 21.906 Calculated BSA (m2) 2.09 Jamshid Coma Scale: Best Eye Response: (E4) spontaneous Best Motor Response: (M6) obeys commands Best Verbal Response: (V5) oriented Jamshid Score: 15 Patient has homicidal thoughts: no RAFA: 2 Symptoms Are POSITIVE For: nausea and pain Risk Screens Suicide Risk Screen In the Past Month: Have you wished you were or wished you could go to sleep and not wake up no In the Past Month: Have you had any actual thoughts of killing yourself no In Your Lifetime: Have you ever done anything, started to do anything, or prepared to do anything to end your life no Beavers Fall Scale Screening Has the patient fallen before (or is the patient in the ED as a result of a fall) has not had a fall Does the patient have an impaired gait does not have impaired gait Is the patient cognitively impaired not cognitively impaired Interventions: Beavers Fall Interventions: *patient oriented to surroundings and call system, * patient/family falls education completed and documented, *patients fall status communicated during bedside handoff, *whiteboard updated, *mode of toileting discussed with patient, *bed in low position with brakes locked, *call light in reach, * non-skid footwear PAIN Pain Scale Used: JB Pain Rating (0-10): 5 = Moderate ARRIVAL INFORMATION Means of Arrival: Ambulatory Mode of Arrival: private vehicle Arrival From: home Accompanied By: self Language: Spoken Language Preferred: Peruvian Reading Language Preferred: Peruvian Present on Arrival: Device Present on Arrival to ED: no PRIMARY ASSESSMENT ALYSSA CARR's primary assessment is Within Normal Limits. The airway is open and patent. Breathing spontaneous and unlabored with clear breath sounds bilaterally. Circulation is normal with good peripheral pulses. Skin is warm and dry and color is normal for race. TRAVEL HISTORY Travel Exposure History: NO travel to International locations in the past 30 days Past Medical History: Past Medical History Reviewedyes Electronic Signatures: Adrienne West (ALLISON) (Signed 30-Mar-2019 15:19) Authored: Triage, Past Medical History Last Updated: 30-Mar-2019 15:19 by Adrienne West (ALLISON) Normal [facility] XR Chest 2 Viewson 8 INR Coag RelTime (Bld) Exam Date/Time:02/12/2018 22:36 ESTReason for Exam:Chest painReportSTUDY:XR Chest 2 Views; 02/12/2018 10:36 pmINDICATION:Chest pain.COMPARISON:02/04/2017ACCE SSION NUMBER(S):[id number] RING CLINICIAN:Darrius SokariFINDINGS:CARDIOMEDIASTIN AL SILHOUETTE:Cardiomediastinal silhouette is normal in size and configuration.LUNGS:Lungs are clear. There is no confluent airspace disease or effusion.ABDOMEN:No remarkable upper abdominal findings.BONES:No acute osseous changes.IMPRESSION:1. No evidence of acute cardiopulmonary process. FINAL REPORT Dictated: 02/12/2018 10:38 pm Renuka MCARTHUR, Martin JSigned (Electronic Signature): 02/12/2018 10:38 pmSigned by: Martin Grayson MD Technologist: , [facility] CBC and Differentialon 06-11 Abs Baso <0.03 Normal <0.11 [facility] Comment on above: Performed By: #### C BCDIF, ALCO, CMP ####[place] [address] Abs [place] 0.63 k/uL Normal <0.87 [facility] Comment on above: Performed By: #### C BCDIF, ALCO, CMP ####[place] [address] Abs Neut 6.47 k/uL Normal 1.45-7.50 [facility] Comment on above: Performed By: #### C BCDIF, ALCO, CMP ####[place] [address] Basophils/100 WBC Auto (Bld) 0.2 % Normal [facility] Comment on above: Performed By: #### C BCDIF, ALCO, CMP ####[place] [phone] DTYPE Auto Diff Normal [facility] Comment on above: Performed By: #### C BCDIF, ALCO, CMP ####[place] [phone] Eosinophils 0.08 10*3/uL Normal <0.46 [facility] Comment on above: Performed By: #### C BCDIF, ALCO, CMP ####[place] [id number] Eosinophils/100 leukocytes 0.9 % Normal [facility] Comment on above: Performed By: #### C BCDIF, ALCO, CMP ####[place] [address] Erythrocyte distribution width Auto Ratio (RBC) 13.1 % Normal 11.5-15.0 [facility] Comment on above: Performed By: #### C BCDIF, ALCO, CMP ####[place] [address] Erythrocytes (RBC) 5.15 10*6/uL Normal 4.20-6.00 [facility] Comment on above: Performed By: #### C BCDIF, ALCO, CMP ####[place] [address] Hematocrit (HCT) 44.9 % Normal 39.0-51.0 [facility] Comment on above: Performed By: #### C BCDIF, ALCO, CMP ####[place] [address] Hemoglobin mass conc (Bld) 15.3 g/dL Normal 13.0-17.0 [facility] Comment on above: Performed By: #### C BCDIF, ALCO, CMP ####[place] [address] Lymphocytes 1.28 10*3/uL Normal 1.00-4.00 [facility] Comment on above: Performed By: #### C BCDIF, ALCO, CMP ####[place] [address] Lymphocytes/100 leukocytes 15.1 % Normal [facility] Comment on above: Performed By: #### C BCDIF, ALCO, CMP ####[address] MCH 29.7 pG Normal 26.0-34.0 [facility] Comment on above: Performed By: #### C BCDIF, ALCO, CMP ####[facility] [place] [phone] MCHC mass conc (RBC) 34.1 g/dL Normal 30.5-36.0 [facility] Comment on above: Performed By: #### C BCDIF, ALCO, CMP ####[place] [phone] MCV 87.2 fL Normal 80.0-100.0 [facility] Comment on above: Performed By: #### C BCDIF, ALCO, CMP ####[place] [phone] Monocytes/100 leukocytes 7.4 % Normal [facility] Comment on above: Performed By: #### C BCDIF, ALCO, CMP ####[place] [phone] Neutrophils/100 WBC Auto (Bld) 76.4 % Normal [facility] Comment on above: Performed By: #### C BCDIF, ALCO, CMP ####[place] [phone] Platelet mean volume (PMV) 11.6 fL Normal 9.0-12.7 [facility] Comment on above: Performed By: #### C BCDIF, ALCO, CMP ####[place] [phone] Platelets 212 10*3/uL Normal 150-400 [facility] Comment on above: Performed By: #### C BCDIF, ALCO, CMP ####[place] [phone] WBC (Leukocytes) 8.48 10*3/uL Normal 3.70-11.00 [facility] Comment on above: Performed By: #### C BCDIF, ALCO, CMP ####[facility] [place] [phone] Comp Metabolic Panelon 06-11 Alanine aminotransferase (ALT) 12 U/L Normal 5-50 [facility] Comment on above: Performed By: #### C BCDIF, ALCO, CMP ####[place] [address] Albumin 4.8 g/dL Normal 3.5-5.0 [facility] Comment on above: Performed By: #### C BCDIF, ALCO, CMP ####[place] [address] Alkaline phosphatase (ALP) 76 U/L Normal 40-150 [facility] Comment on above: Performed By: #### C BCDIF, ALCO, CMP ####[place] [address] Anion gap 14 mmol/L Normal 9-18 [facility] Comment on above: Performed By: #### C BCDIF, ALCO, CMP ####[place] [address] Aspartate aminotransferase (AST) 17 U/L Normal 7-40 [facility] Comment on above: Performed By: #### C BCDIF, ALCO, CMP ####[place] [address] Bilirubin (total) 0.4 mg/dL Normal 0.0-1.5 [facility] Comment on above: Performed By: #### C BCDIF, ALCO, CMP ####[place] [address] Calcium 9.4 mg/dL Normal 8.5-10.5 [facility] Comment on above: Performed By: #### C BCDIF, ALCO, CMP ####[place] [address] Chloride 100 mmol/L Normal 98-110 [facility] Comment on above: Performed By: #### C BCDIF, ALCO, CMP ####[place] [address] CO2 25 mmol/L Normal 23-32 [facility] Comment on above: Performed By: #### C BCDIF, ALCO, CMP ####[place] [address] Creatinine 0.79 mg/dL Normal 0.70-1.40 [facility] Comment on above: Performed By: #### C BCDIF, ALCO, CMP ####[place] [address] eGFR (non-black) mL/min/{1.73_m2} Normal >60 [facility] Comment on above: Performed By: #### C BCDIF, ALCO, CMP ####[place] [address] Glucose mass conc 97 mg/dL Normal 65-100 [facility] Comment on above: Performed By: #### C BCDIF, ALCO, CMP ####[place] [address] Potassium molar conc 4.0 mmol/L Normal 3.5-5.0 [facility] Comment on above: Performed By: #### C BCDIF, ALCO, CMP ####[place] [address] Protein 8.2 g/dL Normal 6.0-8.4 [facility] Comment on above: Performed By: #### C BCDIF, ALCO, CMP ####[place] [address] Sodium 139 mmol/L Normal 135-146 [facility] Comment on above: Performed By: #### C BCDIF, ALCO, CMP ####[place] [address] Urea nitrogen 11 mg/dL Normal 10-25 [facility] Comment on above: Performed By: #### C BCDIF, ALCO, CMP ####[place] [address] ED NOTEon 06-11-2017 ED NOTE HNO ID: [id number] Author: [facility] David [facility] Service: (none) Author Type: Health Academic Hospitalist Type: ED Notes Filed: 06/14/2017 9:41 AM Note Text: PT states is doing better. He has a meeting with [facility] today [facility] ED NOTE HNO ID: [id number] thor: [place] MccrayRn) Nino Carreraice: Robert Type: Registered NurseType: ED NotesFiled: 06/11/2017 3:21 PMNote Text:Discharge instructions, follow up discussed. Pt. comprehends andverbalizes understanding of the instructions given. AANDOX3, pt. ambulatoryout of ER to home. [facility] ED NOTE HNO ID: [id number] Author: Frances Burton (Rn) ALLISON Dowell Service: (none) Author Type: Registered Nurse Type: ED Notes Filed: 06/11/2017 1:47 PM Note Text: Clean catch urine specimen obtained and sent. [facility] ED NOTE HNO ID: [id number] Author: Frances MccrayRn) ALLISON Dowell Service: (none) Author Type: Registered Nurse Type: ED Notes Filed: 06/11/2017 12:56 PM Note Text: Labs were drawn and sent. [facility] ED NOTE HNO ID: [id number] thor: Frances Burton (Allison) Nino Dowellice: (none)Author Type: Registered NurseType: ED NotesFiled: 06/11/2017 12:34 PMNote Text: Pt. Came in by EMS due to fleeting thoughts of harming himself. Pt.Denies homicidal ideation. Pt. Does not have a plan. [facility]. Pt. Alert andoriented x3. Pt. States he wants to get some [facility]. [facility]. Pt. States he wants to get apsychiatrist. Marysol HARRISON at the bedside. [facility] ED NOTE HNO ID: [id number] thor: Iván MccrayRn) Nino Whiteheadice: (none)Author Type: Registered NurseType: ED NotesFiled: 06/11/2017 12:24 PMNote Text:Bed: 11-EDExpected date: 06/11/17Expected time: 12:20 PMMeans of arrival: Angella MURDOCK (72)Comments:26M [id number] [phone] RA Normal [facility] ED PROV NOTEon 06-11-2017 ED PROV NOTE HNO ID: [id number] thor: Marian Stockton MDService: Emergency MedicineAuthor Type: PhysicianType: ED Provider NotesFiled: 06/13/2017 3:23 PMNote Text:ED Provider NotePatient Name: Alyssa CarrMRN: [id number] DATE: 06/11/17HistoryNo chief complaint on file.HPI Comments: 26-year-old male presents to ED for behavioral evaluationfor suicidal ideation. Patient reports he has a history of previoussuicidal ideations. In 2015 he cut himself multiple times and tried tooverdose. Patient reports last 2 weeks she's had an increase in stressand anxiety. Recently things have been ahta-wjb-fhd and is putting kneeover the edge. Patient was seen at outside ER yesterday for psychiatricevaluation. Was evaluated and felt patient was safe to be discharged homeand follow-up as an outpatient. Patient returns today as he has concernfor his safety at home. Patient reports he is off work this weekend andhas no social support. Reports he'll be isolated by himself and isconcerned that he potentially would cut himself. Patient denies alcoholor drug use. Has not been on any psychiatric medication since 2016.No past medical history on file.No past surgical history on file.No family history on file.Social HistorySocial History Main Topics- Smoking status: Unknown If Ever Smoked- Smokeless tobacco: None- Alcohol use None- Drug use: None- Sexual activity: Not AskedALLERGIESNot on FileReview of SystemsConstitutional: Negative for chills and fever.HENT: Negative for congestion, rhinorrhea and sore throat.Eyes: Negative for photophobia and visual disturbance.Respiratory: Negative for cough and shortness of breath.Cardiovascular: Negative for chest pain.Gastrointestinal: Negative for abdominal pain, constipation, diarrhea,nausea and vomiting.Endocrine: Negative for polydipsia, polyphagia and polyuria.Genitourinary: Negative for difficulty urinating, dysuria, flank pain,frequency, hematuria and urgency.Musculoskeletal: Negative for arthralgias and myalgias.Skin: Negative for color change.Neurological: Negative for dizziness, syncope, weakness and headaches.Hematological: Negative.Psychiatric/Behaviora l: Positive for behavioral problems and suicidalideas. Negative for confusion, hallucinations and self-injury. The patientis not nervous/anxious and is not hyperactive.Physical ExamBP 130/85 Pulse 84 Temp (Src) 98.1 (Oral) Resp 19 Ht 6' 4 (1.93m) Wt 170 lb (77.1kg) SpO2 98% BMI 20.70 kg/(m2).Physical ExamConstitutional: He is oriented to person, place, and time. He appearswell-developed and well-nourished.HENT:Head: Normocephalic and atraumatic.Right Ear: External ear normal.Left Ear: External ear normal.Nose: Nose normal.Mouth/Throat: Oropharynx is clear and moist.Eyes: Conjunctivae and EOM are normal. Pupils are equal, round, andreactive to light.Neck: Normal range of motion. Neck supple.Cardiovascular: Normal rate, regular rhythm, normal heart sounds andintact distal pulses.Pulmonary/Chest: Effort normal and breath sounds normal. He has nowheezes. He has no rales.Abdominal: Soft. Bowel sounds are normal. There is no tenderness. There isno rebound and no guarding.Musculoskeletal: Normal range of motion.Neurological: He is alert and oriented to person, place, and time.Skin: Skin is warm and dry.Psychiatric: He has a normal mood and affect. His speech is normal andbehavior is normal. Cognition and memory are normal. He expresses suicidalideation. He expresses suicidal plans. He expresses no homicidal plans.Good eye contactCooperativeDiagnostic TestingED Labs Ordered and ReviewedALCOHOL / ETHANOL BLOOD (AK,AV,EU,FV,HL,RONNY,MM,SP)CBC + AUTO DIFF (AK,AV,EU,FV,HL,RONNY,MM,SP)COMPR EHENSIVE METABOLIC PANEL (AK,AV,EU,FV,HL,RONNY,MM,SP)URINE DRUG SCREEN (AK,AV,EU,FV,HL,RONNY,MM,SP)URINA LYSIS WITH MICROSCOPIC (AK,AV,EU,FV,HL,RONNY,MM,SP)No orders to displayProceduresMedical Decision Making / ED CourseED [id number] male presents to ED for behavioral evaluation for suicidalideation. Increased stress and anxiety recently and is having thoughts ofcutting himself.Patient arrives to ED afebrile, stableMedical clearance workup startedBehavioral health consultedOn my exam, patient is smiling and cheerful. Very open about his pastpsychiatric history. Very honest and cooperative. Behavioral healthevaluated patient. At this time Bharat Reese does not feel patient is a harmto himself or others. Feels the patient is safe to be discharged homewith outpatient follow-up. He currently has a counselor that he seesregularly. And was given new referral to psychiatry yesterday.Behavioral health believes patient has attention seeking behavior. Veryfriendly, open and smiling about previous suicide attempts. He isbeginning a DBT therapy group with first meeting next week, and he has an[facility] counselor [facility] [place].Patient was evaluated by behavioral health who does not believe he is aharm to himself or others. Has outpatient follow-up. Patient dischargedhome. Patient agreeable with plan.Encounter Diagnosis ICD-10-CM1. Encounter for psychological evaluation Z00.8PlanThe Patient was DISCHARGED: Counseled patient regarding suspecteddiagnosis AND need for follow-up. Discharged home with verbal and writteninstructions. They were instructed to return as needed for persistent orworsening symptoms or any new concerns.Condition at time of disposition: stableSIGNATURE: CHRISTY Fowler-Irina (Christy) Gtrjkym22/23/18 1412Kelradha (Christy) Wwkjldr20/23/18 1412Attending NoteI have personally performed a face to face assessment of the patient andhave reviewed the PA/SPORTS COMPLEX ATTENDANT note. My rayo findings include:Here for SI, with increase stressors, seen by , attention speaking,smiling, has support. Dc home.Signature: SLIM Lloydate: 06/13/17Time: 3:13 Ibis Stockton MD06/13/17 1523 Normal [facility] Ethanolon 06-11-2017 Ethanol mg/dL Normal <11 [facility] Comment on above: Performed By: #### C BCDIF, JESUS ALBERTOO, CMP ####[place] [address] Toxicology Screen,Uron 06-11 Amphetamines, Urine Negative Normal Negative [facility] Comment on above: Result Comment: Cuto ff threshold at 1000 ng/mL. Performed By: #### U AWMIC, UTOX2 ####[place] [address] Barbiturates, Urine Negative Normal Negative [facility] Comment on above: Result Comment: Cuto ff threshold at 200 ng/mL. Performed By: #### U AWMIC, UTOX2 ####[place] [address] Benzodiazepines, Ur Negative Normal Negative [facility] Comment on above: Result Comment: Cuto ff threshold at 200 ng/mL. Performed By: #### U AWMIC, UTOX2 ####[place] [address] Cannabinoids, Urine Negative Normal Negative [facility] Comment on above: Result Comment: Cuto ff threshold at 50 ng/mL. Performed By: #### U AWMIC, UTOX2 ####[place] [address] Cocaine, Urine Negative Normal Negative [facility] Comment on above: Result Comment: Cuto ff threshold at 300 ng/mL. Performed By: #### U AWMIC, UTOX2 ####[place] [address] Ethanol, Urine <11 Normal <11 [facility] Comment on above: Performed By: #### U AWMIC, UTOX2 ####[place] [address] Opiates, Urine Negative Normal Negative [facility] Comment on above: Result Comment: Cuto ff threshold at 300 ng/mL. Performed By: #### U AWMIC, UTOX2 ####[place] [address] Oxycodone, Urine Negative Normal Negative [facility] Comment on above: Result Comment: Cuto ff threshold at 100 ng/mL.Comment:Immunoassay screen only. Cross reactivity with other substances can occur with immunoassay screening. Detection of any drug(s) in this urine toxicology panel is presumptive only. These tests are for medical purposes only and should not be used for compliance monitoring, legal, or forensic use.In clinical settings, confirmatory testing is at the practitioner's discretion [1]. If clinically indicated, confirmation by high specificity, quantitative methodology may be requested on the same specimen through Client Services ([phone]) if contacted within 48 hours of initial testing.[1]Substance Abuse and Mental Health Services Administration (2012). Clinical Drug Testing in Primary Care Technical Assistance Publication Series 32. Department of Health and Human Services, [place], p.10. Performed By: #### Lizzette CASTRO UTOX2 ####[address] Phencyclidine, Urine Negative Normal Negative [facility] Comment on above: Result Comment: Cuto ff threshold at 25 ng/mL. Performed By: #### Lizzette CASTRO UTOX2 ####[address] Urinalysis with Microscopico n 06-11-2017 Bilirubin, Urine Negative Normal Negative [facility] Comment on above: Performed By: #### Lizzette CASTRO UTOX2 ####[address] Comments SEE COMMENT Normal [facility] Comment on above: Result Comment: Micr oscopic Examination Performed Performed By: #### Lizzette CASTRO UTOX2 ####[place] [phone] Erythrocytes (RBC) Negative Normal Negative [facility] Comment on above: Performed By: #### Lizzette CASTRO UTOX2 ####[place] [phone] Hemoglobin mass conc (Bld) Negative Normal Negative [facility] Comment on above: Performed By: #### Lizzette CASTRO UTOX2 ####[place] [phone] Leukest Negative Normal Negative [facility] Comment on above: Performed By: #### U AWMIC, UTOX2 ####[place] [address] pH of blood 6.0 [pH] Normal 5.0-8.0 [facility] Comment on above: Performed By: #### U AWMIC, UTOX2 ####[place] [address] Protein, Urine Negative Normal Negative [facility] Comment on above: Performed By: #### U AWMIC, UTOX2 ####[place] [address] Specific [place], Ur 1.011 Normal 1.005-1.030 [facility] Comment on above: Performed By: #### U AWMIC, UTOX2 ####[place] [address] Urine, clarity Clear Normal Clear [facility] Comment on above: Performed By: #### U AWMIC, UTOX2 ####[place] [address] Urine, color Yellow Normal Yellow [facility] Comment on above: Performed By: #### U AWMIC, UTOX2 ####[place] [address] Urine, glucose presence Negative Normal Negative [facility] Comment on above: Performed By: #### U AWMIC, UTOX2 ####[place] [address] Urine, ketones presence Negative Normal Negative [facility] Comment on above: Performed By: #### U AWMIC, UTOX2 ####[place] [address] Urine, mucus presence in sediment Present Normal [facility] Comment on above: Performed By: #### U AWMIC, UTOX2 ####[place] [address] Urine, nitrite presence Negative Normal Negative [facility] Comment on above: Performed By: #### U AWMIC, UTOX2 ####[place] [phone] Urine, urobilinogen <2.0 Normal <2.0 [facility] Comment on above: Performed By: #### U AWASTER, UTOX2 ####[place] [phone] WBC (Leukocytes) Negative Normal Negative [facility] Comment on above: Performed By: #### U AWASTER, UTOX2 ####[place] [phone] .Auto Diffon 06-10-2017 Basophils Auto #/vol (Bld) 0.10 10 3/mcL Normal 0.00-0.19 [facility] ([place]) Comment on above: Performed By: #### C BC, ADIFF, ANEU, GFR, BMP, ALC ####[address] [place], [place] [address] Basophils/100 WBC Auto (Bld) 0.7 % Normal 0.0-2.5 [facility] ([place]) Comment on above: Performed By: #### C BC, ADIFF, ANEU, GFR, BMP, ALC ####[address] [place], [place] [address] Eosinophils 0.10 10 3/mcL Normal 0.00-0.40 [facility] ([place]) Comment on above: Performed By: #### C BC, ADIFF, ANEU, GFR, BMP, ALC ####[address] [place], [place] [address] Eosinophils/100 leukocytes 0.7 % Normal 0.0-7.0 [facility] ([place]) Comment on above: Performed By: #### C BC, ADIFF, ANEU, GFR, BMP, ALC ####[address] [place], [place] [address] Lymphocytes 1.30 10 3/mcL Normal 0.77-3.85 [facility] ([place]) Comment on above: Performed By: #### C BC, ADIFF, ANEU, GFR, BMP, ALC ####[address] [place], [place] [address] Lymphocytes/100 leukocytes 14.9 % Normal 10.0-50.0 [facility] ([place]) Comment on above: Performed By: #### C BC, ADIFF, ANEU, GFR, BMP, ALC ####[address] [place], [place] [address] Monocytes 0.70 10 3/mcL Normal 0.15-1.00 [facility] ([place]) Comment on above: Performed By: #### C BC, ADIFF, ANEU, GFR, BMP, ALC ####[address] [place], [place] [address] Monocytes/100 leukocytes 7.9 % Normal 1.7-13.0 [facility] ([place]) Comment on above: Performed By: #### C BC, ADIFF, ANEU, GFR, BMP, ALC ####[address] [place], [place] [address] Neutrophils/100 WBC Auto (Bld) 75.8 % Normal 37.0-80.0 [facility] ([place]) Comment on above: Performed By: #### C BC, ADIFF, ANEU, GFR, BMP, ALC ####[address] [place], [place] [address] .GFRon 06-10-2017 eGFR (non-black) mL/min/{1.73_m2} Normal [facility] ([place]) Comment on above: Result Comment: GFR Population mean for , Non- Americans Ages 20-29 = 116 mL/min/1.73 sq.m. Ages 30-39 = 107 mL/min/1.73 sq.m. Ages 40-49 = 99 mL/min/1.73 sq.m. Ages 50-59 = 93 mL/min/1.73 sq.m. Ages 60-69 = 85 mL/min/1.73 sq.m. Ages 70+ = 75 mL/min/1.73 sq.m.Chronic Kidney Disease: Less than 60 mL/min/1.73 square metersEnd Stage Renal Disease: Less than 15 mL/min/1.73 square meters Performed By: #### C BC, ADIFF, ANEU, GFR, BMP, ALC ####[address] [place], [place] [address] eGFR (non-black) 120 ml/min/1.73sqm Normal [facility] ([place]) Comment on above: Result Comment: GFR Population mean for , Non- Americans Ages 20-29 = 116 mL/min/1.73 sq.m. Ages 30-39 = 107 mL/min/1.73 sq.m. Ages 40-49 = 99 mL/min/1.73 sq.m. Ages 50-59 = 93 mL/min/1.73 sq.m. Ages 60-69 = 85 mL/min/1.73 sq.m. Ages 70+ = 75 mL/min/1.73 sq.m.Chronic Kidney Disease: Less than 60 mL/min/1.73 square metersEnd Stage Renal Disease: Less than 15 mL/min/1.73 square meters Performed By: #### C BC, ADIFF, ANEU, GFR, BMP, ALC ####[address] [place], [place] [address] .NEUABSon 06-10-2017 Neutrophils 6.80 10 3/mcL High 2.85-6.16 [facility] ([place]) Comment on above: Performed By: #### C BC, ADIFF, ANEU, GFR, BMP, ALC ####[address] [place], [place] [address] Lilia 06-10-2017 Ethanol Level <10 Normal [facility] ([place]) Comment on above: Performed By: #### C BC, ADIFF, ANEU, GFR, BMP, ALC ####[address] [place], [place] [address] BMPon 06-10-2017 Chloride 102 mmol/L Normal 98-107 [facility] ([place]) Comment on above: Performed By: #### C BC, ADIFF, ANEU, GFR, BMP, ALC ####[address] [place], [place] [address] Electrolyte Balance 8.0 mEq/L Normal [facility] ([place]) Comment on above: Performed By: #### C BC, ADIFF, ANEU, GFR, BMP, ALC ####[address] [place], [place] [address] Potassium molar conc 3.8 mmol/L Normal 3.5-5.1 [facility] ([place]) Comment on above: Performed By: #### C BC, ADIFF, ANEU, GFR, BMP, ALC ####[address] [place], [place] [address] Sodium 138 mmol/L Normal 136-146 [facility] ([place]) Comment on above: Performed By: #### C BC, ADIFF, ANEU, GFR, BMP, ALC ####[address] [place], [place] [address] BUN/Creatinine Ratio 13 ratio Normal 7-27 [facility] ([place]) Comment on above: Performed By: #### C BC, ADIFF, ANEU, GFR, BMP, ALC ####[address] [place], [place] [address] Calcium 9.6 mg/dL Normal 8.4-10.2 [facility] ([place]) Comment on above: Performed By: #### C BC, ADIFF, ANEU, GFR, BMP, ALC ####[address] [place], [place] [address] CO2 28 mmol/L Normal 22-29 [facility] ([place]) Comment on above: Performed By: #### C BC, ADIFF, ANEU, GFR, BMP, ALC ####[address] [place], [place] [address] Creatinine 0.9 mg/dL Normal 0.6-1.2 [facility] ([place]) Comment on above: Performed By: #### C BC, ADIFF, ANEU, GFR, BMP, ALC ####[address] [place], [place] [address] Glucose mass conc 103 mg/dL Normal 70-105 [facility] ([place]) Comment on above: Performed By: #### C BC, ADIFF, ANEU, GFR, BMP, ALC ####[address] [place], [place] [address] Urea nitrogen 12.0 mg/dL Normal 7.0-18.0 [facility] ([place]) Comment on above: Performed By: #### C BC, ADIFF, ANEU, GFR, BMP, ALC ####[address] [place], [place] [address] CBCon 06-10-2017 Erythrocyte distribution width Auto Ratio (RBC) 13.1 % Normal 11.5-14.5 [facility] ([place]) Comment on above: Performed By: #### C BC, ADIFF, ANEU, GFR, BMP, ALC ####[address] [place], [place] [address] Erythrocytes (RBC) 4.92 10 6/mcL Normal 4.04-6.13 [facility] ([place]) Comment on above: Performed By: #### C BC, ADIFF, ANEU, GFR, BMP, ALC ####[address] [place], [place] [address] Hematocrit (HCT) 43.0 % Normal 42.0-52.0 [facility] ([place]) Comment on above: Performed By: #### C BC, ADIFF, ANEU, GFR, BMP, ALC ####[address] [place], [place] [address] Hemoglobin mass conc (Bld) 14.1 G/dL Normal 14.0-18.0 [facility] ([place]) Comment on above: Performed By: #### C BC, ADIFF, ANEU, GFR, BMP, ALC ####[address] [place], [place] [address] MCH 28.7 pg Normal 27.0-31.2 [facility] ([place]) Comment on above: Performed By: #### C BC, ADIFF, ANEU, GFR, BMP, ALC ####[address] [place], [place] [address] MCHC mass conc (RBC) 32.9 G/dL Normal 31.8-35.4 [facility] ([place]) Comment on above: Performed By: #### C BC, ADIFF, ANEU, GFR, BMP, ALC ####[address] [place], [place] [address] MCV 87.3 fL Normal 80.0-94.0 [facility] ([place]) Comment on above: Performed By: #### C BC, ADIFF, ANEU, GFR, BMP, ALC ####[address] [place], [place] [address] Platelet mean volume (PMV) 9.2 fL Normal 7.4-10.4 [facility] ([place]) Comment on above: Performed By: #### C BC, ADIFF, ANEU, GFR, BMP, ALC ####[address] [place], [place] [address] Platelets 193 10 3/mcL Normal 130-400 [facility] ([place]) Comment on above: Performed By: #### C BC, ADIFF, ANEU, GFR, BMP, ALC ####[address] [place], [place] [address] WBC (Leukocytes) 9.00 10 3/mcL Normal 4.60-10.80 [facility] ([place]) Comment on above: Performed By: #### C BC, ADIFF, ANEU, GFR, BMP, ALC ####[address] [place], [place] [address] [facility] Note on 06-10-2017 [facility] Note Normal [facility] ([place]) [facility] Note Normal [facility] ([place]) Pat Eduon 06-10-2017 Pat [facility] ([place]) Patient Summary Documentson 06-10-2017 Patient Summary Documents Normal [facility] ([place]) TOXSCon 06-10-2017 QC TOXSC Valid [facility] ([place]) Comment on above: Performed By: #### T OXSC ####[address] [place], [place] [address] U Ampheta (AO) Negative [facility] ([place]) Comment on above: Performed By: #### T OXSC ####[address] [place], [place] [address] U Sharyn (AO) Negative [facility] ([place]) Comment on above: Performed By: #### T OXSC ####[address] [place], [place] [address] U Souleymane (AO) Negative [facility] ([place]) Comment on above: Performed By: #### T OXSC ####[address] [place], [place] [address] U Cannab (AO) Negative [facility] ([place]) Comment on above: Performed By: #### T OXSC ####[address] [place], [place] [address] U Cocaine (AO) Negative [facility] ([place]) Comment on above: Performed By: #### T OXSC ####[address] [place], [place] [address] U Methadone (AO) Negative [facility] ([place]) Comment on above: Performed By: #### T OXSC ####[address] [place], [place] [address] U PCP (AO) Negative [facility] ([place]) Comment on above: Performed By: #### T OXSC ####[address] [place], [place] [address] U TCA (AO) Negative [facility] ([place]) Comment on above: Performed By: #### T OXSC ####[address] [place], [place] [address] Urine Opiates (AO) Negative [facility] ([place]) Comment on above: Performed By: #### T OXSC ####[address] [place], [place] [address] Discharge Summaryon 12-24-19 17 Discharge Summary Send Summary:Dischar ge Summary Providers:Provider Role Provider Name? Referring Devin Tabares? Attending Devin Tabares? Consulting Ismael Funes Recipients: [facility] (medication management) -[id number]:Summary:A dmission Date: .19-Dec-2016 00:44:00Discharge Date: [id number] Physician at Discharge: Devin TabaresAdmission Reason: Suicidal Ideation(1)Final Discharge Diagnoses: 1) Severe episode of recurrent major depressivedisorder, without psychotic features, 2) Generalized anxiety disorder.Procedures: NoneCondition at Discharge: SatisfactoryDisposition at Discharge: .HomeHospital Course:The patient was personally seen and interviewed, and discussed in morning teamrounds. Initially, Alyssa presented to the ED with worsening depressionfeelings for the past week, along with decreased sleep (middle insomnia), varied to decreased appetite, and increased hopelessness feelings. He alsoimpulsively overdosed on 20 Tylenol as an I don't know suicide attempt.Alyssa denied other symptoms of MDD. He also reported worsening anxiety overthe past year (generalized). Following admission to the [facility], Alyssa's Lexaprowas increased to help with his depression symptoms. He was also encouraged toparticipate in unit groups to help develop coping skills, which he also statedhelped him. By the time of discharge, Alyssa denied experiencing anysignificant symptoms of Major Depression and reported a significant improvementin his feelings of anxiety.Mental Status Exam:General: Appropriately groomed and dressed in casual clothing.Appearance: Appears stated age.Attitude: Calm, cooperative.Behavior: Appropriate eye contact.Motor Activity: No agitation or retardation. No EPS/TD. Normal gait.Speech: Regular rate, rhythm, volume and tone, spontaneous, fluent.Mood: Good Affect: Neutral.Thought Process: Organized, linear, goal directed. Associations are logical.Thought Content: Does not currently endorse any suicidal ideation or plan. Nohomicidal ideation, no overt delusions elicited.Thought Perception: Does not endorse auditory or visual hallucinations, doesnot appear to be responding to hallucinatory stimuli.Cognition: Alert, oriented x 3. No deficits noted. Adequate fund of knowledge.No deficit in recent and remote memory. 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 The patient voiced understanding of theirdiagnosis, the medications recommended along with the importance of medicationcompliance. The patient was counseled not to stop the medications without thesupervision of a psychiatrist. The patient was rehab/pre vocational counselor to follow-up with theiroutpatient medical provider as indicated. The patient was counseled that ifthere was an increase in mental health issues, depression, anxiety, medicationside effects, self harm or thoughts of harm to others, the patient was not toharm them self or stop treatment, but to call [employer], 911 or come to [facility] emergency room. The patient also received information regardingadvanced mental and medical health directives during this hospitalization whichthey could discussed with their outpatient provider. The plan was discussedwith the patient, the nurses and the social work department. The patient voicedagreement with the plan.Risks of continued tobacco use and street drug use was addressed with thepatient which included: inpatient education and counseling of the risks oforal, esophageal as well as other organ cancers (including gastric as well aspancreatic), along with the ongoing risk of neurologic and cardiovasculardisease and events (strokes, angina). Treatment options for tobacco cessationwas offered to include: alternate tobacco products, both inpatient andoutpatient counseling on tobacco dependence. Nicotine replacement product wasoffered during this hospitalization period and will be prescribed at the timeof discharge, along with a referral made for outpatient cessation counselingPsychiatric Care:Psychiatric Continuing Care Plan:Reason for Hospitalization: suicide attempts(2)Discharge Destination: home(2)Safety Recommendations: safety precautions at home (see handout)(2)Advance Directive Medical: no Advanced mental health directives informationprovided to patient upon admission. (2)Additional Resources for Patient and Family: Crisis Hotline Successful Interventions during Inpatient Hospital Stay: coping skills, dailyroutine/ structure, group programming, individual programming(2)Tobacco Use: Screening: Was the patient screened within the first 3 days ofadmission for tobacco use (cigarettes, smokeless tobacco, pipe, and cigar)within the previous 30 days?: yes; tobacco user (2)Tobacco Use: Counseling: Did the patient receive practical counseling to quitduring the first 3 days following admission: yes (2)Tobacco Use: Treatment: Did the patient receive FDA approved cessationmedications (if not contraindicated) during the first 3 days followingadmission: yes (2)Reminder: The Rationale for Discharging this Patient on Multiple Anti PsychoticMedications is MandatoryThis patient is being discharged on multiple antipsychotic medications: no:Take all medications until outpatient provider advises otherwise.Immunizations: Immunizations:20-Dec-2016 .Influenza- Influenza Virus: Immunizations, [id number] Information:and Continuing Care:Discharge Instructions:Activity: activity as tolerated. May shower..Nutrition/Diet: regularFollow Up Appointments:Follow-Up Appointment 01: Physician/Dept/Service: [facility] Reason for Referral: Medication management Scheduled Date/Time: 24-Dec-2016 14:30 Location: [address] [place] [address] F: [phone] Medications: Home Medication escitalopram 20 mg oral tablet - 1 tab(s) orally once a day, for depressionand anxiety. QUEtiapine 200 mg oral tablet - 1 tab(s) orally once (at bedtime), for sleepand mood stabilization. PRN Medication nicotine 2 mg oral transmucosal gum - 2 gum chewed every 4 hours, As Neededfor nicotine cravings.hydrOXYzine pamoate 50 mg oral capsule - 1 cap(s) orally every 6 hours, AsNeeded -AnxietyIssues to Discuss at Follow-up / Goals for Continuing Care:I spent over 30 minutes in the preparation of this summary.Patient's illness, medication side effects, benefits and risks were reviewedwith the patient prior to discharge. The patient voiced understanding of theirdiagnosis, the medications recommended along with the importance of medicationcompliance. The patient was counseled not to stop the medications without thesupervision of a psychiatrist. The patient was rehab/pre vocational counselor to follow-up with theiroutpatient medical provider as indicated. The patient was counseled that ifthere was an increase in mental health issues, depression, anxiety, medicationside effects, self harm or thoughts of harm to others, the patient was not toharm them self or stop treatment, but to call [facility], 911 or come to [facility] emergency room. The patient also received information regardingadvanced mental and medical health directives during this hospitalization whichthey could discussed with their outpatient provider. The plan was discussedwith the patient, the nurses and the social work department. The patient voicedagreement with the plan.Risks of continued tobacco use and street drug use was addressed with thepatient which included: inpatient education and counseling of the risks oforal, esophageal as well as other organ cancers (including gastric as well aspancreatic), along with the ongoing risk of neurologic and cardiovasculardisease and events (strokes, angina). Treatment options for tobacco cessationwas offered to include: alternate tobacco products, both inpatient andoutpatient counseling on tobacco dependence. Nicotine replacement product wasoffered during this hospitalization period and will be prescribed at the timeof discharge, along with a referral made for outpatient cessation counselingLab Results - Pending: NoneRadiology Results - Pending: NoneElectronic Signatures:Devin Tabares) (Signed 24-Dec-2016 08:23) Authored: Send Summary, Summary Content, Psychiatric Care, Immunizations,Ongoing Care, Signature/Cosignature/Attestat ionLast Updated: 24-Dec-2016 08:23 by Devin Tabares)References:1. Data Referenced From Consult-Medicine 12/20/2016 10:15 PM2. Data Referenced From Discharge Profile2 12/19/2016 01:06 AM Normal [facility] GLUCOSE,FASTINGon 12-20-2016 Glucose mass conc 95 mg/dL Normal 74 - 99 [facility] Comment on above: Result Comment: INCR EASED RISK FOR DIABETES 100-125 mg/dL DIAGNOSTIC OF DIABETES >=126 mg/dL Diagnosis of diabetes mellitus requires confirmation of an abnormal result by repeat testing. [place] [employer], Diabetes Care; 33(Supp 1), Mar 2009. Performed By: #### G LUCF ####[id number] [facility] [place] [place] [address] LIPID PANEL (CORONARY RISK 2 )on 12-20-2016 Cholesterol 138 mg/dL Normal 0 - 199 [facility] Comment on above: Result Comment: . AG E DESIRABLE BORDERLINE HIGH HIGH 0-19 Y 0 - 169 170 - 199 >/= 200 20-24 Y 0 - 189 190 - 224 >/= 225 >24 Y 0 - 199 200 - 239 >/= 240 All ranges are based on fasting samples. Specific therapeutic targets will vary based on patient-specific cardiac risk.. Pediatric guidelines reference:Pediatrics 2011, 128(S5). Adult guidelines reference: NCEP ATPIII Guidelines, FLORA 2001, 258:2486-97. Venipuncture immediately after or during the administration of Metamizole may lead to falsely low results. Testing should be performed immediately prior to Metamizole dosing. Performed By: #### L IPID ####[facility] [id number] [place] [address] Cholesterol in VLDL mass conc 18 mg/dL Normal 0 - 40 [facility] Comment on above: Performed By: #### L IPID ####[facility] [id number] [place] [address] Cholesterol to HDL Ratio 3.7 {ratio} Normal [facility] Comment on above: Result Comment: REF VALUESDESIRABLE < 3.4HIGH RISK > 5.0 Performed By: #### L IPID ####[facility] [id number] [place] [address] HDL Cholesterol 37.1 mg/dL Abnormal [facility] Comment on above: Result Comment: . AG E VERY LOW LOW NORMAL HIGH 0-19 Y < 35 < 40 40-45 ---- 20-24 Y ---- < 40 >45 ---- >24 Y ---- < 40 40-60 >60. Performed By: #### L IPID ####[facility] [id number] [place] [address] LDL Cholesterol 83 mg/dL Normal 0 - 99 [facility] Comment on above: Result Comment: . MELVA MARIO AGE DESIRABLE OPTIMAL HIGH HIGH VERY HIGH 0-19 Y 0 - 109 --- 110-129 >/= 130 ---- 20-24 Y 0 - 119 --- 120-159 >/= 160 ---- >24 Y 0 - 99 100-129 130-159 160-189 >/=190. Performed By: #### L IPID ####[facility] [id number] [place] [address] Triglyceride 92 mg/dL Normal 0 - 149 [facility] Comment on above: Result Comment: . AG E DESIRABLE BORDERLINE HIGH HIGH VERY HIGH 0 D-90 D 19 - 174 ---- ---- ----91 D- 9 Y 0 - 74 75 - 99 >/= 100 ---- 10-19 Y 0 - 89 90 - 129 >/= 130 ---- 20-24 Y 0 - 114 115 - 149 >/= 150 ---- >24 Y 0 - 149 150 - 199 200- 499 >/= 500. Venipuncture immediately after or during the administration of Metamizole may lead to falsely low results. Testing should be performed immediately prior to Metamizole dosing. Performed By: #### L IPID ####[facility] [id number] [place] [address] ALC ETHANOLon 11-24-2016 ALC ETHANOL < 3.0 Normal <10.0 [facility] Comment on above: Result Comment: UNCO NFIRMED Toxicology results. For MEDICAL purposes only. Performed By: #### L 500.86003, L500.99012, L500.07551 ####Test performed at: [address] [address] CBC W/DIFFon 11-24-2016 BASO ABS 0.0 K/uL Normal 0.0-0.2 [facility] Comment on above: Performed By: #### L 200.09427 ####Test performed at: [address] [address] Basophils/100 WBC Auto (Bld) 0.5 % Normal [facility] Comment on above: Performed By: #### L 200.36166 ####Test performed at: [address] [address] EOS ABS 0.1 K/uL Normal 0.0-0.5 [facility] Comment on above: Performed By: #### L 200.02930 ####Test performed at: [address] [address] Eosinophils/100 leukocytes 1.1 % Normal [facility] Comment on above: Performed By: #### L 200.86905 ####Test performed at: [address] [address] Erythrocyte distribution width Auto Ratio (RBC) 13.3 % Normal 11.5-14.5 [facility] Comment on above: Performed By: #### L 200.64816 ####Test performed at: [place] [id number] Erythrocytes (RBC) 0.000 10*6/uL Normal 0-0.012 [facility] Comment on above: Performed By: #### L 200.91560 ####Test performed at: [place] [address] Erythrocytes (RBC) 4.30 10*6/uL Normal 3.5-5.5 [facility] Comment on above: Performed By: #### L 200.83435 ####Test performed at: [place] [address] Hematocrit (HCT) 37.5 % Low 39.0-55.0 [facility] Comment on above: Performed By: #### L 200.35349 ####Test performed at: [address] [address] Hemoglobin mass conc (Bld) 12.6 g/dL Low 14.0-16.5 [facility] Comment on above: Performed By: #### L 200.38970 ####Test performed at: [address] [address] IG % 1.0 % Normal [facility] Comment on above: Performed By: #### L 200.83197 ####Test performed at: [address] [address] IG ABS 0.08 K/uL High 0-0.05 [facility] Comment on above: Performed By: #### L 200.85047 ####Test performed at: [address] [address] Lymphocytes 1.3 10*3/uL Normal 1.2-3.5 [facility] Comment on above: Performed By: #### L 200.90761 ####Test performed at: [place] [address] Lymphocytes/100 leukocytes 16.8 % Normal [facility] Comment on above: Performed By: #### L 200.41856 ####Test performed at: [place] [address] MCH 29.3 pg Normal 25.4-34.6 [facility] Comment on above: Performed By: #### L 200.66209 ####Test performed at: [place] [address] MCHC mass conc (RBC) 33.6 g/dL Normal 31.5-36.5 [facility] Comment on above: Performed By: #### L 200.08970 ####Test performed at: [place] [address] MCV 87.2 fL Normal 80.0-100.0 [facility] Comment on above: Performed By: #### L 200.22087 ####Test performed at: [place] [address] MONO ABS 0.6 K/uL Normal 0.0-1.0 [facility] Comment on above: Performed By: #### L 200.31717 ####Test performed at: [place] [address] Monocytes/100 leukocytes 8.0 % Normal [facility] Comment on above: Performed By: #### L 200.49174 ####Test performed at: [place] [address] Neutrophils 5.7 10*3/uL Normal 1.4-6.6 [facility] Comment on above: Performed By: #### L 200.64922 ####Test performed at: [address] [address] Neutrophils/100 WBC Auto (Bld) 72.6 % Normal [facility] Comment on above: Performed By: #### L 200.99883 ####Test performed at: [address] [address] NRBC % 0.0 /100 WBC Normal 0-0.2 [facility] Comment on above: Performed By: #### L 200.54231 ####Test performed at: [address] [address] Platelet mean volume (PMV) 10.8 fL Normal 8.7-12.4 [facility] Comment on above: Performed By: #### L 200.43799 ####Test performed at: [address] [address] Platelets 185 10*3/uL Normal 140-440 [facility] Comment on above: Performed By: #### L 200.15245 ####Test performed at: [address] [address] WBC (Leukocytes) 7.9 10*3/uL Normal 3.9-11.0 [facility] Comment on above: Performed By: #### L 200.38200 ####Test performed at: [address] [address] COMP META PANELon 11-24-2016 Alanine aminotransferase (ALT) 16 U/L Normal 13-61 [facility] Comment on above: Performed By: #### L 500.94556, L500.77398, L500.51126 ####Test performed at: [address] [address] Albumin 3.9 g/dL Normal 3.4-5.0 [facility] Comment on above: Performed By: #### L 500.60539, L500.12815, L500.29233 ####Test performed at: [address] [address] ALK PHOS TOTAL 80 U/L Normal 45-117 [facility] Comment on above: Performed By: #### L 500.12999, L500.75214, L500.82756 ####Test performed at: [address] [address] Aspartate aminotransferase (AST) 14 U/L Low 15-37 [facility] Comment on above: Performed By: #### L 500.75210, L500.41106, L500.82944 ####Test performed at: [address] [address] BILI TOTAL 0.4 mg/dL Normal 0.2-1.0 [facility] Comment on above: Performed By: #### L 500.36311, L500.81547, L500.18911 ####Test performed at: [address] [address] Calcium 8.6 mg/dL Normal 8.5-10.1 [facility] Comment on above: Performed By: #### L 500.03177, L500.64423, L500.59370 ####Test performed at: [address] [address] Chloride 106 mmol/L Normal 98-107 [facility] Comment on above: Performed By: #### L 500.91245, L500.42959, L500.73850 ####Test performed at: [address] [address] CO2 29 mmol/L Normal 21-32 [facility] Comment on above: Performed By: #### L 500.46247, L500.99927, L500.20437 ####Test performed at: [place] [address] Creatinine 0.955 mg/dL Normal 0.700-1.300 [facility] Comment on above: Performed By: #### L 500.62405, L500.59639, L500.17151 ####Test performed at: [place] [address] Glucose mass conc 122 mg/dL High 74-106 [facility] Comment on above: Performed By: #### L 500.04946, L500.95308, L500.92855 ####Test performed at: [place] [address] Potassium molar conc 3.8 mmol/L Normal 3.5-5.1 [facility] Comment on above: Performed By: #### L 500.72219, L500.97476, L500.10552 ####Test performed at: [place] [address] Protein 6.9 g/dL Normal 6.4-8.2 [facility] Comment on above: Performed By: #### L 500.44537, L500.17748, L500.46223 ####Test performed at: [place] [address] Sodium 140 mmol/L Normal 136-145 [facility] Comment on above: Performed By: #### L 500.78809, L500.74696, L500.91919 ####Test performed at: [place] [address] Urea nitrogen 16 mg/dL Normal 7-18 [facility] Comment on above: Performed By: #### L 500.97535, L500.72414, L500.57200 ####Test performed at: [place] [address] GFR ESTIMATEon 11-24-2016 IF AMER > 60 Normal > 60 [facility] Comment on above: Result Comment: eGFR (Estimated GFR) Units of measure:mL/min/1.73 meters sq.*CALCULATION REVISED 01/08/2015;IDMS-traceable MDRD equationeGFR is derived from the reexpressed MDRD Study equationusing the following parameters: serum creatinine, age,gender and race. An eGFR<60 mL/min/1.73m2 for >3 monthsis consistent with chronic kidney disease. Refer to KDOQIguidelines for clinical interpretation. Performed By: #### L 500.87336, L500.01181, L500.74033 ####Test performed at: [place] [address] IF non-AFR AMER > 60 Normal > 60 [facility] Comment on above: Performed By: #### L 500.54581, L500.27300, L500.81867 ####Test performed at: [place] [address] LIMIT UR TOXon 11-24-2016 UR AMPH Negative Normal Negative [facility] Comment on above: Result Comment: CUTO RY=3153 Performed By: #### L 600.10512 ####Test performed at: [place] [address] UR SHARYN Negative Normal Negative [facility] Comment on above: Result Comment: CUTO TU=348 Performed By: #### L 600.36401 ####Test performed at: [place] [address] UR SOULEYMANE Negative Normal Negative [facility] Comment on above: Result Comment: CUTO GG=683 Performed By: #### L 600.72038 ####Test performed at: [place] [address] UR JOSÉ LUIS/THC Negative Normal Negative [facility] Comment on above: Result Comment: CUTO FF=50 Performed By: #### L 600.70004 ####Test performed at: [place] [address] UR FLAVIO Negative Normal Negative [facility] Comment on above: Result Comment: CUTO MC=486 Performed By: #### L 600.27854 ####Test performed at: [place] [address] UR ECSTASY Negative Normal Negative [facility] Comment on above: Result Comment: CUTO UM=165 Performed By: #### L 600.00535 ####Test performed at: [place] [address] UR METH Negative Normal Negative [facility] Comment on above: Result Comment: CUTO RO=556 Performed By: #### L 600.21315 ####Test performed at: [place] [address] UR OPIAT Negative Normal Negative [facility] Comment on above: Result Comment: CUTO FA=431 Performed By: #### L 600.75224 ####Test performed at: [place] [address] UR OXYCOCONE Negative Normal Negative [facility] Comment on above: Result Comment: CUTO QG=126 Performed By: #### L 600.10071 ####Test performed at: [place] [address] UR PCP Negative Normal Negative [facility] Comment on above: Result Comment: CUTO FF=25 Performed By: #### L 600.51474 ####Test performed at: [place] [address] PH TOX 6.0 Normal 5.0-8.0 [facility] Comment on above: Performed By: #### L 600.67632 ####Test performed at: [address] [address] TOX COMMENT *PLEASE NOTE: Normal [facility] Comment on above: Result Comment: UNCO NFIRMED Toxicology results. For MEDICAL purposes only. Performed By: #### L 600.31181 ####Test performed at: [address] [address] Encounters Encounter Date Encounter Type Care Provider Facility Start: 11-20-2023 End: 11-21-2023 Emergency department patient visit EBONI COLES Facility:[id number] Start: 10-10-2023 Admission to establishment [facility] Start: 10-10-2023 [facility] on above: Psychiatric Problem Start: 10-10-2023 End: 10-10-2023 Emergency department patient visit EBONI COLES Facility:[facility] Start: 05-03-2023 Admission to establishment Chayito Mackey RN [facility] Start: 05-03-2023 ambulatory Chayito Mackey RN [facility] Comment on above: Psychiatric Problem Start: 05-03-2023 End: 05-03-2023 Emergency department patient visit EBONI COLES Facility:[facility] Start: 10-25-2022 End: 10-30-2022 Evaluation and management of inpatient [facility] Start: 03-01-2022 End: 03-01-2022 Emergency department patient visit ZEYAD TURRELL Facility:[facility] Start: 02-12-2018 End: 02-13-2018 Emergency department patient visit [facility] Facility:[facility] Start: 02-12-2018 Patient encounter procedure Facility:[id number] Start: 02-07-2018 Patient encounter procedure Lorri Noriega Facility:[id number] Start: 02-06-2018 Patient encounter procedure AUSTEN HARVEY Facility:[id number] Start: 02-05-2018 Patient encounter procedure AUSTEN HARVEY Facility:[id number] Start: 02-04-2018 Patient encounter procedure Lorri Noriega Facility:[id number] Start: 02-03-2018 Patient encounter procedure Lorri Noriega Facility:[id number] Start: 02-02-2018 Patient encounter procedure TIM VILLALOBOS Facility:[id number] Start: 02-01-2018 Patient encounter procedure TIM VILLALOBOS Facility:[id number] Start: 01-20-2018 Patient encounter procedure CHRISTIAN KUMARI Facility:[id number] Start: 06-11-2017 End: 06-11-2017 Emergency department patient visit MARIANADOLFO STOCKTON [facility] Start: 06-10-2017 End: 06-10-2017 Emergency department patient visit YARELI Posada MIESHASU Facility:B Start: 03-22-2017 End: 04-22-2017 Ambulatory HAYDEE BAIRENATANAB Facility:[facility] Start: 03-10-2017 End: 03-22-2017 Ambulatory HAYDEE BAISHNAB Facility:[facility] Start: 11-24-2016 End: 11-24-2016 Emergency department patient visit Tila Jim Facility:[facility] Plan of Treatment Date Care Activity Detail Author Start: 11-21-2023 Influenza vaccination Influenza Vacc ine (#1) [facility] Start: 03-22-2023 Behavioral Health Screening Behavioral Health Screening [facility] Start: 03-22-2023 Depression Assessment Depression Ass essment [facility] Start: 11-20-2022 Covid-19 Vaccine ( season) Covid-19 Vaccine ( season) [facility] Start: 11-20-2022 Influenza vaccination Influenza Vacc ine (#1) [facility] Start: 2008 Hepatitis B Vaccine (1 of 3 - 19+ 3-dose series) Hepatitis B Vaccine (1 of 3 - 19+ 3-dose series) [facility] Start: 2008 Urine microalbumin profile DTa P,Tdap,Td Vaccine (1 - Tdap) [facility] Start: 12-16-2007 Hepatitis C screening Hepatitis C Sc reening [facility] Start: 12-16-2007 HIV screening HIV Screening [facility] Start: 06-14-1990 Covid-19 Vaccine (#1) Covid-19 Vacci ne (#1) [facility] Start: 1989 Hepatitis B Vaccine (1 of 3 - 3-dose series) Hepatitis B Vaccine (1 of 3 - 3-dose series) [facility] Immunizations Immunization Date Immunization Notes Care Provider Fa cility 10-17-2023 influenza virus vacc ine, unspecified formulation Jacquelyn GILL [facility] Payers Date Payer Category Payer Medicaid [id number] 2018 Private Health Insurance 2016 Private Health Insurance [id number] 1989 Unknown [id number] 2.16. [id number] 1989 Unknown [id number] 2.16. [id number] 1989 Unknown [id number] 2.16. [id number] 1989 Unknown [id number] 2.16. [id number] 1989 Unknown [id number] 2.16. [id number] 1989 Unknown [id number] 2.16.84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 Ideation Homicidal Ideation: Patient Denies Non-Lethal Harm to Others or Damage/Destruction to Property Harm to Others or Damage/Destruction of Property: Patient Denies Access To Weapons Access To Weapons: No History of Impulsive Behaviors History: suicide attempts have all been impulsive per pt Medical Conditions Medical Conditions Increasing Risks: None CHEMICAL DEPENDENCY Substance Use: Yes Referral for Substance Abuse Services: No Substances Used: Alcohol, Marijuana ACTIVITY Activities of Daily Living: Independent Mobility: No Assistance Continence: [facility]: Current Mental Health Providers: therapist Onofre Vazquez, psychiatrist Dr. العراقي, TROY not yet assigned but CM supervisor sanding is Zeyad Zamora Agency/Organization: [facility] Inpatient Mental Health Treatment History: Over 90 Days Ago Details of Past Hospitalization: history of multiple admissions to , [facility], [place], and [facility] Last Hospitalization: 2023 Outpatient Mental Health Treatment History: did IOP in 2018[facility] with C-SSRS Step 1: Identify Risk Factors C-SSRS Suicidal Ideation Severity Month 1. Wish to be Yes 2. Current suicidal thoughts Yes 3. Suicidal thoughts w/ Method No 4. Suicidal Intent without Specific Plan No 5. Intent with Plan No C-SSRS Suicidal Behavior: Lifetime Yes Past 3 Months No Current and Past Psychiatric Dx: Mood Disorder, Cluster B Personality Disorders or Traits (i.e. Borderline, Antisocial, Histrionic & Narcissistic, Conduct Problems (Antisocial Behavior, Aggression, Impulsivity) Presenting Symptoms: Impulsivity, Hopelessness or Despair, Anxiety and/or Panic Family History: (denies) Change in treatment: (n/a) Access to lethal methods: denies Step 2: Identify Protective Factors (Protective factors may not counteract significant acute suicide risk factors) Internal: Identifies Reasons for Living, Ability to [place] with Stress External:Engaged in Work or School, Responsibility to Children, Supportive Social Network of Family or Friends, Positive Therapeutic Relationships Step 3: Specific questioning about Thoughts, Plans, and Suicidal Intent - (see Step 1 for Ideation Severity and Behavior) C-SSRS Suicidal Ideation Intensity Month Frequency Once a week Duration 1-4 hours/a lot of time Controllability Can control thoughts with some difficulty Deterrents Deterrents definitely stopped you from attempting suicide Reasons for Ideation Mostly to get attention, revenge, or a reaction from others Total Score Suicidal Ideation Intensity Total Score: 11 Step 4: Guidelines to Determine Level of Risk and Develop Interventions to LOWER Risk Level RISK STRATIFICATION TRIAGE High Suicide Risk Moderate Suicide Risk Discuss case presentation with staff providing medical care. Discuss with on-call psychiatrist or accepting hospital entity as needed. Low Suicide Risk Step 5: Documentation Risk Level : Suicide Risk (BH Initial Screening):: Moderate Risk Actual risk determined to be : Moderate-Chronic Clinical Observation: Pt endorses suicidal thoughts that started early this morning on my way into work. Pt is vague but reports some intermittent suicidal thoughts over the past few weeks. Pt denies a plan and denies intent at this time but also states that all of his past suicide attempts have been impulsive. My past issues with attempts have been impulses. I could leave here be fine then all the sudden look here's a bottle of meds I'm taking. There's no warning, there's no trigger, it happens. Usually after I do something really stupid like that I reach out to someone. Pt reports a history of multiple prior attempts via overdose, injecting antifreeze, and injecting insulin. Reports all attempts have been impulsive. Pt reports that his last attempt in Apr [address] his [address] into work when he stopped at the gas station, bought a drink, then suddenly took all his pills. Pt is able to identify reasons for living as he likes his job and his two sons. Pt does not want to be admitted due to fear it will jeopardize his job.Pt reports his only support is his gf (ex gf?) as he does not have any friends and doesn't know if his parents are supportive. He later says that his boss told him that he can talk to him if he needs to. Pt lives in an apartment building owned by [facility] that is next door to the [facility] so he can call and walk over whenever he is in crisis. Pt reports that she has a counseling appointment on and can walk in to speak with a CM tomorrow. Pt completes safety plan (see below), contracts for safety, and says that he would never harm himself with son present and plans to have his son with him tonight. Pt reports the majority of his past attempts were via overdose and he no longer has access to full pill bottles-he only gets week supplies of medications because he has no insurance and they give him free samples. He does not keep any over the counter medications in his apartment. Pt denies homicidal thoughts, delusions, and hallucinations. Pt reports poor sleep and some decrease in appetite. Relevant Mental Status Evaluation: Pt is alert and oriented x4. Pt is linear and organized. Pt is calm and cooperative. Methods of Suicide Risk Evaluation: CSSRS, SAFET, clinical interview Brief Evaluation Summary: Warning Signs: suicidal thoughts Risk Indicators: suicidal thoughts, impulsivity, history of attempts, borderline personality disorder, relationship problems, anxiety, hopelessness, worthlessness, limited supports Protective Factors: helpseeking, linked to services, med compliant, contracts for safety, identifies reasons for living, future oriented, identifies coping skills Access to Lethal Means: denies Collateral Sources Used and Relevant Information Obtained: [facility] Specific Assessment Data to Support Risk Determination Rationale for Actions Taken and Not Taken: Pt is vibha for safety at this time. Pt's history of attempts and impulsivity are static risk factors that will not change with an admission. Communication of Current Risk Stratification to: Current Medical Providers: Dr. Bah Date 06/10/23 Time2:11pm Psychiatrist staff weapons officer: Name: Dr. Carias Date: 10/10/23 Time: 2:05pm Other Contact and Role: N/A INTERVENTIONS Psychiatry Consult Completed in This Episode of Care: No Sources of Information: Patient, Epic, Prior Referrals, ED Staff Patient Assessed by Intake via: Telephone Coordination of care with: ED RN, ED LIP Interventions: Therapeutic Interventions Therapeutic Interventions: Crisis Assessment, Safety Planning, Risk Reduction, Motivational Interviewing, Crisis Intervention, Provision of Psycho-Education Motivational Interviewing: With OARS Goals/Objectives: Discharge from hospital with referrals/linkage to supportive services/current providers DISPOSITION & PLAN: Patient Assessed by Intake via: Telephone Patient stated goals: Goals: To not be hospitalized/be discharged from ED, This has been discussed with my physician Coordination of Care with: ED RN, ED LIP Assessment/Impressions: Discharge Plan: Discharge Goals/Objectives: Discharge from hospital with referrals/linkage to supportive services/current providers Total time spent (minutes) in Supportive Care for this patient: 30 MEDICAL CLEARANCE Initial Date: 10/10/23 Initial Time: 09 Reviewed medical history with physician: Yes Reviewed abnormal labs with physician: Yes Discussed case with Dr. Carias who states that Alyssa Carr is not a candidate for admission. Is Patient Less Than 18 Years of Age or have a Guardian/Healthcare Power of Receiving Checker?: No Disposition Date: 10/10/23 Disposition Time: 141 SIGNATURE: CARLY Vance PATIENT NAME: Alyssa Carr DATE: October 10, 2023 TIME: 2:57 PM SAFETY PLAN Alyssa Carr October 10, 2023 STEP 1: Warning Signs - Things that may trigger me to feel that terribly again: 1. Uncertainty about relationship 2. Access to pills STEP 2: Internal coping strategies - Things I can do to take my mind off my problems without contacting another 1. Reading 2. Walking 3. Fishing STEP 3: People and social settings that provide a distraction - Where could I go or who could I see that would help me feel better: 1. Walk outside 2. Talk to boss 3. Call warmline STEP 4: People I can ask for help - Who can I contact and talk to about how I am feelin. [facility] Crisis Line [phone] 2. [facility] 3. Counselor Onofre Nicholson Step 5: Professionals or agencies I can contact during a crisis: Crisis Text Line Text HOME to 223952 National Suicide Prevention Lifeline Text 988 Call 369-180-3634 Call 456-234-4531 National Sexual Assault Hotline Call 128-767-6180 [place] [employer] Lifeline (LGBTQ+) Call 006-130-2767 or Text START to 369-581 [facility] Community Services Call 211 Mobile Psychiatric Crisis Team Call 786-791-1169 Poison Control Call 951-821-2490 National Sexual Assault Hotline Call 823-517-6964 [facility] Mental Health Hotline Call 384-442-4427 [facility] Mental Health Hotline Call 870-375-2883 [facility] Crisis Hotline Call 372-301-4613 [facility] Crisis Hotline Call 400-172-8136 [facility] Crisis Line [phone] Clinician Name Clinician Contact # Clinician Name Clinician Contact # Emergency Services Call [phone] STEP 6: Making the environment safe - What do I need to get rid of, who can stay with me, or where can I stay in order to feel safe: Pt denies-reports living environment is safe Step 7: Access to this information - Where will I keep this plan so that I can easily access it when needed: Pt encouraged to place this in highly visible location such as back of bedroom door, bathroom mirror, fridge, or take picture on cell phone. documented in this encounter [facility] 05-03-2023 Miscellaneous Notes BEHAVIORAL HEALTH INTAKE NOTE SERVICE DATE: 05/03/23 SERVICE TIME: 7:53am Nature of the crisis: suicide attempt Presenting Problem: Alyssa Carr is a 32 year old male brought in to [facility] ED from Home by self for psychiatric evaluation. SHIRT CREASER met with pt at bedside. Pt was a&o x3 and cooperative during assessment. Pt presenting as disheveled and malodorous and was smiling at times when talking about presenting problem and stressors. Pt identified he is in the ED for suicidal thoughts and taking a whole bottle of Lamictal. Pt reported he took the medication at 530am on his way to work. Pt reported I have no idea when asked if this was an attempt to end his life. Pt reported it was a spur on the moment thing but also reported that he has had suicidal thoughts for 2-3 weeks and he was still feeling a little bit suicidal. Pt identified that the stress of work and life made him try to overdose. Pt reported he lives between his girlfriend's house and his parent's house where his son lives. Pt reported she has shared custody of his son with his parents. Pt reported his son his home right now with his parents and has RSV. Pt identified that his son also had a biopsy last Wednesday and his heart also skipped a beat. Pt identified that his son has had three heart surgeries and a heart transplant in 2021. 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 Pt endorsed a history of multiple suicide attempts. Pt reported he has tried to overdose multiple times and has also tried injecting car antifreeze and insulin before. Pt identified his last attempt prior to today was 5-6 years ago. Pt endorsed a history of 5-6 psychiatric hospitalizations as well. Pt reported he was last hospitalized in October at [facility] for SI. Pt reported he was receiving outpatient services at [facility], but they have canceled and rescheduled his last couple appointments. Pt reported he is prescribed Lamictal and a few other medications and is mostly takes them on a regular basis. Pt reported he has been previously diagnosed with ADHD, autism and they are looking into bipolar disorder. Pt denied regular alcohol or drug use. Pt endorsed occasional alcohol and marijuana usage. Pt denied HI and AVH. Pt reported he only sleeps 3-4 hours a night and has maybe one meal a day. SOCIAL HISTORY: Social History Tobacco Use Smoking status: Unknown MEDICATIONS: No prescriptions on file. No medication comments found. MEDICATION COMPLIANCE: No SOCIAL INFORMATION: Living Arrangements: Home Provider Stated Diagnosis: MDD Satisfaction With Relationships: Pt reported he lives between his girlfriend's house and his parent's house where his son lives. Pt reported she has shared custody of his son with his parents. Pt reported his son his home right now with his parents and has RSV. Does Patient Have Minor Children for Whom He/She is Responsible?: Yes Care Provided When Patient is Unable: pt's parents Employment Status: Full-Time Is the Patient a : No Legal History: No Legal History How Legal Issues Were Verified: [facility] [employer] Website, [facility] [employer] Website, [facility] [employer] Website, [facility]'s Sexual Offender Website Gender Specific Test: Not Applicable Sex at Time of : Male Patient Identified Gender: Male Preferred Pronoun: He/Him/His OBSERVATIONS Level of Consciousness Alert: Yes Orientation: Person, Place, Time Physical Appearance Appears: Disheveled Speech Rate: Appropriate Volume: Appropriate Quality: Appropriate to Topic Quantity: Appropriate Thought Processes Thought: Linear and Organized Thought Content/Perceptions Delusions: None Observed Hallucinations: Patient Denies, None Evident Illusions: Patient Denies, None Evident Mood & Affect Observed/Reported: Euthymic Range of Affect: Full Sleep: Difficulty Sleeping Appetite: Lack of Appetite Non-Suicidal Self Injury Non-Suicidal Self Injury: Patient Denies Suicidal Ideation Suicidal Ideation: Current Current Behavior: Attempting Current Plans/Means: Pt identified he is in the ED for suicidal thoughts and taking a whole bottle of Lamictal. Pt reported he took the medication at 530am on his way to work. Pt reported I have no idea when asked if this was an attempt to end his life. Pt reported it was a spur on the moment thing but also reported that he has had suicidal thoughts for 2-3 weeks and he was still feeling a little bit suicidal. Description of Risk: Pt endorsed a history of multiple suicide attempts. Pt reported he has tried to overdose multiple times and has also tried injecting car antifreeze and insulin before. Pt identified his last attempt prior to today was 5-6 years ago. Homicidal Ideation Homicidal Ideation: Patient Denies Non-Lethal Harm to Others or Damage/Destruction to Property Harm to Others or Damage/Destruction of Property: Patient Denies Access To Weapons Access To Weapons: No CHEMICAL DEPENDENCY Substance Use: No Referral for Substance Abuse Services: No Toxicology Screen Results: Negative ACTIVITY Activities of Daily Living: Independent Mobility: No Assistance Continence: [facility]: Agency/Organization: Pt reported he was receiving outpatient services at [facility], but they have canceled and rescheduled his last couple appointments Inpatient Mental Health Treatment History: Over 90 Days Ago Last Hospitalization: Pt reported he was last hospitalized in October at [facility] for SI. SAFE-T Protocol with C-SSRS Step 1: Identify Risk Factors C-SSRS Suicidal Ideation Severity Month 1. Wish to be Yes 2. Current suicidal thoughts Yes 3. Suicidal thoughts w/ Method Yes 4. Suicidal Intent without Specific Plan Yes 5. Intent with Plan No C-SSRS Suicidal Behavior: Lifetime Yes Past 3 Months Yes Current and Past Psychiatric Dx: ADHD Presenting Symptoms: Impulsivity Family History: Change in treatment: Non-compliant or Not Receiving Treatment Access to lethal methods: pt denied Step 2: Identify Protective Factors (Protective factors may not counteract significant acute suicide risk factors) Internal: Frustration Tolerance, Fear of or the Actual Act of Killing Self, Identifies Reasons for Living External:Responsibility to Children, Engaged in Work or School Step 3: Specific questioning about Thoughts, Plans, and Suicidal Intent - (see Step 1 for Ideation Severity and Behavior) C-SSRS Suicidal Ideation Intensity Month Frequency Once a week Duration 4-8 hours/most of day Controllability Can control thoughts with some difficulty Deterrents Uncertain that deterrents stopped you Reasons for Ideation Mostly to end or stop the pain (you couldn't go on living with the pain or how you were feeling) Total Score Suicidal Ideation Intensity Total Score: 16 Step 4: Guidelines to Determine Level of Risk and Develop Interventions to LOWER Risk Level RISK STRATIFICATION TRIAGE High Suicide Risk Establish a therapeutic relationship, Complete Intake function and encounter for requested service, Discuss case presentation with staff providing medical care. Discuss with on-call psychiatrist or accepting hospital entity as needed., Document contact information in Intake encounter, Note concern to providers about need for suicide precaution orders/constant observation, Follow-up and document disposition from patient's current level of care Moderate Suicide Risk Low Suicide Risk Step 5: Documentation Risk Level : Suicide Risk ( Initial Screening):: High Risk Actual risk determined to be : High Clinical Observation: Pt identified he is in the ED for suicidal thoughts and taking a whole bottle of Lamictal. Pt reported he took the medication at 530am on his way to work. Pt reported I have no idea when asked if this was an attempt to end his life. Pt reported it was a spur on the moment thing but also reported that he has had suicidal thoughts for 2-3 weeks and he was still feeling a little bit suicidal. Pt identified that the stress of work and life made him try to overdose. Relevant Mental Status Evaluation: Pt was a&o x3 and cooperative during assessment. Pt presenting as disheveled and malodorous and was smiling at times when talking about presenting problem and stressors. Methods of Suicide Risk Evaluation: [place] and SAFE-T Brief Evaluation Summary: Warning Signs: depression Risk Indicators: impulsivity, previous attempts Protective Factors: son Access to Lethal Means: pt denied Collateral Sources Used and Relevant Information Obtained: n/a Specific Assessment Data to Support Risk Determination Rationale for Actions Taken and Not Taken: pt being admitted to manage and stabilize symptoms Communication of Current Risk Stratification to: Current Medical Providers: n/a Date 05/03/23 Time7:53am Psychiatrist staff weapons officer: N/A due to patient being transferred to a treatment provider outside of [facility] Other Contact and Role: N/A INTERVENTIONS Psychiatry Consult Completed in This Episode of Care: No Sources of Information: Patient, Epic, ED Staff Patient Assessed by Intake via: Face to Face Coordination of care with: ED LIP Interventions: Therapeutic Interventions Therapeutic Interventions: Crisis Assessment DISPOSITION & PLAN: Patient Assessed by Intake via: Face to Face Patient stated goals: Goals: To have reduction in symptoms Coordination of Care with: ED LIP Assessment/Impressions: Inpatient Need Plan: Secure an inpatient bed Goals/Objectives: Total time spent (minutes) in Supportive Care for this patient: 60 MEDICAL CLEARANCE Initial Date: 05/03/23 Initial Time: 1010 Reviewed medical history with physician: Yes Reviewed abnormal labs with physician: Yes Discussed case with Dr. Meyer who states that Alyssa Carr is a candidate for admission. Provider Stated Diagnosis: MDD Admitting Provider: Dr. Meyer Admission Status: Full Admit Unit: [facility] Bed#: 205-A Report Date: 05/03/23 Report Time: 1355 Admission Type: Medical Certificate Is Patient Less Than 18 Years of Age or have a Guardian/Healthcare Power of Receiving Checker?: No Disposition Date: 05/03/23 Disposition Time: 1437 SIGNATURE: CARLY Victoria PATIENT NAME: Alyssa Carr DATE: May 03, 2023 TIME: 9:28 AM documented in this encounter [facility] 10-30-2022 Note Attestation signed by Haider Dwyer MD at 10/30/2022 5:53 PM I was present for essential portions of the history and exam. I participated in medical decision making and agree with the undersigned assessment and plan. Total attending time spent 31 minutes. Difficult case diagnostically, there seems to be clear contributions from possibly an [place] II issue or autism spectrum disorder but I also suspect he had some component of a mood disorder. He had marked psychomotor agitation that was durable and improved over the days of hospitalization following initiation of mood stabilizers. His sleep improved somewhat but chronically is quite bad. For several days prior to discharge she had no suicidality and had no behavioral issues. 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 He contracted to return to the ER if necessary. Discharge Summary Alyssa Carr : 1990 ADMIT DATE: 10/25/2022 DISCHARGE DATE: 10/30/2022 PRIMARY CARE PHYSICIAN: Moreno Cheney VISIT STATUS: Admission CODE STATUS: Full Code DISCHARGE DIAGNOSES: Principal Problem: Suicidal ideations HOSPITAL COURSE: Patient is a 32-year-old male with past psychiatric history of major depressive disorder, suicide attempts, panic disorder, and suspected autism spectrum disorder who presented for passive suicidal ideation in the context of significant psychosocial stressors. Patient has a history of self-injurious behaviors and multiple suicide attempts including at least one severe attempt. He was noted to be sleeping an estimated two to three hours per night. 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 He was subsequently admitted to [facility]. On initial interview patient had rapid rate, appeared hyperthymic, and had profound psychomotor agitation. It was also discovered via collateral that the patient showed symptoms consistent with cluster B traits. He was treated with Zyprexa, Lamictal, Ativan and each were titrated to effect to address the suspected diagnosis of bipolar II disorder versus cluster B traits in the setting of autism spectrum disorder. Throughout the patient's hospital course, the patient's suicidal ideations progressively became less frequent. On mental status exam, his speech was noted to be less rapid and the patient appeared more euthymic. He was no longer displaying psychomotor agitation and endorsed sleeping a few more hours per night with the aforementioned medication regimen. Of significance, the patient was terminated from his job via a phone call while admitted, and with the aid of coping skills that he learned during his hospitalization, he was able to avoid thoughts of suicide or self-injurious behaviors. On the day of discharge, he continued his positive trajectory as evidenced by normalization of his mental status exam in speech rate, affect, and behavior. He demonstrated future oriented thinking and was looking forward to discharge. On the day of discharge, his mother Kathie ([phone]) was contacted. She had no reservations or concerns about the patient being discharged. She felt that the patient was not a threat to himself, others, and could take care of his ADLs. Both he and the mother confirmed that the patient has no access to firearms. The treatment plan was reviewed with the patient's mother who verbalized understanding and was in agreement with the plan. ED return precautions were given to both the patient and his mother including, but not limited to: Return of suicidal ideation, homicidal ideation, auditory/visual hallucinations, and worsening of symptoms. Patient was discharged on Zyprexa 5 mg nightly, Lamictal 25 mg daily, and Ativan 1 mg nightly as needed. SIGNIFICANT DIAGNOSTIC STUDIES: No significant diagnostic studies. CONSULTANTS: No consultations were placed. RECOMMENDED NEXT STEPS: The patient will follow up with [facility] on 11/04 and the counseling Center [facility] on 11/10. DISCHARGE MEDICATIONS: Medication List START taking these medications lamoTRIgine 25 MG tablet Commonly known as: LaMICtal Take 1 tablet (25 mg) by mouth daily. Do not start before October 31, 2022. Start taking on: October 31, 2022 LORazepam 1 MG tablet Commonly known as: Ativan Take 1 tablet (1 mg) by mouth Nightly as needed for anxiety for up to 8 days. OLANZapine 5 MG tablet Commonly known as: ZyPREXA Take 1 tablet (5 mg) by mouth Nightly. Where to Get Your Medications These medications were sent to [id number] (more content not included)... [facility] 10-30-2022 Note Individual Therapy P dee dee Note Date of Service: 10/30/22 Start Time: 11:15 am End Time: 11:30 am Summary of Session: Spoke with pt after group. Pt spent time sharing part of the stressful life events that he has been going through. Pt reported that he has minimal contact with 7yr old son but has regular contact with his 6yr old son. Discussed the importance of follow up care, medication compliance, and managing daily and weekly schedule. Pt reported that he plans on staying with parents possibly when he discharges and return to working in [employer]. MENTAL STATUS EXAM General Observations: Appearance: [x] Neatly groomed [] Unkempt [] Disheveled [] Other Demeanor: [x] Spontaneous [] Hostile [] Mistrustful [] Preoccupied [] Demanding Activity: [x] Normal [] Hyperactive [] Hypoactive Speech: [x] Clear [] Slurred []Rapid [] Pressured [] Slow [] Soft spoken [] Loud [] Mute [] Rambling [] Incoherent [] Word salad [] Nonsensical Eye Contact: [x] Average [] Sporadic [] Poor [] Avoidant [] Intense MOOD & AFFECT: Mood: [] Euthymic [x] Depressed [x] Anxious [] Angry [] Euphoric [] Irritable [] Other: Affect: [x] Full [] Blunted [] Constricted [] Flat [] Inappropriate [] Labile BEHAVIOR: [x] Cooperative [] Resistant [] Agitated [] Impulsive [] Hyperactive [] Aggresive [] Assaultive [] Restless [] Anhedonia [] Akathisia [] Dissociating [] Withdrawn [] Irritable [] Relaxed [] Tired/fatigued [] Tearful [] Pacing [] Easily Startled [] Trembling/shaking Grimaces COGNITION: Thought Processes: [x] Logical [] Pringle [] Circumstantial [] Tangential [] Loose [] Incoherent [] Blocked [] Racing [] Flight of Ideas Thought Content: Delusions: [] Grandiose [] Persecutory [] Somatic [] Rastafari [] Bizarre [] Nihilistic [x] None reported/observed Other: [] Autistic [] Obsessions [] Guilt [] Phobic [] Guarded Preoccupied [] Ideas of Reference [] Preoccupation with Suicidal Ideation [x] None Reported [] Ideation [] Intent [] Plan [] Self abusive behaviors (assess lethality if present) Homicidal Ideation [x] None Reported [] Ideation [] Intent [] Plan [] Aggressive behaviors (assess lethality of present) Perceptions: [x] Within normal limits [] Illusions [] Depersonalization [] Derealization [] Hallucinations: [] Auditory [] Visual [] Olfactory []Gustatory [] Tactile [] Visceral Oriented to: [x] Person [x] Place [x] Time [x] Situation Level of Consciousness: [x] Alert [] Clouded [] Fluctuating Memory Tested: [] Yes [x] No Memory Disturbance: [] Yes [x] No Attention Deficit: [] Yes [x] No Judgment: [] Good [x] Fair [] Poor Insight: [] Good [x] Fair [] Poor Comments re: significant MSE findings: N/A Therapeutic Intervention: Motivational Interviewing Patient Response to Intervention: Pt was open to talking Goal(s) Addressed During Session: Mood Stabilization Progress Towards Goal: Minimal progress [facility] 10-30-2022 Note Problem: Sensory Per ceptual Alteration as Evidenced by Goal: Patient/Family verbalizes awareness of resources Outcome: Progressing Problem: Sensory Perceptual Alteration as Evidenced by Goal: Initiates reality-based interactions Outcome: Progressing [facility] 10-29-2022 Note [facility] Inpatient Psyc hiatry provider progress note Subjective Patient seen for routine follow-up for suicidality which is his chief complaint The patient is not suicidal today. However when they are in my collateral that the patient is going to be terminated at his job upon discharge from the hospital. I informed the mother that this puts him at very high risk for suicide attempt as his previous suicide attempts have been in the context of interpersonal rejections and he very much has his self-esteem tied up in his successes at work. She is amenable to having herself or her brother call the patient and informed him of the news, I informed the treatment team. The patient still had substantial difficulty sleeping but did sleep an hour or 2 more last night. In addition he appears to exhibit less psychomotor agitation he still seems to not package pick up on social cues, he is not overtly anxious, we discussed some about outpatient follow-up today. Side effects of the patient's prescribed psychiatric medications were denied including pain myalgias nausea or vomiting stomach pain drooling headache or blurry vision urinary changes bowel changes oversedation sleep changes or appetite changes. Objective Vitals: 10/29/22 0749 BP: 124/89 Pulse: 92 Resp: 18 Temp: 37.1 ?C (98.8 ?F) SpO2: 99% Mental Status Exam: Appearance: Disheveled. Dyed blonde hair. In own attire. Behavior: cooperative and attentive Speech: spontaneous, normal rate, normal volume, and well articulated Mood: fine Affect: affect incongruent to stated mood. Anxious. Smiling at inappropriate times. Slightly hyperthymic. Thought content: Passive SI. Denies HI/AVH. Thought process: logical and coherent Insight: fair Judgment: fair Suicidal Intentions: Passive SI Suicidal Plan: No Activity normal Associations: Goal-Directed Orientation: oriented to person and place. Attention fair Concentration fair Memory Recent: intact, Remote: impaired Language Naming: intact Repetition: intact Fund of knowledge: fair Assessment and Plan Bipolar Disorder II, current episode hypomanic Autism Spectrum Disorder Rule out Bipolar Disorder I Rule Borderline Personality Disorder -Continue on Lamictal 25 mg daily -Continue on Zyprexa 5 mg -Increase lorazepam to 2 mg nightly As of 10/29/22 symptoms of suicidality still severe enough to make inpatient level care medically necessary, and is expected that this treatment will improve said symptoms. Chart reviewed and staff consulted about patient progress and behaviors. Narrative portions of note written using [employer] dictation software. Efforts are made to dictate clearly and proofread but errors in dictation still may occur. Please reach out to author with any clarifying questions. 1 Chronic problem that is currently exacerbated was reviewed today and the prescription medications used for this problem were reviewed and managed. Plan to Bill at moderate level of medical decision making. See history and physical for diagnostic criteria. Haider Dwyer MD [facility] 10-27-2022 Note Individual Therapy P dee dee Note Date of Service: 10/27/2022 Start Time: 3:00PM End Time: 3:20PM Summary of Session: [facility] 2. Discussed events leading up to hospitalization. Pt reported breakup with girlfriend of two years. Pt reported he struggles with low self-esteem. Assisted pt in processing through his view of himself. Pt stated he is working on resentment worksheet from group, I'm working on the fact I resent myself . Provided support and encouragement. MENTAL STATUS EXAM General Observations: Appearance: [x] Neatly groomed [] Unkempt [] Disheveled [] Other Demeanor: [x] Spontaneous [] Hostile [] Mistrustful [] Preoccupied [] Demanding Activity: [x] Normal [] Hyperactive [] Hypoactive Speech: [x] Clear [] Slurred []Rapid [] Pressured [] Slow [] Soft spoken [] Loud [] Mute [] Rambling [] Incoherent [] Word salad [] Nonsensical Eye Contact: [x] Average [] Sporadic [] Poor [] Avoidant [] Intense MOOD & AFFECT: Mood: [] Euthymic [x] Depressed [x] Anxious [] Angry [] Euphoric [] Irritable [] Other: Affect: [x] congruent [] Blunted [] Constricted [] Flat [] Inappropriate [] Labile BEHAVIOR: [x] Cooperative [] Resistant [] Agitated [] Impulsive [] Hyperactive [] Aggresive [] Assaultive [] Restless [] Anhedonia [] Akathisia [] Dissociating [] Withdrawn [] Irritable [] Relaxed [] Tired/fatigued [] Tearful [] Pacing [] Easily Startled [] Trembling/shaking Grimaces COGNITION: Thought Processes: [x] Logical [] Pringle [] Circumstantial [] Tangential [] Loose [] Incoherent [] Blocked [] Racing [] Flight of Ideas Thought Content: Delusions: [] Grandiose [] Persecutory [] Somatic [] Rastafari [] Bizarre [] Nihilistic [x] None reported/observed Other: [] Autistic [] Obsessions [] Guilt [] Phobic [] Guarded Preoccupied [] Ideas of Reference [] Preoccupation with Suicidal Ideation [x] None Reported [] Ideation [] Intent [] Plan [] Self abusive behaviors (assess lethality if present) Homicidal Ideation [x] None Reported [] Ideation [] Intent [] Plan [] Aggressive behaviors (assess lethality of present) Perceptions: [x] Within normal limits [] Illusions [] Depersonalization [] Derealization [] Hallucinations: [] Auditory [] Visual [] Olfactory []Gustatory [] Tactile [] Visceral Oriented to: [x] Person [x] Place [x] Time [x] Situation Level of Consciousness: [x] Alert [] Clouded [] Fluctuating Memory Tested: [] Yes [x] No Memory Disturbance: [] Yes [x] No Attention Deficit: [] Yes [x] No Judgment: [] Good [x] Fair [] Poor Insight: [] Good [x] Fair [] Poor Comments re: significant MSE findings: N/A Therapeutic Intervention: [facility] provided supportive listening and reflection. Utilized Pt centered techniques to validate Pt's emotions and thoughts, and to allow Pt to process through recent stressors. Explored options Pt can engage in to improve mental health and coping skills. Patient Response to Intervention: receptive Goal(s) Addressed During Session: Control Deterioration of Symptoms, Improve or Maintain Level of Functioning to Avoid future Hospitalizations, and Explore Core Issues Underlying Illness Progress Towards Goal: Minimal progress [facility] 10-27-2022 Note Attestation signed by Haider Dwyer MD at 10/27/2022 5:25 PM I was present for essential portions of the history and exam. I participated in medical decision making and agree with the undersigned assessment and plan. I performed my own exam and assessment and agree with the below plan. 1 Chronic problem that is currently exacerbated was reviewed today and the prescription medications used for this problem were reviewed and managed. Plan to Bill at moderate level of medical decision making. Terminology used to describe psychiatric evaluations accurately can be viewed as pejorative or judgmental and can negatively impact the therapeutic relationship and as an extension progress in the treatment. Decompensation of psychiatric symptoms can absolutely pose a threat to physical wellbeing or safety of the patient or other people. Difficult case diagnostically, I think the most parsimonious explanation is some type of mood disorder underlying either some borderline traits or autism spectrum disorder type issues. His relationships could be tumultuous because of his bipolar symptoms rather than as a feature of his nature of relating to others. [facility] Department of Psychiatry Inpatient Psychiatry History and Physical Chief Complaint: Passive suicidal ideation History of Present Illness Alyssa Carr is a 31 y.o. male with a past psychiatric history of suicide attempts, ADHD, ASD, and depression who presents with suicidal ideation. On examination today, he states his mood is rough. Patient has been feeling depressed for the last couple of weeks with suicidal ideations that started over the weekend. He has a lot of life stressors that include breaking up with his residential girlfriend, moving in with his parents and health issues in his son. He states he had a suicide attempt 5 years ago by overdosing on acetaminophen, injecting car antifreeze into his veins and cutting himself. He was checked intoinpatient unit at [place] where he was given Seroquel and other psychiatric medications that he does not remember. He mentions that the Seroquel gave him insomnia and made him feel manic. Currently, he denies HI. 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 He denies commands associated with it. Patient endorses decreased sleep. He states he sleep 2-3 hours a night and feels rested. He endorses changes in his appetite. Patient endorses distractibility and impulsitivity through purchases. 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 In the room, patient would inappropriately smile when discussing upsetting experiences. Furthermore, had psychomotor agitation such as fidgeting and scratching his shoulders. He expresses that he read 300 pages of a book on the unit since his admission yesterday. States that he has a plan to move in with his ex-girlfriend. Collateral Name Kathie, Relationship Mother, Number [phone], Time/date: 10/27 10:18 Content of Conversation: Patient's Mom state historically he is contained and does not like to talk to others. He does not tell the truth about where he is or where he slept. She states that he is in and out of depression. When he is depressed, he is quiet and withdrawn. When asked about irritability, she states that he shuts down when confronted. She endorses racing thoughts. She states that he interrupts and changes subjects to random topics when talking to his family. She states he is emotionally stable. She denies volatile emotions. She admits to him having paranoia occasionally. He believes that his siblings don't like him and that he lies often. Mother states that days leading up to his admittion he was quiet and withdrawn due to issues with his ex-girlfriend. She states he has had multiple suicide attempts and self-harming behavior. She denies substance abuse, family history of psychiatric diagnoses and substance abuse. She denies apparent SI, HI or AVH. Collateral Call Note Name: Brandon Relationship: Phone Number: [phone] Date/Time: 13:59 Contents of conversation: Uncle states that patient's mood is usually semi-decent. He states patient is slightly worried and that he does not trust other people's decisions at work. He mentions an episode where he only drank energy drinks with no food for 48 hours. This led to heart palpitations that brought him to the ED. He states this his opinion on coworkers change very quickly. Moreover, miniscule things upset him. His coworkers have complained about his problems with rage, impulsiveness and unpredictable mood changes. Uncle enorses tumultuousness in patient's relationships. Uncle is not awar (more content not included)... [facility] 10-25-2022 Note Department of Psychi atry Resident Emergency Department Consultation - Adult Chief Complaint: I hate myself. History obtained from: patient Patient was seen after discussion with ED staff and reviewing the chart Per ED Note: Chief Complaint Patient presents with Suicidal Patient c/o suicidal ideation x 5-6 days. States no plan. Shant HI. A/O x 4. GCS 15. History of Present Illness: The patient is a 31 y.o. male who presents with suicidal ideations. Patient has a pmh of MDD w/ out psychosis, multiple suicide attempts via intentional overdose, panic disorder, and per patient Borderline Personality Disorder. Alyssa notes that he was at work when he approached [employer] [facility] with his presenting complaints. Notes that he was transferred to [facility] ED by [facility]. Patient on interview today notes that he has been experiencing symptoms of depression for approximately the last two months. He notes that he recently (2-3 weeks ago) broke up with his significant other of approximately 2 years. Notes that he has been having suicidal ideation for the last few days, and typically comes to the hospital when he feels he may act on the thoughts. Patient notes the last time he felt like this was approximately 5 years ago, when he overdosed with acetaminophen. Alyssa notes besides the relationship stress he feels work stress. 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 Alyssa and his ex shared a private home, where he no longer feels welcome. He further states that he is experiencing housing instability, and is seeking an apartment. Currently notes he is residing with his parents, but feels uneasy about the situation. Alyssa states that he is unsure if he will attempt to hurt himself, due to his suicide attempts in the past being both planned, and impulsive. Alyssa does note that he feels that he should come in if he is started on psychiatric medication, but is unable to contract for safety if he were to be sent home. He notes chronic auditory hallucinations in his right ear, elaborates that he feels that they are 2/2 to being deaf in this ear. No discernible voice, or commands associated with AH. Denies HI. Medications Prior to ED Assessment: Patient's Medications No medications on file Compliance: N/A Psychiatric Review of Systems [x] Change in appetite/weight [x] Change in sleep MOOD: [x] Anhedonia [x] Decreased/low mood [x] Worthlessness/Guilt [x] Hopeless/Helpless [] Decreased energy [] Decreased concentration ANXIETY: [x] Excessive worry/difficulty controlling worry [] Irritability [x] Easily fatigued [] Difficulty concentrating [] Obsessions [] Palpitations/Chest pain [] Diaphoresis [] Shortness of breath [] Trembling/shaking [] Sense of doom/fear of dying [] Agoraphobia [] Derealization/Depersonalization PTSD: [] Nightmares [] Flashbacks [] Avoidance [] Hyperarousal [] Hypervigilance TEGAN: [] Inflated self esteem/grandiosity [] Elevated energy [] Decreased need for sleep [] Talkative/rapid/pressured speech [] Flight of ideas/racing thoughts [] Distractibility [] Increased goal directed activity [] Risky behaviors/activities [] Irritability [] Psychomotor agitation PSYCHOSIS: [x] Auditory hallucinations [] Visual hallucinations [] Tactile hallucinations [] Delusions [] Disorganized speech [] Paranoia Past Psychiatric History: Prior Diagnosis: Borderline Personality Disorder, MDD w/out psychotic features Outpatient treatment: Denies Current, history of following with psychiatric provider Hospitalization: Multiple hospitalizations following SA Hx of Suicidal Attempts: Multiple attempts via overdosing on medication both prescription and OTC, noted hx of self harm via sharp objects Previous discontinued Psychiatric Med Trials: Self discontinued Seroquel. Past Medical History: Past Medical History: Diagnosis Date Liver disease Pneumonia Past Surgical History: No past surgical history on file. Allergies: Patient has no known allergies. Family History: No family history on file. Social History: Relationship status: Just ended a extermination supervisor relationship Children: 6 and 7 year old. He shares custody of the 6 year old with his parents. Living situation: Staying with his parents, but also spent the night at a home he shares with his ex girlfriend. 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 Legal history:Yes, pt was vague. Trauma history:Yes, endorses, but denies knowing what his trauma is and was. ADLs/IADLs: Independent Substance Abuse History: ETOH: Denies current Illicit Drugs: Marijuana Review of Systems: ROS: Eye: No blurring of vision or diplopia ENT: No lesion in the ears, no rhinorrhea, no sore thro (more content not included)... [facility] Evaluation note Diagnosis Episode of recurrent major depressive disorder, unspecified depression episode severity (HCC)- [facility] Borderline personality disorder (HCC)- Primary Borderline personality disorder documented in this encounter [facility] Summary Purpose Family History No Family History Records FoundNo Family History Records FoundNo Family History Records FoundNo Family History Records FoundNo Family History Records FoundNo Family History Records FoundNo Family History Records FoundNo Family History Records FoundNo Family History Records FoundNo Family History Records FoundNo Family History Records FoundNo Family History Records FoundNo Family History Records FoundNo Family History Records FoundNo Family History Records Found Advance Directives No Advanced Directives Records FoundNo Advanced Directives Records FoundNo Advanced Directives Records FoundNo Advanced Directives Records FoundNo Advanced Directives Records FoundNo Advanced Directives Records FoundNo Advanced Directives Records FoundNo Advanced Directives Records FoundNo Advanced Directives Records FoundNo Advanced Directives Records FoundNo Advanced Directives Records FoundNo Advanced Directives Records FoundNo Advanced Directives Records FoundNo Advanced Directives Records FoundNo Advanced Directives Records Found Health Concerns Infection Onset Date Last Indicated Resolved Time COVID-19 Rule-Out 05/03/2023 05/03/2023 05/03/2023 6:42 AM EST Additional Source Comments (unrecognized sect ion and content) No Status Records FoundNo Status Records FoundNo Status Records FoundNo Status Records FoundNo Status Records FoundNo Status Records FoundNo Status Records FoundNo Status Records FoundNo Status Records FoundNo Status Records FoundNo Status Records FoundNo Status Records FoundNo Status Records FoundNo Status Records FoundNo Status Records Found INFORMATION SOURCE (unrecogn ized section and content) DATE CREATED AUTHOR 09/09/2017 [facility] DATE CREATED AUTHOR AUTHOR'S ORGANIZ ATION 09/10/2017 [facility] DATE CREATED AUTHOR AUTHOR'S ORGANIZ ATION 09/13/2017 [facility] DATE CREATED AUTHOR AUTHOR'S ORGANIZ ATION 09/15/2017 [facility] DATE CREATED AUTHOR AUTHOR'S ORGANIZ ATION 09/15/2017 [facility] DATE CREATED AUTHOR AUTHOR'S ORGANIZ ATION 02/28/2018 [facility] DATE CREATED AUTHOR AUTHOR'S ORGANIZ ATION 02/28/2018 [facility] DATE CREATED AUTHOR AUTHOR'S ORGANIZ ATION 03/03/2018 [facility] DATE CREATED AUTHOR AUTHOR'S ORGANIZ ATION 06/01/2018 [facility] DATE CREATED AUTHOR AUTHOR'S ORGANIZ ATION 04/05/2019 [facility] DATE CREATED AUTHOR AUTHOR'S ORGANIZ ATION 03/14/2022 [facility] DATE CREATED AUTHOR AUTHOR'S ORGANIZ ATION 11/07/2022 [facility] DATE CREATED AUTHOR AUTHOR'S ORGANIZ ATION 11/21/2023 [facility] DATE CREATED AUTHOR AUTHOR'S ORGANIZ ATION 11/30/2023 [facility] Source Comments (unrecognize d section and content) In the event this informatio n is protected by the Federal Confidentiality of Alcohol and Drug Abuse Patient Records regulations: The Federal rules restrict any use of the information to criminally investigate or prosecute any alcohol or drug abuse patient.[facility] event this information is protected by the Federal Confidentiality of Alcohol and Drug Abuse Patient Records regulations: The Federal rules restrict any use of the information to criminally investigate or prosecute any alcohol or drug abuse patient.[facility] Reason for Visit (unrecogniz ed section and content) Reason Onset Date Comments Psychiatric Problem 05/03/2023 Reason Onset Date Comments Psychiatric Problem 10/10/2023 Care Teams (unrecognized sec tion and content) [employer] Relationship Specialty Start Date End Date Eboni Coles PCP - General Family Medicine 05/30/16 [employer] Relationship Specialty Start Date End Date Eboni Coles PCP - General Family Medicine 05/30/16 FOR RECORDS PERTAINING TO PATIENTS WHO ARE OR HAVE BEEN ENROLLED IN A CHEMICAL DEPENDENCY/SUBSTANCEABUSE PROGRAM, SOME INFORMATION MAY BE OMITTED. This clinical summary was aggregated from multiple sources. Caution should be exercised in using it in the provision of clinical care. This summary normalizes information from multiple sources, and as a consequence, information in this document may materially change the coding, format and clinical context of patient data. In addition, data may be omitted in some cases. CLINICAL DECISIONS SHOULD BE BASED ON THE PRIMARY CLINICAL RECORDS. [facility]. provides no warranty or guarantee of the accuracy or completeness of information in this document.
[2024-01-18 00:01] LABS: Amphetamine Urine VISTA NEGATIVE (<1000 ng/mL); Barbiturate Urine VISTA NEGATIVE (< 200 ng/mL); Benzodiazepine Urine VISTA NEGATIVE (< 200 ng/mL); Cocaine Urine VISTA NEGATIVE (< 300 ng/mL); Ecstacy Urine VISTA NEGATIVE (< 500 ng/mL); Methadone Urine VISTA NEGATIVE (< 300 ng/mL); PCP Urine VISTA NEGATIVE (< 25 ng/mL); THC Urine VISTA POSITIVE (< 50 ng/mL); Vista UDS pH Range 6
[2024-01-18] MEDS: Potassium Chloride Oral Tablet 20 MEQ 40 MEQ PO (00:15)
--- NOTE | 2024-01-18 00:34 | ED.RN ---
CRISIS CALLED CHART FAXED
--- NOTE | 2024-01-18 04:18 | EKG12_ITS ---
Test Reason : Blood Pressure : */* mmHG Vent. Rate : 74 BPM Atrial Rate : 74 BPM P-R Int : 186 ms QRS Dur : 86 ms QT Int : 360 ms P-R-T Axes : 67 44 54 degrees QTcB Int : 399 ms Normal sinus rhythm with sinus arrhythmia Normal ECG Confirmed by SANTOS MCARTHUR, FEMI ([id number]), editor school photograph AUGUSTUS HYATT ([id number]) on 01/18/2024 1:56:21 PM Referred By: KASIA Confirmed By: FEMI GRAHAM MD
--- NOTE | 2024-01-18 04:20 | ED.RN ---
Eddie avelar crisis called pt referred to generations, generations requests ekgdr notified.
--- NOTE | 2024-01-18 05:23 | ED.RN ---
PT ACCEPTED AT [facility] [address]MANZAR PAIG[id number] [phone] [place] ETA [id number](7AM/730)
[2024-01-18 06:49] VITALS: BP 122/75; PULSE 88; RESP 16; TEMP 36.7; O2SAT 94
== END 2024-01-18 07:08 ==
LOC: ED 23:53
PROVIDERS: Emergency Provider Emergency Medicine; PCP Family Medicine; Visit Provider Emergency Medicine
DX: T14.91XA Suicide attempt, initial encounter (principal); F17.210 Nicotine dependence, cigarettes, uncomplicated; X58.XXXA Exposure to other specified factors, initial encounter
CPT/HCPCS: 80048; 80307; 82077; 85025; 93005; 99284

== ENCOUNTER 2024-06-28 12:13 | Emergency (ER) | payer SELFPAY ==
[2024-06-28 12:15] VITALS: BP 133/86; PULSE 79; RESP 18; TEMP 36.4; O2SAT 98; BMI 25.6
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
[2024-06-28 12:59] LABS: Absolute Lymphocyte Count 1.02 X10^3/uL (0.83-4.51); Absolute Neutrophil Count 5.9 X10^3/uL (2.0-7.7); Basophil# 0.03 X10^3/uL; Basophil% 0.4 % (0-1); Eosinophil# 0.02 X10^3/uL; Eosinophils% 0.3 % (0-5); Hematocrit 40.1 % (40-54); Hemoglobin 13.5 g/dL (13.0-16.5); Lymphocyte # 1.02 X10^3/ul (0.83-4.51); Lymphocyte % 13.8 % (19-41); Mean Corp Hgb Conc 33.7 g/dL (32-36); Mean Corpuscular Hgb 29.6 pg (27.0-32.0); Mean Corpuscular Volume 87.9 fL (80-94); Mean Platelet Vol. 10.7 fl (6.2-12.0); Monocyte# 0.42 X10^3/uL; Monocyte% 5.7 % (0-10); NRBC Flagged by Analyzer 0 % (0-5); Neutrophil # 5.88 X10^3/uL (2.7-7.7); Neutrophil % 79.5 % (47-70); Platelet Count 235 K/mm3 (150-450); RBC Distribution Width CV 13.3 % (11.6-14.6); RBC Distribution Width SD 43.2 fl (35.1-43.9); Red Blood Count 4.56 M/mm3 (4.6-6.2); White Blood Count 7.4 K/mm3 (4.4-11.0)
[2024-06-28 13:18] LABS: Alcohol, Blood (Medical)-Serum < 10.1 mg/dL (<=10.0); Anion Gap 11 (5-15); BUN 14 mg/dL (4-19); BUN/Creat Ratio 14.2 RATIO (10-20); Carbon Dioxide 22.7 mmol/L (21.0-32.0); Chloride 103 mmol/L (98-108); Creatinine, Serum 0.97 mg/dL (0.70-1.20); EST Glomerular Filtration Rate 105 (>60); Estimated Creatinine Clearance 131.74 ml/min (50-250); Glucose 124 mg/dL (70-99); Potassium 3.5 mmol/L (3.3-5.1); Sodium Level 137 mmol/L (133-145)
[2024-06-28 13:20] LABS: Amphetamine Urine NEGATIVE (<1000 ng/mL); Barbiturate Urine NEGATIVE (< 200 ng/mL); Benzodiazepine Urine NEGATIVE (< 200 ng/mL); Buprenorphine Urine NEGATIVE (< 200 ng/mL); Cocaine Urine NEGATIVE (< 300 ng/mL); Fentanyl, Urine NEGATIVE; Methadone Urine NEGATIVE (< 300 ng/mL); Opiates Urine NEGATIVE (< 300 ng/mL); Oxycodone, Urine NEGATIVE (< 100 ng/mL); PCP Urine NEGATIVE (< 25 ng/mL); THC Urine PRESUMPTIVE POSITIVE (< 50 ng/mL)
[2024-06-28 13:25] VITALS: BP 132/74; PULSE 85; RESP 16; O2SAT 97
--- NOTE | 2024-06-28 17:04 | EKG12_ITS ---
Test Reason : MCH Blood Pressure : */* mmHG Vent. Rate : 65 BPM Atrial Rate : 65 BPM P-R Int : 188 ms QRS Dur : 78 ms QT Int : 368 ms P-R-T Axes : 0 2 18 degrees QTcB Int : 382 ms Normal sinus rhythm Normal ECG Confirmed by SANTOS MCARTHUR, FEMI ([id number]), photographic editor MARTIN IRAHETA ([id number]) on 06/29/2024 8:40:24 AM Referred By: Confirmed By: FEMI GRAHAM MD
--- NOTE | 2024-06-28 17:36 | CM.ED ---
Social Work SW spoke with Armando from [facility], patient will be going to [facility], no bed available until tomorrow. Christen Sorto, MID LEVEL PROVIDER, SALES PROMOTER
--- NOTE | 2024-06-28 17:53 | PCA ---
FAXED [facility] ALL THE INFO THE REQUESTED, EKG, PINK SLIP, MED CLEARANCE, LABS, @ [phone]. RECEIVED A FAX BACK SAYING IT WENT THROUGH [place]. I FAXED THE PINK SLIP SEPARATELY SO THE COULD SEE BOTH SIDES.
[2024-06-28 21:57] VITALS: PULSE 75; RESP 18
[2024-06-29 00:49] VITALS: BP 112/75; PULSE 77; RESP 16; O2SAT 98
[2024-06-29 08:00] VITALS: BP 121/70; PULSE 87; RESP 16; O2SAT 99
[2024-06-29] MEDS: ARIPiprazole 5 MG Tablet PO (09:17)
== END 2024-06-29 17:18 ==
PROVIDERS: Emergency Provider Emergency Medicine; PCP Family Medicine; Visit Provider Emergency Medicine
DX: R45.851 Suicidal ideations (principal); F31.9 Bipolar disorder, unspecified; S51.801A Unspecified open wound of right forearm, initial encounter; F17.210 Nicotine dependence, cigarettes, uncomplicated; X58.XXXA Exposure to other specified factors, initial encounter; Z79.899 Other long term (current) drug therapy
CPT/HCPCS: 80048; 80307; 82077; 85025; 93005; 99284

== ENCOUNTER → 2024-09-01 | Outpatient (CLI) | payer SELFPAY ==
[2024-09-01 10:45] LABS: Lithium 0.26 mmol/L (0.60-1.20)
[2024-09-01 14:22] LABS: ALB/GLOB Ratio 1.6 RATIO (0.9-2.4); AST(SGOT) 23 U/L (<=37); Alanine Aminotransfer ALT/SGPT 25 U/L (<=46); Albumin, Serum 4.4 g/dL (3.5-5.0); Alkaline Phosphatase 73 U/L (40-129); Anion Gap 11 (5-15); BUN 17 mg/dL (4-19); BUN/Creat Ratio 16.6 RATIO (10-20); Calcium,Total 9.1 mg/dL (7.6-11.0); Carbon Dioxide 23.6 mmol/L (21.0-32.0); Chloride 103 mmol/L (98-108); Creatinine, Serum 1.01 mg/dL (0.70-1.20); EST Glomerular Filtration Rate 100 (>60); Globulin 2.8 g/dL (2.2-4.2); Glucose 103 mg/dL (70-99); Potassium 4.2 mmol/L (3.3-5.1); Protein, Total 7.1 g/dL (5.9-8.4); Sodium Level 138 mmol/L (133-145); Total Bilirubin 0.65 mg/dL (0.00-1.30)
== END | disposition home or self-care (01) ==
LOC: LAB 09:19
PROVIDERS: PCP Family Medicine; Referring Provider Psychiatry & Neurology Psychiatry; Visit Provider Psychiatry & Neurology Psychiatry
DX: Z79.899 Other long term (current) drug therapy (principal)
CPT/HCPCS: 36415; 80053; 80178; 84443

== ENCOUNTER 2024-11-08 18:29 | Emergency (ER) | payer BC, SELFPAY ==
[2024-11-08 18:30] VITALS: BP 125/82; PULSE 85; RESP 18; TEMP 35.6; O2SAT 98; BMI 26.7
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
[2024-11-08 19:25] LABS: Hematocrit 40.7 % (40-54); Hemoglobin 13.7 g/dL (13.0-16.5); Immature Granulocytes Count 0.030 X10^3/uL (0.0-0.0); Mean Corp Hgb Conc 33.7 g/dL (32-36); Mean Corpuscular Volume 88.1 fL (80-94); Mean Platelet Vol. 10.9 fl (6.2-12.0); NRBC Flagged by Analyzer 0 % (0-5); Platelet Count 202 K/mm3 (150-450); RBC Distribution Width CV 12.7 % (11.6-14.6); RBC Distribution Width SD 41.2 fl (35.1-43.9); Red Blood Count 4.62 M/mm3 (4.6-6.2); White Blood Count 9.7 K/mm3 (4.4-11.0)
[2024-11-08 19:29] VITALS: BP 117/92; PULSE 67
[2024-11-08 19:33] LABS: Alcohol, Blood (Medical)-Serum < 10.1 mg/dL (<=10.0)
[2024-11-08 19:36] LABS: Barbiturate Urine NEGATIVE (< 200 ng/mL); Benzodiazepine Urine NEGATIVE (< 200 ng/mL); PCP Urine NEGATIVE (< 25 ng/mL); THC Urine NEGATIVE (< 50 ng/mL)
[2024-11-08 19:37] LABS: Anion Gap 14 (5-15); BUN 14 mg/dL (4-19); BUN/Creat Ratio 14.6 RATIO (10-20); Calcium,Total 9.2 mg/dL (7.6-11.0); Carbon Dioxide 21.7 mmol/L (21.0-32.0); Chloride 101 mmol/L (98-108); Estimated Creatinine Clearance 129.08 ml/min (50-250); Glucose 145 mg/dL (70-99); Potassium 3.6 mmol/L (3.3-5.1)
[2024-11-08 20:00] LABS: Lithium < 0.10 mmol/L (0.60-1.20)
--- NOTE | 2024-11-08 22:48 | ED.RN ---
Attempted to call report multiple times. No answer and all calls go to voicemail.
[2024-11-08 22:56] VITALS: BP 126/85; PULSE 71; RESP 16; TEMP 35.6; O2SAT 100
--- NOTE | 2024-11-09 01:09 | ED.RN ---
Report given to staff at [facility]
== END 2024-11-08 23:07 ==
PROVIDERS: Emergency Provider Emergency Medicine; Visit Provider Emergency Medicine
DX: F31.9 Bipolar disorder, unspecified (principal); R45.851 Suicidal ideations; F90.9 Attention-deficit hyperactivity disorder, unspecified type; Z79.899 Other long term (current) drug therapy; F17.210 Nicotine dependence, cigarettes, uncomplicated
CPT/HCPCS: 36415; 80048; 80178; 80307; 82077; 85025; 99284